=== PATIENT | female | born 1960 | race Caucasian/White ===

== ENCOUNTER 2024-04-01 11:46 | Outpatient (OUT) | payer MEDICARE, SELFPAY ==
[2024-04-01 12:13] LABS: Hemoglobin 13.1 g/dL (12.0-16.0); Immature Granulocytes Abs Auto 0.01 10^3/uL (0.00-0.03); Immature Granulocytes Pct Auto 0.1 % (0.0-0.5); Lymphocytes Absolute Auto 1.3 10^3/uL (1.2-3.8); Lymphocytes Percent Auto 18.7 % (20.5-60.0); Mean Corpuscular HGB Conc 34.5 g/dL (29.9-35.2); Mean Corpuscular Hemoglobin 32.4 pg (26.7-34.0); Mean Corpuscular Volume 94.1 fL (81.0-99.0); Mean Platelet Volume 8.9 fL (9.5-13.5); Monocytes Absolute Auto 0.3 10^3/uL (0.3-0.8); Monocytes Percent Auto 4.9 % (1.7-12.0); Neutrophils Absolute Auto 5.3 10^3/uL (1.4-6.5); Neutrophils Percent Auto 76.3 % (43.0-75.0); Platelet Count 297 10^3/uL (150-450); Red Blood Count 4.04 10^6/uL (4.20-5.40); Red Cell Distribution Width 12.3 % (11.0-15.0)
== END 2024-04-01 11:47 | disposition home or self-care (01) ==
LOC: LAB 11:51
DX: H02.422 Myogenic ptosis of left eyelid (principal)
CPT/HCPCS: 36415; 85025

== ENCOUNTER 2024-06-24 09:13 | Outpatient (OUT) | payer MEDICARE, SELFPAY ==
--- OUTSIDE RECORDS SUMMARY | 2024-06-24 09:24 | XMS_ITS | CCD ---
Author Organization [facility] Care Team Providers Care Manager [employer] Name Role Phone HARINI OLEA Primary Care Unavailable DARYL, DR MARIA ELENA Malik Attending Unavailable DARYL, DR MARIA ELENA Malik Consulting Unavailable DR MARIA ELENA BRITO Admitting Unavailable DEA ROWELL Consulting Unavailable Arianne Munoz Unavailable DO Harini Olea Primary Care Provider [phone] MD Arslan Chen Attending Provider Harini Olea Primary Care Physician Phi Matute Attending Unavailable Phi Matute Admitting Unavailable NO FAMILY, PHYSICIAN Primary Care Unavailable Harini Olea Primary Care Unavailable Arslan Chen Admitting Unavailable Arslan Chen Attending Unavailable Arslan Chen Admitting Unavailable Harini Olea Primary Care Unavailable Arslan Chen Attending Unavailable Unavailable Primary Care Provider UnavailJOSELIN Acuña Attending Unavail able Oc MATOS Primary Care Physician [phone] Oc MATOS Attending Unavailab le Oc MATOS A Admitting Unavailab le Oc MATOS A Attending Unavailab le Oc MATOS A Admitting Unavailab Gilberto Kolb DO Unavailable [phone] Taya Oh MD Primary Care Provider Taya Oh MD Primary Care Provider OC MATOS Attending Unavailab OC Mcmanus Attending Unavailab le ARSLAN CHEN Attending Unavailable Nicko Kerr. Attending Unavailable Allergies Allergy Classification Reported Allergen(s) Allergy Type Date of Onset Reaction(s) Facility (1 source) Cefuroxime Drug Allergy 01-26-2022 [facility] Repository (7 sources) Cefuroxime Drug Allergy 01-26-2022 Hives [facility] Medications Current Medications Medication Drug Class(es) Dates Sig (Normalized) Sig (Original) methIMAzole 5 mg oral tablet (13 sources) Thyroid Hormone Synthesis Inhibitor Start: 02-27-2023 End: 06-27-2024 take 1 tablet by mouth once daily methIMAzole (Tapazole) 5 MG tablet Indications: Thyrotoxicosis, unspecified without thyrotoxic crisis or storm (CMS/HCC) Take 1 tablet (5 mg) by mouth Daily 90 tablet 1 12/30/2023 06/27/2024 Active Start: 09-19-2020 take 1 mg by mouth e very eight hours Tapazole 5 mg Tab mg tab(s), Oral, q8hr, Refills(s) 0 Start Date: 09/19/20 Status: Ordered 24 hr metoprolol succinate 25 mg extended release oral tablet (12 sources) beta-Adrenergic Rosendo Start: 06-19-2020 End: 03-29-2024 take 1 tablet by mouth once daily metoprolol succinate XL (Toprol-XL) 25 MG 24 hr tablet Indications: 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) TAKE 1 TABLET BY MOUTH EVERY DAY 90 tablet 1 01/01/2024 Active Multiple Vitamin (multivitamin) tablet (2 sources) take 1 tablet by mouth once daily Multiple Vitamin (multivitamin) tablet Take 1 tablet by mouth Daily Active Multivitamin, Therapeutic w/ Minerals (3 sources) Start: 11-05-2019 take 1 tablet by mouth once daily Multivitamin, Therapeutic w/ Minerals 1 tab(s), Oral, Daily, Refill(s) 0, Prophylaxis Start Date: 11/05/19 Status: Ordered omeprazole 20 mg Cap-DR (4 sources) Start: 06-07-2021 End: 03-04-2022 take 1 capsule by mouth once daily omeprazole 20 mg Cap-DR 20 mg = 1 cap(s), Oral, Daily, X 90 day(s), # 90 cap(s), Refills(s) 2, Pharmacy: [facility]/pharmacy #[id number], 167, cm, 06/07/21 14:47:00 EDT, Height/Length Dosing, 60.7, kg, 06/07/21 14:47:00 EDT, Weight Dosing Start Date: 06/07/21 Stop Date: 03/04/22 Status: Ordered Start: 05-25-2021 End: 06-24-2021 take 1 capsule by mouth once daily omeprazole 20 mg Cap-DR 20 mg = 1 cap(s), Oral, Daily, X 30 day(s), # 30 cap(s), Refills(s) 0, Pharmacy: [facility]/pharmacy #[id number], 167, cm, 09/19/20 14:39:00 EDT, Height/Length Dosing, 52.4, kg, 09/19/20 14:39:00 EDT, Weight Dosing Start Date: 05/25/21 Stop Date: 06/24/21 Status: Ordered pantoprazole 40 mg delayed release oral tablet (2 sources) Proton Pump Inhibitor Start: 06-17-2024 take 1 tablet by mouth before mealtime pantoprazole (Protonix) 40 MG EC tablet Indications: Epigastric pain , Chronic GERD Take 1 tablet (40 mg) by mouth in the morning. Take before meals. Do not crush, chew, or split. 30 tablet 1 06/17/2024 Active Start: 06-17-2024 take 1 tablet by ralph th before mealtime pantoprazole (Protonix) 40 MG EC tablet Indications: Epigastric pain , Chronic GERD Take 1 tablet (40 mg) by mouth in the morning. Take before meals. Do not crush, chew, or split. 30 tablet 1 06/17/2024 Active Problems Problem Classification Problem Date Documented Da te Episodic/Chronic Abdominal pain (4 sources) Epigastric pain; Translations: [Epigastric pain] 06-17-2024 Episodic Allergic reactions (1 source) Allergic urticaria; Translations: [Allergic urticaria] Onset: 2 Episodic Cataract (2 sources) Bilateral age-related nuclear cataracts; Translations: [Age-related nuclear cataract, bilateral] Onset: 4 08-28-2023 Chronic E Codes: Natural/environment (1 source) Bitten by dog, initial encounter; Translations: [BITTEN BY DOG INITIAL ENCOUNTER] Onset: 1 Episodic Esophageal disorders (4 sources) Gastroesophageal reflux disease; Translations: [Gastro-esophageal reflux disease without esophagitis] 06-17-2024 Chronic Immunizations and screening for infectious disease (1 source) Encounter for immunization; Translations: [ENCOUNTER FOR IMMUNIZATION] Onset: 1 Episodic Other gastrointestinal disorders (1 source) H/O: gastrointestinal disease; Translations: [Personal history of other diseases of the digestive system] Onset: 2 Episodic Other gastrointestinal disorders (3 sources) History of gastritis 06-07-2021 Episodic Other screening for suspected conditions (not mental disorders or infectious disease) (10 sources) Thyroid function tests abnormal; Translations: [Abnormal results of thyroid function studies] Onset: 4 12-30-2023 Episodic Residual codes; unclassified (2 sources) Body mass index 20-24 - normal; Translations: [Body mass index (BMI) 23.0-23.9, adult] 06-17-2024 Episodic Substance-related disorders (2 sources) Cigarette smoker ; Translations: [Nicotine dependence, cigarettes, uncomplicated] 06-17-2024 Chronic Superficial injury; contusion (5 sources) Other superficial bite of left index finger, initial encounter; Translations: [Other superficial bite of left ring finger, initial encounter] Onset: 1 Episodic Thyroid disorders (11 sources) Thyrotoxicosis; Translations: [Thyrotoxicosis, unspecified without thyrotoxic crisis or storm] Onset: 4 12-13-2023 Chronic Unclassified (1 source) Thyrotoxicosis, unspecified without thyrotoxic crisis or storm; Translations: [Thyrotoxicosis, unspecified without thyrotoxic crisis or storm] Onset: 2 Unclassified (1 source) E05.90 - Thyrotoxicosis, unspecified without thyrotoxic crisis or storm; Translations: [E05.90 - Thyrotoxicosis, unspecified without thyrotoxic crisis or storm] Onset: 2 Results Test Name Value Interpretation Reference Range Facility HCV RNA by PCR, Qn Rfx Genoo n 09-22-2023 HCV genotype MEGHANN+probe Nom COMMENT Invalid Interpretation Code [facility] Comment on above: Result Comment: Not indicated Performed at: [address] [id number] MD Henok Tatum Performed By: #### 1 [id number] #### [facility] [address] [place] [address] HCV RNA MEGHANN+probe [Log units/Vol] COMMENT Invalid Interpretation Code [facility] Comment on above: Result Comment: Unab le to calculate result since non-numeric result obtained for component test. Performed By: #### 1 [id number] #### [facility] [address] [place] [address] HCV RNA MEGHANN+probe Qn Not detected Invalid Interpretation Code [facility] Comment on above: Performed By: #### 1 [id number] #### [facility] [address] [place] [address] Laboratory comment Hermann (Report) Comment Invalid Interpretation Code [facility] Comment on above: Result Comment: The quantitative range of this assay is 15 IU/mL to 100 million IU/mL. Performed By: #### 1 [id number] #### [facility] [address] [place] [address] CBC w/ Auto Diffon 4 Basophils/100 WBC (Bld) 0.1 % Normal 0.0-2.0 F [facility] Comment on above: Performed By: #### 2 [id number] #### [facility] [address] [place] [address] Basophils/Leukocytes Auto (Bld) [Pure # fraction] 0.0 E9/L Normal 0.0-0.2 [facility] Comment on above: Performed By: #### 2 [id number] #### [facility] [address] [place] [address] Eosinophils (Bld) [#/Vol] 0.0 E9/L Normal 0.0-0.5 [facility] Comment on above: Performed By: #### 2 [id number] #### [facility] [address] [place] [address] Eosinophils/100 WBC (Bld) 0.1 % Normal 0.0-8.0 [facility] Comment on above: Performed By: #### 2 [id number] #### [facility] [address] [place] [address] Erythrocyte distribution width (RBC) [Ratio] 13.0 % Normal 10.9-14.2 [facility] Comment on above: Performed By: #### 2 [id number] #### [facility] [address] [place] [address] Hematocrit (Bld) [Volume fraction] 38.7 % Normal 34.0-46.0 [facility] Comment on above: Performed By: #### 2 [id number] #### [facility] [address] [place] [address] Hemoglobin (Bld) [Mass/Vol] 13.7 g/dL Normal 12.0-16.0 [facility] Comment on above: Performed By: #### 2 [id number] #### [facility] [address] [place] [address] Lymphocytes (Bld) [#/Vol] 1.2 E9/L Normal 1.0-4.0 [facility] Comment on above: Performed By: #### 2 [id number] #### [facility] [address] [place] [address] Lymphocytes/100 WBC (Bld) 26.4 % Normal 14.0-50.0 [facility] Comment on above: Performed By: #### 2 [id number] #### [facility] [address] [place] [address] MCH (RBC) [Entitic mass] 33.5 pg Normal 27.0-34.0 [facility] Comment on above: Performed By: #### 2 [id number] #### [facility] [address] [place] [address] MCHC (RBC) [Mass/Vol] 35.5 g/dL Normal 31.4-36.0 [facility] Comment on above: Performed By: #### 2 [id number] #### [facility] [address] [place] [address] MCV (RBC) [Entitic vol] 94.5 fL Normal 80.0-100.0 F [facility] Comment on above: Performed By: #### 2 [id number] #### [facility] [address] [place] [address] Monocytes (Bld) [#/Vol] 0.2 E9/L Normal 0.2-1.0 [facility] Comment on above: Performed By: #### 2 [id number] #### [facility] [address] [place] [address] Neutrophils (Bld) [#/Vol] 3.0 E9/L Normal 2.0-7.5 [facility] Comment on above: Performed By: #### 2 [id number] #### [facility] [address] [place] [address] Neutrophils/100 WBC (Bld) 68.4 % Normal 36.0-75.0 [facility] Comment on above: Performed By: #### 2 [id number] #### [facility] [address] [place] [address] Platelet 232.0 E9/L Normal 150.0-500.0 [facility] Comment on above: Performed By: #### 2 [id number] #### [facility] [address] [place] [address] Platelet mean volume (Bld) [Entitic vol] 7.7 fL Normal 6.4-10.8 [facility] Comment on above: Performed By: #### 2 [id number] #### [facility] [address] [place] [address] RBC (Bld) [#/Vol] 4.1 E12/L Low 4.3-5.9 [facility] Comment on above: Performed By: #### 2 [id number] #### [facility] [address] [place] [address] WBC corrected for nucl RBC Auto (Bld) [#/Vol] 4.4 E9/L Normal 4.0-11.0 [facility] Comment on above: Performed By: #### 2 [id number] #### [facility] [address] [place] [address] CHEMISTRYOrdered By: SYSTEM SYSTEM on 09-20-2023 Albumin [Mass/Vol] 3.9 g/dL Normal 3.3 - 5.0 gm/dL [facility] Albumin/Globulin [Mass ratio] 1.3 {ratio} Normal 1.1 - 2.2 [facility] ALP [Catalytic activity/Vol] 67 [iU]/d Normal 21 - 98 Int._Unit/L [facility] ALT No additional P-5'-P [Catalytic activity/Vol] 8 [iU]/d Normal 6 - 46 Int._Unit/L [facility] Anion gap [Moles/Vol] 10 mmol/L Normal 6 - 16 mEq/L R [facility] Chem AST [Catalytic activity/Vol] 16 [iU]/d Normal 5 - 43 Int._Unit/L [facility] Bilirubin [Mass/Vol] 0.5 mg/dL Normal 0.0 - 1 .1 mg/dL [facility] Calcium [Mass/Vol] 9.1 mg/dL Normal 8.9 - 11. 1 mg/dL [facility] Chloride [Moles/Vol] 106 mmol/L Normal 101 - 1 11 mmol/L [facility] Cholesterol [Mass/Vol] 234 mg/dL High 120 - 200 mg/dL [facility] Cholesterol in HDL [Mass/Vol] 69 mg/dL Invalid Interpretation Code [facility] Comment on above: Result Comment: '>= 60 LOW RISK' '<= 40 HIGH RISK' Cholesterol in LDL [Mass/Vol] 152 mg/dL High <=129mg/dL [facility] Cholesterol in VLDL [Mass/Vol] 15 mg/dL Normal 7 - 40 mg/dL [facility] CO2 [Moles/Vol] 29 mmol/L Normal 21 - 31 mmol/L [facility] Creatinine [Mass/Vol] 0.7 mg/dL Normal 0.5 - 1.3 mg/dL [facility] eGFR 96 mL/min/1.73 m2 Normal >=59mL/min /1. 73 m2 [facility] Globulin (S) [Mass/Vol] 2.9 g/dL Normal 1.4 - 4.0 gm/dL [facility] Glucose [Mass/Vol] 92 mg/dL Normal 55 - 199 mg/dL [facility] Potassium [Moles/Vol] 4.4 mmol/L Normal 3.5 - 5.3 mmol/L [facility] Protein [Mass/Vol] 6.8 g/dL Normal 6.0 - 7.8 gm/dL [facility] Sodium [Moles/Vol] 141 mmol/L Normal 135 - 145 mmol/L [facility] Triglyceride [Mass/Vol] 75 mg/dL Normal <=149mg/dL [facility] Urea nitrogen [Mass/Vol] 6 mg/dL Normal 5 - 21 mg/dL [facility] Urea nitrogen/Creatinine [Mass ratio] 9 mg/mg Low 10 - [facility] CMPon 09-20-2023 Albumin [Mass/Vol] 3.9 g/dL Normal 3.3-5.0 [facility] Comment on above: Performed By: #### 2 [id number] #### [facility] [address] [place] [address] Albumin/Globulin (S) [Mass conc ratio] 1.3 Normal 1.1-2.2 [facility] Comment on above: Performed By: #### 2 [id number] #### [facility] [address] [place] [address] ALP [Catalytic activity/Vol] 67 Int._Unit/L Normal 21-98 [facility] Comment on above: Performed By: #### 2 [id number] #### [facility] [address] [place] [address] ALT No additional P-5'-P [Catalytic activity/Vol] 8 Int._Unit/L Normal 6-46 [facility] Comment on above: Performed By: #### 2 [id number] #### [facility] [address] [place] [address] Anion gap [Moles/Vol] 10 mmol/L Normal 6-16 [facility] Comment on above: Performed By: #### 2 [id number] #### [facility] [address] [place] [address] AST [Catalytic activity/Vol] 16 Int._Unit/L Normal 5-43 [facility] Comment on above: Performed By: #### 2 [id number] #### [facility] [address] [place] [address] Bilirubin [Mass/Vol] 0.5 mg/dL Normal 0.0-1.1 [facility] Comment on above: Performed By: #### 2 [id number] #### [facility] [address] [place] [address] Calcium [Mass/Vol] 9.1 mg/dL Normal 8.9-11.1 [facility] Comment on above: Performed By: #### 2 [id number] #### [facility] [address] [place] [address] Chloride [Moles/Vol] 106 mmol/L Normal 101-111 [facility] Comment on above: Performed By: #### 2 [id number] #### [facility] [address] [place] [address] CO2 [Moles/Vol] 29 mmol/L Normal 21-31 [facility] Comment on above: Performed By: #### 2 [id number] #### [facility] [address] [place] [address] Creatinine [Mass/Vol] 0.7 mg/dL Normal 0.5-1.3 [facility] Comment on above: Performed By: #### 2 [id number] #### [facility] [address] [place] [address] Globulin (S) [Mass/Vol] 2.9 g/dL Normal 1.4-4.0 F [facility] Comment on above: Performed By: #### 2 [id number] #### [facility] [address] [place] [address] Glucose [Mass/Vol] 92 mg/dL Normal 55-199 [facility] Comment on above: Performed By: #### 2 [id number] #### [facility] [address] [place] [address] Potassium [Moles/Vol] 4.4 mmol/L Normal 3.5-5.3 [facility] Comment on above: Performed By: #### 2 [id number] #### [facility] [address] [place] [address] Protein [Mass/Vol] 6.8 g/dL Normal 6.0-7.8 [facility] Comment on above: Performed By: #### 2 [id number] #### [facility] [address] [place] [address] Sodium [Moles/Vol] 141 mmol/L Normal 135-145 [facility] Comment on above: Performed By: #### 2 [id number] #### [facility] [address] [place] [address] Urea nitrogen [Mass/Vol] 6 mg/dL Normal 5-21 [facility] Comment on above: Performed By: #### 2 [id number] #### [facility] [address] [place] [address] Urea nitrogen/Creatinine [Mass ratio] 9 No Units Low 10-20 [facility] Comment on above: Performed By: #### 2 [id number] #### [facility] [address] [place] [address] HEMATOLOGYOrdered By: SYSTEM SYSTEM on 09-20-2023 Basophils/100 WBC (Bld) 0.1 % Normal 0.0 - 2.0 % [facility] Basophils/Leukocytes Auto (Bld) [Pure # fraction] 0.0 E9/L Normal 0.0 - 0.2 E9/L [facility] Eosinophils (Bld) [#/Vol] 0.0 E9/L Normal 0.0 - 0.5 E9/L [facility] Eosinophils/100 WBC (Bld) 0.1 % Normal 0.0 - 8.0 % [facility] Erythrocyte distribution width (RBC) [Ratio] 13.0 % Normal 10.9 - 14.2 % [facility] Hematocrit (Bld) [Volume fraction] 38.7 % Normal 34.0 - 46.0 % [facility] Hemoglobin (Bld) [Mass/Vol] 13.7 g/dL Normal 12.0 - 16.0 gm/dL [facility] Lymphocytes (Bld) [#/Vol] 1.2 E9/L Normal 1.0 - 4.0 E9/L [facility] Lymphocytes/100 WBC (Bld) 26.4 % Normal 14.0 - 50.0 % [facility] MCH (RBC) [Entitic mass] 33.5 pg Normal 27.0 - 34.0 pg [facility] MCHC (RBC) [Mass/Vol] 35.5 g/dL Normal 31.4 - 36.0 gm/dL [facility] MCV (RBC) [Entitic vol] 94.5 fL Normal 80.0 - 100.0 fL [facility] Monocytes (Bld) [#/Vol] 0.2 E9/L Normal 0.2 - 1.0 E9/L [facility] Monocytes/100 WBC (Bld) 5.0 % Normal 4.0 - 14.0 % [facility] Neutrophils (Bld) [#/Vol] 3.0 E9/L Normal 2.0 - 7.5 E9/L [facility] Neutrophils/100 WBC (Bld) 68.4 % Normal 36.0 - 75.0 % [facility] Platelet 232.0 E9/L Normal 150.0 - 500.0 E9/L [facility] Platelet mean volume (Bld) [Entitic vol] 7.7 fL Normal 6.4 - 10.8 fL [facility] RBC (Bld) [#/Vol] 4.1 E12/L Low 4.3 - 5.9 E12/L [facility] WBC corrected for nucl RBC Auto (Bld) [#/Vol] 4.4 E9/L Normal 4.0 - 11.0 E9/L [facility] Lipid Panelon 09-20-2023 Cholesterol [Mass/Vol] 234 mg/dL High 120-200 [facility] Comment on above: Performed By: #### 2 [id number] #### [facility] [address] [place] [address] Cholesterol in HDL [Mass/Vol] 69 mg/dL Invalid Interpretation Code [facility] Comment on above: Result Comment: '>= 60 LOW RISK' '<= 40 HIGH RISK' Performed By: #### 2 [id number] #### [facility] [address] [place] [address] Cholesterol in LDL [Mass/Vol] 152 mg/dL High <=129 [facility] Comment on above: Performed By: #### 2 [id number] #### [facility] [address] [place] [address] Cholesterol in VLDL [Mass/Vol] 15 mg/dL Normal 7-40 [facility] Comment on above: Performed By: #### 2 [id number] #### [facility] [address] [place] [address] Triglyceride [Mass/Vol] 75 mg/dL Normal <=149 [facility] Comment on above: Performed By: #### 2 [id number] #### [facility] [address] [place] [address] eGFRon 09-20-2023 eGFR 96 mL/min/1.73 m2 Normal >=59 [facility] Comment on above: Order Comment: Order added by Discern Expert. Performed By: #### 1 [id number] #### [facility] [address] [place] [address] [facility]N Tele[facility] (OPHTCR) -------- GORDON COTTO ([id number]) 1960 F Date Time Provider Department 08/25/23 JOSELIN NAIK OPHTCR During your visit today, we recorded the following information about you: Kim Kim 08/25/2023 11:03 AM Signed LM for patient to call back for previsit cat eval questions. Kim Arevalo August 25, 2023 11:03 AM Kim Kim 08/25/2023 11:38 AM Signed Pt called back.. Cataract Evaluation Pre Visit assessment Confirmed that patient interest in cataract surgery Yes Informed patient that their visit may take between 2 and 4 hours, including same day testing for their cataract evaluation and measurements for implant selection Informed patient that pupil dilation will be necessary to assess degree of cataracts, and status of posterior pole. 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 Patient does not wear contact lenses Power of document review attorney documented: Beatriz Arevalo August 25, 2023.. Allergies As of Date: 08/25/2023 (Not on File) Date Reviewed: Never Reviewed Reason for Visit: Cataract Evaluation [1919] Cmt: Pre visit cat eval questions. Problem List As Of Date: 08/25/2023 (None) Encounter Status:Closed by SOLEDAD AREVALO KIM A on 08/25/23 Normal [facility] Complete Blood Count Auto Di ffon 01-26-2022 Basophils (Bld) [#/Vol] 0.0 10*3/uL Normal 0.0-0.2 [facility] Comment on above: Result Comment: PERF ORMED BY: [place] [address] PATHOLOGIST STRETCH PRESS OPERATOR MELINA CR M.D. Performed By: #### C BC, CMP #### [address] Basophils/100 WBC (Bld) 0.3 % Normal . F [facility] Comment on above: Performed By: #### C BC, CMP #### [address] Eosinophils (Bld) [#/Vol] 0.0 10*3/uL Normal 0.0-0.45 [facility] Comment on above: Performed By: #### C BC, CMP #### [place] [address] [place] Eosinophils/100 WBC (Bld) 0.1 % Normal . [facility] Comment on above: Performed By: #### C BC, CMP #### [facility] [address] Erythrocyte distribution width (RBC) [Ratio] 13.1 % Normal 11.9-15.3 [facility] Comment on above: Performed By: #### C BC, CMP #### [facility] [address] Hematocrit (Bld) [Volume fraction] 34.7 % Normal 34.0-46.4 [facility] Comment on above: Performed By: #### C BC, CMP #### [facility] [address] Hemoglobin (Bld) [Mass/Vol] 11.8 g/dL Normal 11.8-15.4 [facility] Comment on above: Performed By: #### C BC, CMP #### [facility] [address] Lymphocytes (Bld) [#/Vol] 0.6 10*3/uL Low 1.00-4.8 [facility] Comment on above: Performed By: #### C BC, CMP #### [address] Lymphocytes/100 WBC (Bld) 9.7 % Normal . [facility] Comment on above: Performed By: #### C BC, CMP #### [address] MCH (RBC) [Entitic mass] 32.0 pg Normal 24.7-34.3 [facility] Comment on above: Performed By: #### C BC, CMP #### [address] MCV (RBC) [Entitic vol] 94.1 fL Normal 80-100 F [facility] Comment on above: Performed By: #### C BC, CMP #### [address] Mean Corpuscular HGB Conc 34.0 g/dL Normal 32.0-35.0 [facility] Comment on above: Performed By: #### C BC, CMP #### [address] Monocytes (Bld) [#/Vol] 0.2 10*3/uL Normal 0.0-0.8 [facility] Comment on above: Performed By: #### C BC, CMP #### [facility] [address] Monocytes/100 WBC (Bld) 22.68 % High 0.00-20.00 F [facility] Comment on above: Result Comment: For adults in ED, MDW > 20.0 may be associated with a higher risk of sepsis during the first 12 hrs of hospital admission Performed By: #### C BC, CMP #### [facility] [address] Monocytes/100 WBC (Bld) 3.7 % Normal . [facility] Comment on above: Performed By: #### C BC, CMP #### [facility] [address] Neutrophils (Bld) [#/Vol] 5.2 10*3/uL Normal 1.8-7.7 [facility] Comment on above: Performed By: #### C BC, CMP #### [address] Neutrophils/100 WBC (Bld) 86.2 % Normal . [facility] Comment on above: Performed By: #### C BC, CMP #### [place] [address] [place] NRBC% 0.1 /100{WBC} Normal 0-0.5 [facility] Comment on above: Performed By: #### C BC, CMP #### [address] Platelet mean volume (Bld) [Entitic vol] 7.5 fL Normal 6.3-10.7 [facility] Comment on above: Performed By: #### C BC, CMP #### [facility] [address] [place] [address] [place] Platelets (Bld) [#/Vol] 163 10*3/uL Normal 150-450 [facility] Comment on above: Performed By: #### C BC, CMP #### [facility] [address] [place] [address] [place] RBC (Bld) [#/Vol] 3.69 10*6/uL Normal 3.60-5.00 [facility] Comment on above: Performed By: #### C BC, CMP #### [address] WBC (Bld) [#/Vol] 6.0 10*3/uL Normal 3.8-11.6 [facility] Comment on above: Performed By: #### C BC, CMP #### [address] Comprehensive Metabolic Pane maggie 01-26-2022 Albumin [Mass/Vol] 2.9 g/dL Low 3.2-5.5 [facility] Comment on above: Performed By: #### C BC, CMP #### [address] Albumin/Globulin [Mass ratio] 1.2 {ratio} Normal [facility] Comment on above: Performed By: #### C BC, CMP #### [address] ALP [Catalytic activity/Vol] 76 U/L Normal 32-92 [facility] Comment on above: Performed By: #### C BC, CMP #### [address] ALT [Catalytic activity/Vol] 38 U/L Normal 10-60 [facility] Comment on above: Performed By: #### C BC, CMP #### [address] Anion gap [Moles/Vol] 10.3 mmol/L Normal 6.0-15.0 [facility] Comment on above: Performed By: #### C BC, CMP #### [address] AST [Catalytic activity/Vol] 113 U/L High 10-42 [facility] Comment on above: Performed By: #### C BC, CMP #### [address] Bilirubin [Mass/Vol] 0.9 mg/dL Normal 0.3-1.2 [facility] Comment on above: Performed By: #### C BC, CMP #### [facility] [address] [place] [address] [place] Calcium [Mass/Vol] 8.0 mg/dL Low 8.2-10.2 [facility] Comment on above: Performed By: #### C BC, CMP #### [facility] [address] [place] [address] [place] Chloride [Moles/Vol] 103 mmol/L Normal 95-114 [facility] Comment on above: Performed By: #### C BC, CMP #### [facility] [address] [place] [address] [place] CO2 [Moles/Vol] 25.2 mmol/L Normal 22.0-30.0 [facility] Comment on above: Performed By: #### C BC, CMP #### [facility] [address] Creatinine [Mass/Vol] 0.71 mg/dL Normal 0.44-1.03 [facility] Comment on above: Performed By: #### C BC, CMP #### [facility] [address] [place] [address] [place] Creatinine Clr Calc Pharmacy 75.92 [facility] Comment on above: Result Comment: PERF ORMED BY: [place] [address] PATHOLOGIST STRETCH PRESS OPERATOR MELINA CR M.D. Performed By: #### C BC, CMP #### [address] Estimated GFR ( Ramonita > 60 [facility] Comment on above: Result Comment: GFR estimated reference range: According to KDOQI guidelines, <60 ml/min/1.73m2 is sufficient to diagnose a patient with chronic kidney disease. Performed By: #### C BC, CMP #### [facility] [address] [place] [address] [place] Estimated GFR (Non- Am > 60 [facility] Comment on above: Performed By: #### C BC, CMP #### [address] [place] [address] [place] Globulin (S) [Mass/Vol] 2.5 g/dL Normal [facility] Comment on above: Performed By: #### C BC, CMP #### [facility] [address] Glucose [Mass/Vol] 101 mg/dL High 70-100 [facility] Comment on above: Result Comment: [facility] Glucose Reference Range is dependent on time and content of last meal. Glucose of more than 200 mg/dL in a nonstressed, ambulatory subject supports the diagnosis of Diabetes Mellitus. ADA recommended reference range Performed By: #### C BC, CMP #### [facility] [address] Potassium [Moles/Vol] 3.5 mmol/L Normal 3.5-5.1 [facility] Comment on above: Performed By: #### C BC, CMP #### [address] Protein [Mass/Vol] 5.4 g/dL Low 6.1-7.9 [facility] Comment on above: Performed By: #### C BC, CMP #### [address] Sodium [Moles/Vol] 135 mmol/L Low 136-146 [facility] Comment on above: Performed By: #### C BC, CMP #### [address] Urea nitrogen [Mass/Vol] 7 mg/dL Low 9-23 [facility] Comment on above: Performed By: #### C BC, CMP #### [address] ECG 12 lead ECGon 01-26-2022 ECG 12 lead ECG [facility] [place] [address] [place] [address] Electrocardiograph Report Signed Patient: Jessica Cotto MR#: [id number] : 1960 Acct:[id number] Age/Sex: 61 / F ADM Date: 01/26/22 Loc: ER Room: Type: [facility] ER Attending Dr: Ordering Provider: Phi Matute DO Date of Service: 01/26/22 ECG/ECG 12 lead ECG: ALLERGIC REACTION Copies to: Test Reason : Blood Pressure : 115/064 mmHG Vent. Rate : 070 BPM Atrial Rate : 070 BPM P-R Int : 142 ms QRS Dur : 084 ms QT Int : 396 ms P-R-T Axes : 062 075 059 degrees QTc Int : 427 ms Normal sinus rhythm Confirmed by Phi MATUTE DO ([id number]) on 01/26/2022 4:34:51 PM Referred By: Electronically Signed By:Phi MATUTE DO Transcribed By: MUS Signed By Phi Matute DO 03/29/21 1634 Normal [facility] Free T4 (Free Thyroxine)on 02-19-2021 Free T4 [Mass/Vol] 0.60 ng/dL Low 0.61-1.12 [facility] Comment on above: Performed By: #### T 3F, T4F, TSH3 #### [place] [id number] [facility] Thyroid Stimulating Hormoneo n 12-20-2021 TSH Qn 2.30 m[IU]/L Normal 0.45-5.33 [facility] Comment on above: Result Comment: PERF ORMED BY: [place] [address] PATHOLOGIST STRETCH PRESS OPERATOR MELINA CR M.D. Performed By: #### T 3F, T4F, TSH3 #### [place] [id number] [facility] Triiodothyronine (T3) Freeon 12-20-2021 Triiodothyronine (T3) Free 3.24 pg/mL Normal 2.50-3.90 [facility] Comment on above: Result Comment: PERF ORMED BY: [place] [address] PATHOLOGIST STRETCH PRESS OPERATOR MELINA CR M.D. Performed By: #### T 3F, T4F, TSH3 #### [place] [address] Body fluid albumin measureme nt (mass/volume)Ordered By: Arslan Chen on 06-07-2021 Albumin (Body fld) [Mass/Vol] 3.6 g/dL 3.2-5.5 [facility] CHEMISTRYOrdered By: SYSTEM SYSTEM on 06-07-2021 Anion gap [Moles/Vol] 11 mmol/L Normal 6 - 16 mEq/L [facility] Calcium [Mass/Vol] 9.3 mg/dL Normal 8.9 - 11. 1 mg/dL [facility] Chloride [Moles/Vol] 104 mmol/L Normal 101 - 1 11 mmol/L [facility] CO2 [Moles/Vol] 28 mmol/L Normal 21 - 31 mmol/L [facility] Cobalamin (Vitamin B12) [Mass/Vol] 232 pg/mL Normal 50 - 1500 pg/mL [facility] Creatinine [Mass/Vol] 0.7 mg/dL Normal 0.5 - 1.3 mg/dL [facility] Remisol GFR/1.73 sq M.predicted among blacks MDRD (S/P/Bld) [Vol rate/Area] mL/min/1.73 m2 Normal >=59mL/min/1. 73 m2 FT Chem S GFR/1.73 sq M.predicted among non-blacks MDRD (S/P/Bld) [Vol rate/Area] mL/min/1.73 m2 Normal >=59mL/min/1. 73 m2 FT Chem S Glucose [Mass/Vol] 68 mg/dL Normal 55 - 199 mg/dL [facility] Remisol Magnesium [Mass/Vol] 2.2 mg/dL Normal 1.3 - 2 .4 mg/dL [facility] Potassium [Moles/Vol] 4.2 mmol/L Normal 3.5 - 5.3 mmol/L [facility] Sodium [Moles/Vol] 139 mmol/L Normal 135 - 145 mmol/L [facility] Urea nitrogen [Mass/Vol] 8 mg/dL Normal 5 - 21 mg/dL [facility] Urea nitrogen/Creatinine [Mass ratio] 11 mg/mg Normal 10 - 20 [facility] Direct bilirubin measurement Ordered By: Arslan Chen on 06-07-2021 Bilirubin.direct [Mass/Vol] mg/dL 0.0-0.4 [facility] Free T4 (Free Thyroxine)on 0 06-07-2021 Free T4 [Mass/Vol] 0.64 ng/dL Normal 0.61-1.12 [facility] Comment on above: Performed By: #### T 3F, HEPATIC, T4F, TSH3 #### [facility] [address] Globulin Calc (S) [Mass/Vol] Ordered By: Arslan Chen on 06-07-2021 Globulin (S) [Mass/Vol] 2.3 g/dL [facility] Hepatic Panelon 06-07-2021 Albumin [Mass/Vol] 3.6 g/dL Normal 3.2-5.5 [facility] Comment on above: Performed By: #### T 3F, HEPATIC, T4F, TSH3 #### [facility] [address] Albumin/Globulin [Mass ratio] 1.6 {ratio} Normal [facility] Comment on above: Performed By: #### T 3F, HEPATIC, T4F, TSH3 #### [facility] [address] [place] [id number] [facility] ALP [Catalytic activity/Vol] 62 U/L Normal 32-92 [facility] Comment on above: Performed By: #### T 3F, HEPATIC, T4F, TSH3 #### [facility] [address] [place] [id number] [place] ALT [Catalytic activity/Vol] 12 U/L Normal 10-60 [facility] Comment on above: Performed By: #### T 3F, HEPATIC, T4F, TSH3 #### [facility] [address] [place] [id number] [place] AST [Catalytic activity/Vol] 20 U/L Normal 10-42 [facility] Comment on above: Performed By: #### T 3F, HEPATIC, T4F, TSH3 #### [facility] [address] [place] [id number] [facility] Bilirubin [Mass/Vol] 0.4 mg/dL Normal 0.3-1.2 [facility] Comment on above: Performed By: #### T 3F, HEPATIC, T4F, TSH3 #### [facility] [address] Bilirubin,Indirect Not performed Normal [facility] Comment on above: Performed By: #### T 3F, HEPATIC, T4F, TSH3 #### [facility] [address] Bilirubin.indirect [Mass/Vol] mg/dL Normal 0.0-0.4 [facility] Comment on above: Performed By: #### T 3F, HEPATIC, T4F, TSH3 #### [facility] [address] Globulin (S) [Mass/Vol] 2.3 g/dL Normal [facility] Comment on above: Performed By: #### T 3F, HEPATIC, T4F, TSH3 #### [facility] [address] Protein [Mass/Vol] 5.9 g/dL Low 6.1-7.9 [facility] Comment on above: Performed By: #### T 3F, HEPATIC, T4F, TSH3 #### [facility] [address] Protein [Mass/volume] in Ser um or PlasmaOrdered By: Arslan Chen on 06-07-2021 Protein [Mass/Vol] 5.9 g/dL 6.1-7.9 [facility] Serum or plasma alanine mcdowell otransferase measurement without P-5'-P (enzymatic activiOrdered By: Arslan Chen on 06-07-2021 ALT No additional P-5'-P [Catalytic activity/Vol] 12 U/L 10-60 [facility] Serum or plasma albumin/glob ulin mass ratioOrdered By: Arslan Chen on 06-07-2021 Albumin/Globulin [Mass ratio] 1.6 {ratio} [facility] Serum or plasma alkaline anali sphatase measurement (enzymatic activity/volume)Ordered By: Arslan Chen on 06-07-2021 ALP [Catalytic activity/Vol] 62 U/L 32-92 [facility] Serum or plasma aspartate am inotransferase measurement (enzymatic activity/volume)Ordered By: Arslan Chen on 06-07-2021 AST [Catalytic activity/Vol] 20 U/L 10 [facility] Serum or plasma non-glucuron idated bilirubin measurement (mass/volume)Ordered By: caren Mayorgagh on 06-07-2021 Bilirubin.indirect [Mass/Vol] TNP [facility] Comment on above: Test not performed Serum or plasma total biliru bin measurement (mass/volume)Ordered By: Arslan Chen on 06-07-2021 Bilirubin [Mass/Vol] 0.4 mg/dL 0.3-1.2 [facility] TSH DL <= 0.005 mIU/L QnOrde red By: Arslan Chen on 06-07-2021 TSH Qn 3.18 m[IU]/L 0.45-5.33 [facility] Thyroid Stimulating Hormoneo n 06-07-2021 TSH Qn 3.18 m[IU]/L Normal 0.45-5.33 [facility] Comment on above: Result Comment: PERF ORMED BY: [place] [address] PATHOLOGIST STRETCH PRESS OPERATOR MELINA CR M.D. Performed By: #### T 3F, HEPATIC, T4F, TSH3 #### [facility] [address] Thyroxine (T4) free [Mass/vo lume] in Serum or PlasmaOrdered By: Arslan Chen on 06-07-2021 Free T4 [Mass/Vol] 0.64 ng/dL 0.61-1.12 [facility] Triiodothyronine (T3) Freeon 06-07-2021 Triiodothyronine (T3) Free 2.89 pg/mL Normal 2.50-3.90 [facility] Comment on above: Result Comment: PERF ORMED BY: [facility] [address] [facility] [id number] PATHOLOGIST STRETCH PRESS OPERATOR MELINA CR M.D. Performed By: #### T 3F, HEPATIC, T4F, TSH3 #### [facility] [address] Triiodothyronine (T3) Free [ Mass/volume] in Serum or PlasmaOrdered By: Arslan Chen on 06-07-2021 Free T3 [Mass/Vol] 2.89 pg/mL 2.50-3.90 [facility] XR HAND LT MIN 3Von 10-24-19 21 XR HAND LT MIN 3V EXAM: XR HAND LT MIN 3V HISTORY: Bone injury COMPARISON: None. TECHNIQUE: 3 views right hand FINDINGS: No acute fracture or dislocation identified. Scattered degenerative changes are present. IMPRESSION: No acute osseous abnormality. Electronically authenticated by: ARIANNE MUNOZ Date: 2020-10-23 20:40 Normal [facility] Vital Signs Date Time Vital Sign Value Performing Clinician Faci lity 06-17-2024 09:19-0400 Body height 167.6 cm Oc Odomr [employer] Work Phone: [facility] 06-17-2024 09:19-0400 Body mass index (BMI) [Ratio] 23.47 kg/m2 Oc Odomr [employer] Work Phone: [facility] 06-17-2024 09:19-0400 Body temperature 97.7 [degF] Oc Odomr [employer] Work Phone: [facility] 06-17-2024 09:19-0400 Body weight 65.95 kg Oc Odomr [employer] Work Phone: [facility] 06-17-2024 09:19-0400 Diastolic blood pressure 80 mm[Hg] Oc Marcusiller [employer] Work Phone: [facility] 06-17-2024 09:19-0400 Heart rate 90 /min Oc Marcusiller [employer] Work Phone: [facility] 06-17-2024 09:19-0400 SaO2% (BldA) [Mass fraction] 99 % Oc Marcusiller [employer] Work Phone: [facility] 06-17-2024 09:19-0400 Systolic blood pressure 118 mm[Hg] Oc Marcuskateryna ESCAMILLA Work Phone: [facility] 12-30-2023 13:06-0500 Body height 167.6 cm Arslan Chen MD Work Phone: [facility] 12-30-2023 13:06-0500 Body mass index (BMI) [Ratio] 23.08 kg/m2 Arslan Chen MD Work Phone: [facility] 12-30-2023 13:06-0500 Body weight 64.86 kg Arslan Chen MD Work Phone: [facility] 12-30-2023 13:06-0500 Diastolic blood pressure 80 mm[Hg] Arslan Chen MD Work Phone: [facility] 12-30-2023 13:06-0500 Heart rate 74 /min Arslan Chen MD Work Phone: [facility] 12-30-2023 13:06-0500 Respiratory rate 16 /min Arslan Chen MD Work Phone: [facility] 12-30-2023 13:06-0500 Systolic blood pressure 112 mm[Hg] Arslan Chen MD Work Phone: [facility] 06-07-2021 14:42-0400 Blood Pressure Location Geni Castillo [facility] 06-07-2021 14:42-0400 Body temperature 97.34 [degF] Geni Castillo [facility] 06-07-2021 14:42-0400 Diastolic blood pressure 78 mm[Hg] Geni Castillo [facility] 06-07-2021 14:42-0400 Heart rate 77 /min Geni Castillo [facility] 06-07-2021 14:42-0400 SaO2% (BldA) [Mass fraction] 100 % Geni Castillo [facility] 06-07-2021 14:42-0400 Systolic blood pressure 115 mm[Hg] Geni Castillo [facility] Encounters Encounter Date Encounter Type Care Provider Facility Start: 07-08-2024 ambulatory Nicko Painting lity:[facility] Start: 06-17-2024 End: 06-17-2024 Bamboo flowsheet Oc Marcusiller [employer] Work Phone: [facility] Start: 06-17-2024 End: 06-17-2024 Bamboo flowsheet Oc A Donnamiller [employer] Work Phone: [facility] Start: 06-17-2024 End: 06-17-2024 Office outpatient visit 15 minutes Oc Marcusiller [employer] Work Phone: [facility] Comment on above: Epigastric pain (Linda viridiana Dx); Chronic GERD; BMI 23.0-23.9, adult; Breast cancer screening by mammogram; Cigarette smoker Start: 06-17-2024 End: 06-17-2024 ambulatory OC A DONNAMILLER Not Available Start: 06-14-2024 End: 06-15-2024 Telephone encounter Oc Odomr [employer] Work Phone: [facility] Comment on above: Referral Start: 12-30-2023 End: 12-30-2023 ambulatory ARSLAN CHEN Not Available Start: 12-30-2023 End: 12-30-2023 Office outpatient visit 25 minutes Arslan Chen MD Work Phone: [facility] Comment on above: 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); Abnormal results of thyroid function studies; Thyrotoxicosis, unspecified without thyrotoxic crisis or storm (CMS/HCC) Start: 12-13-2023 End: 12-14-2023 Refill Arslan Chen MD Work Phone: [facility] Comment on above: Thyrotoxicosis, unsp ecified without thyrotoxic crisis or storm (CMS/HCC) Start: 09-20-2023 End: 09-20-2023 ambulatory Oc ODOMR Facility:[facility] Start: 09-20-2023 End: 09-20-2023 Patient encounter procedure Oc MATOS [facility] Start: 09-17-2023 End: 09-17-2023 ambulatory OC MATOS Not Available Start: 08-28-2023 End: 08-28-2023 Patient encounter procedure Joselin Leyva MD Work Phone: Ophthalmology Comment on above: Age-related nuclear cataract of both eyes (Primary Dx) Start: 08-28-2023 ambulatory JOSELIN LEYVA Facility:[facility] Start: 08-25-2023 Telephone encounter Joselin Leyva MD Work Phone: Ophthalmology Comment on above: Cataract Evaluation (Pre visit cat eval questions. ) Start: 01-26-2022 End: 01-26-2022 Emergency department patient visit Phi Matute Facility:[facility] Start: 12-20-2021 End: 12-20-2021 ambulatory Harini Olea Facility:[facility] Start: 06-07-2021 End: 06-07-2021 Patient encounter procedure Geni Castillo [facility] Start: 06-07-2021 End: 06-07-2021 ambulatory Arslan Chen Facility:[facility] Start: 06-07-2021 End: 06-07-2021 Patient encounter procedure DO Harini lOea Work Phone: [facility] [place] Start: 10-23-2020 End: 10-23-2020 ambulatory HARINI OLEA Facility:[facility] Procedures Date Procedure Procedure Detail Performing Clinician Start: 05-24-2020 Esophagogastroduodenoscopy gastric outlet reduction Geni Castillo Start: 11-05-2019 Colonoscopy Arslan Chen MD Work Phone: Start: 11-05-2019 Colonoscopy Geni Castillo Plan of Treatment Date Care Activity Detail Author Start: 10-23-2030 Urine microalbumin profile DTaP,Tdap,Td Vaccine (2 - Tdap) [place] Start: 11-04-2029 Screening for malignant neoplasm of colon [facility] Start: 10-11-2024 Influenza vaccination Influenza Vaccine (Season Ended) [facility] Start: 09-16-2024 Medicare Annual Wellness (AWV) Medicare Annual Wellness (AWV) [facility] Start: 06-29-2024 End: 06-29-2024 Patient encounter procedure 06/29/2024 1:10 PM EDT Office Visit [facility] [address] [place] [id number] Arslan Chen MD [address] [place] [address] [facility] Start: 06-17-2024 End: 08-17-2025 DBT Breast - bilateral screening Bilateral screening mammogram with tomosynthesis Imaging Routine Breast cancer screening by mammogram Expected: 06/17/2024, Expires: 08/17/2025 [facility] Work Phone: Comment on above: Expected: 06/17/2024, Expires: Start: 06-17-2024 End: 06-17-2024 Patient encounter procedure 06/17/2024 9:20 AM EDT [facility] [address] [place] [address] Oc Matos NP [address] [place] [address] Arrived [facility] Comment on above: Arrived Start: 12-30-2023 End: 12-29-2024 Thyrotropin [Units/volume] in Serum or Plasma TSH Lab Routine 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) Expected: 12/30/2023 (Approximate), Expires: 12/29/2024 [facility] Comment on above: Expected: 12/30/2023 (Approximate), Expi res: 12/29/2024 Start: 12-30-2023 End: 12-29-2024 Thyroxine (T4) free [Mass/volume] in Serum or Plasma T4, free Lab Routine 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) Expected: 12/30/2023 (Approximate), Expires: 12/29/2024 [facility] Comment on above: Expected: 12/30/2023 (Approximate), Expi res: 12/29/2024 Start: 12-30-2023 End: 12-29-2024 Triiodothyronine (T3) Free [Mass/volume] in Serum or Plasma T3, free Lab Routine 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) Expected: 12/30/2023 (Approximate), Expires: 12/29/2024 [facility] Work Phone: Comment on above: Expected: 12/30/2023 (Approximate), Expi res: 12/29/2024 Start: 12-30-2023 End: 12-30-2023 Patient encounter procedure 12/30/2023 1:00 PM EST Office Visit [facility] [address] [place] [phone] Arslan Chen MD [address] [place] [address] [facility] Start: 10-23-2023 End: 10-23-2023 Patient encounter procedure 10/23/2023 1:00 PM EDT Office Visit [facility] [address] [facility] [place] [address] Adry Coburn MD [address] [place] [address] Cat eval (NEW) ref by Dr. Rivera Ophthalmology Comment on above: Cat eval (NEW) ref by Dr. Rivera Start: 10-12-2023 Influenza vaccination Influenza Vaccine (#1) [facility] Start: 10-01-2023 Covid-19 Vaccine ( season) Covid-19 Vaccine () [place] Start: 08-28-2023 End: 08-28-2023 Patient encounter procedure Ophthalmology Comment on above: Cat eval (NEW) ref by Dr. Rivera [facility] Start: 06-14-2023 Advance Directive Discussion Advance Directive Discussion [place] Start: 06-14-2023 Pneumococcal Vaccine: 65+ (1 of 1 - PCV) Pneumococcal Vaccine: 65+ (1 of 1 - PCV) [place] Start: 06-14-2023 Screening for osteoporosis Bone Density Screening [place] Start: 02-10-2023 Behavioral Health Screening Behavioral Health Screening [place] Start: 10-11-2022 Covid-19 Vaccine ( season) Covid-19 Vaccine () [place] Start: 2018 RSV Vaccine (1 - 1-dose 60+ series) RSV Vaccine (1 - 1-dose 60+ series) [place] Start: 2008 Shingrix Vaccine (1 of 2) Shingrix Vaccine (1 of 2) [place] Start: 06-14-2003 Diabetes Screening Diabetes Screening [place] Start: 06-14-2003 Lipid panel Lipid Screening [place] Start: 06-14-2003 Screening for malignant neoplasm of colon [place] Start: 1998 Screening for malignant neoplasm of breast [place] Start: 1988 Screening for malignant neoplasm of cervix [facility] Start: 06-14-1979 Screening for malignant neoplasm of cervix Pap Smear [facility] Start: 1977 Urine microalbumin profile DTaP,Tdap,Td Vaccine (1 - Tdap) [place] Start: 1976 Hepatitis C screening Hepatitis C Screening [place] Start: 1976 HIV screening HIV Screening [place] Start: 1958 Screening for malignant neoplasm of colon [facility] CORNEAL TOPOGRAPHY PENTACAM OU (BOTH EYES) CORNEAL TOPOGRAPHY PENTACAM OU (BOTH EYES) [facility] Imaging Routine Age-related nuclear cataract of both eyes Ordered: 08/28/2023 [place] Comment on above: Ordered: 08/28/2023 IOL BIOMETRY W/ IOL CALC OU (BOTH EYES) IOL BIOMETRY W/ IOL CALC OU (BOTH EYES) OPHT Imaging Routine Age-related nuclear cataract of both eyes Ordered: 08/28/2023 [place] Comment on above: Ordered: 08/28/2023 OCT MACULA CIRRUS OU (BOTH EYES) OCT MACULA CIRRUS OU (BOTH EYES) OPHT Imaging Routine Age-related nuclear cataract of both eyes Ordered: 08/28/2023 [facility] Work Phone: Comment on above: Ordered: 08/28/2023 Immunizations Immunization Date Immunization Notes Care Provider Servando delatorre 11-11-2020 influenza virus vacc ine, unspecified formulation Joselin Leyva MD Work Phone: [place] Payers Date Payer Category Payer Medicare [id number] 2023 Unknown [employer] PPO OOS [id number] 2023-Present [phone] [address] [place] [address] PPO [id number] 2023 Medicare [id number] 2023 Unknown [id number] 2023 Unknown [id number] 2021 Self-pay [id number] 1959 Unknown [id number] 1958 Unknown [id number] 1958 Unknown [id number] 1958 Unknown [id number] 1958 Unknown [id number] 1958 Unknown [id number] 1958 Unknown [id number] Unknown [id number] Unknown [id number] Unknown [id number] Social History Date Type Detail Facility [facility] Work Phone: Start: 1960 Sex Assigned At Female F [facility] Start: 06-07-2021 Tobacco smoking status Light t obacco smoker (finding) [facility] Tobacco smoking status Never Pablo [facility] Start: 08-28-2023 End: 09-17-2023 Sex Assigned At Female [facility] smoking consumption unknown [place] Start: 1960 Sex Assigned At Not on file C [facility] Start: 08-28-2023 End: 09-17-2023 History of Social function [place] Start: 02-10-1999 [facility] daily [facility] Start: 02-10-1999 History of tobacco use Cigarette Smo ker [facility] Start: 09-17-2023 Tobacco use and exposure Smokeless tobacco non-user [facility] Start: 09-17-2023 End: 06-17-2024 Alcoholic beverage intake Lifetime non-drinker (finding) [facility] Clinical Notes 06-07-2021 to 06-17-2024 Oc Matos NP - 06/17/2024 9:20 AM EDTTelephone Encounter - Trinidad Munoz MA - 06/14/2024 9:12 AM EDTTelephone Encounter - Trinidad Munoz MA - 06/14/2024 9:12 AM EDT Note Date & Type Note Facility 06-17-2024 History of Presen t illness Narrative Images from the original note were not included. Jessica Cotto is a 64 y.o. female presents with chief complaint of Referral (Gastroenterology) HPI: History of Present Illness The patient is a 64-year-old female who presents today requesting a referral to gastroenterology. She has expressed interest in undergoing an upper endoscopy due to recurrent episodes of severe epigastric burning pain over the past 6 months. These episodes are described as feeling like a torch inside her, and she has attempted to identify potential dietary triggers. However, the pain has occurred even on days when she consumed only water. The pain is alleviated by assuming a position on her left side. She reports no associated nausea or vomiting and maintains regular bowel movements. Frequent belching is noted, occasionally accompanied by a sensation of impending vomiting. Her daily fluid intake consists of 3 cups of coffee in the morning, followed by water for the remainder of the day. She is a current smoker but is attempting to reduce her consumption. She does not consume large or late meals and has no history of abdominal surgeries. She reports no acid or burning taste in the back of her throat, and her symptoms do not disturb her sleep. She has no history of H. pylori infection, hernia, or ulcers. She has never undergone an EGD. She also reports no chest pain, shortness of breath, or palpitations. She was previously prescribed Nexium, which she discontinued due to lack of efficacy. Approximately 4 to 5 years ago, she underwent a colonoscopy during which dried blood was observed from the distal esophagus extending into the stomach. She was subsequently started on Nexium, which provided relief at that time. SOCIAL HISTORY The patient smokes but has been trying to cut down. The patient drinks 3 cups of coffee in the morning and then switches to water for the rest of the day. SUBJECTIVE: ALLERGIES: Allergies Allergen Reactions Cefuroxime Hives MEDICATIONS: Current Outpatient Medications Medication Instructions methIMAzole (TAPAZOLE) 5 mg, Oral, Daily metoprolol succinate XL (TOPROL-XL) 25 mg, Oral, Daily Multiple Vitamin (multivitamin) tablet 1 tablet, Daily pantoprazole (PROTONIX) 40 mg, Oral, Daily before breakfast, Do not crush, chew, or split. REVIEW OF SYMPTOMS: Constitutional: Denies fever or chills, anorexia. Respiratory: Denies cough, wheezing or difficulty breathing. Cardiovascular: Denies chest pain or pressure, shortness of breath with normal activity, palpitations. Gastrointestinal: Denies nausea , vomiting. + epigastric pain. Genitourinary: Denies dysuria, hematuria, frequency or urgency. OBJECTIVE: Visit Vitals BP 118/80 (BP Location: Right arm, Patient Position: Sitting, BP Cuff Size: Adult) Pulse 90 Temp 97.7 F Ht 5' 6 Wt 145 lb 6.4 oz SpO2 99% BMI 23.47 kg/m OB Status No Periods Smoking Status Every Day BSA 1.75 m BP Readings from Last 3 Encounters: 06/17/24 118/80 12/14/23 108/70 12/30/23 112/80 Wt Readings from Last 3 Encounters: 06/17/24 145 lb 6.4 oz 12/14/23 127 lb 12/30/23 143 lb General: Well developed, well nourished, in no acute distress sitting upright in chair. Head: Normocephalic/atraumatic. Eyes: No conjunctival irritation. Ears: Grossly normal hearing. Nose: No discharge. Mouth: MMM, talkative. Neck: Supple. Chest: No distress. Lungs: Normal respiratory effort and clear to auscultation. No rhonchi or wheeze. Cardio: RRR, without murmur. Abdomen: Normal bowel sounds noted. Abdomen is soft and nontender. No CVA tenderness, bilaterally. Musculoskeletal: Steady gait. Neurologic: Grossly normal. Skin: Skin is warm and dry. Mental Status: Alert and cooperative. Results No results found for: HGBA1C Lab Results Component Value Date CREATININE 0.7 09/20/2023 ASSESSMENT AND PLAN: Assessment & Plan 1. Epigastric pain. - Reports experiencing severe burning sensations in the epigastric region, which occur randomly and are not related to food or drink intake. Symptoms have been present intermittently for the past 6 months. - No history of nausea, vomiting, changes in bowel movements, hernia, ulcers, or H. pylori infection. Previously took Nexium but discontinued due to lack of efficacy. - Discussed the potential exacerbating factors such as caffeine intake and smoking habits. Advised to monitor these habits. Referral to gastroenterology has been initiated for further evaluation, including a potential EGD. - Prescription for pantoprazole 40 mg, to be taken once daily an hour before her first meal, has been provided with 1 refill for 30 days. If she does not receive a call to schedule the EGD within a week, she should inform the office. Assessment/Plan Diagnoses and all orders for this visit: Epigastric pain - pantoprazole (Protonix) 40 MG EC tablet; Take 1 tablet (40 mg) by mouth in the morning. Take before meals. Do not crush, chew, or split. - Ambulatory referral to Gastroenterology; Future Chronic GERD - pantoprazole (Protonix) 40 MG EC tablet; Take 1 tablet (40 mg) by mouth in the morning. Take before meals. Do not crush, chew, or split. - Ambulatory referral to Gastroenterology; Future BMI 23.0-23.9, adult Maintain a healthy weight. Breast cancer screening by mammogram - Bilateral screening mammogram with tomosynthesis; Future Cigarette smoker Smoking cessation strongly encouraged. Cigarette smoking harms nearly every organ of the body, causes many diseases, and reduces the health of smokers in general. Quitting smoking lowers your risk for smoking-related diseases and can add years to your life. 2-517-JILU-NOW or www.smokefree.gov provide access to helpful resources including free telephone support. If you decide prescription treatment may help you quit, please contact your provider. Please Note: Portions of this chart may have been created using voice recognition software. Occasional wrong-word or sound-like substitutions may have occurred due to inherent limitations of the voice recognition software. Please read the chart carefully and recognize, using context, where the substitutions have occurred. documented in this encounter [facility] 06-14-2024 Telephone encounter Note Pt should have appt to be evaluated [facility] 06-14-2024 Miscellaneous Notes Pt should have appt to be evaluated Pt called in stated no matter what she eats or drinks she is in pain. She is asking for a referral to get a EGD done to figure out what is causing this. documented in this encounter [facility] 06-14-2024 Telephone encounter Note Pt called in stated no matter what she eats or drinks she is in pain. She is asking for a referral to get a EGD done to figure out what is causing this. [facility] 12-30-2023 History of Presen t illness Narrative Jessica Cotto is a 63 y.o. female No ref. provider found presents with chief complaint of Thyroid Problem and Follow-up HPI: Interim history: 12/2023 Follow-up visit 12/30/2023 TSH 2.45 , free T4 1.24 (0.9-1.8) free T3 2.7(2.3-4.4), She is on methimazole 5 mg 5 days a week and metoprolol 25 mg daily. Interim history: 06/2023 Follow-up visit 07/01/2023 TSH 2.57 , free T4 0.9 (0.9-1.8) free T3 2.4(2.3-4.4), She is on methimazole 5 mg 5 days a week and metoprolol 25 mg daily. Interim history: 12/2022 Follow-up visit 12/2022 TSH 2.23 , free T4 1.1 (0.61-1.12) free T3 2.9 (2.5-3.9), She is on methimazole 5 mg 5 days a week and metoprolol 25 mg daily. Interim history: 06/2022 Follow-up visit 06/25/2022 TSH 3.2 , free T4 1 (0.61-1.12) free T3 2.8 (2.5-3.9), She is on methimazole 5 mg 5 days a week and metoprolol 25 mg daily. Interim history: 12/2021 Follow-up visit 12/24/2021 TSH 2.3 , free T4 0.60 (0.61-1.12) free T3 3.24 (2.5-3.9), She is on methimazole 5 mg 6 days a week and metoprolol 25 mg daily. lost her on 11/2021 due to cirrhosis Interim history: 06/2021 Follow-up visit 06/18/2021 TSH 3.18, free T4 0.64 free T3 2.92 . She is on methimazole 5 mg daily and metoprolol 25 mg daily Interim history: 12/2020 Follow-up visit . TSH 1.76, free T4 0.71, free T3 3.17. She is on methimazole 5 mg daily and metoprolol 25 mg daily Interim history: 08/2020 Follow-up visit . TSH 0.01, free T4 1.05, free T3 3.76. She is on methimazole 5 mg daily and metoprolol 25 mg daily Interim history: 06/2020 Follow-up visit 06/19/20. She lost 20 pounds. She is hyper again. TSH 0.04, free T4 2.44, free T3 6.1. She is almost off her methimazole for more than one year. Interim History: 06/2019 Follow-up visit 06/23/2019 for hyperthyroidism. She is off her medication, methimazole five days a week since March 2019. Labs within normal limits other than mildly low TSH 0.17, free T4 1.03, free T3 3.77 so she is in remission. She is still on metoprolol 25 once a day and I told her we need to continue with that and we will see her in six months. I told her if her symptoms get worse, she can call me and we will do blood work soon. Interim History: 03/2019. Follow-up visit of 03/22/2019 for hyperthyroidism. TSH 1.39, free T4 at 0.9, and free T3 at 3.39. She is on methimazole 5 mg 5 days a week and metoprolol at 25. I told her at last visit we will do drug holiday if labs normal and she agreed, we will stop the medication and see her in 3 months. Interim History 09/28: Followup visit on 09/28/2018 for hyperthyroidism. She is on methimazole 5 mg five days a week and metoprolol 25 twice a day. Labs within normal limits. TSH 1.24, free T4 0.99, free T3 3.33. Hepatic function panel within normal limits. Next time, in 6 months, I will do drug holiday for methimazole. Interim History 03/2018: Followup visit on 03/23/2018 for hyperthyroidism. She is currently on methimazole 5 mg six days per week, metoprolol 25 once a day. Labs within normal limits in March 2018: TSH 1.01, free T4 0.36, free T3 3.29. No new symptoms. Interim History: 09/27 Followup visit on 09/23/17 for labs. TSH 1.94, free T4 wnl, free T3 3.14 (within normal limits). She still on methimazole 5 mg 6 days a week. No new symptoms, weight stable. Does not want to do radioactive treatment or surgery. 03/30: Follow-up visit on 03/25/17 for hyperthyroidism. She is on methimazole 5 mg six days a week. Labs on 03/21/17. TSH 1.69, free T4 0.79, free T3 3.63 within normal limits. HPI: Here for re-evaluation of hyperthyroidism due to Graves' disease, sHE IS ON methimazole 5 MG 6 DAYS A WEEK, metoprolol 25 mg twice a day, AND REALLY GET TIRED when she works more than 8 hours straight. No new complaints, feeling basically well. Taking medications without difficulties. No palpitations, or sensation of heart racing. No constipation or diarrhea. No peripheral edema. SUBJECTIVE: MEDICATIONS: Current Outpatient Medications Medication Instructions methIMAzole (TAPAZOLE) 5 mg, Oral, Daily metoprolol succinate XL (TOPROL-XL) 25 mg, Oral, Daily ALLERGIES: Allergies Allergen Reactions Cefuroxime Hives Past Medical History: Diagnosis Date Abnormal results of thyroid function studies Anaphylactic shock DUE TO MEDICATION ALLERGY Disease of thyroid gland (CMS/HCC) Hyperthyroidism (CMS/HCC) 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) Thyrotoxicosis, unspecified without thyrotoxic crisis or storm (CMS/HCC) Past Surgical History: Procedure Laterality Date APPENDECTOMY 1978 EGD 04/20/2020 EYE SURGERY Right 2010 TUBAL LIGATION REVIEW OF SYMPTOMS: 14 POINT OF SYSTEM REVIEWED AND NEGATIVE OBJECTIVE: No results found for: TSH Visit Vitals BP 112/80 Pulse 74 Resp 16 Ht 5' 6 Wt 143 lb BMI 23.08 kg/m Smoking Status Every Day BSA 1.74 m Physical Exam Constitutional: Appearance: Normal appearance. She is normal weight. HENT: Head: Normocephalic and atraumatic. Right Ear: External ear normal. Nose: Nose normal. Mouth/Throat: Pharynx: Oropharynx is clear. Eyes: Extraocular Movements: Extraocular movements intact. Pupils: Pupils are equal, round, and reactive to light. Cardiovascular: Rate and Rhythm: Normal rate and regular rhythm. Pulmonary: Effort: Pulmonary effort is normal. Abdominal: General: Abdomen is flat. Palpations: Abdomen is soft. Musculoskeletal: General: Normal range of motion. Skin: General: Skin is warm. Neurological: General: No focal deficit present. Mental Status: She is alert. Psychiatric: Mood and Affect: Mood normal. Behavior: Behavior normal. ASSESSMENT AND PLAN: Assessment/Plan Diagnoses and all orders for this visit: 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) - metoprolol succinate XL (Toprol-XL) 25 MG 24 hr tablet; Take 1 tablet (25 mg) by mouth Daily - T3, free; Future - T4, free; Future - TSH; Future We will continue with methimazole 5 mg 5 days a week, metoprolol 25 mg once a day we will see her in 6 months and check lab and adjust Abnormal results of thyroid function studies Thyrotoxicosis, unspecified without thyrotoxic crisis or storm (CMS/HCC) - methIMAzole (Tapazole) 5 MG tablet; Take 1 tablet (5 mg) by mouth Daily Continue with medication so far Follow up in about 6 months (around 06/28/2024). documented in this encounter [facility] 09-20-2023 Evaluation + Plan note Diagnostic Tests PendingHCV RNA by PCR, Qn Rfx Lisa 09/20/23 [facility] 09-01-2023 Note HNO ID: [id number] Author: JOSELIN NAIK MD Service: ? Author Type: Physician Type: Progress Notes Filed: 09/01/2023 15:17 Note Text: Not seen by [facility] 09-01-2023 History of Presen t illness Narrative Not seen by MD documented in this encounter [place] 08-25-2023 Telephone encounter Note Pt called back.. Cataract Evaluation Pre Visit assessment Confirmed that patient interest in cataract surgery Yes Informed patient that their visit may take between 2 and 4 hours, including same day testing for their cataract evaluation and measurements for implant selection Informed patient that pupil dilation will be necessary to assess degree of cataracts, and status of posterior pole. 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 Patient does not wear contact lenses Power of document review attorney documented: Beatriz Arevalo August 25, 2023.. [place] 08-25-2023 Miscellaneous Notes Pt called back.. Cataract Evaluation Pre Visit assessment Confirmed that patient interest in cataract surgery Yes Informed patient that their visit may take between 2 and 4 hours, including same day testing for their cataract evaluation and measurements for implant selection Informed patient that pupil dilation will be necessary to assess degree of cataracts, and status of posterior pole. 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 Patient does not wear contact lenses Power of document review attorney documented: No Kim Aguilar August 25, 2023.. LM for patient to call back for previsit cat eval questions. Kim Aguilar August 25, 2023 11:03 AM documented in this encounter [place] 08-25-2023 Telephone encounter Note LM for patient to call back for previsit cat eval questions. Kim Aguilar August 25, 2023 11:03 AM [place] 06-07-2021 Hospital Discharg e instructions Patient Education 06/07/2021 14:43:58 Gastritis, Adult Gastritis, Adult Gastritis is inflammation of the stomach. There are two kinds of gastritis: Acute gastritis. This kind develops suddenly. Chronic gastritis. This kind is much more common and lasts for a long time. Gastritis happens when the lining of the stomach becomes weak or gets damaged. Without treatment, gastritis can lead to stomach bleeding and ulcers. What are the causes? This condition may be caused by: An infection. Drinking too much alcohol. Certain medicines. These include steroids, antibiotics, and some jfys-qzm-lziioom medicines, such as aspirin or ibuprofen. Having too much acid in the stomach. A disease of the intestines or stomach. Stress. An allergic reaction. Crohn's disease. Some cancer treatments (radiation). Sometimes the cause of this condition is not known. What are the signs or symptoms? Symptoms of this condition include: Pain or a burning sensation in the upper abdomen. Nausea. Vomiting. An uncomfortable feeling of fullness after eating. Weight loss. Bad breath. Blood in your vomit or stools. In some cases, there are no symptoms. How is this diagnosed? This condition may be diagnosed with: Your medical history and a description of your symptoms. A physical exam. Tests. These can include: ?Blood tests. ?Stool tests. ?A test in which a thin, flexible instrument with a light and a camera is passed down the esophagus and into the stomach (upper endoscopy). ?A test in which a sample of tissue is taken for testing (biopsy). How is this treated? This condition may be treated with medicines. The medicines that are used vary depending on the cause of the gastritis: If the condition is caused by a bacterial infection, you may be given antibiotic medicines. If the condition is caused by too much acid in the stomach, you may be given medicines called H2 blockers, proton pump inhibitors, or antacids. Treatment may also involve stopping the use of certain medicines, such as aspirin, ibuprofen, or other NSAIDs. Follow these instructions at home: Medicines Take oymg-anm-kjrvnde and prescription medicines only as told by your health care provider. If you were prescribed an antibiotic medicine, take it as told by your health care provider. Do not stop taking the antibiotic even if you start to feel better. Eating and drinking Eat small, frequent meals instead of large meals. Avoid foods and drinks that make your symptoms worse. Drink enough fluid to keep your urine pale yellow. Alcohol use Do not drink alcohol if: ?Your health care provider tells you not to drink. ?You are , may be , or are planning to become . If you drink alcohol: ?Limit your use to: ?0 1 drink a day for women. ?0 2 drinks a day for men. ?Be aware of how much alcohol is in your drink. In the [place] one drink equals one 12 oz bottle of beer (355 mL), one 5 oz glass of wine (148 mL), or one 1 oz glass of hard liquor (44 mL). General instructions Talk with your health care provider about ways to manage stress, such as getting regular exercise or practicing deep breathing, meditation, or yoga. Do not use any products that contain nicotine or tobacco, such as cigarettes and e-cigarettes. If you need help quitting, ask your health care provider. Keep all follow-up visits as told by your health care provider. This is important. Contact a health care provider if: Your symptoms get worse. Your symptoms return after treatment. Get help right away if: You vomit blood or material that looks like coffee grounds. You have black or dark red stools. You are unable to keep fluids down. Your abdominal pain gets worse. You have a fever. You do not feel better after one week. Summary Gastritis is inflammation of the lining of the stomach that can occur suddenly (acute) or develop slowly over time (chronic). This condition is diagnosed with a medical history, a physical exam, or tests. This condition may be treated with medicines to treat infection or medicines to reduce the amount of acid in your stomach. Follow your health care provider's instructions about taking medicines, making changes to your diet, and knowing when to call for help. This information is not intended to replace advice given to you by your health care provider. Make sure you discuss any questions you have with your health care provider. Document Released: 01/21/2002 Document Revised: 06/16/2018 Document Reviewed: 06/16/2018 [employer] Patient Education [employer] Follow Up Care 05/25/2021 12:45:36 With:Geni Castillo CNP Address: When:1 year [facility] Evaluation + Plan note Future Appointments Appointment Date:06/06/2022 01:00:00 PM Scheduled Provider:Geni Castillo CNP Location:[facility] Type:[facility] Follow Up [facility] Evaluation note No assessment inform ation available [facility] Work Phone: Evaluation note Diagnosis Age-related nuclear cataract of both eyes- Primary Senile nuclear sclerosis [place] in this [place]* Diagnosis Thyrotoxicosis, unspecified without thyrotoxic crisis or storm (CMS/HCC) documented in this encounter [facility] HealthcareEvaluation note* Diagnosis 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)- Primary Abnormal results of thyroid function studies Nonspecific abnormal results of thyroid function study Thyrotoxicosis, unspecified without thyrotoxic crisis or storm (CMS/HCC) documented in this encounter [facility] HealthcareEvaluation note* Diagnosis Epigastric pain- Primary Abdominal pain, epigastric Chronic GERD BMI 23.0-23.9, adult Breast cancer screening by mammogram Cigarette smoker Tobacco use disorder documented in this encounter [facility] Narrative No data available for this section [facility] Discharge instructions No data available for this section [facility] No data available for this section [facility] Summary Purpose Family History No Family History Records FoundNo Family History Records FoundNo Family History Records Found No data available for this section No Family History Records FoundNo Family History Records FoundNo Family History Records FoundNo Family History Records FoundNo Family History Records FoundNo Family History Records FoundNo Family History Records Found Advance Directives No Advanced Directives Records Found Advance Directive Response Recorded Date/ Time Advance Directives No March 21, 2017 4:40pm Chief Complaint and Reason for Visit Chief Complaint E05.90 E05.00 Additional Source Comments INFORMATION SOURCE (unrecogn ized section and content) DATE CREATED AUTHOR 10/27/[address] [facility] DATE CREATED AUTHOR AUTHOR'S ORGANIZ ATION 03/16/2022 [facility] DATE CREATED AUTHOR AUTHOR'S ORGANIZ ATION 09/04/2023 [facility] DATE CREATED AUTHOR AUTHOR'S ORGANIZ ATION 09/22/2023 [facility] DATE CREATED AUTHOR AUTHOR'S ORGANIZ ATION 06/19/2024 [facility] DATE CREATED AUTHOR AUTHOR'S ORGANIZ ATION 06/20/2024 [facility] Care Teams (unrecognized sec tion and content) Team Status: Inactive Member Role Status Dates Harini Olea DO Primary Care Provider Active Arslan Chen MD Attending Provider Active Team Status: Active Member Role Status Dates Harini Olea DO Primary Care Provider Active [employer] Relationship Specialty Start Date End Date Gilberto Dominguez DO [address] [place] [address] PCP - [employer] 04/10/22 Taya Oh MD [address] [place] [address] PCP - General Family Medicine 09/17/23 [employer] Relationship Specialty Start Date End Date Gilberto Dominguez DO [address] [place] [address] PCP - [facility] 04/10/22 Taya Oh MD [address] [place] [address] PCP - General [facility] 09/17/23 [employer] Relationship Specialty Start Date End Date Taya Oh MD [address] [place] [address] PCP - [facility] 09/17/23 [employer] Relationship Specialty Start Date End Date Taya Oh MD [address] [place] [address] PCP - [facility] 09/17/23 [employer] Relationship Specialty Start Date End Date aTya Oh MD [address] [place] [address] PCP - General [facility] 09/17/23 Goals (unrecognized section and content) Goals may be documented in a n alternate section No data available for this section No data available for this section No data available for this section Source Comments (unrecognize d section and content) In the event this informatio n is protected by the Federal Confidentiality of Alcohol and Drug Abuse Patient Records regulations: The Federal rules restrict any use of the information to criminally investigate or prosecute any alcohol or drug abuse patient.[place] the event this information is protected by the Federal Confidentiality of Alcohol and Drug Abuse Patient Records regulations: The Federal rules restrict any use of the information to criminally investigate or prosecute any alcohol or drug abuse patient.[place] Reason for Visit (unrecogniz ed section and content) Reason Comments Cataract Evaluation Pre visit cat eval q uestions. Reason Comments Cataract Evaluation Reason Comments Med Refill Reason Comments Thyroid Problem Follow-up Reason Onset Date Comments Referral 06/14/2024 Reason Comments Referral Gastroenterology FOR RECORDS PERTAINING TO PATIENTS WHO ARE OR HAVE BEEN ENROLLED IN A CHEMICAL DEPENDENCY/SUBSTANCEABUSE PROGRAM, SOME INFORMATION MAY BE OMITTED. This clinical summary was aggregated from multiple sources. Caution should be exercised in using it in the provision of clinical care. This summary normalizes information from multiple sources, and as a consequence, information in this document may materially change the coding, format and clinical context of patient data. In addition, data may be omitted in some cases. CLINICAL DECISIONS SHOULD BE BASED ON THE PRIMARY CLINICAL RECORDS. [facility] [facility]. provides no warranty or guarantee of the accuracy or completeness of information in this document.
[2024-06-24 10:56] LABS: Free T3 2.21 pg/mL (2.18-3.98); Thyroid Stimulating Hormone 2.011 uIU/mL (0.358-3.740)
[2024-06-24 10:58] LABS: Free T4 0.99 ng/dL (0.76-1.46)
== END 2024-06-24 09:14 | disposition home or self-care (01) ==
PROVIDERS: Visit Provider Internal Medicine
DX: E05.00 Thyrotoxicosis with diffuse goiter without thyrotoxic crisis or storm (principal)
CPT/HCPCS: 36415; 84439; 84443; 84481

== ENCOUNTER 2024-08-27 11:14 | Outpatient (OUT) | payer MEDICARE, SELFPAY ==
--- OUTSIDE RECORDS SUMMARY | 2024-08-22 17:29 | XMS_ITS | Encounter Summary ---
Author Organization [facility] Address [address] [place] [address] Care Team Providers Care Dude Ranch Manager Name Role Phone Mela Collado MD Primary Care Provider + Reason for Referral * Consultation (Routine) - Pending Review Specialty Diagnoses / Procedures Referred By Contac t Referred To Contact Gastroenterology Diagnoses Epigastric pain Procedures RI OFFICE/OUTPATIENT NEW HIGH MDM 60 MINUTES Chris Jennings MD [address] [place] [address] Phone: tel: fax: Referral ID Status Reason Start Date Expiration Date Visits Requested Visits Authorized [id number] Pending Review Specialty Services Required 08/24/2024 08/24/2025 1 1 * (Emergency) - Pending Review Specialty Diagnoses / Procedures Referred By Contmayo t Referred To Contact Procedures ECG 12 lead Michelle Thayer PA-C [address] [place] [address] Phone: tel: fax: Referral ID Status Reason Start Date Expiration Date V isits Requested Visits Authorized [id number] Pending Review 08/22/2024 08/22/2025 1 1 Reason for Visit * Reason Comments Cholelithiasis * Auth/Cert (Routine) Specialty Diagnoses / Procedures Referred By Contac t Referred To Contact Diagnoses Choledocholithiasis Epigastric pain Gastroesophageal reflux disease without esophagitis Tobacco user Procedures NO CODED SERVICE Arthur Shannon MD [address] [place] [address] Phone: tel: fax: [facility] [address] [facility] [place] [address] Phone: tel: Referral ID Status Reason Start Date Expiration Date Visits Re quested Visits Authorized [id number] 1 1 Encounter Details Date Type Department Care Team (Latest Contact Info) Description 08/22/2024 5:29 PM EDT - 08/24/2024 4:23 PM EDT Hospital Encounter [facility] [address] [address] [place] [phone] Michelle Thayer PA-C [address] [place] [address] Arthur Shannon MD [address] [place] [phone] Jamey Cueva MD [address] [place], [place] [phone] Chris Jennings MD [address] [place], [place] [phone] Choledocholithiasis (Primary Dx); Epigastric pain; Gastroesophageal reflux disease without esophagitis; Tobacco user Discharge Disposition: Home or Self Care () Social History Tobacco Use Types Packs/Day Years Used Date Smoking Tobacco: Every Day Cigarettes Smokeless Tobacco: Never Tobacco Cessation:Ready to Q uit: Not Asked; Counseling Given: Not Answered Alcohol Use Standard Drinks/Week Comments Never 0 (1 standard drink = 0.6 oz pur e alcohol) [facility] Utilities Answer Date Recorded In the past 12 months has [employer], gas, oil, or water [employer] threatened to shut off services in your home? No 08/22/2024 Humiliation, Afraid, Rape, and Kick questionnair e Answer Date Recorded Within the last year, have y ou been afraid of your partner or ex-partner? No 08/22/2024 Emotionally Abused Not on file 08/22/2024 Physically Abused Not on file 08/22/2024 Sexually Abused Not on file 08/22/2024 Overall Financial Resource Strain (CARDIA) Answe r Date Recorded How hard is it for you to pa y for the very basics like food, housing, medical care, and heating? Not hard at all 08/22/2024 Transportation Answer Date Recorded In the past 12 months, has l ack of transportation kept you from medical appointments or from getting medications? No 08/22/2024 Lack of Transportation (Non-Medical) Not on file 08/22/2024 Housing Stability Vital Sign Answer Isac e Recorded Unable to Pay for Housing in the Last Year Not o n file 08/22/2024 Number of Times Moved in the Last Year Not on fi le 08/22/2024 At any time in the past 12 m [facility], were you homeless or living in a half-way (including now)? No 08/22/2024 Hunger Vital Sign Answer Date Recorded Within the past 12 months, y ou worried that your food would run out before you got the money to buy more. Never true 08/23/19 25 Ran Out of Food in the Last Year Not on file 08/22/2024 Comments No Sex and Gender Information Value Date Recorded Sex Assigned at Female 08/22/2024 5:58 PM EDT Legal Sex Female 5:27 PM EDT Gender Identity Female 08/22/2024 5:58 PM EDT Sexual Orientation Heterosexual or Straight 08/10 5:58 PM EDT documented as of this encounter Last Filed Vital Signs Vital Sign Reading Time Taken Comments Blood Pressure 103/59 08/24/2024 7:47 AM EDT Pulse 80 08/24/2024 7:47 AM EDT Temperature 35.7 C (96.3 F) 08/24/2024 7:47 AM EDT Respiratory Rate 16 08/23/2024 7:34 PM EDT Oxygen Saturation 93% 08/24/2024 7:47 AM EDT Inhaled Oxygen Concentration - - Weight 61.8 kg (136 lb 3.2 oz) 08/24/2024 4:17 A M EDT Height 167.6 cm (5' 6 ) 08/23/2024 4:29 PM EDT Body Mass Index 21.98 08/23/2024 4:29 PM EDT documented in this encounter Functional Status * Suicidal Ideation Question Answer Date of Assessment Author 1. Wish to be (Lifetime) No 08/22/2024 11:32 PM EDT Janene Nair RN 2. Non-Specific Active Suici amaris Thoughts (Lifetime) No 08/22/2024 11:32 PM EDT Janene Nair R N documented as of this encounter Discharge Summaries * Chris Jennings MD - 08/24/2024 4:23 PM EDT Images from the original note were not included. Hospital Medicine Discharge Summary Final Discharge Diagnosis: Choledocholithiasis Biliary colic - resolved Status post ERCP Grave's disease GERD Admission Diagnosis: Choledocholithiasis [K80.50] Epigastric pain [R10.13] Gastroesophageal reflux disease without esophagitis [K21.9] Tobacco user [Z72.0] Hospital course: Ms. Jessica Saavedra is an 64 y.o. female who came from home with past medical history of Graves' disease and tobacco use presented to ER by the recommendation of her physician for management of the choledocholithiasis. Patient reports that she has been having intermittent abdominal bloating and somepain in upper abdomen radiating to her back for the last few months so her doctor ordered CT of theabdomen and she had it done at [facility] on Friday. She was called later and was informed that she has stones in her bile duct and she needs to go come to [facility] for ERCP. Patient waited until tonight because she was thinking that there would not be anyone to help her over the weekend. She denies any symptoms. No nausea or vomiting. No abdominal pain. No fevers or chills. No chest pain or increased shortness of breath. She is in good health otherwise. She was admitted to hospitalist service for further evaluation and management. Patient underwent ERCP on 08/23. Multiple stones were removed from common bile duct. Patient tolerated advancement of diet on 08/24. General surgery evaluated the patient for consideration for cholecystectomy. However, patient declined and she wanted to pursue cholecystectomy as outpatient, closer to her home. Patient was advised that recurrent choledocholithiasis could occur and that ascending cholangitis is a dangerous infection that could result from choledocholithiasis. Patient expressed understanding and stated that she plans on getting cholecystectomy close to home in a nearby time. Patient was discharged in stable condition to home on 08/26/2024. Surgical, Invasive or Diagnostic Procedures Done During Admission: ERCP Consultations During Admission: Gastroenterology and General Surgery Dear MD Tobias, Jessica is advised to follow up with you within 1-2 weeks. Items to follow up in ambulatory setting: Follow-up serial CBCs, Follow-up serial BMPs, and Follow-up serial LFTs Cholecystectomy Follow-up with: Gastroenterology Scheduled appointments: No future appointments. Your medication list CONTINUE taking these medications Instructions Last Dose Given Next Dose Due iVizia (PF) 0.5 % drops Generic drug: povidone (PF) methIMAzole 5 mg tablet Commonly known as: Tapazole metoprolol succinate XL 25 mg 24 hr tablet Commonly known as: Toprol-XL multivitamin tablet omeprazole [address] capsule Commonly known as: PriLOSEC Jessica is allergic to cefuroxime. Disposition: Home or Self Care () Discharge Condition: Stable Code Status: Prior Diagnostic Results Hematology: Results from last 7 days Lab Units 08/24/2482208/23/2415 WBC AUTO 10*3/uL 5.80 5.11 HEMOGLOBIN g/dL 13.1 12.2 HEMATOCRIT % 38.2 35.1* MCV fL 92.9 92.6 PLATELETS AUTO 10*3/uL 205 205 INR -- 1.12* Chemistry: Results from last 7 days Lab Units 08/24/2482208/23/2451408/22/24 1826 SODIUM mmol/L 137 139 139 POTASSIUM mmol/L 4.2 3.5 3.6 CHLORIDE mmol/L 106 108* 106 CO2 mmol/L 21 26 25 BUN mg/dL 10 8 8 CREATININE mg/dL 0.65 0.63 0.72 GLUCOSE mg/dL 107* 89 82 MAGNESIUM mg/dL -- 1.9 -- CALCIUM mg/dL 8.8 8.7 9.2 Results from last 7 days Lab Units 08/24/2482208/23/2451408/22/24 1826 AST U/L 16 13 16 ALT U/L 5* 5* 9 ALK PHOS U/L 68 60 67 BILIRUBIN TOTAL mg/dL 0.5 0.5 0.4 BILIRUBIN DIRECT mg/dL -- -- 0.1 LIPASE U/L -- -- 23 Test Results Pending At Discharge: Diet at the time of discharge: soft diet Nutrition Screen Activity: Patient currently has no discharge activity orders Objective Blood pressure 103/59, pulse 80, temperature 35.7 °C (96.3 °F), resp. rate 16, height 1.676 m (5'6 ), weight 61.8 kg (136 lb 3.2 oz), SpO2 93%. Physical Exam Vitals reviewed. Constitutional: General: She is not in acute distress. Appearance: She is not ill-appearing or toxic-appearing. HENT: Head: Normocephalic and atraumatic. Mouth/Throat: Mouth: Mucous membranes are moist. Eyes: General: No scleral icterus. Extraocular Movements: Extraocular movements intact. Pupils: Pupils are equal, round, and reactive to light. Cardiovascular: Rate and Rhythm: Normal rate. Pulmonary: Effort: Pulmonary effort is normal. No respiratory distress. Breath sounds: No stridor. Abdominal: General: There is no distension. Palpations: Abdomen is soft. There is no mass. Tenderness: There is no abdominal tenderness. There is no guarding. Neurological: Mental Status: She is alert. Cranial Nerves: No cranial nerve deficit. Psychiatric: Mood and Affect: Mood normal. Behavior: Behavior normal. Thought Content: Thought content normal. Judgment: Judgment normal. Total time for discharge - review of data, exam, discussion with providers and care-team, med-rec and orders, arranging follow up, counseling of patient and/or family and documentation was 39 minutes. Signed Chris Jennings MD [facility] Medicine 08/26/2024 1:04 PM CC: MD Tobias documented in this encounter Discharge Instructions * Discharge Instructions* Chris Jennings MD - 08/24/2024 2:27 PM EDT Please follow up with primary care physician within 1 week. Please follow up with gastroenterology within 1 week. Please establish care with general surgery in your vicinity as agreed upon. It is very important that you be considered for cholecystectomy soon. Please take medications as prescribed. Please have lab works (CBC and CMP) completed on 08/27/2024. Please do not hesitate to return to the hospital if you have any concerning symptoms. * Discharge Instr - Activity* Alison Heredia LPN - 08/24/2024 2:51 PM EDT Activity as tolerated Fall risk precautions * Discharge Instr - Diet* Alison Heredia LPN - 08/24/2024 2:52 PM EDT Regular diet, thin liquids * Appointments* Annamaria Domingo RN - 08/24/2024 3:46 PM EDT Date Type Department Care Team (Latest Contact Info) 12/28/2024 11:00 AM EST Office Visit [facility] [address] [place] [address] Arslan Childers MD [address] [place] [address] * Discharge Instr - Other Orders* Annamaria Domingo RN - 08/24/2024 2:55 PM EDT 08/23/[address] Ernst -ERCP completed with findings of large CBD stone s/p mechanical lithotripsy with multiple large stones removed from CBD following biliary sphincterotomy, with biliary stent placement. -repeat ERCP in 4-6 weeks. CHECK CBC & CMP in 3-4 DAYS(~around AUGUST 27)-->>results to Your PCP (Script given to patient). You may return to [facility] Outpatient lab or go to Outpatient Lab of your choice for lab drawl. documented in this encounter Medications at Time of Discharge methIMAzole (Tapazole) 5 mg tablet Take 5 mg by mouth. DAILY 5 days per week (not given on Sundays and Tuesdays) metoprolol succinate XL (Toprol-XL) 25 mg 24 hr tablet Take 25 mg by mouth in the morning. Do not crush or chew. multivitamin tablet Take 1 tablet by mouth in the morning. omeprazole (PriLOSEC) [address] capsule Take 40 mg by mouth before breakfast and before evening meal. Do not crush or chew. povidone, PF, (iVizia, PF,) 0.5 % drops Administer 1 drop into affected eye(s) four times daily. documented as of this encounter Progress Notes * Chris Roblero CNP - 08/24/2024 9:00 AM EDT Gastroenterology/Hepatology Progress Note IDENTIFYING DATA PATIENT: Jessica Saavedra ADMIT DATE: 08/22/2024 TIME OF EVALUATION: 08/24/2024 9:00 AM Reason for Consult: CBD stone Admitting Physician: Chris Jennings MD SUBJECTIVE/INTERVAL HISTORY Jessica Saavedra's overnight events were reviewed. ERCP completed yesterday with findings of large CBD stone s/p mechanical lithotripsy with multiple large stones removed from CBD following biliary sphincterotomy, with biliary stent placement. Today patient seen and evaluated, resting in bed. She reports feeling well without any abdominal pain or nausea/vomiting. LFTs remain normal with AST 16, ALT 5, ALP 68, TB 0.5. OBJECTIVE MEDICATIONS SCHEDULED: [Held by provider] enoxaparin, 40 mg, subcutaneous, Daily iohexol, 100 mL, intravenous, Once in imaging methIMAzole, 5 mg, oral, Daily metoprolol succinate XL, 25 mg, oral, Daily pantoprazole, 40 mg, intravenous, q24h HOLLIS PRNs: acetaminophen, 650 mg, q6h PRN bisacodyl, 10 mg, Daily PRN hydrOXYzine pamoate, 25 mg, 4x daily PRN melatonin, 5 mg, Nightly PRN morphine, 2 mg, q6h PRN ondansetron ODT, 4 mg, q8h PRN Or ondansetron, 4 mg, q6h PRN polyethylene glycol, 17 g, Daily PRN Physical VITALS: BP 103/59 Pulse 80 Temp 35.7 °C (96.3 °F) Resp 16 Ht 1.676 m (5' 6 ) Wt 61.8 kg(136 lb 3.2 oz) SpO2 93% BMI 21.98 kg/m² GEN: Alert and oriented x3, NAD CV: Regular rate and rhythm PULM: Breathing comfortably ABD: Soft, non-tender, non-distended NEURO: Moves all visualized extremities spontaneously LABS AND IMAGING CBC: Results from last 7 days Lab Units 08/24/24 0823 08/23/24 0515 08/22/24 1826 WBC AUTO 10*3/uL 5.80 5.11 5.63 RBC AUTO 10*6/uL 4.11 3.79* 4.01 HEMOGLOBIN g/dL 13.1 12.2 12.8 HEMATOCRIT % 38.2 35.1* 36.9 MCV fL 92.9 92.6 92.0 RDW % 12.6 12.9 12.6 PLATELETS AUTO 10*3/uL 205 205 213 PT/INR Results from last 7 days Lab Units 08/23/24 0515 PROTIME Seconds 14.4 INR 1.12* BMP: Results from last 7 days Lab Units 08/23/24 0515 08/22/24 1826 SODIUM mmol/L 139 139 POTASSIUM mmol/L 3.5 3.6 CHLORIDE mmol/L 108* 106 BUN mg/dL 8 8 CREATININE mg/dL 0.63 0.72 EGFR mL/min/1.73m*2 97.8 92.2 GLUCOSE mg/dL 89 82 LFTs: Results from last 7 days Lab Units 08/23/24 0515 08/22/24 1826 BILIRUBIN TOTAL mg/dL 0.5 0.4 BILIRUBIN DIRECT mg/dL -- 0.1 ALK PHOS U/L 60 67 AST U/L 13 16 ALT U/L 5* 9 ALBUMIN g/dL 3.7 4.1 TOTAL PROTEIN g/dL 6.0 6.6 B12/Folate/Iron studies: No results found for: AGPCHYHN62 , FOLATE , IRON , TIBC , UIBC , IRONSAT , FERRITIN Viral Hepatitis No results found for: HEPAIGM , HAV , HEPBSAG , HEPBSAB , HEPBEAB , HEPBIGM , HEPBCAB , HEPBCOREAB , HBVNAT , HCVSCR , HEPCAB , HCVNAT , HCVPCR , HCVTMA Liver workup No results found for: SHERRI , SMOOTHMUSCAB , CERULOPLSM , [id number] , TTGA , IGA , TSH , FREET4 , AFP Pancreatitis Lab Results Component Value Date LIPASE 23 08/22/2024 CALCIUM 8.7 08/23/2024 IMAGING: US gallbladder 08/23/24: IMPRESSION: There are multiple echogenic stones at the gallbladder and common bile duct with severe common bileduct dilatation of 1.6 cm. There is no gross sonographic evidence of acute cholecystitis. ASSESSMENT AND PLAN Jessica Saavedra is a 64 y.o. female with PMHx significant for Graves' disease, nicotine dependence who presented to the ED after being referred by her PCP due to concern for choledocholithiasis. GI team was consulted for possibility of ERCP. Assessment Biliary colic secondary to choledocholithiasis CT abdomen pelvis/ultrasound abdomen outside hospital revealed choledocholithiasis. LFTs within normal limits ERCP 08/23/24 with findings of large CBD stone s/p mechanical lithotripsy with multiple large stonesremoved from CBD following biliary sphincterotomy, with biliary stent placement. History of Graves' disease Plan Okay for regular diet as tolerated from GI standpoint Recommend general surgery consult for consideration of cholecystectomy Trend daily LFTs Patient will need repeat ERCP in 4-6 weeks for CBD stent removal and final clearance of CBD Remainder of care per primary GI will respectfully sign off; however, we are readily available if additional questions or concerns arise. We will arrange for repeat ERCP in 4-6 weeks. The case will be discussed with the attending physician Gastroenterology 6 am to 4 pm weekdays in house: [phone] 4 pm to 6 am or weekends: Please contact the pulverizer operator to page the fellow fabrication and layout craftsman * Jamey Cueva MD - 08/23/2024 10:09 AM EDT Images from the original note were not included. Case was discussed with the Medical Student on 08/23/2024. I examined the patient with the student. I agree with the history, physical, assessment, and plan of care. I discussed the findings and therapeutic plan. I agree with the documentation, except for any updates below. Jamey Cueva MD [facility] Medicine Daily Progress Note - 08/23/2024 10:10 AM; Room: [address] [place] [address] Admission: 08/22/2024 5:29 PM; Length of stay: 1 days THE HOSPITALIST TEAM PREFERS TO USE Patient Communicator CHAT FOR NON-URGENT COMMUNICATION 7AM- 7PM. IF I DO NOT RESPOND WITHIN 20 MINUTES OR URGENT MATTERS, PLEASE CALL THROUGH THE STAKING TECHNICIAN. FROM 7PM-7AM, PLEASE PAGE [phone](COVR). Code Status: Full Code Barriers to Discharge: Awaiting ERCP procedure Expected Discharge Date: 08/24/2024 Discharge Destination: home Overview Patient is seen for evaluation and management of choledocholithiases. Subjective Jessica Saavedra is an 64 y.o. female who came from home with past medical history of Graves' diseaseand tobacco use presented to ER by the recommendation of her physician for management of the choledocholithiasis. Patient reports that she has been having intermittent abdominal bloating and some pain in upper abdomen radiating to her back for the last few months so her doctor ordered CT of the abdomen and she had it done at [facility] on Friday. She was called later and was informed that she has stones in her bile duct and she needs to go come to [facility] for ERCP. Patient waited until tonight because she was thinking that there would not be anyone to help her over the weekend. She denies any symptoms. No nausea or vomiting. No abdominal pain. No fevers or chills. No chest pain or increased shortness of breath. She is in good health otherwise. Interval history: 08/23/2024 Patient was examined today at bedside. Patient seemed comfortable and denied any chest pain, abdominal pain, fever, chills, nausea, vomiting or shortness of breathe. No jaundice or scleral icterus was observed on examination and rai's sign was negative. US imaging confirmed the bile duct stone and bile duct dilation, ERCP procedure pending. Physical Exam Visit Vitals BP 109/71 Pulse 62 Temp 36.7 °C (98.1 °F) Resp 16 Intake/Output Summary (Last 24 hours) at 08/23/2024 1010 Last data filed at 08/23/2024 0011 Gross per 24 hour Intake -- Output 250 ml Net -250 ml Physical Exam Constitutional: Appearance: Normal appearance. She is normal weight. HENT: Head: Normocephalic and atraumatic. Cardiovascular: Pulses: Normal pulses. Heart sounds: Normal heart sounds. Pulmonary: Effort: Pulmonary effort is normal. Breath sounds: Normal breath sounds. Neurological: General: No focal deficit present. Mental Status: She is alert and oriented to person, place, and time. Psychiatric: Mood and Affect: Mood normal. Behavior: Behavior normal. Thought Content: Thought content normal. Estimated body mass index is 22.6 kg/m² as calculated from the following: Height as of this encounter: 1.676 m (5' 6 ). Weight as of this encounter: 63.5 kg (140 lb). Assessment and Plan Assessment & Plan Choledocholithiasis Epigastric pain - outside hospital CT exhibiting choledocholithiasis with significant CBD dilatation and cholelithiasis without significant pericholecystic inflammation - trend LFTs they are unremarkable - patient is afebrile and without white count or significant abdominal pain - GI consulted, planning for ERCP likely today Graves disease - Resume home methimazole Nutrition Screen: Malnutrition Attestation: No dietitian assessment is available at this time. VTE Prophylaxis: Will start AFTER PROCEDURE Scheduled Meds [Held by provider] enoxaparin, 40 mg, subcutaneous, Daily iohexol, 100 mL, intravenous, Once in imaging methIMAzole, 5 mg, oral, Daily metoprolol succinate XL, 25 mg, oral, Daily pantoprazole, 40 mg, intravenous, q24h HOLLIS sodium chloride, 50 mL/hr, Last Rate: 50 mL/hr (08/22/242238) Pertinent Investigations Hematology: Results from last 7 days Lab Units 08/23/24 0515 08/22/24 1826 WBC AUTO 10*3/uL 5.11 5.63 HEMOGLOBIN g/dL 12.2 12.8 HEMATOCRIT % 35.1* 36.9 MCV fL 92.6 92.0 PLATELETS AUTO 10*3/uL 205 213 INR 1.12* -- Chemistry: Results from last 7 days Lab Units 08/23/24 0515 08/22/24 1826 SODIUM mmol/L 139 139 POTASSIUM mmol/L 3.5 3.6 CHLORIDE mmol/L 108* 106 CO2 mmol/L 26 25 BUN mg/dL 8 8 CREATININE mg/dL 0.63 0.72 GLUCOSE mg/dL 89 82 MAGNESIUM mg/dL 1.9 -- CALCIUM mg/dL 8.7 9.2 Results from last 7 days Lab Units 08/23/24 0515 08/22/24 1826 AST U/L 13 16 ALT U/L 5* 9 ALK PHOS U/L 60 67 BILIRUBIN TOTAL mg/dL 0.5 0.4 BILIRUBIN DIRECT mg/dL -- 0.1 LIPASE U/L -- 23 Historical Values: (Includes values prior to this admission) No results found for: PREALBUMIN , TSH , T3FREE , FREET4 , CORTISOL , FEV1 , SRO0BXT , DLCO , RVSP , HDL , LDL No results found for: EDHRALIJ13 , IRON , TIBC , C3 , C4 , SHERRI , CANCA , ASO , PSA , CEA , CA125 , CA199 , AFP , CA153 Imaging US gallbladder Narrative: US GALLBLADDER 08/23/2024 9:04 AM CLINICAL INDICATIONS: Abdominal pain TECHNIQUE: Limited abdominal ultrasound. COMPARISON: none FINDINGS: There is 1.5 cm echogenic stones at the distal aspect of the common bile duct with severe: Bile duct dilatation of 1.6 cm and diffuse common bile duct wall thickening. Similar echogenic stones are present at the dependent aspect of the distended gallbladder. However, there is no significant gallbladder wall thickening or pericholecystic fluid. Sonographic Rai sign was reported to be negative. The visualized hepatic and pancreatic parenchyma are unremarkable. Pancreatic duct is grossly unremarkable Impression: There are multiple echogenic stones at the gallbladder and common bile duct with severe common bile duct dilatation of 1.6 cm. There is no gross sonographic evidence of acute cholecystitis. Electronically signed: Jamaal Gibbs. Discharge Planning Expected Discharge Disposition: Home or Self-care Signed Cee Velez, 3 Hospital Medicine 08/23/2024 10:10 AM documented in this encounter H&P Notes * Kimberlyn Stinson MD - 08/22/2024 10:21 PM EDT Images from the original note were not included. Hospital Medicine History and Physical 08/22/2024 10:21 PM THE HOSPITALIST TEAM PREFERS TO USE [employer] FOR NON-URGENT COMMUNICATION 7AM- 7PM. IF I DO NOT RESPOND WITHIN 20 MINUTES OR URGENT MATTERS, PLEASE CALL THROUGH THE STAKING TECHNICIAN. FROM 7PM-7AM, PLEASE PAGE [phone](COVR). Chief Complaint Chief Complaint Patient presents with Cholelithiasis History of Present Illness Jessica Saavedra is an 64 y.o. female who came from home with past medical history of Graves' diseaseand tobacco use presented to ER by the recommendation of her physician for management of the choledocholithiasis. Patient reports that she has been having intermittent abdominal bloating and some pain in upper abdomen radiating to her back for the last few months so her doctor ordered CT of the abdomen and she had it done at [facility] on Friday. She was called later and was informed that she has stones in her bile duct and she needs to go come to [facility] for ERCP. Patient waited until tonight because she was thinking that there would not be anyone to help her over the weekend. She denies any symptoms. No nausea or vomiting. No abdominal pain. No fevers or chills. No chest pain or increased shortness of breath. She is in good health otherwise. Review of System and Physical Exam Temp: [36.8 °C (98.3 °F)] 36.8 °C (98.3 °F) Heart Rate: [75-87] 75 Resp: [10-18] 15 BP: (123-139)/(73-95) 134/73 Physical Exam Constitutional: General: She is not in acute distress. Appearance: Normal appearance. HENT: Head: Normocephalic and atraumatic. Eyes: Conjunctiva/sclera: Conjunctivae normal. Cardiovascular: Rate and Rhythm: Normal rate and regular rhythm. Heart sounds: No murmur heard. No friction rub. No gallop. Pulmonary: Effort: Pulmonary effort is normal. No respiratory distress. Breath sounds: Normal breath sounds. No wheezing, rhonchi or rales. Abdominal: General: Abdomen is flat. There is no distension. Palpations: Abdomen is soft. There is no mass. Tenderness: There is no abdominal tenderness. There is no guarding or rebound. Musculoskeletal: General: No swelling or deformity. Right lower leg: No edema. Left lower leg: No edema. Skin: General: Skin is warm and dry. Findings: No rash. Neurological: General: No focal deficit present. Mental Status: She is alert and oriented to person, place, and time. Psychiatric: Mood and Affect: Mood normal. Behavior: Behavior normal. Thought Content: Thought content normal. Judgment: Judgment normal. Review of Systems as mentioned in HPI Assessment and Plan Assessment & Plan Choledocholithiasis Gastroenterology consulted Normal saline at 50 mL/hour N.p.o. after midnight for possible procedure tomorrow by GI Pain control with morphine IV as needed Graves' disease Tobacco use Plan: Patient will be admitted to [facility] telemetry bed. Protonix 40 mg IV daily for GI prophylaxis EPC cuffs VTE Prophylaxis: Lovenox ----- Focus of this inpatient stay will remain on problems that need acute care setting for care. We will review available studies and will order additional labs, imaging and other studies as appropriate. As needed medicines are ordered as appropriate. VTE Prophylaxis will be ordered as appropriate. Please see above for management plan for individual hospital problems. Home medications are reviewed and will be continued as appropriate. Patient will be continued to be followed during this hospital stay by a member of [facility]. Past Medical History Medical History[1] Past Surgical History Surgical History[2] Social History Social History Socioeconomic History Marital status: Spouse name: Not on file Number of children: Not on file Years of education: Not on file Highest education level: Not on file Occupational History Not on file Tobacco Use Smoking status: Every Day Current packs/day: 0.50 Types: Cigarettes Smokeless tobacco: Never Substance and Sexual Activity Alcohol use: Never Drug use: Never Sexual activity: Not on file Other Topics Concern Not on file Social History Narrative Not on file Social Drivers of Health Financial Resource Strain: Not on file Food Insecurity: Not on file Transportation Needs: Not on file Physical Activity: Not on file Stress: Not on file Social Connections: Not on file Intimate Partner Violence: Not on file Housing Stability: Not on file Family History family history is not on file. Allergies is allergic to cefuroxime. Prior to Admission Medications Prescriptions Prior to Admission[3] Labs Labs Reviewed URINALYSIS WITH REFLEX CULTURE - Abnormal Result Value Color, Urine Light-Yellow Clarity, Urine Clear pH, Urine 6.5 Leukocytes, Urine Negative Nitrite, Urine Negative Protein, Urine Negative Glucose, Urine Normal Bilirubin, Urine Negative Specific [place], Urine 1.004 (*) Ketones, Urine Negative Blood, Urine Negative Urobilinogen, Urine Normal Narrative: Microscopics not performed on urines with negative chemical reactions unless requested on original order. CBC WITH AUTO DIFFERENTIAL - Abnormal Auto WBC 5.63 RBC 4.01 Hemoglobin 12.8 Hematocrit 36.9 MCV 92.0 MCH 31.9 MCHC 34.7 RDW 12.6 Neutrophils % 66.6 Lymphocytes % 28.2 Monocytes % 4.8 (*) Eosinophils % 0.2 Basophils % 0.0 Neutrophils Absolute 3.75 Lymphocytes Absolute 1.59 Monocytes Absolute 0.27 Eosinophils Absolute 0.01 Basophils Absolute 0.00 Platelets 213 nRBC % 0.0 Immature Granulocytes % 0.2 Immature Granulocytes Absolute 0.01 HEPATIC FUNCTION PANEL - Normal Total Bilirubin 0.4 Bilirubin, Direct 0.1 Alkaline Phosphatase 67 AST 16 ALT (SGPT) 9 Total Protein 6.6 Albumin 4.1 LIPASE - Normal Lipase 23 LACTIC ACID WITH 4 HOUR REFLEX - Normal Lactate 0.9 HIGH SENSITIVITY TROPONIN I - Normal High Sensitivity Troponin I 2 HIGH SENSITIVITY TROPONIN I - Normal High Sensitivity Troponin I 3 CBC AND DIFFERENTIAL Narrative: The following orders were created for panel order CBC and differential. Procedure Abnormality Status --------- ------ CBC auto differential[[id number]] Abnormal Final result Please view results for these tests on the individual orders. BASIC METABOLIC PANEL Sodium 139 Potassium 3.6 Chloride 106 CO2 25 BUN 8 Creatinine 0.72 Glucose 82 Calcium 9.2 Anion Gap 12 eGFR 92.2 BUN/Creatinine Ratio 11.1 ETHANOL Ethanol Calculated % <0.01 Ethanol Lvl <[address] transfer of outside films This order has been auto-finalized and does not contain a result. ECG 12 lead Normal sinus rhythm Nonspecific T wave abnormality Abnormal ECG No previous ECGs available Signed Kimberlyn Stinson MD [facility] 08/22/2024 10:21 PM [1] Past Medical History: Diagnosis Date Graves disease [2] Past Surgical History: Procedure Laterality Date EYE SURGERY [3] (Not in a hospital admission) documented in this encounter Consult Notes * Gabi Jones MD - 08/24/2024 12:04 PM EDTAssociated Order(s): IP CONSULT TO GENERAL SURGERY Reason For Consult presenting with choledocholithiasis. Consider for laparoscopic cholecystectomy Referring Provider: Dr. Jennings History Of Present Illness Jessica Saavedra is a 64 y.o. female presenting with Cholelithiasis. Patient states that she was having symptoms of GERD, went to her PCP and got a CT scan that revealed choledocholithiasis. Pt presented to hospital from PCP, underwent ERCP on 08/23/24. We Consulted for gallbladder removal after ERCP.Pt denies any pain, nausea, or vomiting. Pt states that she would like her cholecystectomy as an outpatient and prefers to follow up with her PCP. Discussed with patient her increased risk for recurrence of choledocholithiasis after recent procedure. She understands the risks, and still prefers to move forward as an outpatient near her home. Past Medical History Medical History[1] Surgical History Surgical History[2] Family History Family History[3] Social History Social History Socioeconomic History Marital status: Spouse name: None Number of children: None Years of education: None Highest education level: None Occupational History None Tobacco Use Smoking status: Every Day Current packs/day: 0.50 Types: Cigarettes Smokeless tobacco: Never Substance and Sexual Activity Alcohol use: Never Drug use: Never Sexual activity: None Other Topics Concern None Social History Narrative None Social Drivers of Health Financial Resource Strain: Low Risk (08/22/2024) Overall Financial Resource Strain (CARDIA) Difficulty of Paying Living Expenses: Not hard at all Food Insecurity: No Food Insecurity (08/22/2024) Hunger Vital Sign Worried About Running Out of Food in the Last Year: Never true Ran Out of Food in the Last Year: Not on file Transportation Needs: No Transportation Needs (08/22/2024) Transportation Lack of Transportation (Medical): No Lack of Transportation (Non-Medical): Not on file Physical Activity: Not on file Stress: Not on file Social Connections: Not on file Intimate Partner Violence: Unknown (08/22/2024) Humiliation, Afraid, Rape, and Kick questionnaire Fear of Current or Ex-Partner: No Emotionally Abused: Not on file Physically Abused: Not on file Sexually Abused: Not on file Housing Stability: Low Risk (08/22/2024) Housing Stability Vital Sign Unable to Pay for Housing in the Last Year: Not on file Number of Times Moved in the Last Year: Not on file Homeless in the Last Year: No Allergies Allergies[4] Medications Prescriptions Prior to Admission[5] Review of Systems Negative except mentioned in HPI Last Recorded Vitals Patient Vitals for the past 24 hrs: BP Temp Temp src Pulse Resp SpO2 Height Weight 08/24/24 0747 103/59 35.7 °C (96.3 °F) -- 80 -- 93 % -- -- 08/24/24 0417 107/64 36.3 °C (97.3 °F) -- 76 -- 93 % -- 61.8 kg (136 lb 3.2 oz) 08/23/24 1934 131/71 35.7 °C (96.3 °F) -- 78 16 94 % -- -- 08/23/24 1855 116/62 -- -- 74 (!) 9 96 % -- -- 08/23/24 1840 115/63 -- -- 74 11 97 % -- -- 08/23/24 1825 121/69 -- -- 76 14 93 % -- -- 08/23/24 1810 127/68 -- -- 80 15 94 % -- -- 08/23/24 1755 131/68 36.2 °C (97.2 °F) Temporal 78 18 100 % -- -- 08/23/24 1629 134/76 36.2 °C (97.2 °F) Temporal 75 17 95 % 1.676 m (5' 6 ) 63.5 kg (139 lb 15.9 oz) Physical Exam General: Alert, in no acute distress. HEENT: Normocephalic, atraumatic. CV: RRR. Pulm: Nonlabored breathing Abd: Soft, non-distended. Nontender to palpation. No rebound or guarding. Neuro: A&Ox3. No focal deficits. Skin: Warm, dry. No rashes. Relevant Results Admission on 08/22/2024 Component Date Value Ref Range Status Sodium 08/22/2024 139 136 - 145 mmol/L Final Potassium 08/22/2024 3.6 3.5 - 5.1 mmol/L Final Chloride 08/22/2024 106 98 - 107 mmol/L Final CO2 08/22/2024 25 21 - 31 mmol/L Final BUN 08/22/2024 8 7 - 25 mg/dL Final Creatinine 08/22/2024 0.72 0.60 - 1.20 mg/dL Final Glucose 08/22/2024 82 70 - 100 mg/dL Final Calcium 08/22/2024 9.2 8.6 - 10.3 mg/dL Final Anion Gap 08/22/2024 12 7 - 20 mmol/L Final eGFR 08/22/2024 92.2 >60.0 mL/min/1.73m*2 Final [facility]’s estimated glomerular filtration rate (eGFR) will no longer include consideration of race in its calculation. The National Kidney Foundation’s eGFR Task Force developed new recommendations for the estimation of the glomerular filtration rate in the [place] They recommend immediate implementation of the new equation refit without the race variable in all laboratories because the calculation does not include race. In addition to not including race in the calculation and reporting, it included diversity in its development, and has acceptable performance characteristics and potential consequences that do not disproportionately affect any one group of individuals. BUN/Creatinine Ratio 08/22/2024 11.1 Final Total Bilirubin 08/22/2024 0.4 0.3 - 1.0 mg/dL Final Bilirubin, Direct 08/22/2024 0.1 0 - 0.2 mg/dL Final Alkaline Phosphatase 08/22/2024 67 34 - 104 U/L Final AST 08/22/2024 16 13 - 39 U/L Final ALT (SGPT) 08/22/2024 9 7 - 52 U/L Final Total Protein 08/22/2024 6.6 6.0 - 8.3 g/dL Final Albumin 08/22/2024 4.1 3.5 - 5.7 g/dL Final Lipase 08/22/2024 23 11 - 82 U/L Final Lactate 08/22/2024 0.9 0.5 - 2.2 mmol/L Final Color, Urine 08/22/2024 Light-Yellow Colorless, Yellow, Light-Yellow Final Clarity, Urine 08/22/2024 Clear Clear Final pH, Urine 08/22/2024 6.5 5.0 - 8.0 pH Final Leukocytes, Urine 08/22/2024 Negative Negative Final Nitrite, Urine 08/22/2024 Negative Negative Final Protein, Urine 08/22/2024 Negative Negative mg/dL Final Glucose, Urine 08/22/2024 Normal Normal mg/dL Final Bilirubin, Urine 08/22/2024 Negative Negative Final Specific [place], Urine 08/22/2024 1.004 (L) 1.010 - 1.030 Final Ketones, Urine 08/22/2024 Negative Negative mg/dL Final Blood, Urine 08/22/2024 Negative Negative Final Urobilinogen, Urine 08/22/2024 Normal Normal mg/dL Final Ethanol Calculated % 08/22/2024 <0.01 % Final Ethanol Lvl 08/22/2024 <10 <10 mg/dL Final Auto WBC 08/22/2024 5.63 4.00 - 10.60 10*3/uL Final RBC 08/22/2024 4.01 3.80 - 5.00 10*6/uL Final Hemoglobin 08/22/2024 12.8 12.0 - 15.0 g/dL Final Hematocrit 08/22/2024 36.9 36.0 - 45.0 % Final MCV 08/22/2024 92.0 82.0 - 98.0 fL Final MCH 08/22/2024 31.9 27.0 - 33.0 pg Final MCHC 08/22/2024 34.7 32.0 - 35.0 g/dL Final RDW 08/22/2024 12.6 11.5 - 15.0 % Final Neutrophils % 08/22/2024 66.6 40.0 - 72.0 % Final Lymphocytes % 08/22/2024 28.2 20.0 - 45.0 % Final Monocytes % 08/22/2024 4.8 (L) 5.0 - 12.0 % Final Eosinophils % 08/22/2024 0.2 0.0 - 6.0 % Final Basophils % 08/22/2024 0.0 0.0 - 1.0 % Final Neutrophils Absolute 08/22/2024 3.75 1.60 - 7.60 10*3/uL Final Lymphocytes Absolute 08/22/2024 1.59 1.20 - 4.00 10*3/uL Final Monocytes Absolute 08/22/2024 0.27 0.10 - 1.00 10*3/uL Final Eosinophils Absolute 08/22/2024 0.01 0.00 - 0.50 10*3/uL Final Basophils Absolute 08/22/2024 0.00 0.00 - 0.20 10*3/uL Final Platelets 08/22/2024 213 150 - 400 10*3/uL Final nRBC % 08/22/2024 0.0 0 % Final Immature Granulocytes % 08/22/2024 0.2 0.0 - 1.0 % Final Immature Granulocytes Absolute 08/22/2024 0.01 0.00 - 0.20 10*3/uL Final High Sensitivity Troponin I 08/22/2024 2 <15 ng/L Final High Sensitivity Troponin I 08/22/2024 3 <15 ng/L Final Ventricular Rate 08/22/2024 73 BPM Final Atrial Rate 08/22/2024 73 BPM Final RI Interval 08/22/2024 168 ms Final QRS DURATION 08/22/2024 80 ms Final QT Interval 08/22/2024 358 ms Final QTC CALCULATION(BAZETT) 08/22/2024 394 ms Final P [place] 08/22/2024 66 degrees Final R-[place] 08/22/2024 72 degrees Final T Wave [place] 08/22/2024 53 degrees Final Magnesium 08/23/2024 1.9 1.9 - 2.7 mg/dL Final Protime 08/23/2024 14.4 12.3 - 14.8 Seconds Final INR 08/23/2024 1.12 (H) 0.90 - 1.10 Final [facility] RECOMMENDED INR FOR [facility]FAR[facility] THERAPY CONDITION INR PROPHYLAXIS OF VENOUS THROMBOSIS 2-3 (HIGH-RISK SURGERY) TREATMENT OF VENOUS THROMBOSIS 2-3 TREATMENT OF PULMONARY EMBOLISM 2-3 PREVENTION OF SYSTEMIC EMBOLISM: 2-3 ACUTE MYOCARDIAL INFARCTION TISSUE HEART VALVES VALVULAR HEART DISEASE ATRIAL FIBRILLATION RECURRENT SYSTEMIC EMBOLISM MECHANICAL HEART VALVE 2.5-3.5 FROM: ORAL ANTICOAGULANTS. MECHANISM OF ACTION, CLINICAL EFFECTIVENESS, AND OPTIMAL THERAPEUTIC RANGE. CHEST 1995;108:231S-246S. aPTT 08/23/2024 29.9 25.0 - 35.0 Seconds Final Clinical significance of the APTT is questionable in the presence of heparin. Sodium 08/23/2024 139 136 - 145 mmol/L Final Potassium 08/23/2024 3.5 3.5 - 5.1 mmol/L Final Chloride 08/23/2024 108 (H) 98 - 107 mmol/L Final CO2 08/23/2024 26 21 - 31 mmol/L Final Anion Gap 08/23/2024 9 7 - 20 mmol/L Final BUN 08/23/2024 8 7 - 25 mg/dL Final Creatinine 08/23/2024 0.63 0.60 - 1.20 mg/dL Final BUN/Creatinine Ratio 08/23/2024 12.7 Final Glucose 08/23/2024 89 70 - 100 mg/dL Final Calcium 08/23/2024 8.7 8.6 - 10.3 mg/dL Final AST 08/23/2024 13 13 - 39 U/L Final ALT (SGPT) 08/23/2024 5 (L) 7 - 52 U/L Final Alkaline Phosphatase 08/23/2024 60 34 - 104 U/L Final Total Protein 08/23/2024 6.0 6.0 - 8.3 g/dL Final Albumin 08/23/2024 3.7 3.5 - 5.7 g/dL Final Total Bilirubin 08/23/2024 0.5 0.3 - 1.0 mg/dL Final eGFR 08/23/2024 97.8 >60.0 mL/min/1.73m*2 Final [facility]’s estimated glomerular filtration rate (eGFR) will no longer include consideration of race in its calculation. The National Kidney Foundation’s eGFR Task Force developed new recommendations for the estimation of the glomerular filtration rate in the [place] They recommend immediate implementation of the new equation refit without the race variable in all laboratories because the calculation does not include race. In addition to not including race in the calculation and reporting, it included diversity in its development, and has acceptable performance characteristics and potential consequences that do not disproportionately affect any one group of individuals. Auto WBC 08/23/2024 5.11 4.00 - 10.60 10*3/uL Final RBC 08/23/2024 3.79 (L) 3.80 - 5.00 10*6/uL Final Hemoglobin 08/23/2024 12.2 12.0 - 15.0 g/dL Final Hematocrit 08/23/2024 35.1 (L) 36.0 - 45.0 % Final MCV 08/23/2024 92.6 82.0 - 98.0 fL Final MCH 08/23/2024 32.2 27.0 - 33.0 pg Final MCHC 08/23/2024 34.8 32.0 - 35.0 g/dL Final RDW 08/23/2024 12.9 11.5 - 15.0 % Final Neutrophils % 08/23/2024 57.4 40.0 - 72.0 % Final Lymphocytes % 08/23/2024 35.0 20.0 - 45.0 % Final Monocytes % 08/23/2024 7.2 5.0 - 12.0 % Final Eosinophils % 08/23/2024 0.2 0.0 - 6.0 % Final Basophils % 08/23/2024 0.0 0.0 - 1.0 % Final Neutrophils Absolute 08/23/2024 2.93 1.60 - 7.60 10*3/uL Final Lymphocytes Absolute 08/23/2024 1.79 1.20 - 4.00 10*3/uL Final Monocytes Absolute 08/23/2024 0.37 0.10 - 1.00 10*3/uL Final Eosinophils Absolute 08/23/2024 0.01 0.00 - 0.50 10*3/uL Final Basophils Absolute 08/23/2024 0.00 0.00 - 0.20 10*3/uL Final Platelets 08/23/2024 205 150 - 400 10*3/uL Final nRBC % 08/23/2024 0.0 0 % Final Immature Granulocytes % 08/23/2024 0.2 0.0 - 1.0 % Final Immature Granulocytes Absolute 08/23/2024 0.01 0.00 - 0.20 10*3/uL Final Sodium 08/24/2024 137 136 - 145 mmol/L Final Potassium 08/24/2024 4.2 3.5 - 5.1 mmol/L Final Chloride 08/24/2024 106 98 - 107 mmol/L Final CO2 08/24/2024 21 21 - 31 mmol/L Final Anion Gap 08/24/2024 14 7 - 20 mmol/L Final BUN 08/24/2024 10 7 - 25 mg/dL Final Creatinine 08/24/2024 0.65 0.60 - 1.20 mg/dL Final BUN/Creatinine Ratio 08/24/2024 15.4 Final Glucose 08/24/2024 107 (H) 70 - 100 mg/dL Final Calcium 08/24/2024 8.8 8.6 - 10.3 mg/dL Final AST 08/24/2024 16 13 - 39 U/L Final ALT (SGPT) 08/24/2024 5 (L) 7 - 52 U/L Final Alkaline Phosphatase 08/24/2024 68 34 - 104 U/L Final Total Protein 08/24/2024 6.3 6.0 - 8.3 g/dL Final Albumin 08/24/2024 3.9 3.5 - 5.7 g/dL Final Total Bilirubin 08/24/2024 0.5 0.3 - 1.0 mg/dL Final eGFR 08/24/2024 97.0 >60.0 mL/min/1.73m*2 Final [facility]’s estimated glomerular filtration rate (eGFR) will no longer include consideration of race in its calculation. The National Kid[employer] Foundation’s eGFR Task Force developed new recommendations for the estimation of the glomerular filtration rate in the [place] They recommend immediate implementation of the new equation refit without the race variable in all laboratories because the calculation does not include race. In addition to not including race in the calculation and reporting, it included diversity in its development, and has acceptable performance characteristics and potential consequences that do not disproportionately affect any one group of individuals. Auto WBC 08/24/2024 5.80 4.00 - 10.60 10*3/uL Final RBC 08/24/2024 4.11 3.80 - 5.00 10*6/uL Final Hemoglobin 08/24/2024 13.1 12.0 - 15.0 g/dL Final Hematocrit 08/24/2024 38.2 36.0 - 45.0 % Final MCV 08/24/2024 92.9 82.0 - 98.0 fL Final MCH 08/24/2024 31.9 27.0 - 33.0 pg Final MCHC 08/24/2024 34.3 32.0 - 35.0 g/dL Final RDW 08/24/2024 12.6 11.5 - 15.0 % Final Platelets 08/24/2024 205 150 - 400 10*3/uL Final Assessment & Plan Choledocholithiasis Relevant Hx: Patient presents to hospital from clinic. She was found to have choledocholithiasis. Yesterday, she underwent ERCP with GI for stone removal. We were consulted as she is recommended to get a cholecystectomy. We evaluated and examined the patient. She does not want a cholecystectomy during this admission. We discussed how we recommend a cholecystectomy during this hospital stay as it will elevate her risk for recurrence of choledocholithiasis. We explained that there are stones in her gallbladder that can dislodge into her common bile duct. She understands th. Patient states that she has been asymptomatic from her choledocholithiasis, and wishes to pursue cholecystectomy near her home, will follow up with her PCP. Today's Plan: Recommend cholecystectomy during this hospital stay. Patient would prefer to follow up with her PCP. Explained risks, pt understands. Recommend starting soft diet Recommend follow-up with PCP to get cholecystectomy as outpatient General surgery will sign off at this time. Please call for any questions regarding this patient. Orders from past 72 hours: acetaminophen (Tylenol) tablet 650 mg melatonin tablet 5 mg hydrOXYzine pamoate (Vistaril) capsule 25 mg polyethylene glycol (Glycolax) packet 17 g bisacodyl (Dulcolax) suppository 10 mg enoxaparin (Lovenox) syringe 40 mg sodium chloride 0.9 % infusion ondansetron ODT (Zofran-ODT) disintegrating tablet 4 mg ondansetron HCl (PF) (Zofran) injection 4 mg pantoprazole (ProtoNix) injection 40 mg morphine injection 2 mg methIMAzole (Tapazole) tablet 5 mg metoprolol succinate XL (Toprol-XL) 24 hr split tablet 25 mg sodium chloride 0.9 % infusion [1] Past Medical History: Diagnosis Date Graves disease [2] Past Surgical History: Procedure Laterality Date EYE SURGERY [3] No family history on file. [4] Allergies Allergen Reactions Cefuroxime Unknown [5] Medications Prior to Admission Medication Sig Dispense Refill Last Dose/Taking methIMAzole (Tapazole) 5 mg tablet Take 5 mg by mouth. DAILY 5 days per week (not given on Sundays and Tuesdays) metoprolol succinate XL (Toprol-XL) 25 mg 24 hr tablet Take 25 mg by mouth in the morning. Do not crush or chew. multivitamin tablet Take 1 tablet by mouth in the morning. omeprazole (PriLOSEC) [address] capsule Take 40 mg by mouth before breakfast and before evening meal. Do not crush or chew. povidone, PF, (iVizia, PF,) 0.5 % drops Administer 1 drop into affected eye(s) four times daily. Cosigned by Alexia Parisi MD at 08/24/2024 7:22 PM EDT * Triston Butler MD - 08/23/2024 8:54 AM EDTAssociated Order(s): IP CONSULT TO GASTROENTEROLOGY [facility] Teaching GI Service Initial Gastroenterology/Hepatology Consultation Note IDENTIFYING DATA PATIENT: Jessica Saavedra ADMIT DATE: 08/22/2024 TIME OF EVALUATION: 08/23/2024 8:54 AM Reason for Consult: CBD stone Choledocholithiasis, known patient HISTORY OF PRESENT ILLNESS Jessiac Saavedra is a 64 y.o. female with PMHx significant for Graves' disease, nicotine dependence who presented to the ED after being referred by her PCP due to concern for choledocholithiasis. GI team was consulted for possibility of ERCP. Patient reported she has been having intermittent abdominal bloating and pain in upper quadrant forthe past few months. Underwent CT abdomen pelvis by the PCP at the [facility] on Friday and there was a concern for stones in the bile duct and patient was advised to come to the hospital for possibility of ERCP. Lab workup revealed sodium 139, potassium 3.5, alk phos 60, lipase 23, AST 13, ALT 5, total bilirubin 0.5, WBCs 5.1, hemoglobin 12.2, platelets 205, INR 1.1. GI HISTORY SUMMARY TABLE Last EGD Last colonoscopy Primary GI physician PAST MEDICAL, SURGICAL, FAMILY, and SOCIAL HISTORY Medical History[1] Surgical History[2] Family History[3] Social History: Social History[4] MEDICATIONS Allergies: Allergies[5] Home Medications: Prior to Admission medications Medication Sig Start Date End Date Taking? Authorizing Provider methIMAzole (Tapazole) 5 mg tablet Take 5 mg by mouth. DAILY 5 days per week (not given on Sundays and Tuesdays) Historical Provider, metoprolol succinate XL (Toprol-XL) 25 mg 24 hr tablet Take 25 mg by mouth in the morning. Do not crush or chew. Historical Provider, multivitamin tablet Take 1 tablet by mouth in the morning. Historical Provider, omeprazole (PriLOSEC) [address] capsule Take 40 mg by mouth before breakfast and before evening meal. Do not crush or chew. Historical Provider, poviHORTENSIA ferrara, (HORTENSIA Hooker,) 0.5 % drops Administer 1 drop into affected eye(s) four times daily. Historical Provider, Current Medications: [Held by provider] enoxaparin, 40 mg, subcutaneous, Daily iohexol, 100 mL, intravenous, Once in imaging methIMAzole, 5 mg, oral, Daily metoprolol succinate XL, 25 mg, oral, Daily pantoprazole, 40 mg, intravenous, q24h HOLLIS PRNs: acetaminophen, 650 mg, q6h PRN bisacodyl, 10 mg, Daily PRN hydrOXYzine pamoate, 25 mg, 4x daily PRN melatonin, 5 mg, Nightly PRN morphine, 2 mg, q6h PRN ondansetron ODT, 4 mg, q8h PRN Or ondansetron, 4 mg, q6h PRN polyethylene glycol, 17 g, Daily PRN REVIEW OF SYSTEMS See HPI, otherwise ROS negative as below CONSTITUTIONAL: negative HEENT: negative RESPIRATORY: negative CARDIOVASCULAR: negative GASTROINTESTINAL: as in HPI GENITOURINARY: negative INTEGUMENT/BREAST: negative HEMATOLOGIC/LYMPHATIC: negative ALLERGIC/IMMUNOLOGIC: negative ENDOCRINE: negative MUSCULOSKELETAL: negative NEUROLOGICAL: negative BEHAVIOR/PSYCH: negative OBJECTIVE DATA Vitals: BP 109/71 Pulse 62 Temp 36.7 °C (98.1 °F) Resp 16 Ht 1.676 m (5' 6 ) Wt 63.5 kg (140 lb) SpO2 94% BMI 22.60 kg/m² GEN: alert and oriented x3, NAD HEENT: EOMI, PERRL, oropharynx non-erythematous without exudate, no oral lesions LYMPH: no lad CV: RRR, no murmur, rub, gallop, no edema PULM: CTAB, symmetric chest rise, no accessory muscle use ABD: soft, non-tender, non-distended, +BS NEURO: no focal deficits, moves all 4 extremities spontaneously SKIN: no rashes PSYCH: normal affect LABS AND IMAGING CBC: Lab Results Component Value Date WBC 5.11 08/23/2024 RBC 3.79 (L) 08/23/2024 HGB 12.2 08/23/2024 HCT 35.1 (L) 08/23/2024 MCV 92.6 08/23/2024 RDW 12.9 08/23/2024 PLT 205 08/23/2024 CMP: Lab Results Component Value Date NA 139 08/23/2024 K 3.5 08/23/2024 CL 108 (H) 08/23/2024 CO2 26 08/23/2024 BUN 8 08/23/2024 PROT 6.0 08/23/2024 Lipase: No components found for: LIP Amylase: No components found for: BRIANDA Ionized Calcium: No components found for: IONCA Magnesium: Lab Results Component Value Date MG 1.9 08/23/2024 Phosphorus: No components found for: PO4 PT/INR: Lab Results Component Value Date INR 1.12 (H) 08/23/2024 TSH: No results found for: TSH VITAMIN B12: No components found for: B12 FOLATE: No results found for: FOLATE IRON: No components found for: FE Iron Saturation: No components found for: PERCENTFESAT TIBC: No results found for: TIBC FERRITIN: No results found for: FERRITIN MICRO Blood Culture: No components found for: CBLOOD , CFUNGUSBL Stool Culture: No components found for: CSTOOL IMAGING: ASSESSMENT AND PLAN Jessica Saavedra is a 64 y.o. female with PMHx significant for Graves' disease, nicotine dependence who presented to the ED after being referred by her PCP due to concern for choledocholithiasis. GI team was consulted for possibility of ERCP. Impression: Biliary colic secondary to choledocholithiasis CT abdomen pelvis/ultrasound abdomen outside hospital revealed choledocholithiasis. LFTs within normal limits. History of Graves' disease Plan: Keep patient n.p.o. Avoid anticoagulation including DVT prophylaxis. Will tentatively plan for ERCP later in the day today. Risks and benefits discussed with patient she is agreeable. This consult will be discussed with attending physician Dr. Khoury. If you have any questions please feel free to contact the GI Service. Thank you for allowing us to participate in the care of Jessica Saavedra. [facility] GI Service Extension: 1919 6 am to 4 pm weekdays in [place] 5 pm to 6 am or weekends please contact the pulverizer operator to page the fellow fabrication and layout craftsman [1] Past Medical History: Diagnosis Date Graves disease [2] Past Surgical History: Procedure Laterality Date EYE SURGERY [3] No family history on file. [4] Social History Tobacco Use Smoking status: Every Day Current packs/day: 0.50 Types: Cigarettes Smokeless tobacco: Never Substance Use Topics Alcohol use: Never Drug use: Never [5] Allergies Allergen Reactions Cefuroxime Unknown Cosigned by Kathya Khoury MD at 08/23/2024 4:45 PM EDT Associated attestation - Kathya Khoury MD - 08/23/2024 4:45 PM EDT The patient was seen and examined. Agree with the assessment and plan. Biliary colic secondary to choledocholithiasis. CT abdomen pelvis/ultrasound abdomen outside hospital revealed choledocholithiasis. Plan: ERCP for biliary stone removal today. documented in this encounter ED Notes * Michelle Thayer PA-C - 08/22/2024 6:08 PM EDTAssociated Order(s): ECG 12 lead [facility] [address] [facility] [id number] EMERGENCY DEPARTMENT ENCOUNTER 08/22/2024 CHIEF COMPLAINT Chief Complaint Patient presents with Cholelithiasis HISTORY OF PRESENT ILLNESS 64-year-old female with a history of GERD presents to the emergency department at the recommendation of her kaiawhina for choledocholithiasis. Patient reports she has been having indigestionand heartburn for several months. Patient reports she had an outpt CT scan of the abdomen completed2 days ago and reports her kaiawhina called her to inform her that they were concerned that she had a gallstone in her bile duct and that she needed to present to the hospital for mgmt of such. Patient denies current abdominal pain. Patient denies fevers, chills, nausea,, diarrhea, chest pain, shortness of breath. Patient denies history of abdominal surgery. REVIEW OF SYSTEMS Review of Systems Constitutional: Negative for chills and fever. Respiratory: Negative for shortness of breath. Cardiovascular: Negative for chest pain. Gastrointestinal: Positive for abdominal pain. Negative for diarrhea and vomiting. Musculoskeletal: Negative for back pain. Skin: Negative for rash. Neurological: Negative for headaches. Psychiatric/Behavioral: Negative for confusion. All other systems reviewed and are negative. PAST MEDICAL HISTORY has a past medical history of Graves disease. SURGICAL HISTORY has a past surgical history that includes Eye surgery. CURRENT MEDICATIONS Previous Medications No medications on file ALLERGIES is allergic to cefuroxime. FAMILY HISTORY has no family status information on file. family history is not on file. SOCIAL HISTORY reports that she has been smoking cigarettes. She has never used smokeless tobacco. She reports that she does not drink alcohol and does not use drugs. PHYSICIAL EXAM INITIAL VITALS: height is 1.676 m (5' 6 ) and weight is 63.5 kg (140 lb). Her temperature is 36.8 °C (98.3 °F). Her blood pressure is 124/88 and her pulse is 79. Her respiration is 18 and oxygen saturation is 97%. Physical Exam Vitals reviewed. Constitutional: General: She is not in acute distress. Appearance: Normal appearance. She is not ill-appearing or toxic-appearing. HENT: Head: Normocephalic and atraumatic. Mouth/Throat: Mouth: Mucous membranes are moist. Eyes: Conjunctiva/sclera: Conjunctivae normal. Cardiovascular: Rate and Rhythm: Normal rate and regular rhythm. Heart sounds: Normal heart sounds. Pulmonary: Effort: Pulmonary effort is normal. No respiratory distress. Breath sounds: Normal breath sounds. Abdominal: General: Bowel sounds are normal. Palpations: Abdomen is soft. Tenderness: There is no abdominal tenderness. Musculoskeletal: General: Normal range of motion. Cervical back: Normal range of motion and neck supple. Skin: General: Skin is warm and dry. Neurological: General: No focal deficit present. Mental Status: She is alert and oriented to person, place, and time. Gait: Gait is intact. Psychiatric: Mood and Affect: Mood normal. Behavior: Behavior normal. DIAGNOSTIC RESULTS EKG: All EKG's are interpreted by the Emergency Department Physician in the absence of a manager publishing. EKG was reviewed by ED attending and personal lines underwriter. EKG interpretation for this visit is documented below. ECG 12 lead Performed by: Michelle Thayer PA-C Authorized by: Michelle Thayer PA-C ECG interpreted by ED Physician in the absence of a manager publishing: yes (EKG reviewed by ED attending(Dr Evans) at 1835) Rate: ECG rate: 73 bpm Rhythm: Rhythm: sinus rhythm QRS: QRS axis: Normal QRS intervals: Normal QRS conduction: normal Details: QTc 394ms ST segments: ST segments: Normal T waves: T waves: non-specific RADIOLOGY: Radiologist interpretation of the radiologic studies: CT transfer of outside films Final Result CT abdomen pelvis w IV contrast US gallbladder (Results Pending) LABS: Labs Reviewed URINALYSIS WITH REFLEX CULTURE - Abnormal Result Value Color, Urine Light-Yellow Clarity, Urine Clear pH, Urine 6.5 Leukocytes, Urine Negative Nitrite, Urine Negative Protein, Urine Negative Glucose, Urine Normal Bilirubin, Urine Negative Specific [place], Urine 1.004 (*) Ketones, Urine Negative Blood, Urine Negative Urobilinogen, Urine Normal Narrative: Microscopics not performed on urines with negative chemical reactions unless requested on original order. CBC WITH AUTO DIFFERENTIAL - Abnormal Auto WBC 5.63 RBC 4.01 Hemoglobin 12.8 Hematocrit 36.9 MCV 92.0 MCH 31.9 MCHC 34.7 RDW 12.6 Neutrophils % 66.6 Lymphocytes % 28.2 Monocytes % 4.8 (*) Eosinophils % 0.2 Basophils % 0.0 Neutrophils Absolute 3.75 Lymphocytes Absolute 1.59 Monocytes Absolute 0.27 Eosinophils Absolute 0.01 Basophils Absolute 0.00 Platelets 213 nRBC % 0.0 Immature Granulocytes % 0.2 Immature Granulocytes Absolute 0.01 HEPATIC FUNCTION PANEL - Normal Total Bilirubin 0.4 Bilirubin, Direct 0.1 Alkaline Phosphatase 67 AST 16 ALT (SGPT) 9 Total Protein 6.6 Albumin 4.1 LIPASE - Normal Lipase 23 LACTIC ACID WITH 4 HOUR REFLEX - Normal Lactate 0.9 HIGH SENSITIVITY TROPONIN I - Normal High Sensitivity Troponin I 2 HIGH SENSITIVITY TROPONIN I - Normal High Sensitivity Troponin I 3 CBC AND DIFFERENTIAL Narrative: The following orders were created for panel order CBC and differential. Procedure Abnormality Status --------- ------ CBC auto differential[[id number]] Abnormal Final result Please view results for these tests on the individual orders. BASIC METABOLIC PANEL Sodium 139 Potassium 3.6 Chloride 106 CO2 25 BUN 8 Creatinine 0.72 Glucose 82 Calcium 9.2 Anion Gap 12 eGFR 92.2 BUN/Creatinine Ratio 11.1 ETHANOL Ethanol Calculated % <0.01 Ethanol Lvl <10 EMERGENCY DEPARMENT COURSE Vitals: Vitals: 08/22/24 1812 08/22/24 1819 08/22/24193208/22/242032 BP: (!) 123/95 124/78 139/80 124/88 Pulse: 87 86 80 79 Resp: 14 15 10 18 Temp: 36.8 °C (98.3 °F) SpO2: 95% 96% 96% 97% Weight: 63.5 kg (140 lb) Height: 1.676 m (5' 6 ) BP: 124/88, Temp: 36.8 °C (98.3 °F), , Heart Rate: 79, Resp: 18 ED Course as of 08/22/242120 [place] Aug 22, [id number] Patient does not have access to the formal CT result that she reports was completed 2d ago sathish is not available in [facility] to review. Pt informed will need to repeat imaging and labs, pt agreeable [JS] 1844 Auto WBC: 5.63 [JS] 184 Neutrophils %: 66.6 [JS] 191 High Sensitivity Troponin I: 2 [JS] 1943 projection technician reports they were able to push pts CTAP from [employer] thru to [facility] and reports thereport for such is being faxed here [JS] 2023 Have not yet received fax for CT results [JS] 2029 High Sensitivity Troponin I: 3 [JS] [address] abdomen and pelvis completed 08/20/[address] abdomen pelvis with common duct dilatation and choledocholithiasis with 1.4x1.3cm calculus within intrapancreatic common duct . Will consult with GI [JS] 2102 Discussed the case in detail with GI. Wants pts admitted for possible MRCP tomorrow. NPO aftermidnight. Hold AC [JS] 2106 hospitalist informed of consultation for admission. Patient agreeable to plan for admission [JS] 2111 Hospitalist is agreeable to the admission and will evaluate the pt [JS] ED Course User Index [JS] Michelle Thayer PA-C Diagnoses as of 08/22/242120 Choledocholithiasis CONSULTS: GI and hospitalist PROCEDURES: none DIFFERENTIAL DIAGNOSIS / DISPOSITION / PLAN / Medical Decision Making Problems Addressed: Choledocholithiasis: acute illness or injury Amount and/or Complexity of Data Reviewed External Data Reviewed: radiology. Labs: ordered. Decision-making details documented in ED Course. Discussion of management or test interpretation with external provider(s): Consultation with GI andhospitalist Risk Decision regarding hospitalization. FINAL IMPRESSION 1. Choledocholithiasis I have reviewed the disposition diagnosis with the patient and/or their family/guardian. I have answered their questions and given instructions. They voiced understanding of these instructions and did not have any further questions or complaints. (Please note that portions of this note were completed with a voice recognition program. Efforts were made to edit the dictions but occasionally words are mis-transcribed.) LOC Blackmon PA-C 08/22/242324 * Alison Wilson RN - 08/22/2024 6:06 PM EDT Mode of arrival: private auto Chief complaint(s): gall stones Arrival Note: Pt was seen at [facility] on Friday and they obtained an CT and told pt she has a stone blocking the bile duct. Pt has no pain at this time but thought we would not have anyone here to help her until tomorrow so she waited until now to come. Pertinent PMH: Treatment(s) prior to arrival: documented in this encounter Miscellaneous Notes * Assessment & Plan Note - Gabi Jones MD - 08/24/2024 2:59 PM EDTAssociated Problem(s): Choledocholithiasis Relevant Hx: Patient presents to hospital from clinic. She was found to have choledocholithiasis. Yesterday, she underwent ERCP with GI for stone removal. We were consulted as she is recommended to get a cholecystectomy. We evaluated and examined the patient. She does not want a cholecystectomy during this admission. We discussed how we recommend a cholecystectomy during this hospital stay as it will elevate her risk for recurrence of choledocholithiasis. We explained that there are stones in her gallbladder that can dislodge into her common bile duct. She understands th. Patient states that she has been asymptomatic from her choledocholithiasis, and wishes to pursue cholecystectomy near her home, will follow up with her PCP. Today's Plan: Recommend cholecystectomy during this hospital stay. Patient would prefer to follow up with her PCP. Explained risks, pt understands. Recommend starting soft diet Recommend follow-up with PCP to get cholecystectomy as outpatient General surgery will sign off at this time. Please call for any questions regarding this patient. Orders from past 72 hours: acetaminophen (Tylenol) tablet 650 mg melatonin tablet 5 mg hydrOXYzine pamoate (Vistaril) capsule 25 mg polyethylene glycol (Glycolax) packet 17 g bisacodyl (Dulcolax) suppository 10 mg enoxaparin (Lovenox) syringe 40 mg sodium chloride 0.9 % infusion ondansetron ODT (Zofran-ODT) disintegrating tablet 4 mg ondansetron HCl (PF) (Zofran) injection 4 mg pantoprazole (ProtoNix) injection 40 mg morphine injection 2 mg methIMAzole (Tapazole) tablet 5 mg metoprolol succinate XL (Toprol-XL) 24 hr split tablet 25 mg sodium chloride 0.9 % infusion * Anesthesia Transport Note - NABILA Guerrero - 08/23/2024 5:51 PM EDT Patient: Jessica Saavedra Procedure Summary Date: 08/23/24 Room / Location: [facility] Main Operating Room Anesthesia Start: 1650 Anesthesia Stop: Procedure: ENDOSCOPIC RETROGRADE CHOLANGIOPANCREATOGRAPHY Diagnosis: Scheduled Providers: Gilberto Ramirez MD; Kathya Khoury MD Responsible Provider: Kathya Ernst MD Anesthesia Type: general ASA Status: 3 Anesthesia Post Transport Note Transport to: PACU O2 Route: room air Patient Monitor: direct observation Transport: uneventful Patient condition is: stable * Assessment & Plan Note - Jamey Cueva MD - 08/23/2024 3:50 PM EDT Associated Problem(s): Choledocholithiasis - outside hospital CT exhibiting choledocholithiasis with significant CBD dilatation and cholelithiasis without significant pericholecystic inflammation - trend LFTs they are unremarkable - patient is afebrile and without white count or significant abdominal pain - GI consulted, planning for ERCP likely today * Assessment & Plan Note - Jamey Cueva MD - 08/23/2024 3:50 PM EDT Associated Problem(s): Epigastric pain - outside hospital CT exhibiting choledocholithiasis with significant CBD dilatation and cholelithiasis without significant pericholecystic inflammation - trend LFTs they are unremarkable - patient is afebrile and without white count or significant abdominal pain - GI consulted, planning for ERCP likely today * Assessment & Plan Note - Jamey Cueva MD - 08/23/2024 3:50 PM EDT Associated Problem(s): Graves disease - Resume home methimazole * Assessment & Plan Note - Kimberlyn Stinson MD - 08/22/2024 10:28 PM EDT Associated Problem(s): Choledocholithiasis Gastroenterology consulted Normal saline at 50 mL/hour N.p.o. after midnight for possible procedure tomorrow by GI Pain control with morphine IV as needed documented in this encounter Plan of Treatment Scheduled Orders Name Type Priority Associated Diagnoses Orde r Schedule Comprehensive metabolic panel Lab Routine Choledocholithiasis Expected: 08/27/2024 (Approximate), Expires: 08/24/2025 CBC Lab Routine Choledocholithiasis Expected: 08/27/2024 (Approximate), Expires: 08/24/2025 Scheduled Referrals Name Type Priority Associated Diagnoses Order Schedule Ambulatory referral to Gastroenterology Outpatient Referral Routine Epigastric pain Expected: 08/24/2024 (Approximate), Expires: 02/24/2025 documented as of this encounter Procedures Procedure Name Priority Date/Time Associated Diagnosis Comments CBC Pending Discharge 08/24/2024 8:23 AM EDT COMPREHENSIVE METABOLIC PANEL Pending Discharge 08/24/2024 8:23 AM EDT [place] LESS THAN 1 HOUR INTRAOPERATIVE Routine 08/23/2024 6:45 PM EDT ENDOSCOPIC RETROGRADE CHOLANGIOPANCREATOGRAPHY Routine 08/23/2024 5:[address] TRANSFER OF OUTSIDE FILMS Routine 10:59 AM EDT US GALLBLADDER STAT 08/23/2024 9:28 AM EDT CBC WITH AUTO DIFFERENTIAL Routine 08/23 5:15 AM EDT APTT Routine 08/23/2024 5:15 AM EDT PROTIME-INR Routine 08/23/2024 5:15 AM EDT CBC AND DIFFERENTIAL Routine 08/23/2024 5:15 AM EDT MAGNESIUM Routine 08/23/2024 5:15 AM EDT COMPREHENSIVE METABOLIC PANEL Routine 5:15 AM EDT URINALYSIS WITH REFLEX CULTURE STAT 08/22/2024 7:51 PM EDT HIGH SENSITIVITY TROPONIN I STAT 08/10 7:[address] TRANSFER OF OUTSIDE FILMS STAT 7:31 PM EDT ECG 12-LEAD STAT 08/22/2024 6:37 PM EDT HIGH SENSITIVITY TROPONIN I STAT 08/10 6:26 PM EDT LACTIC ACID WITH 4 HOUR REFLEX STAT 08/22/2024 6:26 PM EDT CBC WITH AUTO DIFFERENTIAL STAT 08/22 6:26 PM EDT CBC AND DIFFERENTIAL STAT 08/22/2024 6:26 PM EDT LIPASE STAT 08/22/2024 6:26 PM EDT ETHANOL STAT 08/22/2024 6:26 PM EDT HEPATIC FUNCTION PANEL STAT 6:26 PM EDT BASIC METABOLIC PANEL STAT 08/22/2024 6:26 PM EDT documented in this encounter Results * CBC (08/24/2024 8:23 AM EDT) Auto WBC 5.80 4.00 - 10.60 10*3/uL 08/24/2024 8:58 AM EDT [facility] RBC 4.11 3.80 - 5.00 10*6/uL 08/24/2024 8:58 AM EDT [facility] Hemoglobin 13.1 12.0 - 15.0 g/dL 08/24/2024 8:58 AM EDT [facility] Hematocrit 38.2 36.0 - 45.0 % 08/24/2024 8:58 AM EDT [facility] MCV 92.9 82.0 - 98.0 fL 08/24/2024 8:58 AM EDT [facility] MCH 31.9 27.0 - 33.0 pg 08/24/2024 8:58 AM EDT [facility] MCHC 34.3 32.0 - 35.0 g/dL 08/24/2024 8:58 AM EDT [facility] RDW 12.6 11.5 - 15.0 % 08/24/2024 8:58 AM EDT [facility] Platelets 205 150 - 400 10*3/uL 08/24/2024 8:58 AM EDT [facility] Blood Venous blood specimen / Unknown Venipuncture / Unknown 08/24/2024 8:23 AM EDT 08/24/2024 8:34 AM EDT us Chris Jennings MD LAB BLOOD ORDERABLES Final Res ult [facility] [address] [place] [address] * (ABNORMAL) Comprehensive metabolic panel (08/24/2024 8:23 AM EDT) Sodium 137 136 - 145 mmol/L 08/24/2024 9:12 AM EDT [facility] Potassium 4.2 3.5 - 5.1 mmol/L 08/24/2024 9:12 AM EDT [facility] Chloride 106 98 - 107 mmol/L 08/24/2024 9:12 AM EDT [facility] CO2 21 21 - 31 mmol/L 08/24/2024 9:12 AM EDT [facility] Anion Gap 14 7 - 20 mmol/L 08/24/2024 9:12 AM EDT [facility] BUN 10 7 - 25 mg/dL 08/24/2024 9:12 AM EDT [facility] Creatinine 0.65 0.60 - 1.20 mg/dL 08/24/2024 9:12 AM EDT [facility] BUN/Creatinine Ratio 15.4 08/10 9:12 AM EDT [facility] Glucose 107(H) 70 - 100 mg/dL 08/24/2024 9:12 AM EDT [facility] Calcium 8.8 8.6 - 10.3 mg/dL 08/24/2024 9:12 AM EDT [facility] AST 16 13 - 39 U/L 08/24/2024 9:12 AM T [facility] ALT (SGPT) 5(L) 7 - 52 U/L 08/24/2024 9:12 AM EDT [facility] Alkaline Phosphatase 68 34 - 104 U/L 08/24/2024 9:12 AM EDT [facility] Total Protein 6.3 6.0 - 8.3 g/dL 08/24/2024 9:12 AM T [facility] Albumin 3.9 3.5 - 5.7 g/dL 08/24/2024 9:12 AM T [facility] Total Bilirubin 0.5 0.3 - 1.0 mg/dL 08/24/2024 9:12 AM T [facility] eGFR 97.0 >60.0 mL/min/1. 73m*2 08/24/2024 9:12 AM T [facility] Comment:[facility] s estimated glomerular filtration rate (eGFR) will no longer include consideration of race in its calculation. The [employer] s eGFR Task Force developed new recommendations for the estimation of the glomerular filtration rate in the [place] They recommend immediate implementation of the new equation refit without the race variable in all laboratories because the calculation does not include race. In addition to not including race in the calculation and reporting, it included diversity in its development, and has acceptable performance characteristics and potential consequences that do not disproportionately affect any one group of individuals. Blood Venous blood specimen / Unknown Venipuncture / Unknown 08/24/2024 8:23 AM EDT 08/24/2024 8:33 AM EDT us Chris Jennings MD LAB BLOOD ORDERABLES Final Res ult [facility] [address] [place] [address] * [place] LESS THAN 1 HOUR INTRAOPERATIVE (08/23/2024 6:45 PM EDT) Anatomical Region Laterality Modality X-Ray Angiograph y 08/23/2024 8:09 PM EDT Impressions 08/23/2024 8:09 PM EDT Reference air kerma 87.9 mGy. Fluoroscopic guidance provided without radiologist present. Please see details within procedure/operative note. Electronically signed: Orlando Branch MD. Narrative 08/23/2024 8:09 PM EDT [place] IN ENDO HISTORY: ERCP, stones. COMPARISON: None. Procedure Note Orlando Branch MD - 08/23/2024 [place] IN ENDO HISTORY: ERCP, stones. COMPARISON: None. IMPRESSION: Reference air kerma 87.9 mGy. Fluoroscopic guidance provided withoutradiologist present. Please see details within procedure/operative note. Electronically signed: Orlando Branch MD. Kathya Khoury MD IMG FLUOROSCOPY PROCEDURES Final Result * ERCP w/ Sphinctorotomy (08/23/2024 5:51 PM EDT) Anatomical Region Laterality Modality Other Narrative 08/23/2024 6:22 PM EDT Endoscopic Retrograde Cholangiopancreatography (ERCP) Procedure Note Procedure: ERCP with mechanical lithotripsy, stones removal, stent placement and sphincterotomy Indications: Biliary colic secondary to choledocholithiasis. CT abdomen pelvis/ultrasound abdomen outside hospital revealed choledocholithiasis. Plan for ERCP for biliary stone removal. 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 Risks of pancreatitis, infection, perforation, hemorrhage, adverse drug reaction and aspiration were discussed. The patient was placed in the left lateral decubitus position. The patient was monitored continuously with ECG tracing, pulse oximetry, blood pressure monitoring, and direct observations. The duodenoscope was inserted into the mouth and advanced to the third portion of the duodenum; findings and interventions are described below. The patient tolerated the procedure well, and there were no immediate complications. She was taken to the recovery area in stable condition. Findings: The major papilla was identified and looked unremarkable. The Rx-44 sphincterotome loaded with a 0.035 inch guidewire was used to cannulate the common bile duct which was successfully achieved. Contrast was injected. Diffusely dilated common bile duct was identified with a large common bile duct stone measured 18-20 mm in size. Biliary sphincterotomy was performed and the sphincterotome was then removed over the guidewire. The 3 cm trapezoid mechanical lithotripter was advanced over the guidewire into the common bile duct. The stone was grasped within the trapezoid catheter. Mechanical lithotripsy was performed and the stone was fragmented to several pieces. Few stone fragments were removed with the lithotripter. The lithotripter catheter was then removed over the guidewire and a 15-18 mm injecting below retrieval balloon catheter was advanced over the guidewire into the common bile duct. The common bile duct was swept few times. Multiple large stones fragments were removed from the common bile duct with the balloon sweep. The retrieval balloon catheter was then removed over the guidewire and a 10 Hebrew by 5 cm double-pigtail biliary stent was placed into the common bile duct to maintain biliary drainage. The procedure was performed under fluoroscopic guidance and I did the interpretation of the fluoroscopic images. The scope was then withdrawn and the patient tolerated the procedure well and was sent to the recovery in stable condition. Specimens: No specimens collected Complications: None Estimated blood loss: Minimal Disposition: Return to floor bed for further management Condition: stable Impression: Large common bile duct stone measured 18 to 20 mm in size noted is a diffusely dilated common bile duct. Mechanical lithotripsy was performed and multiple large stones were removed from the common bile duct after biliary sphincterotomy was performed. A 10 Hebrew by 5 cm double-pigtail plastic biliary stent was placed into the common bile duct to maintain biliary drainage. Recommendations: Keep the patient n.p.o. for today. Advance diet tomorrow if the patient is asymptomatic. Consider laparoscopic cholecystectomy. Plan for repeating ERCP in 4 to 6 weeks for common bile duct stent removal and for final clearance of the common bile duct. Attending Attestation: I performed the procedure. us Kathya Khoury MD ENDOSCOPY PROCEDURE ORDERABLES F inal Result * CT transfer of outside films (08/23/2024 10:59 AM EDT) Narrative IMAGING - 08/23/2024 10:59 AM EDT This order has been auto-finalized and does not contain a result. Michelle St. Jeremy MONTERROSO IMG CT PROCEDURES Final Resu lt IMAGING * US gallbladder (08/23/2024 9:28 AM EDT) Anatomical Region Laterality Modality Gall bladder Ultrasound 08/23/2024 9:35 AM EDT Impressions 08/23/2024 9:43 AM EDT There are multiple echogenic stones at the gallbladder and common bile duct with severe common bile duct dilatation of 1.6 cm. There is no gross sonographic evidence of acute cholecystitis. Electronically signed: Jamaal Gibbs. Narrative 08/23/2024 9:43 AM EDT US GALLBLADDER 08/23/2024 9:04 AM CLINICAL INDICATIONS: Abdominal pain TECHNIQUE: Limited abdominal ultrasound. COMPARISON: none FINDINGS: There is 1.5 cm echogenic stones at the distal aspect of the common bile duct with severe: Bile duct dilatation of 1.6 cm and diffuse common bile duct wall thickening. Similar echogenic stones are present at the dependent aspect of the distended gallbladder. However, there is no significant gallbladder wall thickening or pericholecystic fluid. Sonographic Rai sign was reported to be negative. The visualized hepatic and pancreatic parenchyma are unremarkable. Pancreatic duct is grossly unremarkable Procedure Note Jamaal Gibbs MD - 08/23/2024 US GALLBLADDER 08/23/2024 9:04 AM CLINICAL INDICATIONS: Abdominal pain TECHNIQUE: Limited abdominal ultrasound. COMPARISON: none FINDINGS: There is 1.5 cm echogenic stones at the distal aspect of the common bileduct with severe: Bile duct dilatation of 1.6 cm and diffuse common bile ductwall thickening. Similar echogenic stones are present at the dependent aspectof the distended gallbladder. However, there is no significant gallbladder wall thickening or pericholecystic fluid. Sonographic Rai sign was reported to be negative. The visualized hepatic and pancreatic parenchyma are unremarkable.Pancreatic duct is grossly unremarkable IMPRESSION: There are multiple echogenic stones at the gallbladder and common bileduct with severe common bile duct dilatation of 1.6 cm. There is no gross sonographic evidence of acute cholecystitis. Electronically signed: Jamaal Gibbs. us Kimberlyn Stinson MD IMG US PROCEDURES Final Result * (ABNORMAL) CBC auto differential (08/23/2024 5:15 AM EDT) Auto WBC 5.11 4.00 - 10.60 10*3/uL 08/23/2024 5:41 AM EDT [facility] RBC 3.79(L) 3.80 - 5.00 10*6/uL 08/23/2024 5:41 AM EDT [facility] Hemoglobin 12.2 12.0 - 15.0 g/dL 08/23/2024 5:41 AM EDT [facility] Hematocrit 35.1(L) 36.0 - 45.0 % 08/23/2024 5:41 AM EDT [facility] MCV 92.6 82.0 - 98.0 fL 08/23/2024 5:41 AM EDT [facility] MCH 32.2 27.0 - 33.0 pg 08/23/2024 5:41 AM EDT [facility] MCHC 34.8 32.0 - 35.0 g/dL 08/23/2024 5:41 AM EDT [facility] RDW 12.9 11.5 - 15.0 % 08/23/2024 5:41 AM EDT [facility] Neutrophils % 57.4 40.0 - 72.0 % 08/23/2024 5:41 AM EDT [facility] Lymphocytes % 35.0 20.0 - 45.0 % 08/23/2024 5:41 AM EDT [facility] Monocytes % 7.2 5.0 - 12.0 % 08/23/2024 5:41 AM EDT [facility] Eosinophils % 0.2 0.0 - 6.0 % 08/23/2024 5:41 AM EDT [facility] Basophils % 0.0 0.0 - 1.0 % 08/23/2024 5:41 AM EDT [facility] Neutrophils Absolute 2.93 1.60 - 7.60 10*3/uL 08/23/2024 5:41 AM EDT [facility] Lymphocytes Absolute 1.79 1.20 - 4.00 10*3/uL 08/23/2024 5:41 AM EDT [facility] Monocytes Absolute 0.37 0.10 - 1.00 10*3/uL 08/23/2024 5:41 AM EDT [facility] Eosinophils Absolute 0.01 0.00 - 0.50 10*3/uL 08/23/2024 5:41 AM EDT [facility] Basophils Absolute 0.00 0.00 - 0.20 10*3/uL 08/23/2024 5:41 AM EDT [facility] Platelets 205 150 - 400 10*3/uL 08/23/2024 5:41 AM EDT [facility] nRBC % 0.0 0 % 08/23/2024 5:41 AM EDT [facility] Immature Granulocytes % 0.2 0.0 - 1.0 % 08/23/2024 5:41 AM EDT [facility] Immature Granulocytes Absolute 0.01 0.00 - 0.20 10*3/uL 08/23/2024 5:41 AM EDT [facility] Blood Venous blood specimen / Unknown Venipuncture / Unknown 08/23/2024 5:15 AM EDT 08/23/2024 5:29 AM EDT us Kimberlyn Stinson MD LAB BLOOD ORDERABLES Fin al Result [facility] [address] [place] [address] * (ABNORMAL) Comprehensive metabolic panel (08/23/2024 5:15 AM EDT) Sodium 139 136 - 145 mmol/L 08/23/2024 6:16 AM T [facility] Potassium 3.5 3.5 - 5.1 mmol/L 08/23/2024 6:16 AM T [facility] Chloride 108(H) 98 - 107 mmol/L 08/23/2024 6:16 AM T [facility] CO2 26 21 - 31 mmol/L 08/23/2024 6:16 AM T [facility] Anion Gap 9 7 - 20 mmol/L 08/23/2024 6:16 AM T [facility] BUN 8 7 - 25 mg/dL 08/23/2024 6:[address] [facility] Creatinine 0.63 0.60 - 1.20 mg/dL 08/23/2024 6:[address] [facility] BUN/Creatinine Ratio 12.7 08/10 6:[address] [facility] Glucose 89 70 - 100 mg/dL 08/23/2024 6:[address] [facility] Calcium 8.7 8.6 - 10.3 mg/dL 08/23/2024 6:[address] [facility] AST 13 13 - 39 U/L 08/23/2024 6:[address] [facility] ALT (SGPT) 5(L) 7 - 52 U/L 08/23/2024 6:16 AM T [facility] Alkaline Phosphatase 60 34 - 104 U/L 08/23/2024 6:16 AM T [facility] Total Protein 6.0 6.0 - 8.3 g/dL 08/23/2024 6:[address] [facility] Albumin 3.7 3.5 - 5.7 g/dL 08/23/2024 6:[address] [facility] Total Bilirubin 0.5 0.3 - 1.0 mg/dL 08/23/2024 6:16 AM EDT [facility] ([facility]) eGFR 97.8 >60.0 mL/min/1. 73m*2 08/23/2024 6:16 AM EDT [facility]) Comment:[facility] s estimated glomerular filtration rate (eGFR) will no longer include consideration of race in its calculation. The [employer] s eGFR Task Force developed new recommendations for the estimation of the glomerular filtration rate in the [place] They recommend immediate implementation of the new equation refit without the race variable in all laboratories because the calculation does not include race. In addition to not including race in the calculation and reporting, it included diversity in its development, and has acceptable performance characteristics and potential consequences that do not disproportionately affect any one group of individuals. Blood Venous blood specimen / Unknown Venipuncture / Unknown 08/23/2024 5:15 AM EDT 08/23/2024 5:57 AM EDT us Kimberlyn Stinson MD LAB BLOOD ORDERABLES Fin al Result [facility] [address] [place] [address] * APTT (08/23/2024 5:15 AM EDT) aPTT 29.9 25.0 - 35.0 Seconds 08/23/2024 5:53 AM EDT [facility] ([facility]) Comment:Clinical significanc e of the APTT is questionable in the presence of heparin. Blood Venous blood specimen / Unknown Venipuncture / Unknown 08/23/2024 5:15 AM EDT 08/23/2024 5:23 AM EDT Kimberlyn Stinson MD LAB BLOOD ORDERABLES Fin al Result [facility] [address] [place] [address] * (ABNORMAL) Protime-INR (08/23/2024 5:15 AM EDT) Protime 14.4 12.3 - 14.8 Seconds 08/23/2024 5:52 AM EDT [facility] INR 1.12(H) 0.90 - 1.10 08/23/2024 5:52 AM EDT [facility] Comment: [facility] RECOMMENDED INR FOR WARFARIN THERAPY CONDITION INR PROPHYLAXIS OF VENOUS THROMBOSIS 2-3 (HIGH-RISK SURGERY) TREATMENT OF VENOUS THROMBOSIS 2-3 TREATMENT OF PULMONARY EMBOLISM 2-3 PREVENTION OF SYSTEMIC EMBOLISM: 2-3 ACUTE MYOCARDIAL INFARCTION TISSUE HEART VALVES VALVULAR HEART DISEASE ATRIAL FIBRILLATION RECURRENT SYSTEMIC EMBOLISM MECHANICAL HEART VALVE 2.5-3.5 FROM: ORAL ANTICOAGULANTS. MECHANISM OF ACTION, CLINICAL EFFECTIVENESS, AND OPTIMAL THERAPEUTIC RANGE. CHEST 1995;108:[id number]. Blood Venous blood specimen / Unknown Venipuncture / Unknown 08/23/2024 5:15 AM EDT 08/23/2024 5:23 AM EDT us Kimberlyn Stinson MD LAB BLOOD ORDERABLES Fin al Result [facility]) [address] [place] [id number] * Magnesium (08/23/2024 5:15 AM EDT) Magnesium 1.9 1.9 - 2.7 mg/dL 08/23/2024 6:16 AM EDT [facility] Blood Venous blood specimen / Unknown Venipuncture / Unknown 08/23/2024 5:15 AM EDT 08/23/2024 5:57 AM EDT us Kimberlyn Stinson MD LAB BLOOD ORDERABLES Fin al Result [facility] [address] [place] [address] * (ABNORMAL) Urinalysis with reflex culture (08/22/2024 7:51 PM EDT) Color, Urine Light-Yellow Colorless, Yellow, Light-Yellow 08/22/2024 8:08 PM EDT [facility] ([facility]) Clarity, Urine Clear Clear 08/22/2024 8:08 PM EDT [facility] pH, Urine 6.5 5.0 - 8.0 pH 08/22/2024 8:08 PM EDT [facility] Leukocytes, Urine Negative Negative 08/22/2024 8:08 PM EDT [facility] ([facility]) Nitrite, Urine Negative Negative 08/22/2024 8:08 PM EDT [facility] ([facility]) Protein, Urine Negative Negative mg/dL 08/22/2024 8:08 PM EDT [facility] ([facility]) Glucose, Urine Normal Normal mg/dL 08/22/2024 8:08 PM EDT [facility] Bilirubin, Urine Negative Negative 08/22/2024 8:08 PM EDT [facility] ([facility]) Specific [place], Urine 1.004(L) 1.010 - 1.030 08/22/2024 8:08 PM EDT [facility] ([facility]) Ketones, Urine Negative Negative mg/dL 08/22/2024 8:08 PM EDT [facility]) Blood, Urine Negative Negative 08/22/2024 8:08 PM EDT [facility] ([facility]) Urobilinogen, Urine Normal Normal mg/dL 08/22/2024 8:08 PM EDT [facility] ([facility]) Urine Urine specimen obtained by clean catch procedure / Unknown Non-blood Collection / Unknown 08/22/2024 7:51 PM EDT 08/22/2024 7:51 PM EDT Narrative [facility] - 08/22/2024 8:08 PM EDT Microscopics not performed on urines with negative chemical reactions unless requested on original order. Michelle Thayer PA-C LAB URINE ORDERABLES Final R esult Performing Organization Address City/[facility] Co de Phone Number [facility] ([facility] [address] [place], [place] [id number] * Repeat HS Troponin I (08/22/2024 7:35 PM EDT) [facility] High Sensitivity Troponin I 3 <15 ng/L 08/22/2024 8:28 PM EDT [facility]) Blood Venous blood specimen / Unknown Venipuncture / Unknown 08/22/2024 7:35 PM EDT 08/22/2024 7:40 PM EDT Michelle Thayer PA-C LAB BLOOD ORDERABLES Final R esult Performing Organization Address [facility] Co de Phone Number [facility]) [address] [place] [address] * CT transfer of outside films (08/22/2024 7:31 PM EDT) Narrative IMAGING - 08/22/2024 7:31 PM EDT This order has been auto-finalized and does not contain a result. Michelle Thayer PA-C IMG CT PROCEDURES Final Resu lt Performing Organization Address [facility] Co de Phone Number IMAGING * ECG 12 lead (08/22/2024 6:37 PM EDT) Ventricular Rate 73 BPM GE MUSE Atrial Rate 73 BPM GE MUSE RI Interval 168 ms GE MUSE QRS DURATION 80 ms GE MUSE QT Interval 358 ms GE MUSE QTC CALCULATION(BAZE TT) 394 ms GE MUSE P [place] 66 degrees GE MUSE R-[place] 72 degrees GE MUSE T Wave [place] 53 degrees GE MUSE 08/22/2024 6:32 PM EDT 08/22/2024 11:52 PM EDT Impressions GE MUSE - 08/22/2024 11:52 PM EDT Normal sinus rhythm Nonspecific T wave abnormality Abnormal ECG No previous ECGs available Confirmed by Earnest FISCHER, MICHELLE Triplett ([id number]) on 08/22/2024 11:52:08 PM Narrative Procedure Note Michelle Fischer MD - 08/22/2024 IMPRESSION: Normal sinus rhythm Nonspecific T wave abnormality Abnormal ECG No previous ECGs available Confirmed by Earnest FISCHER, MICHELLE Triplett ([id number]) on 08/22/2024 11:52:08 PM Michelle Thayer PA-C ECG ORDERABLES Final Result Performing Organization Address City/[facility]/ZIP Co de Phone Number GE MUSE * HS Troponin I (08/22/2024 6:26 PM EDT) [facility] High Sensitivity Troponin I 2 <15 ng/L 08/22/2024 7:07 PM EDT [facility]) Blood Venous blood specimen / Unknown Venipuncture / Unknown 08/22/2024 6:26 PM EDT 08/22/2024 6:33 PM EDT Michelle Thayer PA-C LAB BLOOD ORDERABLES Final R esult [facility] [address] [place], [place] [id number] * (ABNORMAL) CBC auto differential (08/22/2024 6:26 PM EDT) [facility] Auto WBC 5.63 4.00 - 10.60 10*3/uL 08/22/2024 6:42 PM EDT [facility] RBC 4.01 3.80 - 5.00 10*6/uL 08/22/2024 6:42 PM EDT [facility]) Hemoglobin 12.8 12.0 - 15.0 g/dL 08/22/2024 6:42 PM EDT [facility]) Hematocrit 36.9 36.0 - 45.0 % 08/22/2024 6:42 PM EDT [facility]) MCV 92.0 82.0 - 98.0 fL 08/22/2024 6:42 PM EDT [facility]) MCH 31.9 27.0 - 33.0 pg 08/22/2024 6:42 PM EDT [facility]) MCHC 34.7 32.0 - 35.0 g/dL 08/22/2024 6:42 PM EDT [facility]) RDW 12.6 11.5 - 15.0 % 08/22/2024 6:42 PM EDT [facility]) Neutrophils % 66.6 40.0 - 72.0 % 08/22/2024 6:42 PM EDT [facility]) Lymphocytes % 28.2 20.0 - 45.0 % 08/22/2024 6:42 PM EDT [facility]) Monocytes % 4.8(L) 5.0 - 12.0 % 08/22/2024 6:42 PM EDT [facility] Eosinophils % 0.2 0.0 - 6.0 % 08/22/2024 6:42 PM EDT [facility]) Basophils % 0.0 0.0 - 1.0 % 08/22/2024 6:42 PM EDT [facility] Neutrophils Absolute 3.75 1.60 - 7.60 10*3/uL 08/22/2024 6:42 PM EDT [facility]) Lymphocytes Absolute 1.59 1.20 - 4.00 10*3/uL 08/22/2024 6:42 PM EDT [facility]) Monocytes Absolute 0.27 0.10 - 1.00 10*3/uL 08/22/2024 6:42 PM EDT [facility]) Eosinophils Absolute 0.01 0.00 - 0.50 10*3/uL 08/22/2024 6:42 PM EDT [facility] Basophils Absolute 0.00 0.00 - 0.20 10*3/uL 08/22/2024 6:42 PM EDT [facility]) Platelets 213 150 - 400 10*3/uL 08/22/2024 6:42 PM EDT [facility]) nRBC % 0.0 0 % 08/22/2024 6:42 PM EDT [facility]) Immature Granulocytes % 0.2 0.0 - 1.0 % 08/22/2024 6:42 PM EDT [facility]) Immature Granulocytes Absolute 0.01 0.00 - 0.20 10*3/uL 08/22/2024 6:42 PM EDT [facility]) Blood Venous blood specimen / Unknown Venipuncture / Unknown 08/22/2024 6:26 PM EDT 08/22/2024 6:33 PM EDT Michelle Thayer PA-C LAB BLOOD ORDERABLES Final R esult [facility]) [address] [place] [address] * Ethanol (08/22/2024 6:26 PM EDT) Ethanol Calculated % <0.01 % 08/22/2024 6:54 PM EDT [facility]) Ethanol Lvl <10 <10 mg/dL 08/22/2024 6:54 PM EDT [facility]) Blood Venous blood specimen / Unknown Venipuncture / Unknown 08/22/2024 6:26 PM EDT 08/22/2024 6:33 PM EDT Michelle Tapia-C LAB BLOOD ORDERABLES Final R esult [facility]) [address] [place] [address] * Lactic acid with 4 hour reflex (08/22/2024 6:26 PM EDT) Pathologist [facility] Lactate 0.9 0.5 - 2.2 mmol/L 08/22/2024 6:54 PM EDT [facility] Blood Venous blood specimen / Unknown Venipuncture / Unknown 08/22/2024 6:26 PM EDT 08/22/2024 6:33 PM EDT Michelle Tapia-Nahum LAB BLOOD ORDERABLES Final R esult [facility]) [address] [place] [id number] * Lipase (08/22/2024 6:26 PM EDT) Pathologist [facility] Lipase 23 11 - 82 U/L 08/22/2024 7:05 PM EDT [facility]) Blood Venous blood specimen / Unknown Venipuncture / Unknown 08/22/2024 6:26 PM EDT 08/22/2024 6:33 PM EDT Michelle Thayer PA-C LAB BLOOD ORDERABLES Final R esult [facility]) [address] [place] [id number] * Hepatic function panel (08/22/2024 6:26 PM EDT) Total Bilirubin 0.4 0.3 - 1.0 mg/dL 08/22/2024 7:05 PM EDT [facility]) Bilirubin, Direct 0.1 0 - 0.2 mg/dL 08/22/2024 7:05 PM EDT [facility] Alkaline Phosphatase 67 34 - 104 U/L 08/22/2024 7:05 PM EDT [facility]) AST 16 13 - 39 U/L 08/22/2024 7:05 PM EDT [facility]) ALT (SGPT) 9 7 - 52 U/L 08/22/2024 7:05 PM EDT [facility] Total Protein 6.6 6.0 - 8.3 g/dL 08/22/2024 7:05 PM EDT [facility]) Albumin 4.1 3.5 - 5.7 g/dL 08/22/2024 7:05 PM EDT [facility]) Blood Venous blood specimen / Unknown Venipuncture / Unknown 08/22/2024 6:26 PM EDT 08/22/2024 6:33 PM EDT Michelle Thayer PA-C LAB BLOOD ORDERABLES Final R esult [facility]) [address] [place] [address] * Basic metabolic panel (08/22/2024 6:26 PM EDT) Sodium 139 136 - 145 mmol/L 08/22/2024 7:05 PM EDT [facility]) Potassium 3.6 3.5 - 5.1 mmol/L 08/22/2024 7:05 PM EDT [facility]) Chloride 106 98 - 107 mmol/L 08/22/2024 7:05 PM EDT [facility]) CO2 25 21 - 31 mmol/L 08/22/2024 7:05 PM EDT [facility]) BUN 8 7 - 25 mg/dL 08/22/2024 7:05 PM EDT [facility]) Creatinine 0.72 0.60 - 1.20 mg/dL 08/22/2024 7:05 PM EDT [facility]) Glucose 82 70 - 100 mg/dL 08/22/2024 7:05 PM EDT [facility]) Calcium 9.2 8.6 - 10.3 mg/dL 08/22/2024 7:05 PM EDT [facility] ([facility]) Anion Gap 12 7 - 20 mmol/L 08/22/2024 7:05 PM EDT [facility] ([facility]) eGFR 92.2 >60.0 mL/min/1. 73m*2 08/22/2024 7:05 PM EDT [facility] ([facility]) Comment:[facility] s estimated glomerular filtration rate (eGFR) will no longer include consideration of race in its calculation. The [employer] s eGFR Task Force developed new recommendations for the estimation of the glomerular filtration rate in the [place] They recommend immediate implementation of the new equation refit without the race variable in all laboratories because the calculation does not include race. In addition to not including race in the calculation and reporting, it included diversity in its development, and has acceptable performance characteristics and potential consequences that do not disproportionately affect any one group of individuals. BUN/Creatinine Ratio 11.1 08/10 7:05 PM EDT [facility] ([facility]) Blood Venous blood specimen / Unknown Venipuncture / Unknown 08/22/2024 6:26 PM EDT 08/22/2024 6:33 PM EDT Michelle Thayer PA-C LAB BLOOD ORDERABLES Final R esult [facility] ([facility]) [address] [place] [address] documented in this encounter Visit Diagnoses Diagnosis Choledocholithiasis- Primary Calculus of bile duct without mention of cholecystitis or obstruction Choledocholithiasis Calculus of bile duct without mention of cholecystitis or obstruction Epigastric pain Abdominal pain, epigastric Gastroesophageal reflux disease without esophagitis Esophageal reflux Tobacco user Tobacco use disorder Epigastric pain Abdominal pain, epigastric 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 storm documented in this encounter Admitting Diagnoses Diagnosis Choledocholithiasis Calculus of bile duct without mention of cholecystitis or obstruction Epigastric pain Abdominal pain, epigastric documented in this encounter Administered Medications Inactive Administered Medications - up to 3 most recent administrations Medication Order MAR Action Action Date Dose Rate Site iohexol (OMNIPaque) 350 mg iodine/mL injection 100 mL 100 mL, intravenous, Once in imaging, Starting on Fri08/22/24 at 1858, For 1 dose methIMAzole (Tapazole) tablet 5 mg 5 mg, oral, Daily, First dose on Fri08/23/24 at 1000, For 99 daysIndications:Choledocholithi asis Given 08/23/2024 10:56 AM EDT 5 mg metoprolol succinate XL (Toprol-XL) 24 hr split tablet 25 mg 25 mg, oral, Daily, First dose on Fri08/23/24 at 1000, For 99 daysIndications:Choledocholithi asis Given 08/23/2024 10:56 AM EDT 25 mg ondansetron HCl (PF) (Zofran) injection 4 mg 4 mg, intravenous, Every 6 hours PRN, nausea, vomiting, Starting on Fri08/22/24 at 2221, For 99 days, Give IV if patient is unable to take orally. Administer as an IV push over 2 to 5 minutes.Indications:Choledochol ithiasis,Epigastric pain,Gastroesophageal reflux disease without esophagitis,Tobacco user ondansetron ODT (Zofran-ODT) disintegrating tablet 4 mg 4 mg, oral, Every 8 hours PRN, nausea, vomiting, Starting on Fri08/22/24 at 2221, For 99 daysIndications:Choledocholithi asis,Epigastric pain,Gastroesophageal reflux disease without esophagitis,Tobacco user pantoprazole (ProtoNix) injection 40 mg 40 mg, intravenous, Administer over 2 Minutes, Every 24 hours scheduled, First dose on Fri08/23/24 at 1000, For 99 days, Reconstitute with 10mL of normal saline. Administer over at least two minutes., Indication: Stress Ulcer ProphylaxisIndications:Choledoc holithiasis,Epigastric pain,Gastroesophageal reflux disease without esophagitis,Tobacco user Given 08/23/2024 10:49 AM EDT 40 mg sodium chloride 0.9 % infusion 50 mL/hr, intravenous, Continuous, Starting on Fri08/22/24 at 2225, For 1 day, Indication: dxIndications:Choledocholithias is,Epigastric pain,Gastroesophageal reflux disease without esophagitis,Tobacco user New Bag 08/23/2024 8:35 PM EDT 50 mL/hr 50 mL/hr New Bag 08/22/2024 10:39 PM EDT 50 mL/hr 50 mL/hr sodium chloride 0.9 % infusion 50 mL/hr, intravenous, Continuous, Starting on Fri08/23/24 at 2230, For 1 day, Indication: dxIndications:Choledocholit hiasis,Epigastric pain,Gastroesophageal reflux disease without esophagitis,Tobacco user Rate/Dose Verify 08/23/2024 11:10 PM EDT 50 mL/hr 50 mL/hr New Bag 08/23/2024 10:26 PM EDT 50 mL/hr 50 mL/hr documented in this encounter Active and Recently Administered Medications Times are shown in EDT. Scheduled Medication Order 08/22/2024 08/23/2024 08/24/2024 enoxaparin (Lovenox) syringe 40 mg 40 mg, subcutaneous, Daily, First dose on Fri08/23/24 at 1000, For 99 days, On hold since Fri08/23/2024 at 0727 until manually unheld 0727 (Held by provider - Provider: Triston Butler MD - Reason: Other - Comment: For procedure)1000 (Dose Auto Held - Provider: Triston Butler MD) 1000 (Dose Auto Held - Provider: Triston Butler MD)1823 (Unheld by provider - Provider: Automatic Discharge Provider) iohexol (OMNIPaque) 350 mg iodine/mL injection 100 mL 100 mL, intravenous, Once in imaging, Starting on Fri08/22/24 at 1858, For 1 dose methIMAzole (Tapazole) tablet 5 mg 5 mg, oral, Daily, First dose on Fri08/23/24 at 1000, For 99 days 1056 (Given - Provider: Ynes Barboza RN) 1000 (Not Given - Provider: Yani León RN - Reason: Patient/family refused - Comment: Per pt dosing not due today. Pt does not take on Friday and Friday) metoprolol succinate XL (Toprol-XL) 24 hr split tablet 25 mg 25 mg, oral, Daily, First dose on Fri08/23/24 at 1000, For 99 days 1056 (Given - Provider: Ynes Barboza RN) 1000 (Not Given - Provider: Yani León RN - Reason: Order parameters not met - Comment: Notified provider) pantoprazole (ProtoNix) injection 40 mg 40 mg, intravenous, Administer over 2 Minutes, Every 24 hours scheduled, First dose on Fri08/23/24 at 1000, For 99 days, Reconstitute with 10mL of normal saline. Administer over at least two minutes., Indication: Stress Ulcer Prophylaxis 1049 (Given - Provider: Ynes Barboza RN) 1000 (Not Given - Provider: Yani León RN - Reason: Patient/family refused - Comment: Pt refused) Continuous Medication Order 08/22/2024 08/23/2024 08/24/2024 sodium chloride 0.9 % infusion () 50 mL/hr, intravenous, Continuous, Starting on Fri08/22/24 at 2225, For 1 day, Indication: dx 223 (New Bag - Provider: Segun Barry RN) 2034 (New Bag - Provider: Lexus Mariano RN)222 (Not Given - Provider: Lexus Mariano RN - Reason: Other - Comment: new order)223 (Stopped - Provider: Lexus Mariano RN - Comment: [Order ends at this time. Document the following action when infusion is complete: Stopped]) sodium chloride 0.9 % infusion 50 mL/hr, intravenous, Continuous, Starting on Fri08/23/24 at 2230, For 1 day, Indication: dx 2226 (New Bag - Provider: Lexus Mariano RN)2310 (Rate/Dose Verify - Provider: Lexus Mariano RN) 0956 (Stopped - Provider: Yani León RN - Comment: [Order ends at this time. Document the following action when infusion is complete: Stopped]) PRN Medication Order 08/22/2024 08/23/2024 08/24/2024 acetaminophen (Tylenol) tablet 650 mg 650 mg, oral, Every 6 hours PRN, mild pain (1-3 pain score), headaches, fever greater than or equal to 38 degrees Celsius, anticipatory pain, (1-3), Starting on Fri08/22/24 at 2221, For 99 days bisacodyl (Dulcolax) suppository 10 mg 10 mg, rectal, Daily PRN, constipation, use if oral bowel management is ineffective, Starting on Fri08/22/24 at 2221, For 99 days hydrOXYzine pamoate (Vistaril) capsule 25 mg 25 mg, oral, 4 times daily PRN, anxiety, itching, Starting on 08/22/24 at 2221, For 99 days, For anxiety melatonin tablet 5 mg 5 mg, oral, Nightly PRN, sleep, Starting on 08/22/24 at 2221, For 99 days morphine injection 2 mg 2 mg, intravenous, Every 6 hours PRN, moderate-severe pain (4-10 pain score), use only if oral route not available or oral medications ineffective., Starting on 08/22/24 at 2221, For 99 days ondansetron HCl (PF) (Zofran) injection 4 mg(Linked Group 1) 4 mg, intravenous, Every 6 hours PRN, nausea, vomiting, Starting on 08/22/24 at 2221, For 99 days, Give IV if patient is unable to take orally. Administer as an IV push over 2 to 5 minutes. ondansetron ODT (Zofran-ODT) disintegrating tablet 4 mg(Linked Group 1) 4 mg, oral, Every 8 hours PRN, nausea, vomiting, Starting on 08/22/24 at 2221, For 99 days polyethylene glycol (Glycolax) packet 17 g 17 g, oral, Daily PRN, constipation, Starting on 08/22/24 at 2221, For 99 days Linked Groups Order Group 1: ondansetron ODT (Zofran-ODT) disintegrating tablet 4 mgJump to med 4 mg, oral, Every 8 hours PRN, nausea, vomiting, Starting on 08/22/24 at 2221, For 99 days Or ondansetron HCl (PF) (Zofran) injection 4 mgJump to med 4 mg, intravenous, Every 6 hours PRN, nausea, vomiting, Starting on 08/22/24 at 2221, For 99 days, Give IV if patient is unable to take orally. Administer as an IV push over 2 to 5 minutes. documented in this encounter Care Teams Dude Ranch Manager Relationship Specialty Start Date End Date Mela Collado MD [address] [place] [address] PCP - General 08/22/24 documented as of this encounter
--- OUTSIDE RECORDS SUMMARY | 2024-08-23 16:51 | XMS_ITS | Encounter Summary ---
Author Organization [facility] Address [address] [place] [address] Care Team Providers Care Maintenance Helper Name Role Phone Mela Collado MD Primary Care Provider + Reason for Visit * Auth/Cert (Routine) Specialty Diagnoses / Procedures Referred By Contac t Referred To Contact Diagnoses Choledocholithiasis Epigastric pain Gastroesophageal reflux disease without esophagitis Tobacco user Procedures NO CODED SERVICE Arthur Shannon MD [address] [place] [address] Phone: tel: fax: [facility] [address] [place] [address] Phone: tel: Referral ID Status Reason Start Date Expiration Date Visits Re quested Visits Authorized [id number] 1 Encounter Details Date Type Department Care Team (Late st Contact Info) Description 08/23/2024 4:51 PM EDT Anesthesia Event [facility] Main Operating Room [address] [place] [address] Kathya Ernst MD [address] [place] [address] Luca Orozco CAA [address] [place] [address] Anesthesia Record Procedure Summary Procedure Name Responsible Anesthesiologist Anesthesia Start Time Anesthesia Stop Time ENDOSCOPIC RETROGRADE CHOLANGIOPANCREATOGRAPHY Kathya Ernst MD 08/23/24 1651 08/23/24 1759 Events Date Time Event Comment 08/23/2024 1643 1651 An Start 1655 An Start Data 1658 An Induction The patient was reevaluated immediately before moderate or deep sedation use and before anesthesia induction. 1701 An Intubation 1701 Anesthesia Ready 1715 Time Out Time out comple tramaine (confirmed patient ID, surgeon, procedure, and operative site). 1750 An Extubation 175 an stop data 175 Handoff to Receiving I compl eted my handoff to the receiving clinician during which we: 1. Identified the patient 2. Identified the responsible provider 3. Reviewed the pertinent medical history 4. Discussed the surgical course 5. Reviewed intra-op anesthesia management and issues during anesthesia 6. Set expectations for post-procedure period 7. Allowed opportunity for questions and acknowledgement of understanding. 1758 An Stop Meds Name Total midazolam (Versed) 1mg/mL injection 2 mg fentaNYL (SUBLIMAZE) injection 100 mcg lidocaine (Xylocaine) 20 mg/ml injection 2 % 100 mg propofol 10 mg/mL 160 mg succinylcholine 20 mg/mL 100 mg dexAMETHasone (Decadron) 4 MG/ML injecti on 8 mg ondansetron 2 mg/mL 4 mg ePHEDrine 50 mg/ml injection 10 mg phenylephrine (Jay-Synephrine) 10 mg/ml injection 300 mcg LR 1.48 mL * Agents Name O2 N2O Air Sevoflurane Isoflurane Inspired Isoflurane Inspired Sevoflurane N2O Inspired N2O Inspired O2 Setting * Blood No blood administrations on file. Lines, Drains, and Airways Type Details Placement Removal Peripheral IV Placement Date: 08/23/24; Placement Time: 1636; Catheter Size: 22 G; Orientation: Posterior, Right; Location: Hand; Insertion Attempts: 1; Patient Tolerance: Tolerated well; Removal Date: 08/23/24; Removal Time: 2109; Removal Reason: Occluded 08/23/241636 by Sandy Pyle RN 08/23/242109 by Lexus Mariano RN ETT Placement Date: 08/23/24; Placement Time: 1700 (created via procedure documentation); Mask Ventilation: 1; Technique: Video laryngoscopy; Type: ETT - single; Single Lumen Tube Size: 7 mm; Cuffed: Yes; Blade Size: 3; Location: Oral; Grade View: Grade I; Insertion Attempts: 1; Placement Verification: Auscultation, Capnometry; Removal Date: 08/23/24; Removal Time: 1750 08/23/24 170 by NABILA Sarabia 08/23/24 175 by NABILA Guerrero documented in this encounter Social History Tobacco Use Types Packs/Day Years Used Date Smoking Tobacco: Every Day Cigarettes Smokeless Tobacco: Never Alcohol Use Standard Drinks/Week Comments Never 0 (1 standard drink = 0.6 oz pur e alcohol) [facility] Utilities Answer Date Recorded In the past 12 months has th e [employer], gas, oil, or water [employer] threatened to shut off services in your [...] any time in the past 12 m [facility], were you homeless or living in a longterm (including now)? No 08/22/2024 Hunger Vital Sign [...] PM EDT documented as of this encounter Procedure Notes * NABILA Sarabia - 08/23/2024 5:11 PM EDTAssociated Order(s): Airway Airway Date/Time: 08/23/2024 5:01 PM Reason: elective General Information and Staff Patient location during procedure: OR Anesthesiologist: Kathya Ernst MD Resident/SPICE MILLER/CAA: NABILA Sarabia Performed: resident/SPICE MILLER/NABILA Patient Condition Indications for airway management: anesthesia Sedation level: deep Final Airway Details Preoxygenated: yes Final airway type: endotracheal airway Successful airway: ETT Cuffed: yes Successful intubation technique: video laryngoscopy Adjuncts used in placement: intubating stylet Endotracheal tube insertion site: oral Blade: Alva Blade size: #3 ETT size (mm): 7.0 Cormack-Lehane Classification: grade I - full view of glottis Placement verified by: chest auscultation and capnometry Measured from: lips ETT to lips (cm): 21 Number of attempts at approach: 1 Number of other approaches attempted: 0 documented in this encounter Miscellaneous Notes * Addendum Note - Saleem Zhou MD - 08/23/2024 7:05 PM EDT Addendum created 08/23/241904 by Saleem Zhou MD Clinical Note Signed, Intraprocedure Flowsheets edited, Intraprocedure Meds edited documented in this encounter Plan of Treatment Not on file documented as of this encounter Procedures Procedure Name Priority Date/Time Associated Diagnosis Comments GA AN ELECTIVE ENDOTRACHEAL AIRWAY Routine 08/23/2024 5:01 PM EDT documented in this encounter Results * GA AN ELECTIVE ENDOTRACHEAL AIRWAY (08/23/2024 5:01 PM EDT) Narrative Alexia Quick CAA - 08/23/2024 5:01 PM EDT NABILA Sarabia 08/23/2024 5:11 PM Airway Date/Time: 08/23/2024 5:01 PM Reason: elective General Information and Staff Patient location during procedure: OR Anesthesiologist: Kathya Ernst MD Resident/SPICE MILLER/CAA: NABILA Sarabia Performed: resident/SPICE MILLER/NABILA Patient Condition Indications for airway management: anesthesia Sedation level: deep Final Airway Details Preoxygenated: yes Final airway type: endotracheal airway Successful airway: ETT Cuffed: yes Successful intubation technique: video laryngoscopy Adjuncts used in placement: intubating stylet Endotracheal tube insertion site: oral Blade: Alva Blade size: #3 ETT size (mm): 7.0 Cormack-Lehane Classification: grade I - full view of glottis Placement verified by: chest auscultation and capnometry Measured from: lips ETT to lips (cm): 21 Number of attempts at approach: 1 Number of other approaches attempted: 0 us Kathya Ernst MD ANESTHESIA ORDERABLES Final Resu lt documented in this encounter Visit Diagnoses * Anesthesia Postprocedure Evaluation - Saleem Zhou MD - 08/23/2024 6:19 PM EDT Patient: Jessica Saavedra Procedure Summary Date: 08/23/24 Room / Location: [facility] Main Operating Room Anesthesia Start: 1650 Anesthesia Stop: 1758 Procedure: ENDOSCOPIC RETROGRADE CHOLANGIOPANCREATOGRAPHY Diagnosis: Scheduled Providers: Gilberto Ramirez MD; Kathya Khoury MD Responsible Provider: Kathya Ernst MD Anesthesia Type: general ASA Status: 3 Anesthesia Type: general Vitals Value Taken Time BP 127/68 08/23/24 18:10 Temp 36.7 08/23/24 18:19 Pulse 78 08/23/24 18:19 Resp 14 08/23/24 18:19 SpO2 94 % 08/23/24 18:19 Vitals shown include unfiled device data. Anesthesia Post Evaluation Patient location during evaluation: PACU Patient participation: complete - patient participated Level of consciousness: awake Pain score: 0 Pain management: adequate Airway patency: patent Cardiovascular status: stable Respiratory status: acceptable Hydration status: balanced Patient is hemodynamically stable and is able to be discharged from PACU per anesthesia protocol. No notable events documented. * Anesthesia Preprocedure Evaluation - Kathya Ernst MD - 08/23/2024 4:42 PM EDT Patient: Jessica Saavedra Procedure Information Date/Time: 08/23/24 1530 Scheduled providers: Gilberto Ramirez MD; Kathya Khoury MD Procedure: ENDOSCOPIC RETROGRADE CHOLANGIOPANCREATOGRAPHY Location: [facility] Main Operating Room Relevant Problems GI (+) Gastroesophageal reflux disease Clinical information reviewed: Tobacco Allergies Meds Problems Med Hx Surg Hx OB Status Fam Hx Soc Hx Physical Exam Airway Mallampati: II TM distance: >3 FB Neck ROM: full Cardiovascular Rhythm: regular Rate: normal Dental - normal exam Pulmonary (+) decreased breath sounds Neurological Abdominal Abdomen: soft Anesthesia Plan ASA 3 general intravenous induction Anesthetic plan and risks discussed with patient. Use of blood products discussed with patient who. Plan discussed with attending and SPICE MILLER. Additional Equipment Requests documented in this encounter Administered Medications Inactive Administered Medications - up to 3 most recent administrations Medication Order MAR Action Action Date Dose Rate Site dexAMETHasone (Decadron) injection intravenous, As needed, Starting on Fri08/23/24 at 1720, Anesthesia Intraprocedure Given 08/23/2024 5:20 PM EDT 8 mg ePHEDrine injection intravenous, As needed, Starting on Fri08/23/24 at 1716, Anesthesia Intraprocedure Given 08/23/2024 5:16 PM EDT 10 mg fentaNYL (Sublimaze) injection intravenous, As needed, Starting on Fri08/23/24 at 1658, Anesthesia Intraprocedure Given 08/23/2024 4:58 PM EDT 100 mcg lactated Ringer's infusion intravenous, Continuous PRN, Starting on Fri08/23/24 at 1630, Anesthesia Intraprocedure New Bag 08/23/2024 4:30 PM EDT 1 mL/hr 1 mL/hr lidocaine HCl (Xylocaine) 20 mg/mL (2 %) injection intravenous, As needed, Starting on Fri08/23/24 at 1658, Anesthesia Intraprocedure Given 08/23/2024 4:58 PM EDT 100 mg midazolam (Versed) injection intravenous, As needed, Starting on Fri08/23/24 at 1651, Anesthesia Intraprocedure Given 08/23/2024 4:51 PM EDT 2 mg ondansetron (Zofran) injection intravenous, As needed, Starting on Fri08/23/24 at 1742, Anesthesia Intraprocedure Given 08/23/2024 5:42 PM EDT 4 mg phenylephrine (Jay-Synephrine) injection intravenous, As needed, Starting on Fri08/23/24 at 1702, Anesthesia Intraprocedure Given 08/23/2024 5:40 PM EDT 100 mcg Given 08/23/2024 5:06 PM EDT 100 mcg Given 08/23/2024 5:02 PM EDT 100 mcg propofol (Diprivan) 10 mg/mL infusion intravenous, As needed, Starting on Fri08/23/24 at 1658, Anesthesia Intraprocedure Given 08/23/2024 4:58 PM EDT 1 60 mg succinylcholine (Anectine) injection intravenous, As needed, Starting on Fri08/23/24 at 1700, Anesthesia Intraprocedure Given 08/23/2024 5:00 PM EDT 1 00 mg documented in this encounter Care Teams Maintenance Helper Relationship Specialty Start Date End Date Mela Collado MD [address] [place] [address] PCP - General 08/22/24 documented as of this encounter
--- OUTSIDE RECORDS SUMMARY | 2024-08-23 18:31 | XMS_ITS | Encounter Summary ---
Author Organization [facility] Address [address] [place] [address] Care Team Providers Care Stencil Cutter Name Role Phone Mela Collado MD Primary Care Provider + Encounter Details Date Type Department Care Team (Late st Contact Info) Description 08/23/2024 6:31 PM EDT Anesthesia Event [facility] [address] [place] [address] Kathya Ernst MD [address] [place] [address] Anesthesia Record Procedure Summary Procedure Name Responsible Anesthesiologist Anesthesia Start Time Anesthesia Stop Time Events No events on file. Meds * Agents No agents on file. * Blood No blood administrations on file. Lines, Drains, and Airways No LDAs on file. documented in this encounter Social History Tobacco Use Types Packs/Day Years Used Date Smoking Tobacco: Every Day Cigarettes Smokeless Tobacco: Never Alcohol Use Standard Drinks/Week Comments Never 0 (1 standard drink = 0.6 oz pur e alcohol) [facility] Utilities Answer Date Recorded In the past 12 months has [employer], gas, oil, or water [employer] threatened to shut off services in your [...] any time in the past 12 m [facility], were you homeless or living in a intermediate (including now)? No 08/22/2024 Hunger Vital Sign [...] PM EDT documented as of this encounter Plan of Treatment Not on file documented as of this encounter Visit Diagnoses * Anesthesia Preprocedure Evaluation - Kathya Ernst MD - 08/23/2024 6:30 PM EDT Patient: Jessica Saavedra Procedure Information Date: 08/23/24 Reason: post op note Relevant Problems GI (+) Gastroesophageal reflux disease Clinical information reviewed: Tobacco Allergies Meds Problems Med Hx Surg Hx OB Status Fam Hx Soc Hx Physical Exam Anesthesia Plan Additional Equipment Requests documented in this encounter Care Teams Stencil Cutter Relationship Specialty Start Date End Date Mela Collado MD [address] [place] [address] PCP - General 08/22/24 documented as of this encounter
--- OUTSIDE RECORDS SUMMARY | 2024-08-27 11:21 | XMS_ITS | Encounter Summary ---
Author Organization [facility] Address [address] [place] [address] Care Team Providers Care Clip Loading Machine Feeder Name Role Phone Mela Collado MD Primary Care Provider + Encounter Details Date Type Department Care Team (Latest Contact Info) Description 08/22/2024 Travel Social History Tobacco Use Types Packs/Day Years Used Date Smoking Tobacco: Every Day Cigarettes Smokeless Tobacco: Never Alcohol Use Standard Drinks/Week Comments Never 0 (1 standard drink = 0.6 oz pur e alcohol) [facility] Utilities Answer Date Recorded In the past 12 months has th e electric, gas, oil, or water company threatened to shut off services in your [...] any time in the past 12 m [facility], were you homeless or living in a fdc (including now)? No 08/22/2024 Hunger Vital Sign [...] PM EDT documented as of this encounter Functional Status * Suicidal Ideation Question Answer Date of Assessment Author 1. Wish to be (Lifetime) No 08/22/2024 11:32 PM EDT Janene Nair, RN 2. Non-Specific Active Suici amaris Thoughts (Lifetime) No 08/22/2024 11:32 PM EDT Janene Nair R N documented as of this encounter Plan of Treatment Not on file documented as of this encounter Visit Diagnoses Not on filedocumented in this encounter Care Teams Clip Loading Machine Feeder Relationship Specialty Start Date End Date Mela Collado MD [address] [place] [address] PCP - General 08/22/24 documented as of this encounter
--- OUTSIDE RECORDS SUMMARY | 2024-08-27 11:22 | XMS_ITS | Clinical Summary ---
Author Organization [facility] Address [address] [place] [address] Care Team Providers Care Cupola Liner Helper Name Role Phone Taya Oh MD Primary Care Provider [phone] Allergies Active Allergy Reactions Criticality Noted Date Comments Cefuroxime Hives 01/26/2022 Medications Multiple Vitamin (multivitamin) tablet Take 1 tablet by mouth Daily Active methIMAzole (Tapazole) 5 MG tabletIndication s:Thyrotoxicosis , unspecified without thyrotoxic crisis or storm Take 1 tablet (5 mg) by mouth Daily 90 tablet 1 5 12/27/19 25 Active metoprolol succinate XL (Toprol-XL) 25 MG 24 hr tabletIndication s:Thyrotoxicosis with diffuse goiter without thyrotoxic crisis or storm Take 1 tablet (25 mg) by mouth Daily 90 tablet 1 5 Active omeprazole (PriLOSEC) [address] capsule Take 40 mg by mouth in the morning and 40 mg in the evening. Take before meals. Active pantoprazole (Protonix) 40 MG EC tabletIndication s:Epigastric pain,Chronic GERD Take 1 tablet (40 mg) by mouth in the morning. Take before meals. Do not crush, chew, or split. 30 tablet 1 5 08/26/19 25 Discontinue d(Discontin ued by another clinician) azithromycin (Zithromax) 250 MG tabletIndication s:Sinus congestion,Acute non-recurrent maxillary sinusitis Take 1 tablet (250 mg) by mouth Daily Take 2 tabs on day 1 and 1 tab on days 2-5 then stop 6 tablet 5 08/26/19 25 Discontinue d(Therapy completed) Active Problems Problem Noted Date Diagnosed Date Thyrotoxicosis with diffuse goiter without thyrotoxic crisis or storm 12/25/2023 Abnormal results of thyroid function studies Encounters Date Type Department Care Team Description 08/25/2024 Patient Outreach [facility] [address] [place] [address] Rani Sinclair LPN 07/09/2024 12:45 PM EDT Office Visit [facility] [address] [place] [address] Alaina Villalba NP Sinus congestion (Primary Dx); Acute non-recurrent maxillary sinusitis 07/09/2024 Travel 06/29/2024 11:00 AM EDT Office Visit [facility] [address] [place] [address] Arslan Childers MD Thyrotoxicosis with diffuse goiter without thyrotoxic crisis or storm (Primary Dx); Abnormal results of thyroid function studies; Thyrotoxicosis, unspecified without thyrotoxic crisis or storm 06/29/2024 Bamboo flowsheet [facility] [address] [place] [address] Arslan Childers MD 06/23/2024 Travel 06/17/2024 9:20 AM EDT Office Visit [facility] [address] [place] [phone] Valerie Collado NP Epigastric pain (Primary Dx); Chronic GERD; BMI 23.0-23.9, adult; Breast cancer screening by mammogram; Cigarette smoker 06/17/2024 Bamboo flowsheet [facility] [address] [place] [address] Valerie Collado NP 06/17/2024 Travel 06/14/2024 Telephone [facility] [address] [place] [phone] Donnamiller, Valerie A, CONTROL OFFICER MANAGER Referral from Last 3 Months Family History Relation Name Status Comments Brother Alive x5 (1 ) Daughter Alive x2 Father Mother Sister Alive x2 Social History Tobacco Use Types Packs/Day Years Used Date Smoking Tobacco: Every Day Cigarettes 0.5 25.5 Started: 02/10/1999 Smokeless Tobacco: Never Tobacco Cessation:Ready to Q uit: Not Asked; Counseling Given: Not Answered Alcohol Use Standard Drinks/Week Comments Never 0 (1 standard drink = 0.6 oz pur e alcohol) PHQ-2 Answer Date Recorded Patient Health Questionnaire-2 Score 0 09/17/2023 Comments No Sex and Gender Information Value Date Recorded Sex Assigned at Not on file Legal Sex Female 7:30 PM EDT Gender Identity Not on file Sexual Orientation Not on file Last Filed Vital Signs Vital Sign Reading Time Taken Comments Blood Pressure 122/78 07/09/2024 12:52 PM EDT Pulse 86 07/09/2024 12:52 PM EDT Temperature 35.9 C (96.6 F) 07/09/2024 12:52 PM EDT Respiratory Rate 16 06/29/2024 11:18 AM EDT Oxygen Saturation 97% 07/09/2024 12:52 PM EDT Inhaled Oxygen Concentration - - Weight 63.5 kg (140 lb) 07/09/2024 12:52 PM EDT Height 167.6 cm (5' 6 ) 06/29/2024 11:18 AM EDT Body Mass Index 22.6 06/29/2024 11:18 AM EDT Plan of Treatment Upcoming Encounters Date Type Department Care Team (Late st Contact Info) Description 12/28/2024 11:00 AM EST Office Visit [facility] [address] [place] [address] Arslan Childers MD [address] [place] [address] Health Maintenance Due Date Last Done Comments CT Colonography 1958 FIT-DNA 1958 FIT 1958 FOBT 1958 Sigmoidoscopy 1958 Mammogram 1998 Medicare Annual Wellness (AWV) 09/16/2024 09/17/2023 Influenza Vaccine (#1) 2024 11/11/2020, 2019 Colonoscopy 11/04/2029 11/05/2019 Colorectal Cancer Screening 11/04/2029 Pneumococcal Vaccine: 65+ Years Completed 4 Procedures Procedure Name Priority Date/Time Associated Diagnosis Comments TSH Routine 06/24/2024 12:59 PM EDT Thyrotoxicosis with diffuse goiter without thyrotoxic crisis or storm T4, FREE Routine 06/24/2024 12:59 PM EDT Thyrotoxicosis with diffuse goiter without thyrotoxic crisis or storm T3, FREE Routine 06/24/2024 12:59 PM EDT Thyrotoxicosis with diffuse goiter without thyrotoxic crisis or storm from Last 3 Months Results * T3, free (06/24/2024 12:59 PM EDT) Blood Venous blood specimen / Unknown Arslan Childers MD LAB BLOOD ORDERABLES Final Re sult Performing Organization Address [facility] de Phone Number [facility] * TSH (06/24/2024 12:59 PM EDT) Blood Venous blood specimen / Unknown Arslan Childers MD LAB BLOOD ORDERABLES Final Re sult Performing Organization Address [facility] Co de Phone Number [facility] * T4, free (06/24/2024 12:59 PM EDT) Blood Venous blood specimen / Unknown Arslan Childers MD LAB BLOOD ORDERABLES Final Re sult Performing Organization Address [facility] de Phone Number [facility] from Last 3 Months Insurance MEDICARE Member Subscriber Plan / Payer (Ef fective 2023-Present) Name:Jessica Saavedra Member ID:[id number] Relation to Subscriber:Self Name:Jessica Saavedra Subscriber ID:[id number] Payer ID:STATE Group ID:Not on file Type:Medicare Address: [place] [phone] Care Teams Cupola Liner Helper Relationship Specialty Start Date End Date Taya Oh MD [address] [place] [address] PCP - General Family Medicine 09/17/23
--- OUTSIDE RECORDS SUMMARY | 2024-08-27 11:22 | XMS_ITS | Clinical Summary ---
Author Organization [facility] Address [address] [place] [address] Care Team Providers Care Tin Roller Hot Mill Name Role Phone Unavailable Primary Care Provider Unavailabl e Social History Tobacco Use Types Packs/Day Years Used Date Smoking Tobacco: Never Assessed Area Deprivation Index Answer Date Sanket rded National Score (1-100), lower number is lower ri sk 86 08/28/2023 State Score (1-10), lower number is lower risk 8 08/28/2023 Data from: https://www.neighborhoodatlas.medicine.[facility].edu/. Last address used for calculation [address] [place] [address] 08/28/2023 Comments Unknown Sex and Gender Information Value Date Recorded Sex Assigned at Not on file Legal Sex Female 3:25 PM EDT Gender Identity Not on file Sexual Orientation Not on file Plan of Treatment Health Maintenance Due Date Last Done Comments Anxiety Screening 1976 Depression Screening 1976 Hepatitis C Screening [address] Colonography 06/14/2003 Cologuard (FIT-DNA) 06/14/2003 Colonoscopy 06/14/2003 Colorectal Cancer Screening 06/14/2003 Diabetes Screening 06/14/2003 Fecal Occult Blood 06/14/2003 Lipid Screening 06/14/2003 Sigmoidoscopy 06/14/2003 Bone Density Screening 06/14/2023 Covid-19 Vaccine (2023-2 5 season) 2023 06/01/2023, 08/20/2021, 11/11/2020, Additional history exists Advance Directive Discussion 02/11/2024 Influenza Vaccine (#1) 2024 11/11/2020, 2019 DTaP,Tdap,Td Vaccine (2 - Tdap) 10/23/2030 Pneumococcal Vaccine: 50+ Completed 02/17/2023 RSV Vaccine Completed 02/17/2023 Shingrix Vaccine Completed 04/25/2023, 02/07/2023 Insurance O OOS MEDICARE
--- OUTSIDE RECORDS SUMMARY | 2024-08-27 11:22 | XMS_ITS | Encounter Summary ---
Author Organization [facility] Address [address] [place] [address] Care Team Providers Care Lining Feller Blindstitch Name Role Phone Gilberto Dominguez Gilles DO Unavailable [phone] Taya Oh MD Primary Care Provider [phone] Encounter Details Date Type Department Care Team (Late Contact Info) Description 12/24/2023 Orders Only [facility] [address] [place] [address] Arslan Childers MD [address] [place] [address] Social History Tobacco Use Types Packs/Day Years Used Date Smoking Tobacco: Every Day Cigarettes 0.5 25.5 Started: 02/10/1999 Smokeless Tobacco: Never Alcohol Use Standard Drinks/Week Comments Never 0 (1 standard drink = 0.6 oz pur e alcohol) PHQ-2 Answer Date Recorded Patient Health Questionnaire-2 Score 0 09/17/2023 Comments Unknown Sex and Gender Information Value Date Recorded Sex Assigned at Not on file Legal Sex Female 7:30 PM EDT Gender Identity Not on file Sexual Orientation Not on file documented as of this encounter Plan of Treatment Upcoming Encounters Date Type Department Care Team ([facility] Contact Info) Description 12/28/2024 11:00 AM EST Office Visit [facility] [address] [place] [address] Arslan Childers MD [address] [place] [address] documented as of this encounter Procedures Procedure Name Priority Date/Time Associated Diagnosis Comments T3, FREE Routine 12/24/2023 9:05 AM EST TSH Routine 12/24/2023 9:05 AM EST T4, FREE Routine 12/24/2023 9:05 AM EST HEPATIC FUNCTION PANEL Routine 12/24/2023 9:05 AM EST documented in this encounter Results * Hepatic function panel (12/24/2023 9:05 AM EST) Blood Venous blood specimen / Unknown us Arslan Childers MD LAB BLOOD ORDERABLES Final Re sult * T4, free (12/24/2023 9:05 AM EST) Blood Venous blood specimen / Unknown Arslan Childers MD LAB BLOOD ORDERABLES Final Re sult * T3, free (12/24/2023 9:05 AM EST) Blood Venous blood specimen / Unknown us Arslan Childers MD LAB BLOOD ORDERABLES Final Re sult * TSH (12/24/2023 9:05 AM EST) Blood Venous blood specimen / Unknown us Arslan Childers MD LAB BLOOD ORDERABLES Final Re sult documented in this encounter Visit Diagnoses Not on filedocumented in this encounter Care Teams Lining Feller Blindstitch Relationship Specialty Start Date End Date Gilberto Dominguez DO [address] [place] [address] PCP - [employer] 04/10/2202/09 Taya Oh MD [address] [place] [address] PCP - General Family Medicine 09/17/23 documented as of this encounter
--- OUTSIDE RECORDS SUMMARY | 2024-08-27 11:22 | XMS_ITS | Encounter Summary ---
Author Organization [facility] Address [address] [place] [address] Care Team Providers Care Oracle Software Engineer Name Role Phone Taya Oh MD Primary Care Provider [phone] Encounter Details Date Type Department Care Team (Late st Contact Info) Description 08/25/2024 Patient Outreach [facility] [address] [place] [address] Rani Sinclair LPN [address] [place] [address] Social History Tobacco Use Types Packs/Day Years [...] on file documented as of this encounter Progress Notes * Rani Sinclair LPN - 08/25/2024 12:03 PM EDT Images from the original note were not included. Pt was adm to [facility] on 08/22 for choledocholithiasis and was DC on 08/24. Per dc summary, ERCP completed with findings of large CBD stone s/p mechanical lithotripsy with multiple large stones removed from CBD following biliary sphincterotomy, with biliary stent placement on 08/[address] Ernst. This Nurse spoke with pt and completed [facility]. She reported that she has contacted her GI, which they help with getting set up with local general surgeon to remove her gallbladder. Stent to be in place for 4-6 weeks per pt and then she will return to [facility] to get it removed. Pt will call to make HFU appt with PCP after she confirms appt with general surgeon. She declined pain and discomfort to ABD /PELVN&V, bowel and urinary issues. Pt is eating light soft foods. She is kimber well. Pt declined changes of meds at [place]. She is aware of follow up [facility] and have orders. She declined any needs and was thankful for call. Flowsheet Row Patient Outreach from 08/25/2024 in [facility] with Rani Sinclair LPN [facility] Information ED, Hospital or Penitentiary Facility Discharge? Hospital Patient has been contacted within two business days of discharge Yes Diagnosis choledocholithiasis Discharge Date 08/24/24 Discharged To: Home Setting Discharge Hospital [facility] Engagement Call Start Time 1202 Admission Date 08/22/24 Medications Discharge medications reviewed and reconciled from hospital? Yes Is the patient having any side effects they believe may be caused by any medication additions or changes? No Does the patient have all medications ordered at discharge? Yes Nursing Interventions Nurse provided patient education, No intervention needed Is the patient taking all medications as directed (includes completed medication regime)? Yes Appointments Does the patient have a primary care provider? Yes Nursing Interventions Advised patient to make appointment Does the patient have any upcoming specialty appointments? Yes [Pt is in the process of getting appt with GI.] Does patient have any post discharge follow up testing that needs to be completed? Labwork, Other (specify) [ERCP in 4-6 weeks, and CBC and CMP for PCP to follow up] Self Management Patient Teaching Does the patient have access to their discharge instructions? Yes Nursing Interventions Reviewed instructions with patient What is the patient's perception of their health status since discharge? Improving Is the patient/caregiver able to teach back the hierarchy of who to call/visit for symptoms/problems? PCP, Specialist, Home Health nurse, Urgent Care, ED, 911 Yes Wrap Up Wrap Up Additional Comments ERCP completed with findings of large CBD stone s/p mechanical lithotripsy with multiple large stones removed from CBD following biliary sphincterotomy, with biliary stentplacement Call End Time 1213 documented in this encounter Plan of Treatment Upcoming Encounters Date Type Department Care Team (Late st Contact Info) Description 12/28/2024 11:00 AM EST Office Visit [facility] [address] [place] [address] Arslan Childers MD [address] [place] [address] documented as of this encounter Visit Diagnoses Diagnosis 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
--- OUTSIDE RECORDS SUMMARY | 2024-08-27 11:22 | XMS_ITS ---
Author Organization [facility] Address [address] [place] [address] Care Team Providers Care Puller Through Name Role Phone Taya Oh MD Primary Care Provider Inpatient Discharge Transitional Care Management (TCM) Status:Closed (Closed) Start date:08/24/2024 Enrollment date:08/25/2024 Enrollment reason:Identified using hospital discharge data End date:08/25/2024 Close reason:Discharged home Overview Patient discharged from [facility] on 08/24. Please contact for hospital [facility] and schedule follow-up appointment within 7-14 days. Continued Care and Services Coordination
--- OUTSIDE RECORDS SUMMARY | 2024-08-27 11:22 | XMS_ITS | Clinical Summary ---
Author Organization [facility] Address [address] [place] [address] Care Team Providers Care Airport Location Manager Name Role Phone Mela Collado MD Primary Care Provider + Allergies Active Allergy Reactions Criticality Noted Date Comments Cefuroxime Unknown 08/22/2024 Medications methIMAzole (Tapazole) 5 mg tablet Take 5 mg by mouth. DAILY 5 days per week (not given on Sundays and Tuesdays) Active metoprolol succinate XL (Toprol-XL) 25 mg 24 hr tablet Take 25 mg by mouth in the morning. Do not crush or chew. Active omeprazole (PriLOSEC) [address] capsule Take 40 mg by mouth before breakfast and before evening meal. Do not crush or chew. Active povidone, PF, (iVizia, PF,) 0.5 % drops Administer 1 drop into affected eye(s) four times daily. Active multivitamin tablet Take 1 tablet by mouth in the morning. Active Active Problems Problem Noted Date Diagnosed Date Choledocholithiasis 08/22/2024 Assessment & Plan (08/24/2024 2:59 PM EDT): Relevant Hx: Patient presents to hospital from [...] 25 mg sodium chloride 0.9 % infusion Assessment & Plan (08/23/2024 3:50 PM EDT): - outside hospital CT exhibiting choledocholithiasis with significant CBD dilatation and cholelithiasis without significant pericholecystic inflammation - trend LFTs they are unremarkable - patient is afebrile and without white count or significant abdominal pain - GI consulted, planning for ERCP likely today Assessment & Plan (08/22/2024 10:28 PM EDT): Gastroenterology consulted Normal saline at 50 mL/hour N.p.o. after midnight for possible procedure tomorrow by GI Pain control with morphine IV as needed Cigarette smoker 08/22/2024 Epigastric pain 08/22/2024 Assessment & Plan (08/23/2024 3:50 PM EDT): - outside hospital CT exhibiting choledocholithiasis with significant CBD dilatation and cholelithiasis without significant pericholecystic inflammation - trend LFTs they are unremarkable - patient is afebrile and without white count or significant abdominal pain - GI consulted, planning for ERCP likely today Gastroesophageal reflux disease 08/22/2024 History of gastritis 08/22/2024 Tobacco user 08/22/2024 Thyrotoxicosis 12/25/2023 Graves disease 12/25/2023 Assessment & Plan (08/23/2024 3:50 PM EDT): - Resume home methimazole Abnormal results of thyroid function studies Encounters Date Type Department Care Team Description 08/23/2024 6:31 PM EDT Anesthesia Event [facility] [address]CD [address] [place] [phone] Kathya Ernst MD 08/23/2024 4:51 PM EDT Anesthesia Event [facility] Main Operating Room [address] [place] [id number] Kathya Ernst MD Smay, Kyle, CAA 08/23/2024 Travel 08/22/2024 5:29 PM EDT - 08/24/2024 4:23 PM EDT Hospital Encounter [facility] [address] [address] [place] [phone] Michelle Thayer, Arthur Szymanski MD Spencer, Caleb T, MD Chang, Chris Ross MD Choledocholithiasis (Primary Dx); Epigastric pain; Gastroesophageal reflux disease without esophagitis; Tobacco user Discharge Disposition: Home or Self Care () 08/22/2024 Travel from Last 3 Months Immunizations Immunization Administration Dates Next Due DTP 10/23/2020 Influenza, injectable, quadrivalent, preservativ e free 11/11/2020,12/28/2019 Pneumococcal Conjugate PCV 20 02/17/2023 RSV, Adult, Recombinant 02/17/2023 Zoster, Recombinant 04/25/2023,02/07/2023 Social History Tobacco Use Types Packs/Day Years Used Date Smoking Tobacco: Every Day Cigarettes Smokeless Tobacco: Never Tobacco Cessation:Ready to Q uit: Not Asked; Counseling Given: Not Answered Alcohol Use Standard Drinks/Week Comments Never 0 (1 standard drink = 0.6 oz pur e alcohol) [facility] Utilities Answer Date Recorded In the past [...] any time in the past 12 m [facility], were you homeless or living in a snf (including now)? No 08/22/2024 Hunger Vital Sign [...] Heterosexual or Straight 08/10 5:58 PM EDT Last Filed Vital Signs Vital Sign Reading [...] Mass Index 21.98 08/23/2024 4:29 PM EDT Plan of Treatment Health Maintenance Due Date Last Done Comments CT Colonography 1958 FIT-DNA 1958 FIT 1958 FOBT 1958 Medicare Annual Wellness (AWV) 1958 Sigmoidoscopy 1958 Depression Screening 1970 Adult Tetanus 1980 Mammogram 1998 COVID-19 Vaccine ( season) 2023 06/01/2023, 08/20/2021, 11/11/2020, Additional history exists Influenza Vaccine (#1) 2024 11/11/2020, 2019 Fall Risk Screening 08/24/2025 08/24/2024 Colonoscopy 11/04/2029 11/05/2019 Colorectal Cancer Screening 11/04/2029 Pneumococcal Vaccine: 50+ Years Completed 02/17/2023 Zoster Vaccines Completed 04/25/2023, 02/07/2023 HIB Vaccines Aged Out No longer eligi ble based on patient's age to complete this topic HPV Vaccines Aged Out No longer eligi ble based on patient's age to complete this topic IPV Vaccines Aged Out No longer eligi ble based on patient's age to complete this topic Meningococcal B Vaccine Aged Out No l onger eligible based on patient's age to complete this topic Meningococcal Vaccine Aged Out No maggie isela eligible based on patient's age to complete this topic Rotavirus Vaccines Aged Out No longer eligible based on patient's age to complete this topic Medical Devices Implanted Type Area Nipple Threader Device Identifier Shelf Expiration Date Model / Serial / Lot Stent,Biliary, [id number] - [id number] - [id number] Implanted:Qty: 1 on 08/23/2024 by Kathya Khoury MD at [facility] Stent N/A: Bile Duct [employer] D [id number] 03/24/2026 [id number] / [id number] / [id number] Procedures Procedure Name Priority Date/Time Associated Diagnosis Comments CBC Pending Discharge 08/24/2024 8:23 AM EDT COMPREHENSIVE METABOLIC PANEL Pending Discharge 08/24/2024 8:23 AM EDT FL LESS THAN 1 HOUR INTRAOPERATIVE Routine 08/23/2024 6:45 PM EDT ENDOSCOPIC RETROGRADE CHOLANGIOPANCREATOGRAPHY Routine 08/23/2024 5:51 PM EDT MA AN ELECTIVE ENDOTRACHEAL AIRWAY Routine 08/23/2024 5:[address] TRANSFER OF OUTSIDE FILMS Routine 10:59 AM EDT US GALLBLADDER STAT 08/23/2024 9:28 AM EDT CBC WITH AUTO DIFFERENTIAL Routine 08/23 5:15 AM EDT COMPREHENSIVE METABOLIC PANEL Routine 5:15 AM EDT APTT Routine 08/23/2024 5:15 AM EDT PROTIME-INR Routine 08/23/2024 5:15 AM EDT MAGNESIUM Routine 08/23/2024 5:15 AM EDT CBC AND DIFFERENTIAL Routine 08/23/2024 5:15 AM EDT URINALYSIS WITH REFLEX CULTURE STAT 08/22/2024 7:51 PM EDT HIGH SENSITIVITY TROPONIN I STAT 08/10 7:[address] TRANSFER OF OUTSIDE FILMS STAT 7:31 PM EDT ECG 12-LEAD STAT 08/22/2024 6:37 PM EDT HIGH SENSITIVITY TROPONIN I STAT 08/10 6:26 PM EDT CBC WITH AUTO DIFFERENTIAL STAT 08/22 6:26 PM EDT ETHANOL STAT 08/22/2024 6:26 PM EDT LACTIC ACID WITH 4 HOUR REFLEX STAT 08/22/2024 6:26 PM EDT LIPASE STAT 08/22/2024 6:26 PM EDT HEPATIC FUNCTION PANEL STAT 6:26 PM EDT BASIC METABOLIC PANEL STAT 08/22/2024 6:26 PM EDT CBC AND DIFFERENTIAL STAT 08/22/2024 6:26 PM EDT from Last 3 Months Results * CBC (08/24/2024 8:23 AM EDT) Auto WBC 5.80 4.00 - 10.60 10*3/uL 08/24/2024 8:58 AM EDT [facility] ([facility]) RBC 4.11 3.80 - 5.00 10*6/uL 08/24/2024 8:58 AM EDT [facility] ([facility]) Hemoglobin 13.1 12.0 - 15.0 g/dL 08/24/2024 8:58 AM EDT [facility] ([facility]) Hematocrit 38.2 36.0 - 45.0 % 08/24/2024 8:58 AM EDT [facility] ([facility]) MCV 92.9 82.0 - 98.0 fL 08/24/2024 8:58 AM EDT [facility] ([facility]) MCH 31.9 27.0 - 33.0 pg 08/24/2024 8:58 AM EDT [facility] ([facility]) MCHC 34.3 32.0 - 35.0 g/dL 08/24/2024 8:58 AM EDT [facility] ([facility]) RDW 12.6 11.5 - 15.0 % 08/24/2024 8:58 AM EDT [facility] ([facility]) Platelets 205 150 - 400 10*3/uL 08/24/2024 8:58 AM EDT [facility] ([facility]) Blood Venous blood specimen / Unknown Venipuncture / Unknown 08/24/2024 8:23 AM EDT 08/24/2024 8:34 AM EDT us Chris Jennings MD LAB BLOOD ORDERABLES Final Res ult [facility] ([facility]) [address] [place] [address] * (ABNORMAL) Comprehensive metabolic panel (08/24/2024 8:23 AM EDT) Only the most recent of2 resultswithin the time period is included. Sodium 137 136 - 145 mmol/L 08/24/2024 9:12 AM EDT [facility] ([facility]) Potassium 4.2 3.5 - 5.1 mmol/L 08/24/2024 9:12 AM EDT [facility] ([facility]) Chloride 106 98 - 107 mmol/L 08/24/2024 9:12 AM EDT [facility] ([facility]) CO2 21 21 - 31 mmol/L 08/24/2024 9:12 AM EDT [facility] ([facility]) Anion Gap 14 7 - 20 mmol/L 08/24/2024 9:12 AM EDT [facility] ([facility]) BUN 10 7 - 25 mg/dL 08/24/2024 9:12 AM EDT [facility] ([facility]) Creatinine 0.65 0.60 - 1.20 mg/dL 08/24/2024 9:12 AM EDT [facility] ([facility]) BUN/Creatinine Ratio 15.4 08/10 9:12 AM EDT [facility] ([facility]) Glucose 107(H) 70 - 100 mg/dL 08/24/2024 9:12 AM T [facility] ([facility]) Calcium 8.8 8.6 - 10.3 mg/dL 08/24/2024 9:12 AM EDT [facility] ([facility]) AST 16 13 - 39 U/L 08/24/2024 9:12 AM T [facility] ([facility]) ALT (SGPT) 5(L) 7 - 52 U/L 08/24/2024 9:12 AM T [facility] ([facility]) Alkaline Phosphatase 68 34 - 104 U/L 08/24/2024 9:12 AM T [facility] ([facility]) Total Protein 6.3 6.0 - 8.3 g/dL 08/24/2024 9:12 AM T [facility] ([facility]) Albumin 3.9 3.5 - 5.7 g/dL 08/24/2024 9:12 AM [facility] ([facility]) Total Bilirubin 0.5 0.3 - 1.0 mg/dL 08/24/2024 9:12 AM T [facility] ([facility]) eGFR 97.0 >60.0 mL/min/1. 73m*2 08/24/2024 9:12 AM [facility] ([facility]) Comment:The [facility] s estimated glomerular filtration rate (eGFR) will [...] MD LAB BLOOD ORDERABLES Final Res ult [facility] ([facility]) [address] [place] [address] * [place] LESS THAN 1 HOUR INTRAOPERATIVE [...] ERCP for biliary stone removal. 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 A 10 [place]ian by 5 cm double-pigtail plastic biliary stent [...] ENDOSCOPY PROCEDURE ORDERABLES F inal Result * MA AN ELECTIVE ENDOTRACHEAL AIRWAY (08/23/2024 5:01 PM EDT) Narrative Alexia Quick CAA - 08/23/2024 5:01 PM EDT NABILA Sarabia 08/23/2024 5:11 PM Airway Date/Time: 08/23/2024 5:01 PM Reason: elective General Information and Staff Patient location during procedure: [place] Anesthesiologist: Kathya Ernst MD Resident/BUILDING TECH/NABILA: NABILA Sarabia Performed: resident/BUILDING TECH/NABILA Patient Condition Indications for airway management: anesthesia [...] 1 Number of other approaches attempted: 0 Kathya Ernst MD ANESTHESIA ORDERABLES Final Resu lt * CT transfer of outside films (08/23/2024 10:59 AM EDT) Only the most recent of2 resultswithin the time period is included. Narrative IMAGING - 08/23/2024 10:59 AM EDT This order has been auto-finalized and does not contain a result. Michelle Thayer PA-C IMG CT PROCEDURES Final Resu lt IMAGING [...] acute cholecystitis. Electronically signed: Jamaal Gibbs. us Kimberlynfreda Stinson MD IMG US PROCEDURES Final Result * (ABNORMAL) CBC auto differential (08/23/2024 5:15 AM EDT) Only the most recent of2 resultswithin the time period is included. Auto WBC 5.11 4.00 - 10.60 10*3/uL 08/23/2024 5:41 AM EDT [facility] ([facility]) RBC 3.79(L) 3.80 - 5.00 10*6/uL 08/23/2024 5:41 AM EDT [facility] ([facility]) Hemoglobin 12.2 12.0 - 15.0 g/dL 08/23/2024 5:41 AM EDT [facility] ([facility]) Hematocrit 35.1(L) 36.0 - 45.0 % 08/23/2024 5:41 AM EDT [facility] ([facility]) MCV 92.6 82.0 - 98.0 fL 08/23/2024 5:41 AM EDT [facility] ([facility]) MCH 32.2 27.0 - 33.0 pg 08/23/2024 5:41 AM EDT [facility] ([facility]) MCHC 34.8 32.0 - 35.0 g/dL 08/23/2024 5:41 AM [facility] ([facility]) RDW 12.9 11.5 - 15.0 % 08/23/2024 5:41 AM [facility] ([facility]) Neutrophils % 57.4 40.0 - 72.0 % 08/23/2024 5:41 AM EDT [facility] ([facility]) Lymphocytes % 35.0 20.0 - 45.0 % 08/23/2024 5:41 AM EDT [facility] ([facility]) Monocytes % 7.2 5.0 - 12.0 % 08/23/2024 5:41 AM [facility] ([facility]) Eosinophils % 0.2 0.0 - 6.0 % 08/23/2024 5:[facility] Basophils % 0.0 0.0 - 1.0 % 08/23/2024 5:41 AM T [facility] ([facility]) Neutrophils Absolute 2.93 1.60 - 7.60 10*3/uL 08/23/2024 5:41 AM EDT [facility] ([facility]) Lymphocytes Absolute 1.79 1.20 - 4.00 10*3/uL 08/23/2024 5:41 AM EDT [facility] ([facility]) Monocytes Absolute 0.37 0.10 - 1.00 10*3/uL 08/23/2024 5:41 AM EDT [facility] ([facility]) Eosinophils Absolute 0.01 0.00 - 0.50 10*3/uL 08/23/2024 5:41 AM EDT [facility] ([facility]) Basophils Absolute 0.00 0.00 - 0.20 10*3/uL 08/23/2024 5:41 AM EDT [facility] ([facility]) Platelets 205 150 - 400 10*3/uL 08/23/2024 5:41 AM EDT [facility] ([facility]) nRBC % 0.0 0 % 08/23/2024 5:41 AM EDT [facility] ([facility]) Immature Granulocytes % 0.2 0.0 - 1.0 % 08/23/2024 5:41 AM EDT [facility] ([facility]) Immature Granulocytes Absolute 0.01 0.00 - 0.20 10*3/uL 08/23/2024 5:41 AM EDT [facility] ([facility]) Blood Venous blood specimen / Unknown Venipuncture / Unknown 08/23/2024 5:15 AM EDT 08/23/2024 5:29 AM EDT us Kimberlyn Stinson MD LAB BLOOD ORDERABLES Fin al Result Performing Organization Address City/[facility]/ZIP Co de Phone Number [facility]) [address], [place] [id number] * APTT (08/23/2024 5:15 AM EDT) aPTT 29.9 25.0 - 35.0 Seconds 08/23/2024 5:53 AM EDT [facility]) Comment:Clinical significanc e of the APTT is questionable in the presence of heparin. Blood Venous blood specimen / Unknown Venipuncture / Unknown 08/23/2024 5:15 AM EDT 08/23/2024 5:23 AM EDT Kimberlyn Stinson MD LAB BLOOD ORDERABLES Fin al Result [facility]) [address], [place] [id number] * (ABNORMAL) Protime-INR (08/23/2024 5:15 AM EDT) Protime 14.4 12.3 - 14.8 Seconds 08/23/2024 5:52 AM EDT [facility] ([facility]) INR 1.12(H) 0.90 - 1.10 08/23/2024 5:52 AM EDT [facility] ([facility]) Comment: [facility] RECOMMENDED INR FOR WARFARIN THERAPY [...] MD LAB BLOOD ORDERABLES Fin al Result [facility] ([facility]) [address] [place] [address] * Magnesium (08/23/2024 5:15 AM EDT) Magnesium 1.9 1.9 - 2.7 mg/dL 08/23/2024 6:16 AM EDT [facility] ([facility]) Blood Venous blood specimen / Unknown Venipuncture / Unknown 08/23/2024 5:15 AM EDT 08/23/2024 5:57 AM EDT us Kimberlyn Stinson MD LAB BLOOD ORDERABLES Fin al Result [facility] ([facility]) [address] [place] [address] * (ABNORMAL) Urinalysis with reflex culture (08/22/2024 7:51 PM EDT) Color, Urine Light-Yellow Colorless, Yellow, Light-Yellow 08/22/2024 8:08 PM EDT [facility] ([facility]) Clarity, Urine Clear Clear 08/22/2024 8:08 PM EDT [facility] ([facility]) pH, Urine 6.5 5.0 - 8.0 pH 08/22/2024 8:08 PM EDT [facility] ([facility]) Leukocytes, Urine Negative Negative 08/22/2024 8:08 PM EDT [facility] ([facility]) Nitrite, Urine Negative Negative 08/22/2024 8:08 PM EDT [facility] ([facility]) Protein, Urine Negative Negative mg/dL 08/22/2024 8:08 PM EDT [facility] ([facility]) Glucose, Urine Normal Normal mg/dL 08/22/2024 8:08 PM EDT [facility] ([facility]) Bilirubin, Urine Negative Negative 08/22/2024 8:08 PM EDT [facility] ([facility]) Specific Davison, Urine 1.004(L) 1.010 - 1.030 08/22/2024 8:08 PM EDT [facility] ([facility]) Ketones, Urine Negative Negative mg/dL 08/22/2024 8:08 PM EDT [facility] ([facility]) Blood, Urine Negative Negative 08/22/2024 8:08 PM EDT [facility] ([facility]) Urobilinogen, Urine Normal Normal mg/dL 08/22/2024 8:08 PM EDT [facility] ([facility]) Urine Urine specimen obtained by clean catch procedure / Unknown Non-blood Collection / Unknown 08/22/2024 7:51 PM EDT 08/22/2024 7:51 PM EDT Narrative [facility] ([facility]) - 08/22/2024 8:08 PM EDT Microscopics not performed on urines with negative chemical reactions unless requested on original order. Michelle Thayer PA-C LAB URINE ORDERABLES Final R esult Performing Organization Address City/[facility]/ZIP Co de Phone Number [facility]) [address], [place] [id number] * Repeat HS Troponin I (08/22/2024 7:35 PM EDT) Only the most recent of2 resultswithin the time period is included. High Sensitivity Troponin I 3 <15 ng/L 08/22/2024 8:28 PM EDT [facility]) Blood Venous blood specimen / Unknown Venipuncture / Unknown 08/22/2024 7:35 PM EDT 08/22/2024 7:40 PM EDT Michelle Thayer PA-C LAB BLOOD ORDERABLES Final R esult Performing Organization Address City/[facility]/ZIP Co de Phone Number [facility]) [address] [place] [address] * ECG 12 lead (08/22/2024 6:37 PM EDT) Ventricular Rate 73 BPM GE MUSE Atrial Rate 73 BPM GE MUSE MA Interval 168 ms GE MUSE QRS DURATION 80 ms GE MUSE QT Interval 358 ms GE MUSE QTC CALCULATION(BAZE TT) 394 ms GE MUSE P [place] 66 degrees GE MUSE R-[place] 72 degrees GE MUSE T Wave [place] 53 degrees GE MUSE 08/22/2024 6:32 PM EDT 08/22/2024 11:52 PM EDT Impressions GE MUSE - 08/22/2024 11:52 PM EDT Normal sinus rhythm Nonspecific T wave abnormality Abnormal ECG No previous ECGs available Confirmed by Earnest FISCHER SAMER J. ([id number]) on 08/22/2024 11:52:08 PM Narrative Procedure Note Michelle Fischer MD - 08/22/2024 IMPRESSION: Normal sinus rhythm Nonspecific T wave abnormality Abnormal ECG No previous ECGs available Confirmed by Earnest FISCHER, MICHELLE Triplett ([id number]) on 08/22/2024 11:52:08 PM Michelle Tapia-C ECG ORDERABLES Final Result Performing Organization Address City/[facility]/ZIP Co de Phone Number GE MUSE * Lactic acid with 4 hour reflex (08/22/2024 6:26 PM EDT) Lactate 0.9 0.5 - 2.2 mmol/L 08/22/2024 6:54 PM EDT [facility] ([facility]) Blood Venous blood specimen / Unknown Venipuncture / Unknown 08/22/2024 6:26 PM EDT 08/22/2024 6:33 PM EDT Michelle MejiaC LAB BLOOD ORDERABLES Final R esult Performing Organization Address [facility] Co de Phone Number [facility] [address] [place] [address] * Lipase (08/22/2024 6:26 PM EDT) Lipase 23 11 - 82 U/L 08/22/2024 7:05 PM EDT [facility] ([facility]) Blood Venous blood specimen / Unknown Venipuncture / Unknown 08/22/2024 6:26 PM EDT 08/22/2024 6:33 PM EDT Michelle Tapia-C LAB BLOOD ORDERABLES Final R esult Performing Organization Address City/[facility]/ZIP Co de Phone Number [facility] ([facility]) [address] [place] [address] * Ethanol (08/22/2024 6:26 PM EDT) Pathologist [facility] Ethanol Calculated % <0.01 % 08/22/2024 6:54 PM EDT [facility] ([facility]) Ethanol Lvl <10 <10 mg/dL 08/22/2024 6:54 PM EDT [facility] ([facility]) Blood Venous blood specimen / Unknown Venipuncture / Unknown 08/22/2024 6:26 PM EDT 08/22/2024 6:33 PM EDT Michelle Thayer PA-C LAB BLOOD ORDERABLES Final R esult [facility]) [address] [place] [address] * Hepatic function panel (08/22/2024 6:26 PM EDT) Total Bilirubin 0.4 0.3 - 1.0 mg/dL 08/22/2024 7:05 PM EDT [facility] ([facility]) Bilirubin, Direct 0.1 0 - 0.2 mg/dL 08/22/2024 7:05 PM EDT [facility] ([facility]) Alkaline Phosphatase 67 34 - 104 U/L 08/22/2024 7:05 PM EDT [facility] ([facility]) AST 16 13 - 39 U/L 08/22/2024 7:05 PM EDT [facility] ([facility]) ALT (SGPT) 9 7 - 52 U/L 08/22/2024 7:05 PM EDT [facility] ([facility]) Total Protein 6.6 6.0 - 8.3 g/dL 08/22/2024 7:05 PM EDT [facility] ([facility]) Albumin 4.1 3.5 - 5.7 g/dL 08/22/2024 7:05 PM EDT [facility] ([facility]) Blood Venous blood specimen / Unknown Venipuncture / Unknown 08/22/2024 6:26 PM EDT 08/22/2024 6:33 PM EDT Michelle Thayer PA-C LAB BLOOD ORDERABLES Final R esult [facility] ([facility]) [address] [place] [address] * Basic metabolic panel (08/22/2024 6:26 PM EDT) Sodium 139 136 - 145 mmol/L 08/22/2024 7:05 PM EDT [facility] ([facility]) Potassium 3.6 3.5 - 5.1 mmol/L 08/22/2024 7:05 PM EDT [facility] ([facility]) Chloride 106 98 - 107 mmol/L 08/22/2024 7:05 PM EDT [facility] ([facility]) CO2 25 21 - 31 mmol/L 08/22/2024 7:05 PM EDT [facility] ([facility]) BUN 8 7 - 25 mg/dL 08/22/2024 7:05 PM EDT [facility] ([facility]) Creatinine 0.72 0.60 - 1.20 mg/dL 08/22/2024 7:05 PM EDT [facility] ([facility]) Glucose 82 70 - 100 mg/dL 08/22/2024 7:05 PM EDT [facility] ([facility]) Calcium 9.2 8.6 - 10.3 mg/dL 08/22/2024 7:05 PM EDT [facility] ([facility]) Anion Gap 12 7 - 20 mmol/L 08/22/2024 7:05 PM EDT [facility] ([facility]) eGFR 92.2 >60.0 mL/min/1. 73m*2 08/22/2024 7:05 PM EDT [facility] ([facility]) Comment:[facility] s estimated glomerular filtration rate (eGFR) will [...] BUN/Creatinine Ratio 11.1 08/10 7:05 PM EDT [facility] Blood Venous blood specimen / Unknown Venipuncture / Unknown 08/22/2024 6:26 PM EDT 08/22/2024 6:33 PM EDT us Michelle Thayer PA-C LAB BLOOD ORDERABLES Final R esult [facility] ([facility]) [address] [place] [address] from Last 3 Months Insurance MEDICARE Advance Directives * Full Code (Latest Code Status on File) Date Activated Date Inactivated Comments 08/22/2024 10:21 PM 08/24/2024 6:23 PM Care Teams Airport Location Manager Relationship Specialty Start Date End Date [place] [id number] PCP - General 08/22/24
[2024-08-27 11:36] LABS: Hematocrit 38.4 % (36.0-48.0); Hemoglobin 13.2 g/dL (12.0-16.0); Immature Granulocytes Abs Auto 0.01 10^3/uL (0.00-0.03); Immature Granulocytes Pct Auto 0.2 % (0.0-0.5); Lymphocytes Absolute Auto 1.5 10^3/uL (1.2-3.8); Mean Corpuscular HGB Conc 34.4 g/dL (29.9-35.2); Mean Corpuscular Hemoglobin 32.0 pg (26.7-34.0); Mean Corpuscular Volume 93.0 fL (81.0-99.0); Platelet Count 219 10^3/uL (150-450); Red Blood Count 4.13 10^6/uL (4.20-5.40); White Blood Count 5.1 10^3/uL (4.0-11.0)
[2024-08-27 11:50] LABS: Alanine Aminotransferase 19 U/L (14-59); Albumin Globulin Ratio 1.0; Albumin Level 3.3 g/dL (3.4-5.0); Alkaline Phosphatase 79 U/L (46-116); Anion Gap 11.7; Aspartate Amino Transferase 16 U/L (15-37); Blood Urea Nitrogen 7.0 mg/dL (7.0-18.0); Calcium 9.1 mg/dL (8.5-10.1); Carbon Dioxide 29.0 mmol/L (21.0-32.0); Chloride 107 mmol/L (98-107); Estimated GFR (African America >60 (>=60 mL/min/1.73m^2); Estimated GFR (Non-African Ame >60 (>=60 mL/min/1.73m^2); Globulin 3.4 g/dL; Glucose 102 mg/dL (74-106); Potassium 3.7 mmol/L (3.5-5.1); Sodium 144 mmol/L (136-145); Total Protein 6.7 g/dL (6.4-8.2)
== END 2024-08-27 11:15 | disposition home or self-care (01) ==
LOC: LAB 11:18
PROVIDERS: Visit Provider Student in an Organized Health Care Education/Training Program
DX: K80.50 Calculus of bile duct without cholangitis or cholecystitis without obstruction (principal)
CPT/HCPCS: 36415; 80053

== ENCOUNTER 2024-11-06 09:07 | Outpatient (OUT) | payer MEDICARE, SELFPAY ==
--- OUTSIDE RECORDS SUMMARY | 2024-10-25 10:58 | XMS_ITS ---
Author Name Auto Generated Organization OHIP Support Name Relationship Address Phone ALEJANDRA COTTO Next of Kin [address] [place] [address] + NIRU, DERRELL Next of Kin Unknown [phone] NATRUDOLPH, ALEJANDRA Next of Kin Unknown [phone] NIRU, DERRELL Next of Kin Unknown [phone] NATOLE, ALEJANDRA Next of Kin Unknown [phone] NIRU, DERRELL Next of Kin Unknown [phone] NATOLE, ALEJANDRA Next of Kin Unknown [phone] NIRU, DERRELL Next of Kin Unknown [phone] NATOLE, ALEJANDRA Next of Kin Unknown [phone] NIRU, DERRELL Next of Kin Unknown [phone] NATOLE, ALEJANDRA Next of Kin Unknown [phone] NIRU, DERRELL Next of Kin Unknown [phone] NATOLE, ALEJANDRA Next of Kin Unknown [phone] NIRU, DERRELL Next of Kin Unknown [phone] NATOLE, ALEJANDRA Next of Kin Unknown [phone] NIRU, DERRELL Next of Kin Unknown [phone] NATOLE, ALEJANDRA Next of Kin Unknown [phone] NIRU, DERRELL Next of Kin Unknown [phone] NATOLE, ALEJANDRA Next of Kin Unknown [phone] NATOLE, ALEJANDRA Next of Kin [address] [place] [address] + NATOLE, ALEJANDRA Next of Kin [address] [place] [address] + ALEJANDRA COTTO Next of Kin [address] [place] [address] + ALEJANDRA COTTO Next of Kin [address] [place] [address] + Care Team Providers Care [place] Name Role Phone VALERIE MATOS Attending Unavailab ERICA Jessica Attending Unavailable ERICA CHEN Attending Unavailable PALMER MAE Attending Unavailable VALERIE MATOS Attending Unavailab HERACLIO Riddle Admitting Unavailable JOHN BOJORQUEZ Attending Unavailable . MICHELLE LUKE Referring Unavailable STMICHELLE AKERS Referring Unavailable NAWRAS, ALI Referring Unavailable NAWRAS, ALI Admitting Unavailable NAWRAS, ALI Attending Unavailable ESE MATOS Referring Unavailabl e NAWRAS, KATHYA Referring Unavailable KIMEBRLYN CALDERÓN Referring Unavailabl e [facility] MIHCELLE LUKE Referring Unavailable NAWRAS, ALI Referring Unavailable NAWRAS, ALI Attending Unavailable Nicko Kerr Attending Unavailable Segun Del Castillo Attending Unavailable Segun Del Castillo Attending Unavailable Segun Del Castillo Attending Unavailable Segun Del Castillo Admitting Unavailable Segun Del Castillo Referring Unavailable Laura Mccord Referring Unavaila ble Laura Mccord Attending Unavaila ble NeilminiLaura Admitting Unavaila ble Dick Rogers Attending Unavailable HaDick arciniega Attending Unavailable SarminLaura duran Attending Unavaila ble PROBLEMS DATE TYPE CONDITION / CODE ATTENDING STATUS [facility] 08/23/2024 Admitting Diagnosis Epigastric pain / R10.13(ICD-10) JOHN BOJORQUEZ Active [facility] 08/22/2024 Admitting Diagnosis Gastro-esophageal reflux disease without esophagitis / K21.9(ICD-10) JOHN BOJORQUEZ Active [facility] 08/22/2024 Admitting Diagnosis Tobacco use / Z72.0(ICD-10) JOHN BOJORQUEZ Active [facility] 08/22/2024 Admitting Diagnosis Calculus of bile duct without cholangitis or cholecystitis without obstruction / K80.50(ICD-10) JOHN BOJORQUEZ Active [facility] PROCEDURES No Procedure Records Found RESULTS GENERAL SURGERY OFFICE/CLINI C NOTE Observed: 09/28/2024 11:20 AM Status: F Source: [facility] General Surgery Office/Clini c Note HPI Staff Kraig is a 64 y.o. female here for s/p cholecystectomy done 09/15/2024 History of Present Illness 64-year-old female status post cholecystectomy for choledocholithiasis performed on September 15, 2024. Patient had previous ERCP with stent placement performed in August 2024. Stent was removed September 27, 2024. Doing well since no abdominal pain denies bloating nausea vomiting or issues with her incisions. Physical Exam Abdomen soft nontender nondistended incisions are clean dry intact Assessment/Plan 1. Status post laparoscopic cholecystectomy (Z90.49: Acquired absence of other specified parts of digestive tract) Resume regular activity patient may follow-up as needed Ordered: Postoperative follow-up visit, related to the original procedure [id number] Portions of this record may have been created with voice recognition artificial intelligence software, specifically [employer], [employer] and or [employer]. Substitutions may have occurred due to the inherent limitations of voice recognition and artificial intelligence software. Follow-up No qualifying data available Problem List/Past Medical History Ongoing Body mass index 20-24 - normal Choledocholithiasis Cholelithiasis Cigarette smoker Epigastric pain Gastroesophageal reflux disease History of gastritis HTN (hypertension) Status post laparoscopic cholecystectomy Thyrotoxicosis Historical No qualifying data Procedure/Surgical History Laparoscopic cholecystostomy (09/15/2024), ERCP sphincterotomy and insertion of stent (08/22/2024), EGD (esophagogastroduodenoscopy) gastric outlet reduction (05/24/2020), Colonoscopy (11/05/2019). Medications Bentyl 10 mg Cap, 10 mg= 1 cap(s), Oral, QID, PRN, 3 refills Ivizia ophthalmic solution, 1 drop(s), Eye-Both, QID metoprolol 25 mg ER Tab, 25 mg= 1 tab(s), Oral, Daily Multivitamin, Therapeutic w/ Minerals, 1 tab(s), Oral, Daily omeprazole 40 mg Cap-DR, 40 mg= 1 cap(s), Oral, BIDAC, 3 refills Tapazole 5 mg Tab, Oral, q8hr Allergies cefuroxime (Hives) Social History Alcohol Never., 07/16/2024 Substance Abuse Never., 07/16/2024 Tobacco 5-9 cigarettes (between 1/4 to 1/2 pack)/day in last 30 days Tobacco Use:., 09/03/2024 5-9 cigarettes (between 1/4 to 1/2 pack)/day in last 30 days Tobacco Use:., 08/05/2024 Family History Heart disease: Mother. Result Comment: Electronical ly Signed By: Abundio LEMUS, Segun Mittalbr\Date and Time Signed: 09/28/24 11:38 EDT NURSNOTE Observed: 09/27/2024 3:24 PM Status: COMPLETED Source: [facility] Pt alert and oriented x4, No signs of respiratory distress, discharged in stable condition. Pt walks with a steady gait, without assistance. Pt verbalized discharge instructions and follow up information. Pt transported via wheelchair to vehicle with responsible libertarian at this time. ANES Observed: 09/27/2024 3:19 PM Status: COMPLETED Source: [facility] Patient: Kraig Cotto Procedure Summary Date: 09/27/24 Room / Location: [facility] Surgery [facility] Anesthesia Start: 1404 Anesthesia Stop: 1454 Procedure: ENDOSCOPIC RETROGRADE CHOLANGIOPANCREATOGRAPHY Diagnosis: Common bile duct calculi Scheduled Providers: Kathya Dumont MD; Harsh Clinton MD; NABILA Gray Responsible Provider: Harsh Clinton MD Anesthesia Type: general ASA Status: 3 Anesthesia Type: general Vitals Value Taken Time BP 127/94 09/27/24 15:05 Temp 36 ???C (96.8 ???F) 09/27/24 14:50 Pulse 84 09/27/24 15:05 Resp 17 09/27/24 15:05 SpO2 100 % 09/27/24 15:05 Anesthesia Post Evaluation Patient location during evaluation: PACU Patient participation: complete - patient participated Level of consciousness: awake Pain score: 1 Pain management: adequate Airway patency: patent Cardiovascular status: acceptable Respiratory status: acceptable Patient is hemodynamically stable and is able to be discharged from PACU per anesthesia protocol. No notable events documented. PROCEDURE Observed: 09/27/2024 2:25 PM Status: COMPLETED Source: [facility] Airway Date/Time: 09/27/2024 2:11 PM Reason: elective General Information and Staff Patient location during procedure: OR Anesthesiologist: Harsh Clinton MD Resident/BRIDGE EXPERT/NABILA: NABILA Berumen Performed: resident/BRIDGE EXPERT/NABILA Patient Condition Indications for airway management: anesthesia [...] 1 Number of other approaches attempted: [phone] Observed: 09/27/2024 1:00 PM Status: COMPLETED Source: [facility] Patient: Kraig Cotto Procedure Summary Date: 09/27/24 Room / Location: [facility] Endoscopy Anesthesia Start: 1404 Anesthesia Stop: 1454 Procedure: ENDOSCOPIC RETROGRADE CHOLANGIOPANCREATOGRAPHY Diagnosis: Common bile duct calculi Scheduled Providers: Kathya Dumont MD; Harsh Clinton MD; NABILA Gray Responsible Provider: Harsh Clinton MD Anesthesia Type: general ASA Status: 3 Anesthesia Post Transport Note Transport to: PACU O2 Route: room air Patient Monitor: direct observation Transport: uneventful Patient condition is: stable HP Observed: 09/27/2024 1:00 PM Status: COMPLETED Source: [facility] History Of Present Illness Kraig Cotto is a 64 y.o. female who had a history of biliary colic secondary to choledocholithiasis, CT scan of abdomen revealed large common bile duct stones. ERCP was performed on August 23, 2024 and revealed large common bile duct stone that measured 18 to 20 mm in size with diffusely dilated common bile duct. Mechanical lithotripsy was performed and multiple large stones were removed from the common bile duct after biliary sphincterotomy was performed. A 10 Citizen [place] by 5 cm double-pigtail plastic biliary stent was placed at that time to maintain drainage. The patient is presenting today to have repeat ERCP for common bile duct stent removal and for final clearance of the common bile duct. Past Medical History Medical History[1] Surgical History Surgical History[2] Social History Social History Socioeconomic History Marital status: Spouse name: None Number of children: None Years of education: None Highest education level: None Occupational History None Tobacco Use Smoking status: Every Day Current packs/day: 0.25 Average packs/day: 0.3 packs/day for 15.0 years (3.8 ttl pk-yrs) Types: Cigarettes Smokeless tobacco: Never Vaping Use Vaping status: Never Used Substance and Sexual Activity Alcohol use: Never Drug use: Never Sexual activity: Never Other Topics Concern None Social History Narrative [...] file Homeless in the Last Year: No Family History Family History[3] Allergies Allergies[4] Medications Prescriptions Prior to Admission[5] Review of Systems Constitutional: Negative. Respiratory: Negative. Cardiovascular: Negative. Gastrointestinal: Negative. Last Recorded Vitals Visit Vitals BP 122/71 Pulse 75 Temp 36.1 ???C (97 ???F) (Temporal) Resp 18 Ht 1.676 m (5' 6 ) Wt 61.3 kg (135 lb 2.3 oz) SpO2 100% BMI 21.81 kg/m??? OB Status Postmenopausal Smoking Status Every Day BSA 1.69 m??? Physical Exam HEENT: Anicteric sclera, conjunctiva Chest: Unremarkable Heart: Unremarkable Abdomen: Soft, no tenderness Lower extremities: No edema Relevant Lab Results Lab Results Component Value Date NA 137 08/24/2024 K 4.2 08/24/2024 CL 106 08/24/2024 CO2 21 08/24/2024 BUN 10 08/24/2024 CREATININE 0.65 08/24/2024 GLUCOSE 107 (H) 08/24/2024 CALCIUM 8.8 08/24/2024 ANIONGAP 14 08/24/2024 EGFR 97.0 08/24/2024 BCR 15.4 08/24/2024 Relevant Imaging Results Fl in Endo Narrative: [place] IN ENDO HISTORY: ERCP, stones. COMPARISON: None. Impression: Reference air kerma 87.9 mGy. Fluoroscopic guidance provided without radiologist present. Please see details within procedure/operative note. Electronically signed: Orlando Branch MD. ERCP w/ Sphinctorotomy Endoscopic Retrograde Cholangiopancreatography (ERCP) Procedure Note Procedure: ERCP with mechanical lithotripsy, stones removal, stent placement and sphincterotomy Indications: Biliary colic secondary to choledocholithiasis. CT abdomen pelvis/ultrasound abdomen outside hospital revealed choledocholithiasis. Plan for ERCP for biliary stone removal. 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 A 10 Citizen [place] by 5 cm double-pigtail plastic biliary stent [...] duct. Attending Attestation: I performed the procedure. CT transfer of outside films This order has been auto-finalized and does not contain a result. US gallbladder Narrative: US GALLBLADDER 08/23/2024 9:04 [...] of acute cholecystitis. Electronically signed: Jamaal Gibbs. Assessment and plan: Kraig Cotto is a 64 y.o. female who had a history of biliary colic secondary to choledocholithiasis, CT scan of abdomen revealed large common bile duct stones. ERCP was performed on August 23, 2024 and revealed large common bile duct stone that measured 18 to 20 mm in size with diffusely dilated common bile duct. Mechanical lithotripsy was performed and multiple large stones were removed from the common bile duct after biliary sphincterotomy was performed. A 10 Citizen [place] by 5 cm double-pigtail plastic biliary stent was placed at that time to maintain drainage. The patient is presenting today to have repeat ERCP for common bile duct stent removal and for final clearance of the common bile duct. [1] Past Medical History: Diagnosis Date Choledocholithiasis GERD (gastroesophageal reflux disease) Graves disease PONV (postoperative nausea and vomiting) [2] Past Surgical History: Procedure Laterality Date APPENDECTOMY CATARACT EXTRACTION CHOLECYSTECTOMY ERCP EYE SURGERY [3] No family history on file. [4] Allergies Allergen Reactions Cefuroxime Other Blacked out [5] (Not in a hospital admission) POCT GLUCOSE METER UNSOLICIT ED RESULTS Collected: 09/27/2024 12:55 PM Status: UNK Source: [facility] Order Comment: Waived Testin g in the ED is performed under the ED CLIA certificate #[id number]. TYPE CODE TESTS RESULT OUT OF RANGE REFERENCE UNITS LAB 885 POCT GLUCOSE 94 70-105 mg/dL Result Comment: hailey Performed By: #### [id number] #### [facility] ([facility]) [address] [place] [address] PROGRESS Observed: 09/27/2024 12:47 PM Status: COMPLETED Source: [facility] Pt arrived to pre-op bay ___ 1510__. Pt instructed to remove all clothing and place any personal belongings in the designated patient belongings bag. Pt displays understanding of instructions at this time. Pt informed they will speak with their anesthesiologist and procedural physician prior to their scheduled procedure time. All questions answered at this time. ANES Observed: 09/27/2024 12:40 PM Status: COMPLETED Source: [facility] Patient: Kraig Cotto Procedure Information Date/Time: 09/27/24 1300 Scheduled providers: Kathya Dumont MD; Harsh Clinton MD; NABILA Gray Procedure: ENDOSCOPIC RETROGRADE CHOLANGIOPANCREATOGRAPHY Location: [facility] Invasive Surgery [facility] Relevant Problems Anesthesia (within normal limits) Cardio Denies chest pain/SOB, No previous cardiac interventions. Endo No DM Graves disease. GI (+) Gastroesophageal reflux disease Pulmonary Tobacco use, COPD Clinical information reviewed: Past Medical History: Diagnosis Date Choledocholithiasis GERD (gastroesophageal reflux disease) Graves disease PONV (postoperative nausea and vomiting) Physical Exam Airway Mallampati: II TM distance: >3 FB Neck ROM: full Cardiovascular - normal exam Dental - normal exam Pulmonary - normal exam Neurological Abdominal Anesthesia Plan ASA 3 general The patient is a current smoker. Patient was previously instructed to abstain from smoking on day of procedure. Patient did not smoke on day of procedure. intravenous induction Anesthetic plan and risks discussed with patient. Plan discussed with CAA. Additional Equipment Requests PREP FOR PROCEDURE Observed: 09/27/2024 12:00 AM Status: COMPLETED Source: [facility] [id number] Kraig Cotto 05/1960 Date Provider Department Center 09/27/2024 375-KATHYA DUMONT [facility] No family history on file 29 Observed: 09/23/2024 10:58 AM Status: COMPLETED Source: [facility] Addendum created 09/23/24 58 by Og Jackson MD Clinical Note Signed 29 Observed: 09/23/2024 10:55 AM Status: COMPLETED Source: [facility] Addendum created 09/23/24 55 by Og Jakcson MD Clinical Note Signed 29 Observed: 09/23/2024 10:55 AM Status: COMPLETED Source: [facility] Addendum created 09/23/24 by Og Jackson MD Clinical Note Signed 29 Observed: 09/23/2024 10:54 AM Status: COMPLETED Source: [facility] Addendum created 09/23/24 54 by Og Jackson MD Clinical Note Signed PROGRESS NOTE-PHYSICIAN Observed: 2024 3:57 PM Status: F Source: [facility] Progress Note-Physician Patient: KRAIG COTTO Age: 64 years Sex: Female : 1960 Associated Diagnoses: None Author: Jessie LEMUS, Sarmad Ruby Postoperative Information Postoperative disposition: Postoperative disposition: Home. Optimetrix number: Optimetrix number [id number]. Anesthetic utilized: General. Health Status Allergies: Allergic Reactions (Selected) Severity Not Documented Cefuroxime- Hives. Current medications: (Selected) Inpatient Medications Ordered Lactated Ringers IV Leandra 1000 mL 1,000 mL: 1,000 mL, IV, 150 mL/hr, Routine, Start date 09/15/24 12:00:00 EDT, 6.7 hour(s), Total volume (mL): 1,000, 62.4 kg, 1.7, m2 Prescriptions Prescribed Bentyl 10 mg Cap: 10 mg = 1 cap(s), Oral, QID, PRN pai4, X 14 day(s), # 60 cap(s), Refills(s) 3, Pharmacy: [facility]/pharmacy #[id number], 167, cm, 08/05/24 12:23:00 EDT, Height/Length Dosing, 65, kg, 08/05/24 12:23:00 EDT, Weight Dosing [place] 325 mg-5 mg oral tablet: 1 tab(s), Oral, q6hr as needed for pain, 10 tab(s), Refill(s) 0, [facility]acy #[id number], 167, cm, 09/15/24 10:51:00 EDT, Height/Length Dosing, 62.4, kg, 09/15/24 10:51:00 EDT, Weight Dosing Zofran 4 mg Tab: 4 mg = 1 tab(s), Oral, q6hr, PRN Nausea/Vomiting, # 20 tab(s), Refills(s) 0, Pharmacy: [facility]/pharmacy #[id number], 167, cm, 09/15/24 10:51:00 EDT, Height/Length Dosing, 62.4, kg, 09/15/24 10:51:00 EDT, Weight Dosing omeprazole 40 mg Cap-DR: 40 mg = 1 cap(s), Oral, BIDAC, # 180 cap(s), Refills(s) 3, Pharmacy: [facility]/pharmacy #[id number], 167, cm, 08/05/24 12:23:00 EDT, Height/Length Dosing, 65, kg, 08/05/24 12:23:00 EDT, Weight Dosing Documented Medications Documented Ivizia ophthalmic solution: 1 drop(s), Eye-Both, QID, Refill(s) 0 Multivitamin, Therapeutic w/ Minerals: 1 tab(s), Oral, Daily, Refill(s) 0, Prophylaxis Tapazole 5 mg Tab: mg tab(s), Oral, q8hr, Refills(s) 0 metoprolol 25 mg ER Tab: 25 mg = 1 tab(s), Oral, Daily, Refills(s) 0, Home Medications (8) Active Bentyl 10 mg Cap 10 mg = 1 cap(s), PRN, Oral, QID Ivizia ophthalmic solution 1 drop(s), Eye-Both, QID metoprolol 25 mg ER Tab 25 mg = 1 tab(s), Oral, Daily Multivitamin, Therapeutic w/ Minerals 1 tab(s), Oral, Daily [place] 325 mg-5 mg oral tablet 1 tab(s), PRN, Oral, q6hr omeprazole 40 mg Cap-DR 40 mg = 1 cap(s), Oral, BIDAC Tapazole 5 mg Tab , Oral, q8hr Zofran 4 mg Tab 4 mg = 1 tab(s), PRN, Oral, q6hr Problem list: All Problems Body mass index 20-24 - normal / SNOMED CT 4351971652 / Confirmed Choledocholithiasis / SNOMED CT 456072779 / Confirmed Cholelithiasis / SNOMED CT 972847478 / Confirmed Cigarette smoker / SNOMED CT 607514399 / Confirmed Epigastric pain / SNOMED CT 188925393 / Confirmed Gastroesophageal reflux disease / SNOMED CT 907733098 / Confirmed Graves disease / SNOMED CT 761117943 / Confirmed History of gastritis / SNOMED CT 9010870908 / Confirmed HTN (hypertension) / SNOMED CT 8922113353 / Confirmed Thyrotoxicosis / SNOMED CT 188939725 / Confirmed Tobacco use / SNOMED CT 8577555344 / Confirmed Physical Examination Vital Signs 09/15/2024 15:03 EDT Heart Rate Monitored 70 bpm SpO2 92 % 09/15/2024 15:02 EDT Systolic Blood Pressure 120 mmHg Diastolic Blood Pressure 72 mmHg Mean Arterial Pressure, Cuff 88 mmHg 09/15/2024 15:02 EDT Respiratory Rate 18 br/min 09/15/2024 14:13 EDT Heart Rate Monitored 69 bpm SpO2 94 % 09/15/2024 14:13 EDT Respiratory Rate 18 br/min 09/15/2024 14:12 EDT Systolic Blood Pressure 120 mmHg Diastolic Blood Pressure 75 mmHg Mean Arterial Pressure, Cuff 90 mmHg 09/15/2024 14:05 EDT Temperature Temporal Artery 36.1 DegC LOW Heart Rate Monitored 72 bpm Respiratory Rate Monitored 16 br/min Systolic Blood Pressure 118 mmHg Diastolic Blood Pressure 69 mmHg Mean Arterial Pressure, Cuff 85 mmHg SpO2 100 % 09/15/2024 14:00 EDT Heart Rate Monitored 70 bpm SpO2 100 % 09/15/2024 14:00 EDT Respiratory Rate Monitored 18 br/min 09/15/2024 14:00 EDT Temperature Temporal Artery In Error DegC (In Error) Systolic Blood Pressure 118 mmHg Diastolic Blood Pressure 69 mmHg Blood Pressure Location Left arm Mean Arterial Pressure, Cuff 85 mmHg 09/15/2024 13:50 EDT SpO2 100 % 09/15/2024 13:50 EDT Heart Rate Monitored 60 bpm 09/15/2024 13:50 EDT Respiratory Rate Monitored 13 br/min 09/15/2024 13:50 EDT Systolic Blood Pressure 113 mmHg Diastolic Blood Pressure 63 mmHg 09/15/2024 13:50 EDT Blood Pressure Location Left arm Mean Arterial Pressure, Cuff 80 mmHg 09/15/2024 13:45 EDT SpO2 100 % 09/15/2024 13:45 EDT Heart Rate Monitored 60 bpm 09/15/2024 13:45 EDT Respiratory Rate Monitored 12 br/min 09/15/2024 13:45 EDT Systolic Blood Pressure 103 mmHg Diastolic Blood Pressure 57 mmHg LOW Blood Pressure Location Left arm Mean Arterial Pressure, Cuff 72 mmHg 09/15/2024 13:40 EDT SpO2 100 % 09/15/2024 13:40 EDT Heart Rate Monitored 59 bpm LOW 09/15/2024 13:40 EDT Respiratory Rate Monitored 12 br/min 09/15/2024 13:40 EDT Systolic Blood Pressure 91 mmHg Diastolic Blood Pressure 53 mmHg LOW Blood Pressure Location Left arm Mean Arterial Pressure, Cuff 66 mmHg 09/15/2024 13:38 EDT SpO2 100 % 09/15/2024 13:38 EDT Heart Rate Monitored 59 bpm LOW 09/15/2024 13:38 EDT Respiratory Rate Monitored 17 br/min 09/15/2024 13:38 EDT Systolic Blood Pressure 93 mmHg Diastolic Blood Pressure 55 mmHg LOW 09/15/2024 13:38 EDT Temperature Temporal Artery 36.2 DegC LOW Blood Pressure Location Left arm Mean Arterial Pressure, Cuff 68 mmHg 09/15/2024 13:35 EDT FIO2 100 09/15/2024 13:30 EDT Heart Rate Monitored 65 bpm bpm Respiratory Rate 6 br/min br/min Systolic Blood Pressure 96 mmHg mmHg Diastolic Blood Pressure 48 mmHg mmHg SpO2 100 % % FIO2 100 09/15/2024 13:27 EDT Systolic Blood Pressure 108 mmHg mmHg Diastolic Blood Pressure 53 mmHg mmHg 09/15/2024 13:25 EDT Heart Rate Monitored 64 bpm bpm Respiratory Rate 16 br/min br/min SpO2 100 % % FIO2 100 09/15/2024 13:24 EDT Systolic Blood Pressure 116 mmHg mmHg Diastolic Blood Pressure 66 mmHg mmHg 09/15/2024 13:21 EDT Systolic Blood Pressure 104 mmHg mmHg Diastolic Blood Pressure 64 mmHg mmHg 09/15/2024 13:20 EDT Heart Rate Monitored 64 bpm bpm Respiratory Rate 10 br/min br/min SpO2 100 % % FIO2 100 09/15/2024 13:18 EDT Systolic Blood Pressure 99 mmHg mmHg Diastolic Blood Pressure 62 mmHg mmHg 09/15/2024 13:15 EDT Heart Rate Monitored 65 bpm bpm Respiratory Rate 10 br/min br/min Systolic Blood Pressure 94 mmHg mmHg Diastolic Blood Pressure 58 mmHg mmHg SpO2 100 % % FIO2 60 09/15/2024 13:12 EDT Systolic Blood Pressure 100 mmHg mmHg Diastolic Blood Pressure 61 mmHg mmHg 09/15/2024 13:10 EDT Heart Rate Monitored 70 bpm bpm Respiratory Rate 9 br/min br/min SpO2 99 % % FIO2 60 09/15/2024 13:09 EDT Systolic Blood Pressure 103 mmHg mmHg Diastolic Blood Pressure 73 mmHg mmHg 09/15/2024 13:06 EDT Systolic Blood Pressure 100 mmHg mmHg Diastolic Blood Pressure 60 mmHg mmHg 09/15/2024 13:05 EDT Heart Rate Monitored 66 bpm bpm Respiratory Rate 7 br/min br/min SpO2 99 % % FIO2 60 09/15/2024 13:03 EDT Systolic Blood Pressure 101 mmHg mmHg Diastolic Blood Pressure 65 mmHg mmHg 09/15/2024 13:00 EDT Heart Rate Monitored 68 bpm bpm Respiratory Rate 7 br/min br/min Systolic Blood Pressure 106 mmHg mmHg Diastolic Blood Pressure 64 mmHg mmHg SpO2 100 % % FIO2 60 09/15/2024 12:57 EDT Systolic Blood Pressure 110 mmHg mmHg Diastolic Blood Pressure 65 mmHg mmHg 09/15/2024 12:55 EDT Heart Rate Monitored 66 bpm bpm Respiratory Rate 7 br/min br/min SpO2 100 % % FIO2 60 09/15/2024 12:54 EDT Systolic Blood Pressure 112 mmHg mmHg Diastolic Blood Pressure 70 mmHg mmHg 09/15/2024 12:51 EDT Systolic Blood Pressure 119 mmHg mmHg Diastolic Blood Pressure 68 mmHg mmHg 09/15/2024 12:50 EDT Heart Rate Monitored 72 bpm bpm Respiratory Rate 7 br/min br/min SpO2 100 % % FIO2 60 09/15/2024 12:48 EDT Systolic Blood Pressure 119 mmHg mmHg Diastolic Blood Pressure 72 mmHg mmHg 09/15/2024 12:45 EDT Heart Rate Monitored 70 bpm bpm Respiratory Rate 7 br/min br/min Systolic Blood Pressure 119 mmHg mmHg Diastolic Blood Pressure 65 mmHg mmHg SpO2 100 % % FIO2 60 09/15/2024 12:42 EDT Systolic Blood Pressure 124 mmHg mmHg Diastolic Blood Pressure 73 mmHg mmHg 09/15/2024 12:40 EDT Heart Rate Monitored 70 bpm bpm Respiratory Rate 7 br/min br/min SpO2 100 % % FIO2 60 09/15/2024 12:39 EDT Systolic Blood Pressure 137 mmHg mmHg Diastolic Blood Pressure 77 mmHg mmHg 09/15/2024 12:36 EDT Systolic Blood Pressure 138 mmHg mmHg Diastolic Blood Pressure 82 mmHg mmHg 09/15/2024 12:35 EDT Heart Rate Monitored 77 bpm bpm Respiratory Rate 7 br/min br/min SpO2 100 % % FIO2 60 09/15/2024 12:33 EDT Systolic Blood Pressure 116 mmHg mmHg Diastolic Blood Pressure 70 mmHg mmHg 09/15/2024 12:30 EDT Heart Rate Monitored 79 bpm bpm Respiratory Rate 10 br/min br/min Systolic Blood Pressure 120 mmHg mmHg Diastolic Blood Pressure 92 mmHg mmHg SpO2 100 % % FIO2 60 09/15/2024 12:27 EDT Systolic Blood Pressure 116 mmHg mmHg Diastolic Blood Pressure 68 mmHg mmHg 09/15/2024 12:25 EDT Heart Rate Monitored 64 bpm bpm Respiratory Rate 10 br/min br/min SpO2 98 % % FIO2 60 09/15/2024 12:24 EDT Systolic Blood Pressure 126 mmHg mmHg Diastolic Blood Pressure 73 mmHg mmHg 09/15/2024 12:22 EDT Systolic Blood Pressure 137 mmHg mmHg Diastolic Blood Pressure 75 mmHg mmHg 09/15/2024 12:20 EDT Heart Rate Monitored 92 bpm bpm Respiratory Rate 10 br/min br/min Systolic Blood Pressure 150 mmHg mmHg Diastolic Blood Pressure 84 mmHg mmHg SpO2 97 % % FIO2 100 09/15/2024 12:18 EDT Systolic Blood Pressure 81 mmHg mmHg Diastolic Blood Pressure 51 mmHg mmHg 09/15/2024 12:15 EDT Heart Rate Monitored 59 bpm bpm Respiratory Rate 6 br/min br/min Systolic Blood Pressure 90 mmHg mmHg Diastolic Blood Pressure 60 mmHg mmHg SpO2 100 % % FIO2 100 09/15/2024 12:12 EDT Systolic Blood Pressure 120 mmHg mmHg Diastolic Blood Pressure 69 mmHg mmHg 09/15/2024 12:10 EDT FIO2 100 09/15/2024 12:09 EDT Systolic Blood Pressure 122 mmHg mmHg Diastolic Blood Pressure 77 mmHg mmHg 09/15/2024 11:30 EDT Apical Heart Rate 78 bpm Systolic Blood Pressure 130 mmHg Diastolic Blood Pressure 79 mmHg 09/15/2024 10:36 EDT Heart Rate Monitored 80 bpm Systolic Blood Pressure 120 mmHg Diastolic Blood Pressure 79 mmHg Mean Arterial Pressure, Cuff 92 mmHg 09/15/2024 10:36 EDT Blood Pressure Location Left arm 09/15/2024 10:36 EDT Heart Rate Monitored 72 bpm SpO2 99 % 09/15/2024 10:36 EDT Apical Heart Rate 78 bpm 09/15/2024 10:35 EDT Respiratory Rate 16 br/min 09/15/2024 10:35 EDT Temperature Oral 36.4 DegC 09/15/2024 10:34 EDT Systolic Blood Pressure 130 mmHg Diastolic Blood Pressure 79 mmHg Mean Arterial Pressure, Cuff 96 mmHg 09/15/2024 10:34 EDT Blood Pressure Location Right arm Pain Assessment: Controlled, Pain Assessment 09/15/2024 15:02 EDT Preliminary Pain Scale 3 09/15/2024 14:13 EDT Preliminary Pain Scale 0 09/15/2024 14:05 EDT Preliminary Pain Scale 0 09/15/2024 14:00 EDT Preliminary Pain Scale 0 09/15/2024 13:50 EDT Preliminary Pain Scale 0 09/15/2024 10:34 EDT Preliminary Pain Scale 0 . General: Awake, Alert, Appropriate. Respiratory: Adequate air exchange, Non-labored. Cardiovascular: Stable, Normal peripheral perfusion. Neurological: Neurologic exam at baseline. No changes.. Assessment Anesthetic outcome No anesthetic complications noted. No nausea/vomiting. Review / Management Condition: Stable. Plan Transfer/Discharge: Transfer/Discharge Discharge when meets criteria ( From PACU to Ambulatory Surgery Unit, and To home ). Result Comment: Electronical ly Signed By: Jessie LEMUS, Sarmad Ruby\.br\Date and Time Signed: 09/15/24 15:58 EDT PATIENT EDUCATION - TEXT Observed: 09/15 3:16 PM Status: C Source: [facility] Patient Education - Text Gastroenterology Minimally Invasive Cholecystectomy, Care After The following information offers guidance on how to care for yourself after your procedure. Your health care provider may also give you more specific instructions. If you have problems or questions, contact your health care provider. What can I expect after the procedure? After the procedure, it is common to have: ??? Pain at your incision sites. You will be given medicines to control this pain. ??? Mild nausea or vomiting. ??? Bloating and possible shoulder pain from the gas that was used during the procedure. Follow these instructions at home: Medicines ??? Take zova-fau-nrpgtpc and prescription medicines only as told by your health care provider. ??? If you were prescribed an antibiotic medicine, take it as told by your health care provider. Do not stop using the antibiotic even if you start to feel better. ??? Ask your health care provider if the medicine prescribed to you: ? Requires you to avoid driving or using machinery. ? Can cause constipation. You may need to take these actions to prevent or treat constipation: ? Drink enough fluid to keep your urine pale yellow. ? Take lczf-frg-ubjjbxq or prescription medicines. ? Eat foods that are high in fiber, such as beans, whole grains, and fresh fruits and vegetables. ? Limit foods that are high in fat and processed sugars, such as fried or sweet foods. Incision care ??? Follow instructions from your health care provider about how to take care of your incisions. Make sure you: ? Wash your hands with soap and water for at least 20 seconds before and after you change your bandage (dressing). If soap and water are not available, use hand flyer builder. ? Change your dressing as told by your health care provider. ? Leave stitches (sutures), skin glue, or adhesive strips in place. These skin closures may need to be in place for 2 weeks or longer. If adhesive strip edges start to loosen and curl up, you may trim the loose edges. Do not remove adhesive strips completely unless your health care provider tells you to do that. ??? Do not take baths, swim, or use a hot tub until your health care provider approves. Ask your health care provider if you may take showers. You may only be allowed to take sponge baths. ??? Check your incision area every day for signs of infection. Check for: ? More redness, swelling, or pain. ? Fluid or blood. ? Warmth. ? Pus or a bad smell. Activity ??? Rest as told by your health care provider. Do not do activities that require a lot of effort. ??? Avoid sitting for a long time without moving. Get up to take short walks every 1?2 hours. This is important to improve blood flow and breathing. Ask for help if you feel weak or unsteady. ??? Do not lift anything that is heavier than 10 lb (4.5 kg), or the limit that you are told, until your health care provider says that it is safe. ??? Do not play contact sports until your health care provider approves. ??? Do not return to work or school until your health care provider approves. ??? Return to your normal activities as told by your health care provider. Ask your health care provider what activities are safe for you. General instructions ??? If you were given a sedative during the procedure, it can affect you for several hours. Do not drive or operate machinery until your health care provider says that it is safe. ??? Keep all follow-up visits. This is important. Contact a health care provider if: ??? You develop a rash. ??? You have more redness, swelling, or pain around your incisions. ??? You have fluid or blood coming from your incisions. ??? Your incisions feel warm to the touch. ??? You have pus or a bad smell coming from your incisions. ??? You have a fever. ??? One or more of your incisions breaks open. Get help right away if: ??? You have trouble breathing. ??? You have chest pain. ??? You have more pain in your shoulders. ??? You faint or feel dizzy when you stand. ??? You have severe pain in your abdomen. ??? You have nausea or vomiting that lasts for more than one day. ??? You have leg pain that is new or unusual, or if it is localized to one specific spot. These symptoms may represent a serious problem that is an emergency. Do not wait to see if the symptoms will go away. Get medical help right away. Call your local emergency services (911 in the [place] Do not drive yourself to the hospital. Summary ??? After your procedure, it is common to have pain at the incision sites. You may also have nausea or bloating. ??? Follow your health care provider's instructions about medicine, activity restrictions, and caring for your incision areas. Do not do activities that require a lot of effort. ??? Contact a health care provider if you have a fever or other signs of infection, such as more redness, swelling, or pain around the incisions. ??? Get help right away if you have chest pain, increasing pain in the shoulders, or trouble breathing. This information is not intended to replace advice given to you by your health care provider. Make sure you discuss any questions you have with your health care provider. Document Revised: 07/31/2021 Document Reviewed: 07/31/2021 [employer] Patient Education ? 2023 [employer] OUTPATIENT SURGERY DISCHARGE INSTRUCTION Observed: 09/15/2024 3:16 PM Status: C Source: [facility] Outpatient Surgery Discharge Instruction [place] [id number] Patient Discharge Instructions PERSON INFORMATION Name: KRAIG COTTO Date of : 1960 Current Date: 09/15/2024 15:16:56 PHYSICIANS Admitting Physician: Segun Del Castillo MD Discharge Diagnosis: KRAIG COTTO has been given the following list of follow-up instructions, prescriptions, and patient education materials: PATIENT FOLLOW-UP INFORMATION Diet: Regular Discharge Activity: Resume normal activities in 24 hours, Expect mild pain, Expect minimal amount of drainage and/or bleeding Discharge Restrictions: No driving for 24 hrs, Do not make important decisions for 24 hours, Do not drink alcoholic beverages for 24 hours Call Your Doctor For: Persistent or heavy bleeding, Temperature above 101.5 degrees, Redness, swelling, or pus at operative site, Severe pain at the operative site, Persistent vomiting Additional Instructions: ok to remove outer dressings and shower tomorrow. do not remove steris strips or submerge incisions underwater as in pool or tub for two weeks after surgery. no lifting greater than 35 pounds for one week after surgery. IF UNABLE TO CONTACT YOUR PHYSICIAN AND YOU FEEL IT IS AN EMERGENCY, GO TO THE NEAREST EMERGENCY ROOM OR CALL 911 Mela KRAIG COTTO, have received the attached patient education materials/instructions and have verbalized understanding: May we do a follow up call? Yes No I was present when discharge instructions were given Patient Signature Date Clinican/Nurse Signature Date Follow up: With: Address: When: Segun Del Castillo [address], [facility] [address], [facility] [address] [place] [id number] [phone] Business (1) Comments: Appointment has already been scheduled Type Location Start Finish [facility] Post Op 15 [facility] Jamal 09/28/2024 11:40 AM 09/28/2024 12:00 PM Confirmed Pharmacy Information: You may receive a survey from Willian Short asking you to rate your care experience. Your feedback is important and will help us understand what we do well and how we can improve the quality of care we provide to you, your loved ones and our community. It???s an honor to serve you. Thank you for choosing [facility] HERE ARE THE MEDICATION CHANGES THAT OCCURRED DURING YOUR HOSPITAL STAY New Medications [id number], [address], [place] [id number], [phone] acetaminophen-hydrocodone ([place] 325 mg-5 mg oral tablet) 1 Tablets By Mouth every 6 hours as needed as needed for pain. Refills: 0. ondansetron (Zofran 4 mg Tab) 1 Tablets By Mouth every 6 hours as needed Nausea/Vomiting. Refills: 0. Medications to Continue with No Changes Other Medications dicyclomine (Bentyl 10 mg Cap) 1 Capsules By Mouth 4 times a day as needed pai4 for 14 Days. Refills: 3. methimazole (Tapazole 5 mg Tab) By Mouth every 8 hours. metoprolol (metoprolol 25 mg ER Tab) 1 Tablets By Mouth every day. multivitamin with minerals (Multivitamin, Therapeutic w/ Minerals) 1 Tablets By Mouth every day. ocular lubricant (Ivizia ophthalmic solution) 1 Drops Both eyes 4 times a day. omeprazole (omeprazole 40 mg Cap-DR) 1 Capsules By Mouth twice a day (before meals). Refills: 3. No Longer Take the Following Medications pantoprazole (Pantoprazole [address] Tab) 30 EA, 0 Refill(s), TAKE 1 TABLET (40 MG) BY MOUTH IN THE MORNING. TAKE BEFORE MEALS. DO NOT CRUSH, CHEW, OR SPLIT.., Responsible Provider: VALERIE MATOS PATIENT EDUCATION INFORMATION Instructions: Minimally Invasive Cholecystectomy, Care After The following information offers guidance on how to care for yourself after your procedure. Your health care provider may also give you more specific instructions. If you have problems or questions, contact your health care provider. What can I expect after the procedure? After the procedure, it is common to have: ??? Pain at your incision sites. You will be given medicines to control this pain. ??? Mild nausea or vomiting. ??? Bloating and possible shoulder pain from the gas that was used during the procedure. Follow these instructions at home: Medicines ??? Take ovkf-kxy-lemgdhn and prescription medicines only as told by your health care provider. ??? If you were prescribed an antibiotic medicine, take it as told by your health care provider. Do not stop using the antibiotic even if you start to feel better. ??? Ask your health care provider if the medicine prescribed to you: ? Requires you to avoid driving or using machinery. ? Can cause constipation. You may need to take these actions to prevent or treat constipation: ? Drink enough fluid to keep your urine pale yellow. ? Take ghdc-xcr-mphlaww or prescription medicines. ? Eat foods that are high in fiber, such as beans, whole grains, and fresh fruits and vegetables. ? Limit foods that are high in fat and processed sugars, such as fried or sweet foods. Incision care ??? Follow instructions from your health care provider about how to take care of your incisions. Make sure you: ? Wash your hands with soap and water for at least 20 seconds before and after you change your bandage (dressing). If soap and water are not available, use hand flyer builder. ? Change your dressing as told by your health care provider. ? Leave stitches (sutures), skin glue, or adhesive strips in place. These skin closures may need to be in place for 2 weeks or longer. If adhesive strip edges start to loosen and curl up, you may trim the loose edges. Do not remove adhesive strips completely unless your health care provider tells you to do that. ??? Do not take baths, swim, or use a hot tub until your health care provider approves. Ask your health care provider if you may take showers. You may only be allowed to take sponge baths. ??? Check your incision area every day for signs of infection. Check for: ? More redness, swelling, or pain. ? Fluid or blood. ? Warmth. ? Pus or a bad smell. Activity ??? Rest as told by your health care provider. Do not do activities that require a lot of effort. ??? Avoid sitting for a long time without moving. Get up to take short walks every 1?2 hours. This is important to improve blood flow and breathing. Ask for help if you feel weak or unsteady. ??? Do not lift anything that is heavier than 10 lb (4.5 kg), or the limit that you are told, until your health care provider says that it is safe. ??? Do not play contact sports until your health care provider approves. ??? Do not return to work or school until your health care provider approves. ??? Return to your normal activities as told by your health care provider. Ask your health care provider what activities are safe for you. General instructions ??? If you were given a sedative during the procedure, it can affect you for several hours. Do not drive or operate machinery until your health care provider says that it is safe. ??? Keep all follow-up visits. This is important. Contact a health care provider if: ??? You develop a rash. ??? You have more redness, swelling, or pain around your incisions. ??? You have fluid or blood coming from your incisions. ??? Your incisions feel warm to the touch. ??? You have pus or a bad smell coming from your incisions. ??? You have a fever. ??? One or more of your incisions breaks open. Get help right away if: ??? You have trouble breathing. ??? You have chest pain. ??? You have more pain in your shoulders. ??? You faint or feel dizzy when you stand. ??? You have severe pain in your abdomen. ??? You have nausea or vomiting that lasts for more than one day. ??? You have leg pain that is new or unusual, or if it is localized to one specific spot. These symptoms may represent a serious problem that is an emergency. Do not wait to see if the symptoms will go away. Get medical help right away. Call your local emergency services (911 in the [place] Do not drive yourself to the hospital. Summary ??? After your procedure, it is common to have pain at the incision sites. You may also have nausea or bloating. ??? Follow your health care provider's instructions about medicine, activity restrictions, and caring for your incision areas. Do not do activities that require a lot of effort. ??? Contact a health care provider if you have a fever or other signs of infection, such as more redness, swelling, or pain around the incisions. ??? Get help right away if you have chest pain, increasing pain in the shoulders, or trouble breathing. This information is not intended to replace advice given to you by your health care provider. Make sure you discuss any questions you have with your health care provider. Document Revised: 07/31/2021 Document Reviewed: 07/31/2021 [employer] Patient Education ? 2023 [employer]. Medication Leaflets: INPATIENT PATIENT SUMMARY Observed: 07/2024 3:16 PM Status: C Source: [facility] Inpatient Patient Summary [address] [address] [facility] Clinical Discharge Instructions PERSON INFORMATION Name: KRAIG COTTO PHYSICIANS Admitting Physician: Segun Del Castillo MD Attending Physician: Segun Del Castillo MD PCP: Valerie MATOS CNP Discharge Diagnosis: Comment: PATIENT EDUCATION INFORMATION Instructions: Post Op Patient Instructions - FT (CUSTOM); Minimally Invasive Cholecystectomy, Care After Medication Leaflets: Follow up: With: Address: When: Segun Del Castillo [address] [place], [place] [address], [place] [phone] Business (1) Comments: Appointment has already been scheduled Type Location Start [facility] Post Op 15 [facility] 09/28/2024 11:40 AM 09/28/2024 12:00 PM Confirmed MEDICATION LIST New Medications [id number], [address], [place] [id number], [phone] acetaminophen-hydrocodone ([place] 325 mg-5 mg oral tablet) 1 Tablets By Mouth every 6 hours as needed as needed for pain. Refills: 0. ondansetron (Zofran 4 mg Tab) 1 Tablets By Mouth every 6 hours as needed Nausea/Vomiting. Refills: 0. Medications to Continue with No Changes Other Medications dicyclomine (Bentyl 10 mg Cap) 1 Capsules By Mouth 4 times a day as needed pai4 for 14 Days. Refills: 3. methimazole (Tapazole 5 mg Tab) By Mouth every 8 hours. metoprolol (metoprolol 25 mg ER Tab) 1 Tablets By Mouth every day. multivitamin with minerals (Multivitamin, Therapeutic w/ Minerals) 1 Tablets By Mouth every day. ocular lubricant (Ivizia ophthalmic solution) 1 Drops Both eyes 4 times a day. omeprazole (omeprazole 40 mg Cap-DR) 1 Capsules By Mouth twice a day (before meals). Refills: 3. No Longer Take the Following Medications pantoprazole (Pantoprazole [address] Tab) 30 EA, 0 Refill(s), TAKE 1 TABLET (40 MG) BY MOUTH IN THE MORNING. TAKE BEFORE MEALS. DO NOT CRUSH, CHEW, OR SPLIT.., Responsible Provider: VALERIE MATOS Comment: OPERATIVE REPORT Observed: 09/15/2024 1:37 PM Status: F Source: [facility] Operative Report Postoperative Diagnosis 64-year-old female with symptomatic cholelithiasis and choledocholithiasis status post ERCP with stent placement in August 2024 here for interval cholecystectomy. Written consent obtained in office, risk benefits alternatives of surgery discussed with the patient including infection, wound complication, cardiopulmonary complication, DVT/PE, fluid collection formation, injury to surrounding structures requiring further surgery to address. Operation CHOLECYSTECOMY ROBOT ASSISTED, ROBOTIC ASSISTED LAPROSCOPIC CHOLECYSTECTOMY, . Surgeon(s) Abundio LEMUS, Segun Santos (Surgeon - Primary) Roofing Machine Tender Greg Anesthesia General Jessie LEMUS, Sarmad Ruby (Flagsetter) Viktor Spencer (Anesthesiologist Roofing Machine Tender) Estimated Blood Loss 10 cc Urine Output void prior to OR Findings Gallbladder with stones Specimen(s) Pathology Tissue Exam (Gallbladder,AP Specimen) Complications None Technique Informed consent: Written Position: Supine Perioperative antibiotics given within 60 minutes of incision: yes Time Out performed: yes Anesthesia: General ETT Prep and Drape: Sterile fashion Hair Clipped: No Abdominal Access:Veress Needle, Optiview 5mm trocar at arias's point Port placement: 8mm robotic trocars 20cm from costal margin in left lower quadrant, left paramedian, right paramedian, right lower quadrant Robot Docked: yes Instruments: Prograsp, 30 degree robotic camera, forced bipolar, robotic monopolar scissors gallbladder decompressed with aspiration needle Firefly use to identify biliary structures: yes Cystic duct identified and circumferentially dissected: yes Cystic artery identified and circumferentially dissected:yes Critical view of safety: yes Division of cystic duct: 2 clips proximal, one distal, divided with scissors Division of cystic artery: one clip proximal, distally divided with cautery Gallbladder dissected off cystic plate: yes Gallbladder placed in Endo Catch bag: yes Gallbladder removed from field: Yes Spillage of contents: no Irrigation: no Ports removed and abdomen desufflated: Yes Skin closure: 4-0 monocryl, subcuticular fashion Dressing: steris strips Correct counts:yes, x2 Patient tolerated the procedure: yes Result Comment: Electronical ly Signed By: Abundio LEMUS, Segun Santos\.br\Date and Time Signed: 09/15/24 13:39 EDT SURGICAL PATHOLOGY REPORT Observed: 07/2024 12:42 PM Status: F Source: [address] [address]- Surgical Pathology Report Collected Date/Time: 09/15/2024 12:42 EDT Pathologist: Dick LEMUS PhD, Mak Ford Received Date/Time: 09/15/2024 14:00 EDT Abundio LEMUS, Segun Del Castillo MD, Segun Aaron Surgical Pathology Report - 09/20/2024 12:36 EDT - Auth (Verified) Final Diagnosis GALLBLADDER, CHOLECYSTECTOMY: - MILD CHRONIC FOLLICULAR CHOLECYSTITIS WITH CHOLELITHIASIS. (Electronic Signature) Mak Bojorquez MD PhD 09/20/2024 12:36 Clinical Information Cholelithiasis, choledocholithiasis Pre-Op Diagnosis: Cholelithiasis, choledocholithiasis Procedure: Robot-assisted cholecystectomy Post-Op Diagnosis: 64-year-old female with symptomatic cholelithiasis and choledocholithiasis status post ERCP with stent placement in August 2024 here for interval cholecystectomy. Written consent obtained in office, risk benefits alternatives of surgery discussed with the patient including infection, wound complication, cardiopulmonary complication, DVT/PE, fluid collection formation, injury to surrounding structures requiring further surgery to address. Specimen(s) Received Gallbladder Gross Description Received in formalin, labeled with patient name, number and gallbladder measuring 7.5 x 4.2 x 1.8 cm. The serosal surface is akins-pink, partially smooth, and glistening. Surgical clip is removed the cystic duct region, which is inked blue. The gallbladder is opened and contains dark red yellow-tinged bile and a single round friable black-brown gallstone measuring up to 1 cm in diameter. The wall of the gallbladder measures up to 0.3 cm in thickness. The mucosal surface is akins-pink and has a meaty appearance. Railroad Watchman portion is submitted in three cassettes. Cassette 1 is the cystic duct region, 2 and 3 technical service representative portions of the remainder of the gallbladder. (DC) DC:KEVIN Microscopic Description Microscopic examination performed unless gross only specified. Quality was accessed and acceptable. This report was transcribed using voice recognition technology and might contain unintended computerized treasury representative errors. Performed By: #### [id number] # ### [place] [address] SURGICAL PATHOLOGY REPORT Observed: 07/2024 12:42 PM Status: F Source: [address] [place] [address]- Surgical Pathology Report Collected Date/Time: 09/15/2024 12:42 EDT Pathologist: Dick LEMUS PhD, Mak Ford Received Date/Time: 09/15/2024 14:00 EDT Abundio LEMUS, Segun Del Castillo MD, Segun Aaron Surgical Pathology Report - 09/20/2024 12:36 EDT - Auth (Verified) Final Diagnosis GALLBLADDER, CHOLECYSTECTOMY: - MILD CHRONIC FOLLICULAR CHOLECYSTITIS WITH CHOLELITHIASIS. (Electronic Signature) Mak Bojorquez MD PhD 09/20/2024 12:36 Clinical Information Cholelithiasis, choledocholithiasis Pre-Op Diagnosis: Cholelithiasis, choledocholithiasis Procedure: Robot-assisted cholecystectomy Post-Op Diagnosis: 64-year-old female with symptomatic cholelithiasis and choledocholithiasis status post ERCP with stent placement in August 2024 here for interval cholecystectomy. Written consent obtained in office, risk benefits alternatives of surgery discussed with the patient including infection, wound complication, cardiopulmonary complication, DVT/PE, fluid collection formation, injury to surrounding structures requiring further surgery to address. Specimen(s) Received Gallbladder Gross Description Received in formalin, labeled with patient name, number and gallbladder measuring 7.5 x 4.2 x 1.8 cm. The serosal surface is akins-pink, partially smooth, and glistening. Surgical clip is removed the cystic duct region, which is inked blue. The gallbladder is opened and contains dark red yellow-tinged bile and a single round friable black-brown gallstone measuring up to 1 cm in diameter. The wall of the gallbladder measures up to 0.3 cm in thickness. The mucosal surface is akins-pink and has a meaty appearance. Railroad Watchman portion is submitted in three cassettes. Cassette 1 is the cystic duct region, 2 and 3 technical service representative portions of the remainder of the gallbladder. (DC) DC:KEVIN Microscopic Description Microscopic examination performed unless gross only specified. Quality was accessed and acceptable. This report was transcribed using voice recognition technology and might contain unintended computerized treasury representative errors. Performed By: #### [id number] # ### [facility] [address] [place] [address] MAIN OR PACU II RECORD Observed: 025 12:26 PM Status: F Source: [facility] Main OR PACU II Record PACU Phase II Document Type FT Summary Primary Physician: Segun Del Castillo MD Finalized Date/Time: 09/15/24 15:30:56 Pt. Name: KRAIG COTTO/Sex: 1960 Female Med Rec #: [id number] Physician: Segun Del Castillo MD Financial #: [id number] Pt. Type: A Room/Bed: [facility]/ Admit/Disch: 09/15/24 10:16:13 - 09/15/24 15:25:46 Institution: Case Times PACU II FT Pre-Care Text: Identifies barriers to communication and implements measures to provide psychological support and determines knowledge level Develops individualized plan of care, and ensures continuity of care Maintains patient's dignity and privacy, and maintains patient confidentiality Identifies and reports philosophical, cultural, and spiritual beliefs and values Identifies individual values and wishes concerning care administers prescribed antibiotic therapy and immunizing agents as ordered, Evaluates postoperative tissue perfusion Implements thermoregulation measures, and monitors body temperature Evaluates postoperative respiratory status Evaluates postoperative cardiac status Evaluates postoperative neurological status Assesses pain control, collaborated in initiating patient-controlled analgesia and implements alternative methods of pain control Verifies allergies, administers prescribed medications and solutions, evaluates response to medications Entry 1 In PACU II 09/15/24 14:10:00 Discharge from PACU 09/15/24 15:25:00 II Outcomes Met? Yes Last Modified By: Luisa Polk 09/15/24 15:30:34 Post-Care Text: The patient demonstrates knowledge of the expected response to the operative or invasive procedure The patient's care is consistent with the individualized perioperative plan of care The patient's right to privacy is maintained The patient's value system, lifestyle, ethnicity, and culture are considered, respected, and incorporated into the perioperative plan of care The patient participates in decisions affecting his or her perioperative plan of care. The patient is free from signs and symptoms of infection The patient has wound/tissue perfusion consistent with or improved from baseline levels established preoperatively The patient is at or returning to normothermia at the conclusion of the immediate postoperative period The patient's respiratory function is consistent with or improved from baseline levels established preoperatively The patient's cardiovascular status is consistent with or improved from baseline levels established preoperatively The patient's neurological status is consistent with or improved from baseline levels established preoperatively The patient demonstrates and/or reports adequate pain control throughout the perioperative period The patient received appropriate medication(s), safely administered during the perioperative period Finalized By: Luisa Polk Document Signatures Signed By: Luisa Polk 09/15/24 15:30 MAIN OR PACU I RECORD Observed: 09/16/19 12:26 PM Status: F Source: [facility] Main OR PACU I Record PACU Phase I Document Type FT Summary Primary Physician: Segun Del Castillo MD Finalized Date/Time: 09/15/24 14:14:39 Pt. Name: KRAIG COTTO Francisca Cortes./Sex: 1960 Female Med Rec #: [id number] Physician: Segun Del Castillo MD Financial #: [id number] Pt. Type: A Room/Bed: [facility]/ Admit/Disch: 09/15/24 10:16:13 - Institution: Case Times PACU I FT Pre-Care Text: Identifies barriers to communication and implements measures to provide psychological support Develops individualized plan of care, and ensures continuity of care Maintains patient's dignity and privacy, and maintains patient confidentiality Identifies and reports philosophical, cultural, and spiritual beliefs and values Identifies individual values and wishes concerning care Implements aseptic technique, and administers prescribed antibiotic therapy and immunizing agents as ordered Evaluates postoperative tissue perfusion Implements thermoregulation measures, and monitors body temperature Evaluates postoperative respiratory status Evaluates postoperative cardiac status Evaluates postoperative neurological status Assesses pain control, collaborated in initiating patient-controlled analgesia and implements alternative methods of pain control Verifies allergies, administers prescribed medications and solutions, evaluates response to medications Entry 1 In PACU I 09/15/24 13:38:00 Discharge from PACU 09/15/24 14:08:00 I Outcomes Met? Yes Last Modified By: Jessie Montana RN 09/15/24 14:14:19 Post-Care Text: The patient demonstrates knowledge of the expected response to the operative or invasive procedure The patient's care is consistent with the individualized perioperative plan of care The patient's right to privacy is maintained The patient's value system, lifestyle, ethnicity, and culture are considered, respected, and incorporated into the perioperative plan of care The patient participates in decisions affecting his or her perioperative plan of care The patient is free from signs and symptoms of infection The patient has wound/tissue perfusion consistent with or improved from baseline levels established preoperatively The patient is at or returning to normothermia at the conclusion of the immediate postoperative period The patient's respiratory function is consistent with or improved from baseline levels established preoperatively The patient's cardiovascular status is consistent with or improved from baseline levels established preoperatively The patient's cardiovascular status is consistent with or improved from baseline levels established preoperatively The patient demonstrates and/or reports adequate pain control throughout the perioperative period The patient received appropriate medication(s), safely administered during the perioperative period Acuity Level PACU I FT Entry 1 Start Time 09/15/24 13:38:00 Stop Time 09/15/24 14:08:00 Acuity Level Acuity Level I Last Modified By: Jessie Montana RN 09/15/24 14:14:34 Finalized By: Jessie Montana RN Document Signatures Signed By: Jessie Montana RN 09/15/24 14:14 MAIN OR INTRAOPERATIVE RECORD Observed: 09/15/2024 12:26 PM Status: C Source: [facility] Main OR Intraoperative Recor d IntraOp Document Type FT Summary Primary Physician: Segun Del Castillo MD Finalized Date/Time: 09/17/24 12:25:33 Pt. Name: KRAIG COTTO Francisca Travis/Sex: 1960 Female Med Rec #: [id number] Physician: Segun Del Castillo MD Financial #: [id number] Pt. Type: A Room/Bed: [place] [address] Admit/Disch: 09/15/24 10:16:13 - 09/15/24 15:25:46 Institution: Case Times FT Entry 1 Patient Times In Room 09/15/24 12:09:00 Out Room 09/15/24 13:35:00 Procedure Times Start 09/15/24 12:26:00 Stop 09/15/24 13:29:00 Anesthesia Times Start 09/15/24 12:09:00 Stop 09/15/24 13:35:00 Last Modified By: Barbi BRODY, Maria Antonia Gregory 09/15/24 13:35:34 General Comments: ROBOT DOCEKD AT 1236. UNDOCKED AT 1315. SURGEON AT CONSOLE [phone] -V. MARY GRACE LECHUGA Case Attendance FT Entry 1 Entry 2 Entry 3 Case Attendee Aubrey [facility], Viktor Del Castillo MD, eSgun Mcarthur CSTMike Role Performed Anesthesiologist Surgeon - Primary ASSISTANT READING TEACHER/SA Roofing Machine Tender Time In 09/15/24 12:08:00 09/15/24 12:08:00 09/15/24 12:08:00 Time Out 09/15/24 13:35:00 09/15/24 13:35:00 09/15/24 13:35:00 Procedure CHOLECYSTECOMY ROBOT CHOLECYSTECOMY ROBOT CHOLECYSTECOMY ROBOT ASSISTED(.) ASSISTED(.) ASSISTED(.) Comments DR. BOLES SUPERVISING, CHERI SERRANO, MEDICAL STUDENT FOLLOWING, OUT FOR BREAK AT 1249- Last Modified By: Barbi RN, Maria Antonia Lechuga RN, Maria Antonia Lechuga RN, Maria Antonia Johnson P 09/15/24 Elizabeth P 09/15/24 Elizabeth P 09/15/24 13:35:34 13:35:34 13:35:34 Entry 4 Entry 5 Entry 6 Case Attendee Barbi BRODY, Maria Antonia Jones LPN, Kristen Boles MD, Sarmad Gregory Role Performed Incinerator Operator - Primary Scrub - Primary Anesthesiologist of Record Time In 09/15/24 12:08:00 09/15/24 12:08:00 09/15/24 12:47:00 Time Out 09/15/24 13:35:00 09/15/24 13:35:00 09/15/24 13:35:00 Procedure CHOLECYSTECOMY ROBOT CHOLECYSTECOMY ROBOT CHOLECYSTECOMY ROBOT ASSISTED(.) ASSISTED(.) ASSISTED(.) Comments SEGUNDO FORTUNE, CONTROLS OPERATOR MOLDED GOODS STUDENT FOLLOWING Last Modified By: Barbi RN, Maria Antonia Lechuga RN, Maria Antonia Lechuga RN, Maria Antonia Johnson P 09/15/24 Elizabeth P 09/15/24 Elizabeth P 09/15/24 13:35:34 13:35:34 13:35:34 Perioperative Protocols FT Pre-Care Text: Implements protective measures prior to operative or invasive procedure, confirms identity before the operative or invasive procedure, verifies operative procedure, surgical site, and laterality Entry 1 Procedure(s) CHOLECYSTECOMY ROBOT Patient Identity Birthday, ID Band ASSISTED(.) Verified (select at Check, Patient least 2): Participation Consents / H and P Anesthesia Consent, Operative Site N/A Verified H&P, Surgery/Procedure Marking Verified Consent Surgical Site Yes Laterality Verified n/a Verified Procedure Verified Yes Correct Patient Yes Position Verified Availability Equipment, Medication Prep Dry Yes Verified (If Applicable) PreOp Antibiotic Yes Time Out Abundio LEMUS, Segun Santos, Given Participants Aubrey DAHL, Viktor Bey, Lyubov ASSISTANT READING TEACHER, Mike W, Barbi BRODY, Maria Antonia Gregory, Robert ERNSTN, Kristen Sanchez Time Out Complete 09/15/24 12:25:00 Outcomes Met? Yes Last Modified By: Maria Antonia Lechuga RN 09/15/24 12:42:26 Post-Care Text: The patient is free from signs and symptoms of injury caused by extraneous objects Allergy Information FT Pre-Care Text: Verifies allergies Entry 1 Allergies Reviewed? Yes Allergies Reviewed Self/Patient With Outcomes Met? Yes Last Modified By: Maria Antonia Lechuga RN 09/15/24 12:42:30 Post-Care Text: The patient received appropriate medication(s) safely administered during the perioperative period Surgical Procedures FT Entry 1 Procedure Description Procedure CHOLECYSTECOMY ROBOT Modifiers . ASSISTED Surgeon Description ROBOTIC ASSISTED LAPROSCOPIC CHOLECYSTECTOMY Primary Procedure Yes Primary Surgeon Abundio LEMUS, Segun Santos Start 09/15/24 12:26:00 Stop 09/15/24 13:29:00 Anesthesia Type General Surgical Service General Wound Class 2 - Clean-Contaminated Last Modified By: Maria Antonia Lechuga RN 09/15/24 13:35:36 General Case Data FT Pre-Care Text: Classifies surgical wound, implements aseptic technique, initiates traffic control Entry 1 Case Information OR OR 6 FT Case Level Level 5 Wound Class 2 - Clean-Contaminated Specialty General ASA Class 2 Preop Diagnosis CHOLELITHIASIS, Postop Same As Preop Yes CHOLEDOCHOLITHIASIS Postop Diagnosis CHOLELITHIASIS, Outcomes Met? Yes CHOLEDOCHOLITHIASIS Last Modified By: Maria Antonia Lechuga RN 09/15/24 12:42:45 Post-Care Text: The patient is free from signs and symptoms of infection Skin Assessment (Pre Procedure) FT Pre-Care Text: Implements protective measures to prevent skin/ tissue injury due to thermal or mechanical sources Evaluates for signs and symptoms of physical injury to skin and tissue Entry 1 Skin Integrity Intact, [place], Warm, & Skin Abnormality No Dry Outcomes Met? Yes Last Modified By: Maria Antonia Lechuga RN 09/15/24 12:44:24 Post-Care Text: The patient is free from signs and symptoms of injury caused by extraneous objects Patient Positioning FT Pre-Care Text: Identifies physical alterations that require additional precautions for procedure-specific positioning, verifies presence of prosthetics or corrective devices, positions the patient, evaluates the patient for signs and symptoms of injury as a result of positioning Entry 1 Procedure CHOLECYSTECOMY ROBOT Body Position Supine ASSISTED(.) Feet Uncrossed? Yes Left Arm Position Tucked and Padded at Side Right Arm Position Extended on Padded Arm Left Leg Position Extended Board Right Leg Position Extended Positioning Device Safety Strap, Foot board, Egg Crate Padding, Padded Armboard, Pillow Under Head Large Press Points Checked Yes By Abundio LEMUS, Aubrey Canales, Viktor Bey, Lyubov OBREGON, Mike Petit, Barbi BRODY, Maria Antonia Gregory Outcomes Met? Yes Last Modified By: Maria Antonia Lechuga RN 09/15/24 12:44:56 Post-Care Text: The patient is free from signs and symptoms of injury related to positioning Patient Care Devices FT Pre-Care Text: Implements protective measures to prevent skin/ tissue injury due to thermal or mechanical sources Entry 1 Entry 2 Entry 3 Equipment Type INSUFLATORS MISTRAL FORCED AIR MONITOR CHARGE SURGERY WARMING SYSTEM UNIT Equipment Number BOOM OR 6 M5 OR 6 Equipment Setting 43C/HIGH Outcomes Met? Yes Yes Yes Last Modified By: Barbi BRODY, Maria Antonia Lechuga RN, Maria Antonia Lechuga RN, Maria Antonia Gregory 09/15/24 Elizabeth Gregory 09/15/24 Elizabeth Gregory 09/15/24 12:45:49 12:45:49 12:45:49 Entry 4 Equipment Type VENA FLOW UNIT Equipment Number Equipment Setting Outcomes Met? Yes Last Modified By: Maria Antonia Lechuga RN 09/15/24 12:45:49 Post-Care Text: The patient is free from signs and symptoms of injury caused by extraneous objects Transport To OR FT Pre-Care Text: Transports according to individual needs. Evaluates for signs and symptoms of skin and tissue injury as a result of transfer or transport Entry 1 Via Cart By Maria Antonia Lechuga RN Safety Precautions Side Rails Up Outcomes Met? Yes Last Modified By: Maria Antonia Lechuga RN 09/15/24 12:45:58 Post-Care Text: The patient is free from signs and symptoms of injury related to transfer/transport Cautery FT Pre-Care Text: Implements protective measures to prevent injury due to electrical sources, and evaluates for signs and symptoms of electrical injury Entry 1 ESU Identification ESU Type CAUTERY UNIT Equipment Number DA SHELBY ESU Settings Cut 4 Coag 5 Bipolar 4 ESU Grounding Pad Site Right Thigh Hair Removal Pad No Site Pre Pad Site Clear and Intact Post Pad Site Clear and Intact Condition Condition Grounding Pad Maria Antonia Lechuga RN Placed By Elizabeth Gregory Outcomes Met? Yes Last Modified By: Maria Antonia Lechuga RN 09/15/24 12:46:16 Post-Care Text: The patient if free from signs and symptoms of electrical injury Counts Verification FT Pre-Care Text: Performs required counts Entry 1 Entry 2 Procedure(s) CHOLECYSTECOMY ROBOT CHOLECYSTECOMY ROBOT ASSISTED(.) ASSISTED(.) Type Initial Final Items Instruments, Sponges, Sponges, Sharps Sharps Status Correct Correct Time 09/15/24 12:12:00 09/15/24 13:20:00 By Kristen Jones LPN, Kristen Jones LPN, Ferrer RN, Maria Ferrer RN, Maria Veronica P Veronica P Outcomes Met? Yes Yes Last Modified By: Maria Antonia Lechuga RN, RN, Maria Veronica P 09/15/24 Elizabeth Gregory 09/15/24 12:47:23 13:20:30 Post-Care Text: The patient is free from signs and symptoms of injury caused by extraneous objects Skin Prep FT Pre-Care Text: Performs skin preparations Entry 1 Procedure CHOLECYSTECOMY ROBOT Prep Area ENTIRE ABDOMINAL AREA ASSISTED(.) Prep Agents Chloraprep/Dry Prior to Start Dry Time 09/15/24 12:19:00 Draping Stop Dry Time 09/15/24 12:22:00 Hair Removal Methods Not Indicated By Maria Antonia Lechuga RN Outcomes Met? Yes Elizabeth Gregory Last Modified By: Maria Antonia Lechuga RN 09/15/24 12:47:40 Post-Care Text: The patient is free from signs and symptoms of infection Departure From OR FT Pre-Care Text: Transports according to individual needs. Evaluates for signs and symptoms of skin and tissue injury as a result of transfer or transport. Entry 1 Via Cart Safety Precautions Side Rails Up PostOp Destination PACU Transported By Maria Antonia Lechuga RN Patient Status Stable Report Given Kyle-Hand RN, To/Hand Off Jessie Watt Skin. Condition Intact, [place], Warm, & Description 5 WELL-APPROXIMATED Dry, Other/See Comments INCISION SITES ON ABDOMEN, OTHER SKIN UNCHANGED FROM PRE-OPERATIVE STATUS Airway Maintenance Oxygen in Use? Yes Airway Device Simple Mask Flow Rate 8 L/min Outcomes Met? Yes Last Modified By: Maria Antonia Lechuga RN 09/15/24 13:47:05 Post-Care Text: The patient is free from signs and symptoms of injury related to transfer/transport General Comments: VERBAL AND WRITTEN REPORT GIVEN TO BRIDAL SERVICE SALES AND MANAGEMENTMARY GRACE LECHUGA RN Dressing/Packing FT Pre-Care Text: Administers care to wound sites Entry 1 Type Dressing Items DRESSING STERI-STRIP 1/4 X 4 Site and Details 5 LAPAROSCOPIC INCISION Outcomes Met? Yes SITES WITH MASTISOL, STERI-STRIPS, BANDAID Last Modified By: Maria Antonia Lechuga RN 09/15/24 12:48:01 Post-Care Text: The patient is free from signs and symptoms of infection Medication Administration FT Pre-Care Text: Verifies allergies, administers prescribed medications and solutions, administers prescribed antibiotic therapy and immunizing agents as ordered, evaluates response to medications Administers prescribed medications and solutions Entry 1 Route of Admin Field Expiration Date Yes Verified Ordered By Segun Del Castillo MD Transcribed/To Maria Antonia Lechuga RN By Elizabeth Gregory Administered By Segun Del Castillo MD Outcomes Met? Yes Last Modified By: Maria Antonia Lechuga RN 09/15/24 12:48:18 Post-Care Text: The patient received appropriate medication(s) safely administered during the perioperative period For Alanis-Benito please see scanned medication reconcilliation form for medications used at the field during the procedure. Drains/Tubes FT Pre-Care Text: Administers care to invasive device sites Entry 1 Device Type TUBE NASOGASTIC SUMP Location MOUTH 18FR Quantity 1 Fluid SCANT GREEN FLUID Characteristics Inserted By Viktor Spencer Present on Arrival? No Immediate DC? No DC'd at End of Case? Yes DC'd By Viktor Spencer Outcomes Met? Yes Last Modified By: Maria Antonia Lechuga RN 09/15/24 12:48:47 Post-Care Text: The patient is free from signs and symptoms of infection Cultures & Specimens FT Pre-Care Text: Manages specimen handling and disposition Manages culture specimen collection Entry 1 Cultures Ordered n/a Specimens Ordered Yes Specimen Disposition Designated OR Area Frozen Section Times Outcomes Met? Yes Last Modified By: Maria Antonia Lechuga RN 09/15/24 12:49:39 Post-Care Text: The patient is free from signs and symptoms of injury caused by extraneous objects The patient is free from signs and symptoms of infection General Comments: SPECIMEN: GALLBLADDER SENT IN FORMALIN PER SURGEON -Ky LECHUGA RN Temperature Control Entry 1 Temperature Control BLANKET MISTRAL AIR Quantity 1 Aid TORSO Fluid/Dawson Unit Mistral warming system Setting 43C/HIGH Body Site Upper anterior torso Last Modified By: Maria Antonia Lechuga RN 09/15/24 12:49:54 Sign Out FT Entry 1 Before Patient Leaves OR Nurse verbally Yes Nurse verbally Yes confirms with the confirms with the team the name of team that the procedure(s) instrument, sponge, recorded and needle counts are correct (or N/A) Nurse verbally Yes Nurse verbally n/a confirms with the confirms with the team how the team whether there specimen is labeled are any equipment (including patient problems to be name), if applicable addressed Sign Out Complete 09/15/24 13:20:00 Last Modified By: Maria Antonia Lechuga RN 09/15/24 13:20:35 Case Comments <None> Finalized By: ESEQUIEL Paul RN, Melinda Document Signatures Signed By: Maria Antonia Lechuga RN 09/15/24 13:47 ESEQUIEL Paul RN, Melinda 09/17/24 12:25 Unfinalized History Date/Time Username Reason for Unfinalizing Freetext Reason for Unfinalizing 09/17/24 12:23 [id number] Other - See Nurses Notes opened for charge review and sending. H&P UPDATE Observed: 09/15/2024 11:52 AM Status: F Source: [facility] H&P Update History and Physical Update H&P Reviewed. Patient seen and examined, appropriate for planned surgery, robotic cholecystectomy Problem List/Past Medical History Ongoing Body mass index 20-24 - normal Choledocholithiasis Cholelithiasis Cigarette smoker Epigastric pain Gastroesophageal reflux disease History of gastritis HTN (hypertension) Thyrotoxicosis Historical No qualifying data Procedure/Surgical History ERCP sphincterotomy and insertion of stent (08/22/2024), EGD (esophagogastroduodenoscopy) gastric outlet reduction (05/24/2020), Colonoscopy (11/05/2019). Medications Bentyl 10 mg Cap, 10 mg= 1 cap(s), Oral, QID, PRN, 3 refills clindamycin additive + Premix Dextrose 5% Diluent 50 mL HYDROmorphone 1 mg/mL injectable solution, 0.2 mg= 0.2 mL, IV Push, q2min, PRN Ivizia ophthalmic solution, 1 drop(s), Eye-Both, QID Lactated Ringers IV Leandra 1000 mL 1,000 mL, 1000 mL, IV Lactated Ringers IV Leandra 1000 mL 1,000 mL, 1000 mL, IV metoprolol 25 mg ER Tab, 25 mg= 1 tab(s), Oral, Daily Multivitamin, Therapeutic w/ Minerals, 1 tab(s), Oral, Daily omeprazole 40 mg Cap-DR, 40 mg= 1 cap(s), Oral, BIDAC, 3 refills phenylephrine 100 mcg/mL intravenous solution, 100 mcg= 1 mL, IV Push, Once, PRN promethazine additive 12.5 mg + Sodium Chloride 0.9% IV Leandra 50 mL (INT) 50 mL Tapazole 5 mg Tab, Oral, q8hr Zofran 4 mg/2 mL Injection, 4 mg= 2 mL, IV Push, Once, PRN Allergies cefuroxime (Hives) Social History Alcohol Never., 07/16/2024 Substance Abuse Never., 07/16/2024 Tobacco 5-9 cigarettes (between 1/4 to 1/2 pack)/day in last 30 days Tobacco Use:., 09/03/2024 5-9 cigarettes (between 1/4 to 1/2 pack)/day in last 30 days Tobacco Use:., 08/05/2024 Family History Heart disease: Mother. Result Comment: Electronical ly Signed By: Abundio LEMUS, Segun Champion\Date and Time Signed: 09/15/24 11:53 EDT PROGRESS NOTE-PHYSICIAN Observed: 2024 11:09 AM Status: F Source: [facility] Progress Note-Physician Patient: KRAIG COTTO Age: 64 years Sex: Female : 1960 Associated Diagnoses: None Author: Sarmad Boles MD Preoperative Information Anesthesia Preop Info: Time patient last ate or drank 09/15/2024 00:00:00. Anesthesia history: Patient history: None. Family history+: None. Anesthesia results Informed consent: Signed by patient. Including risks, benefits, and alternatives related to the: Anesthetic plan, Postoperative pain management plan. Re-evaluation prior to induction: Initial evaluation reviewed: No significant change. Review of Systems Eye: Negative except as documented in history of present illness. Ear/Nose/Mouth/Throat: Negative except as documented in history of present illness. Respiratory: Negative except as documented in history of present illness. Cardiovascular: Negative except as documented in history of present illness. Musculoskeletal: Negative except as documented in history of present illness. Neurologic: Negative except as documented in history of present illness. Health Status Allergies: Allergic Reactions (Selected) Severity Not Documented Cefuroxime- Hives., Allergies (1) Active Severity Reaction cefuroxime Hives Current medications: (Selected) Inpatient Medications Ordered Lactated Ringers IV Leandra 1000 mL 1,000 mL: 1,000 mL, IV, 150 mL/hr, Routine, Start date 09/15/24 12:00:00 EDT, 6.7 hour(s), Total volume (mL): 1,000, 62.4 kg, 1.7, m2 clindamycin additive + Premix Dextrose 5% Diluent 50 mL: 900 mg = 50 mL, Soln- IV, IV Piggyback, PREOP, Routine, Start date 09/15/24 12:00:00 EDT, 100 mL/hr, Infuse over 30 minute(s) metoprolol succinate 25 mg ER Tab: 25 mg = 1 tab(s), Tab-ER, Oral, Once, Stop date 09/15/24 11:00:00 EDT, Routine, Start date 09/15/24 11:00:00 EDT, 09/15/24 10:53:00 EDT Prescriptions Prescribed Bentyl 10 mg Cap: 10 mg = 1 cap(s), Oral, QID, PRN pai4, X 14 day(s), # 60 cap(s), Refills(s) 3, Pharmacy: [id number], 167, cm, 08/05/24 12:23:00 EDT, Height/Length Dosing, 65, kg, 08/05/24 12:23:00 EDT, Weight Dosing omeprazole 40 mg Cap-DR: 40 mg = 1 cap(s), Oral, BIDAC, # 180 cap(s), Refills(s) 3, Pharmacy: [facility]/pharmacy #[id number], 167, cm, 08/05/24 12:23:00 EDT, Height/Length Dosing, 65, kg, 08/05/24 12:23:00 EDT, Weight Dosing Documented Medications Documented Ivizia ophthalmic solution: 1 drop(s), Eye-Both, QID, Refill(s) 0 Multivitamin, Therapeutic w/ Minerals: 1 tab(s), Oral, Daily, Refill(s) 0, Prophylaxis Tapazole 5 mg Tab: mg tab(s), Oral, q8hr, Refills(s) 0 metoprolol 25 mg ER Tab: 25 mg = 1 tab(s), Oral, Daily, Refills(s) 0, Home Medications (6) Active Bentyl 10 mg Cap 10 mg = 1 cap(s), PRN, Oral, QID Ivizia ophthalmic solution 1 drop(s), Eye-Both, QID metoprolol 25 mg ER Tab 25 mg = 1 tab(s), Oral, Daily Multivitamin, Therapeutic w/ Minerals 1 tab(s), Oral, Daily omeprazole 40 mg Cap-DR 40 mg = 1 cap(s), Oral, BIDAC Tapazole 5 mg Tab , Oral, q8hr , Medications (3) Active Scheduled: (2) clindamycin 900 mg/50 mL-D5W + Dextrose 5% Premix Diluent 50 mL 900 mg 50 mL, IV Piggyback, PREOP metoprolol 25 mg ER Tab [F] 25 mg 1 tab(s), Oral, Once Continuous: (1) Lactated Ringers 1,000 mL 1,000 mL, IV, 150 mL/hr PRN: (0) Problem list: All Problems Body mass index 20-24 - normal / SNOMED CT 6506329645 / Confirmed Choledocholithiasis / SNOMED CT 820213434 / Confirmed Cholelithiasis / SNOMED CT 237271939 / Confirmed Cigarette smoker / SNOMED CT 407589454 / Confirmed Epigastric pain / SNOMED CT 063742154 / Confirmed Gastroesophageal reflux disease / SNOMED CT 762132508 / Confirmed Graves disease / SNOMED CT 287366584 / Confirmed History of gastritis / SNOMED CT 5686273405 / Confirmed HTN (hypertension) / SNOMED CT 7780066550 / Confirmed Thyrotoxicosis / SNOMED CT 941830137 / Confirmed Tobacco use / SNOMED CT 4465677633 / Confirmed, Active Problems (11) Body mass index 20-24 - normal Choledocholithiasis Cholelithiasis Cigarette smoker Epigastric pain Gastroesophageal reflux disease Graves disease History of gastritis HTN (hypertension) Thyrotoxicosis Tobacco use Histories Past Medical History: No active or resolved past medical history items have been selected or recorded. Family History: Heart disease Mother Procedure history: ERCP sphincterotomy and insertion of stent ([id number]) on 08/22/2024 at 64 Years. EGD (esophagogastroduodenoscopy) gastric outlet reduction ([id number]) on 05/24/2020 at 59 Years. Colonoscopy ([id number]) on 11/05/2019 at 59 Years. Social History Social & Psychosocial Habits Tobacco 09/15/2024 Tobacco Use: 5-9 cigarettes (between 1 09/15/2024 Tobacco Use: 5-9 cigarettes (between 1 . Physical Examination Vital Signs 09/15/2024 10:36 EDT Heart Rate Monitored 80 bpm Systolic Blood Pressure 120 mmHg Diastolic Blood Pressure 79 mmHg Mean Arterial Pressure, Cuff 92 mmHg 09/15/2024 10:36 EDT Blood Pressure Location Left arm 09/15/2024 10:36 EDT Heart Rate Monitored 72 bpm SpO2 99 % 09/15/2024 10:35 EDT Respiratory Rate 16 br/min 09/15/2024 10:35 EDT Temperature Oral 36.4 DegC 09/15/2024 10:34 EDT Systolic Blood Pressure 130 mmHg Diastolic Blood Pressure 79 mmHg Mean Arterial Pressure, Cuff 96 mmHg 09/15/2024 10:34 EDT Blood Pressure Location Right arm Vital Signs (last 24 hrs) Last Charted Temp Oral 36.4 DegC (SEP 15 10:35) Heart Rate Monitored 80 bpm (SEP 15 10:36) SBP 120 mmHg (SEP 15 10:36) DBP 79 mmHg (SEP 15 10:36) Weight 62.4 kg (SEP 15 10:51) BMI 22.37 (SEP 15 10:51) Measurements from flowsheet : Measurements 09/15/2024 10:51 EDT Height/Length Measured 167 cm Height/Length Dosing 167.0 cm Weight Dosing 62.4 kg BSA Measured 1.7 m2 Body Mass Index Measured 22.37 kg/m2 Weight Measured 62.4 kg 09/14/2024 8:50 EDT Weight Dosing 62.4 kg 09/14/2024 8:50 EDT Height/Length Dosing 167.0 cm Airway: Mallampati classification: II (soft palate, fauces, uvula visible). Respiratory: adequate air exchange. Cardiovascular: Regular rhythm. Review / Management Results review: No qualifying data available . Plan [place] [employer] Anesthesiologists (ASA) physical status classification: Class II. Anesthetic Preoperative Plan: Anesthesia General, and Patient educated on benefits, alternatives and inherent risk of anesthesia including, but not all inclusive, Allergic reactions, dental damage, nerve damage and cardio-pulmonary complications and wishes to proceed with anesthetic plan.. Regional TAP Block. Result Comment: Electronical ly Signed By: Jessie LEMUS, Sarmad Ruby\.br\Date and Time Signed: 09/15/24 11:10 EDT DISCHARGE INSTRUCTIONS Observed: 025 10:16 AM Status: F Source: [facility] Discharge Instructions ZIGGY COTTOJenn Espinosa :1960 Visit Date:09/15/2024 Inpatient Discharge Instructions Your Care Team Admitting Physician - Segun Del Castillo MD Referring Physician - Segun Del Castillo MD Reason for Your Visit CHOLELITHIASIS, CHOLEDOCHOLITHIASIS What to do next Instructions From Your Doctor Event Name Event Result Discharge Instructions Freetext ok to remove outer dressings and shower tomorrow. do not remove steris strips or submerge incisions underwater as in pool or tub for two weeks after surgery. no lifting greater than 35 pounds for one week after surgery. Discharge Activity Resume normal activities in 24 hours, Expect mild pain, Expect minimal amount of drainage and/or bleeding Discharge Restrictions No driving for 24 hrs, Do not make important decisions for 24 hours, Do not drink alcoholic beverages for 24 hours Discharge Diet(s) Regular Call Your Doctor For Persistent or heavy bleeding, Temperature above 101.5 degrees, Redness, swelling, or pus at operative site, Severe pain at the operative site, Persistent vomiting Discharge Instructions Discharge Instructions Previously Scheduled Follow-Up Appointments Friday 11:40 AM EDT With: Abundio LEMUS, Segun Santos Where: [facility] [place] [address] [place] [address]- New Follow Up Appointments after Discharge Follow Up with Segun Del Castillo When: Comments: Appointment has already been scheduled Where: [address], [address] [place] [phone] Business (1) Medications What How Much When Why Instructions Next Dose New acetaminophen-hydrocodone ([place] 325 mg-5 mg oral tablet) 1 Tablets By Mouth Every 6 hours as needed for as needed for pain Cholelithiasis Choledocholithiasis Pickup at [facility]/pharmacy #[id number] Unchanged dicyclomine (Bentyl 10 mg Cap) 1 Capsules By Mouth 4 times a day as needed for pai4 Duration: 14 Days Unchanged methimazole (Tapazole 5 mg Tab) By Mouth Every 8 hours Unchanged metoprolol (metoprolol 25 mg ER Tab) 1 Tablets By Mouth Every day Unchanged multivitamin with minerals (Multivitamin, Therapeutic w/ Minerals) 1 Tablets By Mouth Every day Unchanged ocular lubricant (Ivizia ophthalmic solution) 1 Drops Both eyes 4 times a day Unchanged omeprazole (omeprazole 40 mg Cap-DR) 1 Capsules By Mouth Twice a day (before meals) Pharmacy Information [facility]/pharmacy #[id number]: [address], [place] [id number] [phone] What When Comments Stop Taking pantoprazole (Pantoprazole [address] Tab) 30 EA, 0 Refill(s), TAKE 1 TABLET (40 MG) BY MOUTH IN THE MORNING. TAKE BEFORE MEALS. DO NOT CRUSH, CHEW, OR SPLIT. Education Materials Minimally Invasive Cholecystectomy, Care After The following information offers guidance on how to care for yourself after your procedure. Your health care provider may also give you more specific instructions. If you have problems or questions, contact your health care provider. What can I expect after the procedure? After the procedure, it is common to have: ??? Pain at your incision sites. You will be given medicines to control this pain. ??? Mild nausea or vomiting. ??? Bloating and possible shoulder pain from the gas that was used during the procedure. Follow these instructions at home: Medicines ??? Take hpex-kpk-tnzhcvd and prescription medicines only as told by your health care provider. ??? If you were prescribed an antibiotic medicine, take it as told by your health care provider. Do not stop using the antibiotic even if you start to feel better. ??? Ask your health care provider if the medicine prescribed to you: ? Requires you to avoid driving or using machinery. ? Can cause constipation. You may need to take these actions to prevent or treat constipation: ? Drink enough fluid to keep your urine pale yellow. ? Take wtzj-irg-snscseb or prescription medicines. ? Eat foods that are high in fiber, such as beans, whole grains, and fresh fruits and vegetables. ? Limit foods that are high in fat and processed sugars, such as fried or sweet foods. Incision care ??? Follow instructions from your health care provider about how to take care of your incisions. Make sure you: ? Wash your hands with soap and water for at least 20 seconds before and after you change your bandage (dressing). If soap and water are not available, use hand flyer builder. ? Change your dressing as told by your health care provider. ? Leave stitches (sutures), skin glue, or adhesive strips in place. These skin closures may need to be in place for 2 weeks or longer. If adhesive strip edges start to loosen and curl up, you may trim the loose edges. Do not remove adhesive strips completely unless your health care provider tells you to do that. ??? Do not take baths, swim, or use a hot tub until your health care provider approves. Ask your health care provider if you may take showers. You may only be allowed to take sponge baths. ??? Check your incision area every day for signs of infection. Check for: ? More redness, swelling, or pain. ? Fluid or blood. ? Warmth. ? Pus or a bad smell. Activity ??? Rest as told by your health care provider. Do not do activities that require a lot of effort. ??? Avoid sitting for a long time without moving. Get up to take short walks every 1???2 hours. This is important to improve blood flow and breathing. Ask for help if you feel weak or unsteady. ??? Do not lift anything that is heavier than 10 lb (4.5 kg), or the limit that you are told, until your health care provider says that it is safe. ??? Do not play contact sports until your health care provider approves. ??? Do not return to work or school until your health care provider approves. ??? Return to your normal activities as told by your health care provider. Ask your health care provider what activities are safe for you. General instructions ??? If you were given a sedative during the procedure, it can affect you for several hours. Do not drive or operate machinery until your health care provider says that it is safe. ??? Keep all follow-up visits. This is important. Contact a health care provider if: ??? You develop a rash. ??? You have more redness, swelling, or pain around your incisions. ??? You have fluid or blood coming from your incisions. ??? Your incisions feel warm to the touch. ??? You have pus or a bad smell coming from your incisions. ??? You have a fever. ??? One or more of your incisions breaks open. Get help right away if: ??? You have trouble breathing. ??? You have chest pain. ??? You have more pain in your shoulders. ??? You faint or feel dizzy when you stand. ??? You have severe pain in your abdomen. ??? You have nausea or vomiting that lasts for more than one day. ??? You have leg pain that is new or unusual, or if it is localized to one specific spot. These symptoms may represent a serious problem that is an emergency. Do not wait to see if the symptoms will go away. Get medical help right away. Call your local emergency services (911 in the [place] Do not drive yourself to the hospital. Summary ??? After your procedure, it is common to have pain at the incision sites. You may also have nausea or bloating. ??? Follow your health care provider's instructions about medicine, activity restrictions, and caring for your incision areas. Do not do activities that require a lot of effort. ??? Contact a health care provider if you have a fever or other signs of infection, such as more redness, swelling, or pain around the incisions. ??? Get help right away if you have chest pain, increasing pain in the shoulders, or trouble breathing. This information is not intended to replace advice given to you by your health care provider. Make sure you discuss any questions you have with your health care provider. Document Revised: 07/31/2021 Document Reviewed: 07/31/2021 [employer] Patient Education ??? 2023 [employer]. Common Emergency Awareness Tips IS IT A STROKE? Act FAST and Check for these signs: FACE Does the face look uneven? ARM Does one arm drift down? SPEECH Does their speech sound strange? TIME Call at any sign of stroke Heart Attack Signs Chest discomfort: Most heart attacks involve discomfort in the center of the chest and lasts more than a few minutes, or goes away and comes back. It can feel like uncomfortable pressure, squeezing, fullness or pain. Discomfort in upper body: Symptoms can include pain or discomfort in one or both arms, back, neck, jaw or stomach. Shortness of breath: With or without discomfort. Other signs: Breaking out in a cold sweat, nausea, or lightheaded. Remember, MINUTES DO MATTER. If you experience any of these heart attack warning signs, call to get immediate medical attention! Patient Survey You may receive a survey in the mail asking you about your stay with us. We want to hear from you, please share your experience with us by completing your survey. Thank you for choosing [facility]. Jass Award Nomination The JASS (Diseases Attacking the Immune SYstem) Award is an international recognition program that honors and celebrates the skillful, compassionate care nurses provide every day. Anyone who experiences or observes amazing care being provided by a nurse is encouraged to submit a nomination. To nominate your nurse, use your smart phone to scan the QR code below. Patient Portal You may access all of your results and other medical record information on our secure patient portal. If you are not signed up for this yet, please contact [facility] at [phone] to get signed up today. Language Information Language assistance services are available as needed. Patient Name: KRAIG COTTO I have received these discharge instructions and my questions have been answered. 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 The gallbladder is an organ that stores bile. Bile is a fluid that helps to digest fats. Gallstones begin as small crystals and can slowly grow into stones. They may cause no symptoms until they block the gallbladder duct, or cystic duct, when the gallbladder tightens, or contracts, after food is eaten. This can cause pain and is known as a gallbladder attack, or biliary colic. There are two main types of gallstones: ??? Cholesterol stones. These are the most common type of gallstone. These stones are made of hardened cholesterol and are usually yellow-green in color. ??? Pigment stones. These are dark in color and are made of a red-yellow substance, called bilirubin,that forms when hemoglobin from red blood cells breaks down. What are the causes? This condition may be caused by too little or too much of the substances that are in bile. This can happen if the bile: ??? Has too much bilirubin. This can happen in certain blood diseases, such as sickle cell anemia. ??? Has too much cholesterol. ??? Does not have enough bile salts. These salts help the body absorb and digest fats. It can also happen if the gallbladder is not emptying completely. This is common during . What increases the risk? The following factors may make you more likely to develop this condition: ??? Being older than 40 years of age. ??? Eating a diet that is heavy in fried foods, fat, and refined carbohydrates, such as white bread and white rice. ??? Being female. ??? Having multiple pregnancies. ??? Using medicines that contain female hormones (estrogen) for a long time. ??? Having certain medical problems, such as: ? Diabetes mellitus. ? Obesity. ? Cystic fibrosis. ? Crohn's disease. ? Cirrhosis or other long-term (chronic) liver disease. ? Certain blood diseases, such as sickle cell anemia or leukemia. ??? Having a family history of gallstones. ??? Losing weight quickly. What are the signs or symptoms? In many cases, having gallstones causes no symptoms. These are called silent gallstones. If a gallstone blocks your bile duct, it can cause a gallbladder attack. The main symptom of a gallbladder attack is sudden pain in the upper right part of the abdomen. The pain: ??? Usually comes at night or after eating. ??? Can last for one hour or more. ??? Can spread to your right shoulder, back, or chest. ??? Can feel like indigestion. This is discomfort, burning, or fullness in your upper abdomen. If the bile duct is blocked for more than a few hours, it can cause an infection or inflammation of your gallbladder (cholecystitis), liver, or pancreas. This can cause: ??? Nausea or vomiting. ??? Bloating. ??? Pain in your abdomen that lasts for 5 hours or longer. ??? Tenderness in your upper abdomen, often in the upper right section and under your rib cage. ??? Fever or chills. ??? Skin or the white parts of your eyes turning yellow (jaundice). This usually happens when a stone has blocked bile from passing through the bile duct. ??? Dark pee (urine) or light-colored poop (stools). How is this diagnosed? This condition may be diagnosed based on: ??? A physical exam. ??? Your medical history. ??? Ultrasound. ??? CT scan. ??? MRI. You may also have other tests, including: ??? Blood tests to check for infection or inflammation. ??? The HIDA scan to see the gallbladder and the bile ducts. ??? An endoscope to check for blockage in the bile ducts. How is this treated? Treatment depends on the severity of your symptoms. Silent gallstones do not need treatment. You may need treatment if a blockage causes a gallbladder attack or other symptoms. Treatment may include: ??? If symptoms are mild, you may care for yourself at home. For mild symptoms: ? Stop eating and drinking for 12?24 hours. You may drink water and clear liquids. This helps to cool down your gallbladder. After 1 or 2 days, eat a diet of simple or clear foods, such as broths and crackers. ? Take medicines for pain or nausea. ? Take antibiotics if you have an infection. ??? If symptoms are severe, you may: ? Stay in the hospital for pain control or to treat severe infection. ? Have surgery to remove the gallbladder (cholecystectomy). This is the most common treatment if all other treatments have not worked. ? Take medicines to break up gallstones. Medicines may be used for up to 6?12 months. ? Have an procedure to capture and remove gallstones. Follow these instructions at home: Medicines ??? Take ftvx-pdd-qieszie and prescription medicines only as told by your health care provider. ??? If you were prescribed antibiotics, take them as told by your provider. Do not stop using the antibiotic even if you start to feel better. ??? Ask your provider if the medicine prescribed to you requires you to avoid driving or using machinery. Eating and drinking ??? Drink enough fluid to keep your pee pale yellow. This is important during a gallbladder attack. Water and clear liquids are preferred. ??? Follow a healthy diet. This includes: ? Reducing fatty foods, such as fried food and foods high in cholesterol. ? Reducing refined carbohydrates, such as white bread and white rice. ? Eating more fiber. Aim for foods such as almonds, fruit, and beans. General instructions ??? Do not use any products that contain nicotine or tobacco. These products include cigarettes, chewing tobacco, and vaping devices, such as e-cigarettes. If you need help quitting, ask your provider. ??? Maintain a healthy weight. ??? Keep all follow-up visits. These may include seeing a specialist or a surgeon. Where to find more information ??? National [place] of Diabetes and Digestive and Kidney Diseases: niddk.nih.gov Contact a health care provider if: ??? You think you have had a gallbladder attack. ??? You have been diagnosed with silent gallstones and you develop indigestion or pain in your abdomen. ??? You have pain from a gallbladder attack that lasts for more than 2 hours. ??? You begin to have attacks more often. ??? You have nausea. ??? You have dark pee or light-colored poop. Get help right away if: ??? You have pain in your abdomen that lasts for more than 5 hours or is getting worse. ??? You have a fever or chills. ??? You have vomiting that does not go away. ??? You develop jaundice. This information is not intended to replace advice given to you by your health care provider. Make sure you discuss any questions you have with your health care provider. Document Revised: 11/11/2022 Document Reviewed: 11/11/2022 [employer] Patient Education ? 2023 [employer]. ED PATIENT SUMMARY Observed: 09/13/2024 2:35 PM Status: F Source: [facility] ED Patient Summary [place] [id number] Patient Discharge Instructions Person Information Name: KRAIG COTTO Age: 64 Years Arrival Date: 09/13/2024 11:05:57 Discharge Diagnosis: 1:Biliary colic; 2:Cholelithiasis Primary Care Physician: Valerie MATOS CNP Provider Information Primary Provider: Dick Rogers M.D. Advanced Language Pathologist:None The exam and treatment you received in the Emergency Department were for an urgent problem and are not intended as complete care. It is important that you follow up with a doctor, nurse practitioner, or physician???s assistant reading teacher for ongoing care. If your symptoms become worse or you do not improve as expected and you are unable to reach your usual health care provider, you should return to the Emergency Department. We are available 24 hours a day. KRAIG COTTO has been given the following list of patient education materials, prescriptions and follow-up instructions: Follow-up Instructions: With: Address: When: Segun Del Castillo In 3 days 09/16/2024 Comments: Make sure to follow-up with Dr. Del Castilol. He has you scheduled for Friday for surgery. Return to the emergency room if your pain recurs, vomiting, fever or any new symptoms. In the event that this physician does not participate in your insurance network, please consult with your insurance company to find a nearby participating provider. Patient Education Materials: Cholelithiasis A MESSAGE TO ALL PATIENTS REGARDING OPIOIDS PRESCRIPTION OPIOIDS: WHAT YOU NEED TO KNOW Prescription opioids can be used to help relieve xvfhqimc-gz-rlbuvg pain and are often prescribed following a surgery or injury, or for certain health conditions. These medications can be an important part of the treatment but also come with serious risks. It is important to work with your healthcare provider to make sure you are getting the safest, most effective care. WHAT ARE THE RISKS AND SIDE EFFECTS OF OPIOID USE? Prescription opioids carry serious risks of addiction and overdose, especially with prolonged use. An opioid overdose, often marked by slowed breathing, can cause sudden . The use of prescription opioids can have a number of side effects as well, even when taken as directed: ??? Tolerance???meaning you might need to take more of the medication for the same pain relief ??? Physical dependence???meaning you have symptoms of withdrawal when a medication is stopped ??? Increased sensitivity to pain ??? Constipation ??? Nausea, vomiting, and dry mouth ??? Sleepiness and dizziness ??? Confusion ??? Depression ??? Low levels of testosterone that can result in lower sex drive, energy, and strength ??? Itching and sweating RISKS ARE GREATER WITH: ??? History of drug misuse, substance use disorder, or overdose ??? Mental health conditions (such as depression or anxiety) ??? Sleep apnea ??? Older age (65 years and older) ??? Avoid alcohol while taking prescription opioids. Also, unless specifically advised by your health care provider, medications to avoid include: ??? Benzodiazepines (such as Xanax or Valium) ??? Muscle relaxants (such as Soma or Flexeril) ??? Hypnotics (such as Ambien or Lunesta) ??? Other prescription opioids KNOW YOUR OPTIONS Talk to your health care provider about ways to manage your pain that don???t involve prescription opioids. Some of these options may actually work better and have fewer risks and side effects. Options may include: ??? Pain relievers such as acetaminophen, ibuprofen, and naproxen ??? Some medication that are also used for depression or seizures ??? Physical therapy and exercise ??? Cognitive behavioral therapy, a psychological, goal-directed approach, in which patients learn how to modify physical, behavioral, and emotional triggers of pain and stress. IF YOU ARE PRESCRIBED OPIOIDS FOR PAIN: ??? Never take opioids in greater amounts or more often than prescribed. ??? Follow up with your primary health care provider. o Work together to create a plan on how to manage your pain. o Talk about ways to help manage your pain that don???t involve prescription opioids. o Talk about any and all concerns and side effects. ??? Help prevent misuse and abuse o Never sell or share prescription opioids. o Never use another person???s prescription opioids. ??? Store prescription opioids in a secure place and out of reach of others (this may include visitors, children, friends, and family). ??? Safely dispose of unused prescription opioids: Find your community drug take-back program or your pharmacy mail-back program, or flush them down the toilet, following guidance from the Food and Drug Administration (www.fda.gov/Drugs/ResourcesForYou). ??? Visit www.cdc.gov/drugoverdose to learn about the risks of opioids abuse and overdose. ??? If you believe you may be struggling with addiction, tell your health career consultant and ask for guidance or call [facility]???S National Helpline at 5-703-866-ERVR. v Source: US Department of Health and Human Services/Center for Disease Control & Prevention [facility] Medications Given: Medication Dose Route Sodium Chloride 0.9% intravenous solution 1000.00 mL IV Left Antecubital Dariana ondansetron 4.00 mg IV Push Left Antecubital Marion Medication Information: Medications to Continue with No Changes Other Medications dicyclomine (Bentyl 10 mg Cap) 1 Capsules By Mouth 4 times a day as needed pai4 for 14 Days. Refills: 3. methimazole (Tapazole 5 mg Tab) By Mouth every 8 hours. metoprolol (metoprolol 25 mg ER Tab) By Mouth every day. multivitamin with minerals (Multivitamin, Therapeutic w/ Minerals) 1 Tablets By Mouth every day. ocular lubricant (Ivizia ophthalmic solution) 1 Drops Both eyes 4 times a day. omeprazole (omeprazole 40 mg Cap-DR) 1 Capsules By Mouth twice a day (before meals). Refills: 3. pantoprazole (Pantoprazole [address] Tab) 30 EA, 0 Refill(s), TAKE 1 TABLET (40 MG) BY MOUTH IN THE MORNING. TAKE BEFORE MEALS. DO NOT CRUSH, CHEW, OR SPLIT.. Comment: Patient Portal You may access all of your results and other medical record information on our secure patient portal. If you are not signed up for this yet, please contact Yebol at [phone] to get signed up today. JASS Award Nomination The JASS (Diseases Attacking the Immune SYstem) Award is an international recognition program that honors and celebrates the skillful, compassionate care nurses provide every day. Anyone who experiences or observes amazing care being provided by a nurse is encouraged to submit a nomination. To nominate your nurse, use your smart phone to scan the QR code below. Language Information Language assistance services are available as needed. You may receive a survey from [employer] asking you to rate your care experience. Your feedback is important and will help us understand what we do well and how we can improve the quality of care we provide to you, your loved ones and our community. It???s an honor to serve you. Thank you for choosing [facility] Patient Education Materials: Cholelithiasis Cholelithiasis is a disease in which gallstones form in the gallbladder. The gallbladder is an organ that stores bile. Bile is a fluid that helps to digest fats. Gallstones begin as small crystals and can slowly grow into stones. They may cause no symptoms until they block the gallbladder duct, or cystic duct, when the gallbladder tightens, or contracts, after food is eaten. This can cause pain and is known as a gallbladder attack, or biliary colic. There are two main types of gallstones: ??? Cholesterol stones. These are the most common type of gallstone. These stones are made of hardened cholesterol and are usually yellow-green in color. ??? Pigment stones. These are dark in color and are made of a red-yellow substance, called bilirubin,that forms when hemoglobin from red blood cells breaks down. What are the causes? This condition may be caused by too little or too much of the substances that are in bile. This can happen if the bile: ??? Has too much bilirubin. This can happen in certain blood diseases, such as sickle cell anemia. ??? Has too much cholesterol. ??? Does not have enough bile salts. These salts help the body absorb and digest fats. It can also happen if the gallbladder is not emptying completely. This is common during . What increases the risk? The following factors may make you more likely to develop this condition: ??? Being older than 40 years of age. ??? Eating a diet that is heavy in fried foods, fat, and refined carbohydrates, such as white bread and white rice. ??? Being female. ??? Having multiple pregnancies. ??? Using medicines that contain female hormones (estrogen) for a long time. ??? Having certain medical problems, such as: ? Diabetes mellitus. ? Obesity. ? Cystic fibrosis. ? Crohn's disease. ? Cirrhosis or other long-term (chronic) liver disease. ? Certain blood diseases, such as sickle cell anemia or leukemia. ??? Having a family history of gallstones. ??? Losing weight quickly. What are the signs or symptoms? In many cases, having gallstones causes no symptoms. These are called silent gallstones. If a gallstone blocks your bile duct, it can cause a gallbladder attack. The main symptom of a gallbladder attack is sudden pain in the upper right part of the abdomen. The pain: ??? Usually comes at night or after eating. ??? Can last for one hour or more. ??? Can spread to your right shoulder, back, or chest. ??? Can feel like indigestion. This is discomfort, burning, or fullness in your upper abdomen. If the bile duct is blocked for more than a few hours, it can cause an infection or inflammation of your gallbladder (cholecystitis), liver, or pancreas. This can cause: ??? Nausea or vomiting. ??? Bloating. ??? Pain in your abdomen that lasts for 5 hours or longer. ??? Tenderness in your upper abdomen, often in the upper right section and under your rib cage. ??? Fever or chills. ??? Skin or the white parts of your eyes turning yellow (jaundice). This usually happens when a stone has blocked bile from passing through the bile duct. ??? Dark pee (urine) or light-colored poop (stools). How is this diagnosed? This condition may be diagnosed based on: ??? A physical exam. ??? Your medical history. ??? Ultrasound. ??? CT scan. ??? MRI. You may also have other tests, including: ??? Blood tests to check for infection or inflammation. ??? The HIDA scan to see the gallbladder and the bile ducts. ??? An endoscope to check for blockage in the bile ducts. How is this treated? Treatment depends on the severity of your symptoms. Silent gallstones do not need treatment. You may need treatment if a blockage causes a gallbladder attack or other symptoms. Treatment may include: ??? If symptoms are mild, you may care for yourself at home. For mild symptoms: ? Stop eating and drinking for 12?24 hours. You may drink water and clear liquids. This helps to cool down your gallbladder. After 1 or 2 days, eat a diet of simple or clear foods, such as broths and crackers. ? Take medicines for pain or nausea. ? Take antibiotics if you have an infection. ??? If symptoms are severe, you may: ? Stay in the hospital for pain control or to treat severe infection. ? Have surgery to remove the gallbladder (cholecystectomy). This is the most common treatment if all other treatments have not worked. ? Take medicines to break up gallstones. Medicines may be used for up to 6?12 months. ? Have an procedure to capture and remove gallstones. Follow these instructions at home: Medicines ??? Take lbib-gpi-locwcug and prescription medicines only as told by your health care provider. ??? If you were prescribed antibiotics, take them as told by your provider. Do not stop using the antibiotic even if you start to feel better. ??? Ask your provider if the medicine prescribed to you requires you to avoid driving or using machinery. Eating and drinking ??? Drink enough fluid to keep your pee pale yellow. This is important during a gallbladder attack. Water and clear liquids are preferred. ??? Follow a healthy diet. This includes: ? Reducing fatty foods, such as fried food and foods high in cholesterol. ? Reducing refined carbohydrates, such as white bread and white rice. ? Eating more fiber. Aim for foods such as almonds, fruit, and beans. General instructions ??? Do not use any products that contain nicotine or tobacco. These products include cigarettes, chewing tobacco, and vaping devices, such as e-cigarettes. If you need help quitting, ask your provider. ??? Maintain a healthy weight. ??? Keep all follow-up visits. These may include seeing a specialist or a surgeon. Where to find more information ??? National [place] of Diabetes and Digestive and Kidney Diseases: niddk.nih.gov Contact a health care provider if: ??? You think you have had a gallbladder attack. ??? You have been diagnosed with silent gallstones and you develop indigestion or pain in your abdomen. ??? You have pain from a gallbladder attack that lasts for more than 2 hours. ??? You begin to have attacks more often. ??? You have nausea. ??? You have dark pee or light-colored poop. Get help right away if: ??? You have pain in your abdomen that lasts for more than 5 hours or is getting worse. ??? You have a fever or chills. ??? You have vomiting that does not go away. ??? You develop jaundice. This information is not intended to replace advice given to you by your health care provider. Make sure you discuss any questions you have with your health care provider. Document Revised: 11/11/2022 Document Reviewed: 11/11/2022 [employer] Patient Education ? 2023 [employer]. KIRTI Duran CYNTHIA J , have received the following patient education materials/instructions and have verbalized understanding: Patient Education Materials: Cholelithiasis Follow-up Instructions: With: Address: When: Segun Del Castillo In 3 days 09/16/2024 Comments: Make sure to follow-up with Dr. Del Castillo. He has you scheduled for Friday for surgery. Return to the emergency room if your pain recurs, vomiting, fever or any new symptoms. Patient Signature Date Clinician/Nurse Signature Date 09/13/2024 14:35:51 ED CLINICAL SUMMARY Observed: 09/13/2024 2:35 PM Status: F Source: [facility] ED Clinical Summary [address] [address] ED Clinical Summary Person Information Name: KRAIG COTTO [place] Age: 64 Years : 1960 Sex: Female Language: Irish PCP: Valerie MATOS CNP Marital Status: Visit Id: Visit Reason: Abdominal pain; Nausea; SENT BY DR SURI ABD PAIN & BACK PAIN Speciality: Acuity: 3 Enc Type: Emergency Med Service: Emergency Arrival: 09/13/2024 11:05:57 Discharge: 09/13/2024 14:35:30 LOS: 000 03:30 Checkin: 09/13/2024 11:05:57 Checkout: 09/13/2024 14:35:30 Dispo Type: Home (Routine DC) EVENTS: Event Name Event Status Request Date/Time Start Date/Time Complete Date/Time Arrive Complete 09/13/2024 11:05:57 09/13/2024 11:05:57 09/13/2024 11:05:57 Document Home Meds Request 09/13/2024 11:05:57 Triage Complete 09/13/2024 11:05:57 09/13/2024 11:15:47 09/13/2024 11:15:47 Bed Assign Complete 09/13/2024 11:10:52 09/13/2024 11:10:52 09/13/2024 11:10:52 Dr Exam Complete 09/13/2024 11:10:52 09/13/2024 11:11:53 09/13/2024 11:11:53 RN Exam Complete 09/13/2024 11:10:52 09/13/2024 11:47:24 09/13/2024 11:47:24 Registration Complete 09/13/2024 11:11:53 09/13/2024 11:26:54 09/13/2024 11:26:54 US Complete 09/13/2024 11:22:58 09/13/2024 11:48:12 09/13/2024 12:23:26 Meds Admin Complete 09/13/2024 11:22:58 09/13/2024 14:21:45 Pending Labs Complete 09/13/2024 11:22:58 09/13/2024 12:58:15 Lab Complete 09/13/2024 11:22:58 09/13/2024 12:10:42 Reg Complete Request 09/13/2024 11:26:54 Reg Bed Request Complete 09/13/2024 11:26:55 09/13/2024 11:26:55 09/13/2024 11:26:55 Pending Labs Complete 09/13/2024 11:42:44 09/13/2024 11:42:44 09/13/2024 12:10:42 Lab Complete 09/13/2024 11:42:44 09/13/2024 11:42:44 09/13/2024 12:10:42 Pending Labs Complete 09/13/2024 12:26:40 09/13/2024 12:26:40 09/13/2024 12:26:41 EKG Complete 09/13/2024 13:56:06 09/13/2024 14:07:56 Discharge Complete 09/13/2024 14:22:02 09/13/2024 14:35:48 09/13/2024 14:35:48 Transfer Complete 09/13/2024 14:35:48 09/13/2024 14:35:48 09/13/2024 14:35:48 ADDRESS: [address] [place] [id number] PHYS DOC NOTES: MEDICAL INFORMATION: Prescriptions Given: Medications to Continue with No Changes Other Medications dicyclomine (Bentyl 10 mg Cap) 1 Capsules By Mouth 4 times a day as needed pai4 for 14 Days. Refills: 3. methimazole (Tapazole 5 mg Tab) By Mouth every 8 hours. metoprolol (metoprolol 25 mg ER Tab) By Mouth every day. multivitamin with minerals (Multivitamin, Therapeutic w/ Minerals) 1 Tablets By Mouth every day. ocular lubricant (Ivizia ophthalmic solution) 1 Drops Both eyes 4 times a day. omeprazole (omeprazole 40 mg Cap-DR) 1 Capsules By Mouth twice a day (before meals). Refills: 3. pantoprazole (Pantoprazole [address] Tab) 30 EA, 0 Refill(s), TAKE 1 TABLET (40 MG) BY MOUTH IN THE MORNING. TAKE BEFORE MEALS. DO NOT CRUSH, CHEW, OR SPLIT.. PATIENT EDUCATION INFORMATION: Instructions: Cholelithiasis Follow up: With: Address: When: Segun Del Castillo In 3 days 09/16/2024 Comments: Make sure to follow-up with Dr. Del Castillo. He has you scheduled for Friday for surgery. Return to the emergency room if your pain recurs, vomiting, fever or any new symptoms. DIAGNOSIS: 1:Biliary colic; 2:Cholelithiasis UA WITH CULT RFLX Collected: 12:47 PM Status: F Source: [facility] TYPE CODE TESTS RESULT OUT OF RANGE REFERENCE UNITS LAB [id number](LOIN C) UA Spec Desc Clean Catch Normal LAB [id number](LOIN C) UA Color Colorless Abnormal Yellow Result Comment: Microscopic readings are only performed on those samples that meet specific criteria set forth by [facility]. LAB [id number](LOIN C) UA Clarity Clear Normal Clear LAB [id number](LOIN C) UA Spec Grav 1.005 Unknown 1.005-1.030 LAB [id number](LOIN C) UA pH 6.5 Unknown 5.0-9.0 LAB [id number](LOIN C) UA Protein Negative Normal Negative mg/dL LAB [id number](LOIN C) UA Glucose Negative Normal Negative mg/dL LAB [id number](LOIN C) UA Ketones Negative Normal Negative mg/dL LAB [id number](LOIN C) UA Bili Negative Normal Negative mg/dL LAB [id number](LOIN C) UA Blood Negative Normal Negative mg/dL LAB [id number](LOIN C) UA Nitrite Negative Normal Negative mg/dL LAB [id number](LOIN C) UA Urobilinogen Negative Normal Negative mg/dL LAB [id number](LOIN C) UA Leuk Est Negative Normal Negative CD:[id number] Performed By: #### [id number] #### [facility] [address] [place] [address] US GALLBLADDER Observed: 09/13/2024 11:48 AM Status: F Source: [facility] Exam Date/Time: 09/13/2024 12:23 EDT Reason for Exam: Abdominal pain Report IMPRESSION: GALLBLADDER AND BILIARY DILATATION, MILDLY IMPROVED TO 08/20/2024. CHOLELITHIASIS. EXAM: US Gallbladder DATE: 09/13/2024 11:48 AM CLINICAL HISTORY: Abdominal pain. Technologist Comments: epig and back pain with nausea since 3am, known gallstones with sx scheduled on Sep 29, 08/27/2024 had stone removed from duct and stent places COMPARISON: CT abdomen and pelvis 08/20/2024 TECHNIQUE: Transabdominal ultrasound of the right upper quadrant was performed. FINDINGS: The study is mild to moderately limited by the patient's body habitus and upper abdominal bowel gas. The gallbladder is mild to moderately distended with an approximately 1 cm mobile gallstone. There is no abnormal gallbladder wall thickening or pericholecystic fluid. Predominantly extrahepatic biliary dilatation appears mildly improved from 08/20/2024 with mild pneumobilia, consistent with interval intervention. The common duct measuring approximately 1.6 cm in caliber at the dolly hepatis. The visualized liver, pancreas, right kidney, and great vessels are unremarkable. Ordering Provider: Dick Rogers FINAL REPORT Dictated: 09/13/2024 12:48 pm Yaakov Nelson MD Signed (Electronic Signature): 09/13/2024 12:48 pm Signed by: Yaakov Nelson MD Transcribed by: ABIDA Technologist: MARTITA PT & PTT Collected: 11:35 AM Status: F Source: [facility] TYPE CODE TESTS RESULT OUT OF RANGE REFERENCE UNITS LAB [id number](LOINC ) PT 11.8 Normal 9.4-12.5 second(s) Result Comment: 15 days - 4 weeks 1 - 5 months 6 -11 months 1 ??? 5 years 6 ??? 10 years 11 -17 years Mean: 11.2 (9.5 ??? 12.6) Mean: 11.0 (9.7 ??? 12.8) Mean: 11.0 (9.8 ??? 13.0) Mean: 11.3 (9.9 ??? 13.4) Mean: 11.7 (10.0 ??? 14.6) Mean: 11.8 (10.0 - 14.1) Pediatric Reference ranges were obtained from a study by pam Peralta al. prepared from 1437 samples obtained at 7 different centers using the same coagulation reagent and instrumentation as [facility]. Currently there are no coagulation studies available worldwide for children to 14 days, and no normal ranges. LAB [id number](LOINC ) PTT 29.0 Normal 25.1-36.5 second(s) Result Comment: Parameter 15 days - 4 weeks 1 - 5 months 6 - 11 months 1 - 5 years 6 - 10 years 11 - 17 years PTT Mean: 35.4 (27.6-45.6) Mean: 33.5 (24.8-40.7) Mean: 32.4 (25.1-40.7) Mean: 31.6 (24.0-39.2) Mean: 31.6 (26.9-38.7) Mean: 31.0 (24.6-38.4) Pediatric Reference ranges were obtained from a study by Armin Hair et al. prepared from 1437 samples obtained at 7 different centers using the same coagulation reagent and instrumentation as [facility]. Currently there are no coagulation studies available worldwide for children to 14 days, and no normal ranges. Heparin therapeutic range (represented by Anti-Factor Xa activity of 0.2 - 0.4 U/mL) corresponds to PTT of 56.6 - 109.0 sec. LAB [id number](LOINC ) INR 1.05 Unknown Result Comment: INR results are specifically intended to assess patients stabilized on long-term Anticoagulation therapy suggested INR???s ???Less Intensive Anticoagulation??? 2.0 ??? 3.0 Conventional Range 3.0 ??? 4.5 Performed By: #### [id number] #### [facility] [address] [place] [address] LIPASE LEVEL Collected: 5 11:35 AM Status: F Source: [facility] TYPE CODE TESTS RESULT OUT OF RANGE REFERENCE UNITS LAB [id number](LOINC) Lipase Lvl 18 Normal 13-58 unit/ L Performed By: #### [id number] # ### [facility] [address] [place] [address] CBC W/ AUTO DIFF Collected: 5 11:35 AM Status: F Source: [facility] TYPE CODE TESTS RESULT OUT OF RANGE REFERENCE UNITS LAB [id number](LOINC) WBC 4.3 Normal 4.0-11.0 E9/L LAB [id number](LOINC) RBC 4.3 Normal 4.3-5.9 E12/L LAB [id number](LOINC) HGB 13.6 Normal 12.0-16.0 gm/dL LAB [id number](LOINC) Hct 39.2 Normal 34.0-46.0 % LAB [id number](LOINC) RDW 13.6 Normal 10.9-14.2 % LAB [id number](LOINC) MCH 31.9 Normal 27.0-34.0 pg LAB [id number](LOINC) MCHC 34.6 Normal 31.4-36.0 gm/dL LAB [id number](LOINC) MCV 92.1 Normal 80.0-100.0 fL LAB [id number](LOINC) MPV 7.7 Normal 6.4-10.8 fL LAB [id number](LOINC) Platelet 227.0 Normal 150.0-500.0 E9/ L LAB [id number](LOINC) Neutro Auto 72.5 Normal 36.0-75.0 % LAB [id number](LOINC) Lymph Auto 22.6 Normal 14.0-50.0 % LAB [id number](LOINC) Alpine Auto 4.8 Normal 4.0-14.0 % LAB [id number](LOINC) Eos Auto 0.0 Normal 0.0-8.0 % LAB [id number](LOINC) Basophil Auto 0.1 Normal 0.0-2.0 % LAB [id number](LOINC) Neutro Absolute 3.1 Normal 2.0-7.5 E9/L LAB [id number](LOINC) Lymph Absolute 1.0 Normal 1.0-4.0 E9/L LAB [id number](LOINC) Alpine Absolute 0.2 Normal 0.2-1.0 E9 /L LAB [id number](LOINC) Eos Absolute 0.0 Normal 0.0-0.5 E9/ L LAB [id number](LOINC) Basophil Absolute 0.0 Normal 0.0-0.2 E9/L Performed By: #### [id number] # ### [facility] [address] [place] [address] HEP FUNC PANEL Collected: 5 11:35 AM Status: F Source: [facility] TYPE CODE TESTS RESULT OUT OF RANGE REFERENCE UNITS LAB [id number](INC) ALT 7 Normal 6-46 Int._Uni t /L LAB [id number]([facility]) AST 14 Normal 5-43 Int._Uni t /L LAB [id number]([facility]) Albumin Lvl 4.1 Normal 3.3-5.0 gm/d L LAB [id number]([facility]) Globulin 2.8 Normal 1.4-4.0 gm/dL LAB [id number]([facility]) A/G Ratio 1.5 Normal 1.1-2.2 LAB [id number]([facility]) Alk Phos 63 Normal 21-98 Int._Un it /L LAB [id number]([facility]) Bili Direct 0.0 Normal 0.0-0.4 mg/d L LAB [id number]([facility]) Bili Indirect 0.4 Normal 0.1-0.9 mg /dL LAB [id number]([facility]) Bili Total 0.4 Normal 0.0-1.1 mg/dL LAB [id number]([facility]) Total Protein 6.9 Normal 6.0-7.8 gm /dL Performed By: #### [id number] # ### [facility] [address] [place] [address] BMP Collected: 09/13/2024 11:35 AM Status: F Source: [facility] TYPE CODE TESTS RESULT OUT OF RANGE REFERENCE UNITS LAB [id number]([facility]) Glucose Lvl 90 Normal 55-199 mg/d L LAB [id number]([facility]) BUN 6 Normal 5-21 mg/dL LAB [id number]([facility]) Creatinine 0.8 Normal 0.5-1.3 mg/dL LAB [id number]([facility]) BUN/Creat Ratio 8 Low 10-20 No Units LAB [id number]([facility]) Calcium Lvl 9.3 Normal 8.9-11.1 mg/ dL LAB [id number]([facility]) Sodium Lvl 140 Normal 135-145 mmol/ L LAB [id number]([facility]) Potassium Lvl 4.0 Normal 3.5-5.3 mm ol/L LAB [id number]([facility]) Chloride 106 Normal 101-111 mmol/L LAB [id number]([facility]) CO2 27 Normal 21-31 mmol/L LAB [id number]([facility]) AGAP 11 Normal 6-16 mEq/L Performed By: #### [id number] # ### [facility] [address] [place] [address] EGFR Collected: 11:35 AM Status: F Source: [facility] TYPE CODE TESTS RESULT OUT OF RANGE REFERENCE UNITS LAB [id number]([facility]) eGFR 81 Normal >=59 mL/min/1 .7 3 m2 Performed By: #### [id number] #### [facility] [address] [place] [address] ED NOTE-PHYSICIAN Observed: 09/13/2024 11:05 AM Status: F Source: [facility] ED Note-Physician Basic Information Time Seen: Dick Rogers M.D. 09/13/2024 11:11 Chief Complaint pt. scheduled to have gallbladder removed on 09/29 and states she has been having increasing RUQ pain and nausea. History of Present Illness The patient is a 64-year-old female past medical history of Graves' disease, cholelithiasis who presented to the emergency room with increasing abdominal pain since yesterday. The patient states she is scheduled for gallbladder removal with Dr. Del Castillo. The pain has gotten worse. The patient points to the right upper quadrant for the pain. She describes the pain as sharp. The patient reports nausea but no vomiting. She denies any alleviating or aggravating factors for the pain. The patient denies any diarrhea. She denies any fever, denies any chills. The patient denies any burning with urination. The patient denies any other associated symptoms. Review of Systems Additional ROS info: Except as noted in the above Review of Systems and in the History of Present Illness all other systems have been reviewed and are negative or noncontributory. Physical Exam Vitals & Measurements T: 36.4 ???C(Oral) HR: 70(Monitored) RR: 18 BP: 125/76 SpO2: 95% HT: 167 cm WT: 62.4 kg BMI: 22.37 General: alert, mild distress Skin: warm, dry Head: no trauma, normocephalic Neck: Trachea midline, no tenderness, supple Eye: normal conjunctiva, sclera clear, PERRL, EOMI, vision unchanged ENMT: Oral mucosa moist, no pharyngeal erythema or exudate Cardiovascular: regular rate and rhythm Respiratory: Lungs CTA, respirations non labored, breath sounds equal Gastrointestinal: soft, non distended, moderate tenderness right upper quadrant and epigastric, no guarding Extremities: no deformity, no trauma Neurological: Alert and oriented, speech normal, no focal neuro deficits Psychiatric: cooperative, affect appropriate for age Medical Decision Making MEDICAL DECISION MAKING Number and Complexity of Problems Differential Diagnosis: [] [facility] Data External documents reviewed: [] My EKG interpretation: [] My CT interpretation: [] My X-ray interpretation: [] My Ultrasound interpretation: [] Decision rules/scores evaluated: [] Discussed with: Dr Del Castillo Treatment and Disposition ED Course: The patient presented with right upper quadrant abdominal pain. The patient is afebrile. Blood work reviewed. White count is normal. The ultrasound of the gallbladder shows cholelithiasis with no signs of cholecystitis. Slight improvement of dilatation of the common bile duct. The patient was given IV fluid. She declined pain medication. Her pain improved. The case was discussed with who will push the surgery for this coming Friday. He agrees patient can be discharged home with pain medication. The patient declined pain medication to go home. She is instructed to return to the emergency room if her pain recurs, vomiting, fever or any new symptoms. Shared decision making: Patient and her daughter Code status: [] Assessment/Plan 1. Biliary colic (K80.50: Calculus of bile duct without cholangitis or cholecystitis without obstruction) 2. Cholelithiasis (K80.20: Calculus of gallbladder without cholecystitis without obstruction) Orders: morphine, 4 mg = 1 mL, Injection, IV Push, Once, Stop date 09/13/24 11:22:00 EDT, STAT, Start date 09/13/24 11:22:00 EDT, 09/13/24 11:22:00 EDT ondansetron, 4 mg = 2 mL, Injection, IV Push, Once, Stop date 09/13/24 11:22:00 EDT, STAT, Start date 09/13/24 11:22:00 EDT, 09/13/24 11:22:00 EDT Sodium Chloride 0.9% intravenous solution, 1,000 mL, Soln-IV, IV, Once, Stop date 09/13/24 11:22:00 EDT, STAT, Start date 09/13/24 11:22:00 EDT, Infuse over 61, minute(s) Basic Metabolic Panel CBC w/ Auto Diff eGFR Extra SST Tube Hepatic Function Panel Lipase Level PT & PTT UA with Cult Rflx US Gallbladder Medications Administered Given NS 1000 ml Bolus, 1000 mL, IV ondansetron 4 mg/2 mL Inj, 4 mg, IV Push Disposition Plan Patient Discharge Condition Stable, improved Discharge Disposition Discharged home Discharge Prescription List Prescriptions No active prescription medications Follow-up With When Contact Information Segun Del Castillo In 3 days 09/16/2024 EDT Additional Instructions: Make sure to follow-up with Dr. Del Castillo. He has you scheduled for Friday for surgery. Return to the emergency room if your pain recurs, vomiting, fever or any new symptoms. Patient Education Cholelithiasis Problem List/Past Medical History Ongoing Body mass index 20-24 - normal Choledocholithiasis Cholelithiasis Cigarette smoker Epigastric pain Gastroesophageal reflux disease History of gastritis HTN (hypertension) Thyrotoxicosis Historical No qualifying data Procedure/Surgical History ERCP sphincterotomy and insertion of stent (08/22/2024), EGD (esophagogastroduodenoscopy) gastric outlet reduction (05/24/2020), Colonoscopy (11/05/2019). Medications Inpatient No active inpatient medications Home Bentyl 10 mg Cap, 10 mg= 1 cap(s), Oral, QID, PRN, 3 refills Ivizia ophthalmic solution, 1 drop(s), Eye-Both, QID metoprolol 25 mg ER Tab, Oral, Daily Multivitamin, Therapeutic w/ Minerals, 1 tab(s), Oral, Daily omeprazole 40 mg Cap-DR, 40 mg= 1 cap(s), Oral, BIDAC, 3 refills Pantoprazole [address] Tab Tapazole 5 mg Tab, Oral, q8hr Allergies cefuroxime (Hives) Social History Alcohol Never., 07/16/2024 Substance Abuse Never., 07/16/2024 Tobacco 5-9 cigarettes (between 1/4 to 1/2 pack)/day in last 30 days Tobacco Use:., 09/03/2024 5-9 cigarettes (between 1/4 to 1/2 pack)/day in last 30 days Tobacco Use:., 08/05/2024 Family History Heart disease: Mother. Lab Results WBC: 4.3 E9/L (09/13/24 11:35:00) RBC: 4.3 E12/L (09/13/24 11:35:00) HGB: 13.6 gm/dL (09/13/24 11:35:00) Hct: 39.2 % (09/13/24 11:35:00) MCV: 92.1 fL (09/13/24 11:35:00) MCH: 31.9 pg (09/13/24 11:35:00) MCHC: 34.6 gm/dL (09/13/24 11:35:00) RDW: 13.6 % (09/13/24 11:35:00) Platelet: 227 E9/L (09/13/24 11:35:00) MPV: 7.7 fL (09/13/24 11:35:00) Neutro Auto: 72.5 % (09/13/24 11:35:00) Lymph Auto: 22.6 % (09/13/24 11:35:00) Alpine Auto: 4.8 % (09/13/24 11:35:00) Eos Auto: 0 % (09/13/24 11:35:00) Basophil Auto: 0.1 % (09/13/24 11:35:00) Neutro Absolute: 3.1 E9/L (09/13/24 11:35:00) Lymph Absolute: 1 E9/L (09/13/24 11:35:00) Alpine Absolute: 0.2 E9/L (09/13/24 11:35:00) Eos Absolute: 0 E9/L (09/13/24 11:35:00) Basophil Absolute: 0 E9/L (09/13/24 11:35:00) PT: 11.8 second(s) (09/13/24 11:35:00) INR: 1.05 (09/13/24 11:35:00) PTT: 29 second(s) (09/13/24 11:35:00) Glucose Lvl: 90 mg/dL (09/13/24 11:35:00) BUN: 6 mg/dL (09/13/24 11:35:00) Creatinine: 0.8 mg/dL (09/13/24 11:35:00) eGFR: 81 mL/min/1.73 m2 (09/13/24 11:35:00) BUN/Creat Ratio: 8 Low (09/13/24 11:35:00) Sodium Lvl: 140 mmol/L (09/13/24 11:35:00) Potassium Lvl: 4 mmol/L (09/13/24 11:35:00) Chloride: 106 mmol/L (09/13/24 11:35:00) CO2: 27 mmol/L (09/13/24 11:35:00) AGAP: 11 mEq/L (09/13/24 11:35:00) Calcium Lvl: 9.3 mg/dL (09/13/24 11:35:00) Alk Phos: 63 Int._Unit/L (09/13/24 11:35:00) ALT: 7 Int._Unit/L (09/13/24 11:35:00) AST: 14 Int._Unit/L (09/13/24 11:35:00) Total Protein: 6.9 gm/dL (09/13/24 11:35:00) Albumin Lvl: 4.1 gm/dL (09/13/24 11:35:00) Globulin: 2.8 gm/dL (09/13/24 11:35:00) A/G Ratio: 1.5 (09/13/24 11:35:00) Bili Total: 0.4 mg/dL (09/13/24 11:35:00) Bili Direct: 0 mg/dL (09/13/24 11:35:00) Bili Indirect: 0.4 mg/dL (09/13/24 11:35:00) Lipase Lvl: 18 unit/L (09/13/24 11:35:00) UA Spec Desc: Clean Catch (09/13/24 12:47:00) UA Color: Colorless Abnormal (09/13/24 12:47:00) UA Clarity: Clear (09/13/24 12:47:00) UA Spec Grav: 1.005 (09/13/24 12:47:00) UA pH: 6.5 (09/13/24 12:47:00) UA Protein: Negat (09/13/24 12:47:00) UA Glucose: Negat (09/13/24 12:47:00) UA Ketones: Negat (09/13/24 12:47:00) UA Bili: Negat (09/13/24 12:47:00) UA Blood: Negat (09/13/24 12:47:00) UA Nitrite: Negat (09/13/24 12:47:00) UA Urobilinogen: Negat (09/13/24 12:47:00) UA Leuk Est: Negat (09/13/24 12:47:00) Diagnostic Results US Gallbladder 09/13/24 12:51:41 IMPRESSION: GALLBLADDER AND BILIARY DILATATION, MILDLY IMPROVED TO 08/20/2024. CHOLELITHIASIS. EXAM: US Gallbladder DATE: 09/13/2024 11:48 AM CLINICAL HISTORY: Abdominal pain. Technologist Comments: epig and back pain with nausea since 3am, known gallstones with sx scheduled on Sep 29, 08/27/2024 had stone removed from duct and stent places COMPARISON: CT abdomen and pelvis 08/20/2024 TECHNIQUE: Transabdominal ultrasound of the right upper quadrant was performed. FINDINGS: The study is mild to moderately limited by the patient???s body habitus and upper abdominal bowel gas. The gallbladder is mild to moderately distended with an approximately 1 cm mobile gallstone. There is no abnormal gallbladder wall thickening or pericholecystic fluid. Predominantly extrahepatic biliary dilatation appears mildly improved from 08/20/2024 with mild pneumobilia, consistent with interval intervention. The common duct measuring approximately 1.6 cm in caliber at the dolly hepatis. The visualized liver, pancreas, right kidney, and great vessels are unremarkable. Ordering Provider: Dick Rogers Signed By: Yaakov Nelson MD EKG Results EC09/13/24: SINUS RHYTHM MINIMAL ST DEPRESSION [0.025+ mV ST DEPRESSION] BORDERLINE ECG Signed By: Dick Rogers M.D. 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 female here for cholelithiasis Dr. Mccord referring CT Ab done 08/20/24- choledocholithiasis ERCP done 08/22/24 patient had bloating and mid abdominal pain. After ERCP she no longer has symptoms History of Present Illness 64-year-old female referred to general surgery for interval cholecystectomy. Patient underwent CT scan on August 20, 2024 where she was found to have a 1.4 x 1.3 cm calculus within the intrapancreatic common duct as well as cholelithiasis. She was transferred to [facility] where she underwent ERCP with stent placement on August 23, 2024. General surgery was consulted at [facility] but patient declined cholecystectomy at the time preferring to have the surgery performed closer to home. The patient is here for evaluation for interval cholecystectomy. On the patient's discharge from [facility] she had a normal white count and normal hepatic function panel. Her bilirubin had normalized. There was no elevation in her lipase. The patient's symptoms prior to the ERCP was only bloating with occasional lower back pain she denied right upper quadrant pain or jaundice. She says that now that she has had the ERCP done she has neither bloating nor back pain. Review of Systems PHQ Score Initial Depression Screen Score: 0 SCORE Physical Exam Vitals & Measurements HR: 91(Peripheral) BP: 119/78 HT: 167 cm HT: 66 in WT: 138.891 lb WT: 63 kg BMI: 22.59 Abdomen soft nontender nondistended Assessment/Plan 1. Choledocholithiasis (K80.50: Calculus of bile duct without cholangitis or cholecystitis without obstruction) Will proceed with interval robotic cholecystectomy for choledocholithiasis (status post ERCP 08/23/2024) 2. Cholelithiasis (K80.20: Calculus of gallbladder without cholecystitis without obstruction) As above 3. Cigarette smoker (F17.210: Nicotine dependence, cigarettes, uncomplicated) Strongly recommend patient to quit tobacco use. Cigarette smoking harms nearly every organ of the body, causes many diseases, and reduces the health of smokers in general. Quitting smoking lowers risk for smoking-related diseases and increases life expectancy. Encouraged patient to visit helpful online resources and/or free telephone support such as [employer]. Prescription medication to help smoking cessation available on request from PCP. Portions of this record may have been created with voice recognition artificial intelligence software, specifically [employer], [employer] and or [employer]. Substitutions may have occurred due to the inherent limitations of voice recognition and artificial intelligence software. Follow-up No qualifying data available Problem List/Past Medical History Ongoing Body mass index 20-24 - normal Choledocholithiasis Cholelithiasis Cigarette smoker Epigastric pain Gastroesophageal reflux disease History of gastritis HTN (hypertension) Thyrotoxicosis Historical No qualifying data Procedure/Surgical History ERCP sphincterotomy and insertion of stent (08/22/2024), EGD (esophagogastroduodenoscopy) gastric outlet reduction (05/24/2020), Colonoscopy (11/05/2019). Medications Bentyl 10 mg Cap, 10 mg= 1 cap(s), Oral, QID, PRN, 3 refills Ivizia ophthalmic solution, 1 drop(s), Eye-Both, QID metoprolol 25 mg ER Tab, Oral, Daily Multivitamin, Therapeutic w/ Minerals, 1 tab(s), Oral, Daily omeprazole 40 mg Cap-DR, 40 mg= 1 cap(s), Oral, BIDAC, 3 refills Pantoprazole [address] Tab Tapazole 5 mg Tab, Oral, q8hr Allergies cefuroxime (Hives) Social History Alcohol Never., 07/16/2024 Substance Abuse Never., 07/16/2024 Tobacco 5-9 cigarettes (between 1/4 to 1/2 pack)/day in last 30 days Tobacco Use:., 09/03/2024 5-9 cigarettes (between 1/4 to 1/2 pack)/day in last 30 days Tobacco Use:., 08/05/2024 Family History Heart disease: Mother. Result Comment: Electronical ly Signed By: Abundio LEMUS, Segun Jeter.yousif\Date and Time Signed: 09/03/24 10:13 EDT 36 Observed: 09/02/2024 4:49 PM Status: COMPLETED Source: [facility] Message left for patient to call and schedule a repeat ERCP with Dr. Kathya Dumont, previous procedure on 08/23/24, will need a repeat in 4-6 weeks. My direct phone # left for a call back, . ORDERS ONLY Observed: 09/02/2024 12:00 AM Status: COMPLETED Source: [facility] [id number] Kraig Cotto 05/1960 F Date Provider Department Eleva 09/02/2024 DelvisPIPER [facility] No family history on file TELEPHONE Observed: 09/02/2024 12:00 AM Status: COMPLETED Source: [facility] [id number] Kraig Cotto 05/1960 F Date Provider Department Eleva 09/02/2024 ThaniaMAXIMO [facility] No family history on file DS Observed: 08/24/2024 4:23 PM Status: COMPLETED Source: [facility] Hospital Medicine Discharge Summary Final Discharge Diagnosis: Choledocholithiasis Biliary colic - resolved Status post ERCP Grave's disease GERD Admission Diagnosis: Choledocholithiasis [K80.50] Epigastric pain [R10.13] Gastroesophageal reflux disease without esophagitis [K21.9] Tobacco user [Z72.0] Hospital course: Ms. Kraig Cotto is an 64 y.o. female who came [...] abdomen and she had it done at [facility] on Friday. She was called later and was informed that she has stones in her bile duct and she needs to go come to [facility] for ERCP. Patient waited until tonight because [...] Gastroenterology and General Surgery Dear MD Tobias, Kraig is advised to follow up with you [...] mg DR capsule Commonly known as: PriLOSEC Kraig is allergic to cefuroxime. Disposition: Home or Self Care () Discharge Condition: Stable Code Status: Prior Diagnostic Results Hematology: Results from last 7 days Lab Units 08/24/24 0808/23/24 0515 WBC AUTO 10*3/uL 5.80 5.11 HEMOGLOBIN g/dL 13.1 12.2 HEMATOCRIT % 38.2 35.1* MCV fL 92.9 92.6 PLATELETS AUTO 10*3/uL 205 205 INR -- 1.12* Chemistry: Results from last 7 days Lab Units 08/24/24 0808/23/24 0515 08/22/24 1826 SODIUM mmol/L 137 139 139 POTASSIUM mmol/L 4.2 3.5 3.6 CHLORIDE mmol/L 106 108* 106 CO2 mmol/L 21 26 25 BUN mg/dL 10 8 8 CREATININE mg/dL 0.65 0.63 0.72 GLUCOSE mg/dL 107* 89 82 MAGNESIUM mg/dL -- 1.9 -- CALCIUM mg/dL 8.8 8.7 9.2 Results from last 7 days Lab Units 08/24/24 0823 08/23/24 0515 08/22/24 1826 AST U/L 16 13 16 ALT [...] Blood pressure 103/59, pulse 80, temperature 35.7 ???C (96.3 ???F), resp. rate 16, height 1.676 m (5' 6 ), weight 61.8 kg (136 lb 3.2 [...] family and documentation was 39 minutes. Signed John Bojorquez MD [facility] Medicine 08/26/2024 1:04 PM CC: MD Tobias PROGRESS Observed: 08/24/2024 2:59 PM Status: COMPLETED Source: [facility] Relevant Hx: Patient present s to hospital from clinic. She was found [...] syringe 40 mg sodium chloride 0.9 % infusionondansetron ODT (Zofran-ODT) disintegrating tablet 4 mg ondansetron HCl (PF) (Zofran) injection 4 mg pantoprazole (ProtoNix) injection 40 mg morphine injection 2 mg methIMAzole (Tapazole) tablet 5 mg metoprolol succinate XL (Toprol-XL) 24 hr split tablet 25 mg sodium chloride 0.9 % infusion CONSULT Observed: 08/24/2024 12:04 PM Status: COMPLETED Source: [facility] Reason For Consult presenting with choledocholithiasis. Consider for laparoscopic cholecystectomy Referring Provider: Dr. Bojorquez History Of Present Illness Kraig Cotto is a 64 y.o. female presenting with Cholelithiasis. Patient states that she was having symptoms of GERD, went to her PCP and got a CT scan that revealed choledocholithiasis. Pt presented to hospital from PCP, underwent ERCP on 08/23/24. We Consulted for gallbladder removal after ERCP. Pt denies any pain, nausea, or vomiting. Pt [...] SpO2 Height Weight 08/24/24 0747 103/59 35.7 ???C (96.3 ???F) -- 80 -- 93 % -- -- 08/24/24 0417 107/64 36.3 ???C (97.3 ???F) -- 76 -- 93 % -- 61.8 kg (136 lb 3.2 oz) 08/23/24 1934 131/71 35.7 ???C (96.3 ???F) -- 78 16 94 % -- -- 08/23/24 1855 116/62 -- -- 74 (!) 9 96 % -- -- 08/23/24 1840 115/63 -- -- 74 11 97 % -- -- 08/23/24 1825 121/69 -- -- 76 14 93 % -- -- 08/23/24 1810 127/68 -- -- 80 15 94 % -- -- 08/23/24 1755 131/68 36.2 ???C (97.2 ???F) Temporal 78 18 100 % -- -- 08/23/24 1629 134/76 36.2 ???C (97.2 ???F) Temporal 75 17 95 % 1.676 m [...] eGFR 08/22/2024 92.2 >60.0 mL/min/1.73m*2 Final [facility]???s estimated glomerular filtration rate (eGFR) will no longer include consideration of race in its calculation. The National Kidney Foundation???s eGFR Task Force developed new recommendations for [...] Bilirubin, Urine 08/22/2024 Negative Negative Final Specific [place], Urine 08/22/2024 1.004 (L) 1.010 - 1.030 [...] Final Atrial Rate 08/22/2024 73 BPM Final IN Interval 08/22/2024 168 ms Final QRS DURATION 08/22/2024 80 ms Final QT Interval 08/22/2024 358 ms Final QTC CALCULATION(BAZETT) 08/22/2024 394 ms Final P Freedom 08/22/2024 66 degrees Final R-Freedom 08/22/2024 72 degrees Final T Wave Freedom 08/22/2024 53 degrees Final Magnesium 08/23/2024 1.9 1.9 - 2.7 mg/dL Final Protime 08/23/2024 14.4 12.3 - 14.8 Seconds Final INR 08/23/2024 1.12 (H) 0.90 - 1.10 Final [facility] RECOMMENDED INR FOR WARFARIN THERAPY CONDITION INR [...] eGFR 08/23/2024 97.8 >60.0 mL/min/1.73m*2 Final [facility]???s estimated glomerular filtration rate (eGFR) will no longer include consideration of race in its calculation. The National Kidney Foundation???s eGFR Task Force developed new recommendations for [...] eGFR 08/24/2024 97.0 >60.0 mL/min/1.73m*2 Final [facility]???s estimated glomerular filtration rate (eGFR) will no longer include consideration of race in its calculation. The National Kidney Foundation???s eGFR Task Force developed new recommendations for [...] Do not crush or chew. povidone, PF, (iVizchristiana, PF,) 0.5 % drops Administer 1 drop into affected eye(s) four times daily. PROGRESS Observed: 08/24/2024 9:00 AM Status: COMPLETED Source: [facility] Gastroenterology/Hepatology Progress Note IDENTIFYING DATA PATIENT: Kraig Cotto ADMIT DATE: 08/22/2024 TIME OF EVALUATION: 08/24/2024 9:00 AM Reason for Consult: CBD stone Admitting Physician: John Bojorquez MD SUBJECTIVE/INTERVAL HISTORY Kraig Cotto's overnight events were reviewed. ERCP completed yesterday [...] VITALS: BP 103/59 Pulse 80 Temp 35.7 ???C (96.3 ???F) Resp 16 Ht 1.676 m (5' 6 ) Wt 61.8 kg (136 lb 3.2 oz) SpO2 93% BMI 21.98 kg/m??? GEN: Alert and oriented x3, NAD CV: [...] 6.6 B12/Folate/Iron studies: No results found for: [id number] , FOLATE , IRON , TIBC , UIBC , IRONSAT , FERRITIN Viral Hepatitis No results found for: HEPAIGM , HAV , HEPBSAG , HEPBSAB , HEPBEAB , HEPBIGM , HEPBCAB , HEPBCOREAB , HBVNAT , HCVSCR , HEPCAB , HCVNAT , HCVPCR , HCVTMA Liver workup No results found for: SHERRI , SMOOTHMUSCAB , CERULOPLSM , [id number] , TTGA , IGA , TSH , FREET4 , AFP Pancreatitis Lab Results Component Value Date LIPASE 23 08/22/2024 CALCIUM 8.7 08/23/2024 IMAGING: US gallbladder 08/23/24: IMPRESSION: There are multiple echogenic stones at the gallbladder and common bile duct with severe common bile duct dilatation of 1.6 cm. There is no gross sonographic evidence of acute cholecystitis. ASSESSMENT AND PLAN Kraig Cotto is a 64 y.o. female with PMHx [...] am to 4 pm weekdays in house: [phone] 4 pm to 6 am or weekends: Please contact the gang ripsaw operator to page the fellow midwife practitioner COMPREHENSIVE METABOLIC PANEL Collected: 08/24/2024 8 :23 AM Status: UNK Source: [facility] TYPE CODE TESTS RESULT OUT OF RANGE REFERENCE UNITS LAB [id number] SODIUM (MMOL/L) IN SER/PLAS 137 136-145 mmol/L LAB [id number] POTASSIUM (MMOL/ L) IN SER/PLAS 4.2 3.5-5.1 mmol/L LAB [id number] CHLORIDE (MMOL/L ) IN SER/PLAS 106 98-107 mmol/L LAB [id number] CARBON DIOXIDE, TOTAL (MMOL/L) IN SER/PLAS 21 21-31 mmol/L LAB [id number] ANION GAP IN SER/PLAS 14 7-20 mmol/L LAB [id number] UREA NITROGEN (MG/DL) IN SER/PLAS 10 7-25 mg/dL LAB [id number] CREATININE (MG/D L) IN SER/PLAS 0.65 0.60-1.20 mg/dL LAB [id number] UREA NITROGEN/CREATININ E (MASS RATIO) IN SER/PLAS 15.4 NA LAB [id number] GLUCOSE (MG/DL) IN SER/PLAS 107 High 70-100 mg/dL LAB [id number] CALCIUM (MG/DL) IN SER/PLAS 8.8 8.6-10.3 mg/dL LAB [id number] ASPARTATE AMINOTRANSFERASE (SGOT) (U/L) IN SER/PLAS 16 13-39 U/L LAB [id number] ALANINE AMINOTRANSFERASE (SGPT) (U/L) IN SER/PLAS 5 Low 7-52 U/L LAB [id number] ALKALINE PHOSPHATASE (U/L) IN SER/PLAS 68 34-104 U/L LAB [id number] PROTEIN (G/DL) I N SER/PLAS 6.3 6.0-8.3 g/dL LAB [id number] ALBUMIN (G/DL) I N SER/PLAS 3.9 3.5-5.7 g/dL LAB [id number] BILIRUBIN TOTAL (MG/DL) IN SER/PLAS 0.5 0.3-1.0 mg/dL LAB [id number] GLOMERULAR FILTRATION RATE ML/MIN/1.73 SQ M.PREDICTED 97.0 >60.0 mL/min /1.73m *2 Result Comment: The [facility]???s estimated glomerular filtration rate (eGFR) will no longer include consideration of race in its calculation. The National Kidney Foundation???s eGFR Task Force developed new recommendations for [...] disproportionately affect any one group of individuals. Performed By: #### [id number] ### # [facility] ([facility]) [address] [place] [address] CBC Collected: 08/24/2024 8:23 AM Status: UN K Source: [facility] TYPE CODE TESTS RESULT OUT OF RANGE REFERENCE UNITS LAB [id number] LEUKOCYTES(10*3/ U L) IN BLOOD BY AUTOMATED COUNT 5.80 4.00-10.60 10*3/uL LAB [id number] ERYTHROCYTES (10*6/UL) IN BLOOD BY AUTOMATED COUNT 4.11 3.80-5.00 10*6/uL LAB [id number] HEMOGLOBIN (G/DL ) IN BLOOD 13.1 12.0-15.0 g/dL LAB [id number] HEMATOCRIT (%) I N BLOOD BY AUTOMATED COUNT 38.2 36.0-45.0 % LAB [id number] ERYTHROCYTE MEAN CORPUSCULAR VOLUME (FL) BY AUTOMATED COUNT 92.9 82.0-98.0 fL LAB [id number] ERYTHROCYTE MEAN CORPUSCULAR HEMOGLOBIN (PG) BY AUTOMATED COUNT 31.9 27.0-33.0 pg LAB [id number] ERYTHROCYTE MEAN CORPUSCULAR HEMOGLOBIN CONCENTRATION (G/DL) BY AUTOMATED 34.3 32.0-35.0 g/dL LAB [id number] ERYTHROCYTE DISTRIBUTION WIDTH (RATIO) BY AUTOMATED COUNT 12.6 11.5-15.0 % LAB [id number] PLATELETS (10*3/UL) IN BLOOD AUTOMATED COUNT 205 150-400 10*3/uL Performed By: #### [id number] ## ## [facility] ([facility]) [address] [place] [address] 29 Observed: 08/23/2024 7:05 PM Status: COMPLETED Source: [facility] Addendum created 08/23/24 05 by Saleem Zhou MD Clinical Note Signed, Intraprocedure Flowsheets edited, Intraprocedure Meds edited ANES Observed: 08/23/2024 6:30 PM Status: COMPLETED Source: [facility] This report has been cancell ed. ANES Observed: 08/23/2024 6:19 PM Status: COMPLETED Source: [facility] Patient: Kraig Cotto Procedure Summary Date: 08/23/24 Room / Location: [facility] Main Operating Room Anesthesia Start: 165 Anesthesia Stop: 1758 Procedure: ENDOSCOPIC RETROGRADE CHOLANGIOPANCREATOGRAPHY Diagnosis: Scheduled Providers: Gilberto Ramirez MD; Kathya Dumont MD Responsible Provider: Kathya Ernst MD Anesthesia [...] per anesthesia protocol. No notable events documented. [id number] Observed: 08/23/2024 5:51 PM Status: COMPLETED Source: [facility] Patient: Kraig Cotto Procedure Summary Date: 08/23/24 Room / Location: [facility] Main Operating Room Anesthesia Start: 1650 Anesthesia Stop: Procedure: ENDOSCOPIC RETROGRADE CHOLANGIOPANCREATOGRAPHY Diagnosis: Scheduled Providers: Gilberto Ramirez MD; Kathya Dumont MD Responsible Provider: Kathya Ernst MD Anesthesia Type: general ASA Status: 3 Anesthesia Post Transport Note Transport to: PACU O2 Route: room air Patient Monitor: direct observation Transport: uneventful Patient condition is: stable PROCEDURE Observed: 08/23/2024 5:11 PM Status: COMPLETED Source: [facility] Airway Date/Time: 08/23/2024 5:01 PM Reason: elective General Information and Staff Patient location during procedure: OR Anesthesiologist: Kathya Ernst MD Resident/BRIDGE EXPERT/CAA: NABILA Sarabia Performed: resident/BRIDGE EXPERT/NABILA Patient Condition Indications for airway management: anesthesia [...] 1 Number of other approaches attempted: 0 ANES Observed: 08/23/2024 4:42 PM Status: COMPLETED Source: [facility] Patient: Kraig Cotto Procedure Information Date/Time: 08/23/24 1530 Scheduled providers: Gilberto Ramirez MD; Kathya Dumont MD Procedure: ENDOSCOPIC RETROGRADE CHOLANGIOPANCREATOGRAPHY Location: [facility] Main Operating Room Relevant Problems GI (+) [...] patient who. Plan discussed with attending and BRIDGE EXPERT. Additional Equipment Requests PROGRESS Observed: 08/23/2024 3:50 PM Status: COMPLETED Source: [facility] - [facility] exhibi ting choledocholithiasis with significant CBD dilatation and cholelithiasis without significant pericholecystic inflammation - trend LFTs they are unremarkable - patient is afebrile and without white count or significant abdominal pain - GI consulted, planning for ERCP likely today PROGRESS Observed: 08/23/2024 3:50 PM Status: COMPLETED Source: [facility] - Resume home methimazole PROGRESS Observed: 08/23/2024 3:50 PM Status: COMPLETED Source: [facility] - [facility] exhibi ting choledocholithiasis with significant CBD dilatation and cholelithiasis without significant pericholecystic inflammation - trend LFTs they are unremarkable - patient is afebrile and without white count or significant abdominal pain - GI consulted, planning for ERCP likely today PROGRESS Observed: 08/23/2024 10:09 AM Status: COMPLETED Source: [facility] Case was discussed with the Medical Student on 08/23/2024. I examined the patient with the student. I agree with the history, physical, assessment, and plan of care. I discussed the findings and therapeutic plan. I agree with the documentation, except for any updates below. Jamey Cueva MD Hospital Medicine Daily Progress Note - 08/23/2024 10:10 AM; Room: 4183/4183-01 Admission: 08/22/2024 5:29 PM; Length of stay: 1 days THE HOSPITALIST TEAM PREFERS TO USE [employer] CHAT FOR NON-URGENT COMMUNICATION 7AM-7PM. IF I DO NOT RESPOND WITHIN 20 MINUTES OR URGENT MATTERS, PLEASE CALL THROUGH THE INTERN BRAND. FROM 7PM-7AM, PLEASE PAGE [phone](COVR). Code Status: Full Code Barriers to Discharge: Awaiting ERCP procedure Expected Discharge Date: 08/24/2024 Discharge Destination: home Overview Patient is seen for evaluation and management of choledocholithiases. Subjective Kraig Cotto is an 64 y.o. female who came [...] abdomen and she had it done at [facility] on Friday. She was called later and was informed that she has stones in her bile duct and she needs to go come to [facility] for ERCP. Patient waited until tonight because [...] Vitals BP 109/71 Pulse 62 Temp 36.7 ???C (98.1 ???F) Resp 16 Intake/Output Summary (Last 24 hours) [...] normal. Estimated body mass index is 22.6 kg/m??? as calculated from the following: Height as [...] , FREET4 , CORTISOL , FEV1 , WOD6TTH , DLCO , RVSP , HDL , LDL No results found for: [id number] , IRON , TIBC , C3 , [...] Discharge Disposition: Home or Self-care Signed Cee Velez [address] Medicine 08/23/2024 10:10 AM CONSULT Observed: 08/23/2024 8:54 AM Status: COMPLETED Source: [facility] Attestation signed by Kathya Dumont MD at 08/23/2024 4:45 PM The patient was seen and examined. Agree with the assessment and plan. Biliary colic secondary to choledocholithiasis. CT abdomen pelvis/ultrasound abdomen outside hospital revealed choledocholithiasis. Plan: ERCP for biliary stone removal today. [facility] Teaching GI Service Initial Gastroenterology/Hepatology Consultation Note IDENTIFYING DATA PATIENT: Kraig Cotto ADMIT DATE: 08/22/2024 TIME OF EVALUATION: 08/23/2024 8:54 AM Reason for Consult: CBD stone Choledocholithiasis, known patient HISTORY OF PRESENT ILLNESS Kraig Cotto is a 64 y.o. female with PMHx significant for Graves' disease, nicotine dependence who presented to the ED after being referred by her PCP due to concern for choledocholithiasis. GI team was consulted for possibility of ERCP. Patient reported she has been having intermittent abdominal bloating and pain in upper quadrant for the past few months. Underwent CT abdomen pelvis by the PCP at the [facility] on Friday and there was a concern [...] Do not crush or chew. Historical Provider, HORTENSIA Serra, (HORTENSIA Hooker,) 0.5 % drops Administer 1 [...] Vitals: BP 109/71 Pulse 62 Temp 36.7 ???C (98.1 ???F) Resp 16 Ht 1.676 m (5' 6 ) Wt 63.5 kg (140 lb) SpO2 94% BMI 22.60 kg/m??? GEN: alert and oriented x3, NAD HEENT: [...] found for: CSTOOL IMAGING: ASSESSMENT AND PLAN Kraig Cotto is a 64 y.o. female with PMHx [...] will be discussed with attending physician Dr. Dumont. If you have any questions please feel free to contact the GI Service. Thank you for allowing us to participate in the care of Kraig Cotto. [facility] GI Service Extension: [phone] 6 am to 4 pm weekdays in house 5 pm to 6 am or weekends please contact the gang ripsaw operator to page the fellow midwife practitioner [1] Past Medical History: Diagnosis Date Graves disease [2] Past Surgical History: Procedure Laterality Date EYE SURGERY [3] No family history on file. [4] Social History Tobacco Use Smoking status: Every Day Current packs/day: 0.50 Types: Cigarettes Smokeless tobacco: Never Substance Use Topics Alcohol use: Never Drug use: Never [5] Allergies Allergen Reactions Cefuroxime Unknown PROTIME-INR Collected: 08/23/2024 5:15 AM Status: UN K Source: [facility] TYPE CODE TESTS RESULT OUT OF RANGE REFERENCE UNITS LAB [id number] PROTHROMBIN TIME (PT) IN PPP BY COAGULATION ASSAY 14.4 12.3-14.8 Seconds LAB [id number] INR IN PPP BY COAGULATION ASSAY 1.12 High 0.90-1.10 NA Result Comment: [facility] RECOMM ENDED INR FOR WARFARIN THERAPY CONDITION INR PROPHYLAXIS OF VENOUS THROMBOSIS 2-3 (HIGH-RISK SURGERY) TREATMENT OF VENOUS THROMBOSIS 2-3 TREATMENT OF PULMONARY EMBOLISM 2-3 PREVENTION OF SYSTEMIC EMBOLISM: 2-3 ACUTE MYOCARDIAL INFARCTION TISSUE HEART VALVES VALVULAR HEART DISEASE ATRIAL FIBRILLATION RECURRENT SYSTEMIC EMBOLISM MECHANICAL HEART VALVE 2.5-3.5 FROM: ORAL ANTICOAGULANTS. MECHANISM OF ACTION, CLINICAL EFFECTIVENESS, AND OPTIMAL THERAPEUTIC RANGE. CHEST 1995;108:231S-246S. Performed By: #### [id number] ## ## [facility] ([facility]) [address] [place] [address] COMPREHENSIVE METABOLIC PANEL Collected: 08/23/2024 5 :15 AM Status: UNK Source: [facility] TYPE CODE TESTS RESULT OUT OF RANGE REFERENCE UNITS LAB [id number] SODIUM (MMOL/L) IN SER/PLAS 139 136-145 mmol/L LAB [id number] POTASSIUM (MMOL/ L) IN SER/PLAS 3.5 3.5-5.1 mmol/L LAB 7441598 CHLORIDE (MMOL/L ) IN SER/PLAS 108 High 98-107 mmol/L LAB 4693275 CARBON DIOXIDE, TOTAL (MMOL/L) IN SER/PLAS 26 21-31 mmol/L LAB [id number] ANION GAP IN SER/PLAS 9 7-20 mmol/L LAB 6825412 UREA NITROGEN (MG/DL) IN SER/PLAS 8 7-25 mg/dL LAB 1891808 CREATININE (MG/D L) IN SER/PLAS 0.63 0.60-1.20 mg/dL LAB 1745487 UREA NITROGEN/CREATININ E (MASS RATIO) IN SER/PLAS 12.7 NA LAB [id number] GLUCOSE (MG/DL) IN SER/PLAS 89 70-100 mg/dL LAB [id number] CALCIUM (MG/DL) IN SER/PLAS 8.7 8.6-10.3 mg/dL LAB [id number] ASPARTATE AMINOTRANSFERASE (SGOT) (U/L) IN SER/PLAS 13 13-39 U/L LAB [id number] ALANINE AMINOTRANSFERASE (SGPT) (U/L) IN SER/PLAS 5 Low 7-52 U/L LAB [id number] ALKALINE PHOSPHATASE (U/L) IN SER/PLAS 60 34-104 U/L LAB 2474840 PROTEIN (G/DL) I N SER/PLAS 6.0 6.0-8.3 g/dL LAB [id number] ALBUMIN (G/DL) I N SER/PLAS 3.7 3.5-5.7 g/dL LAB 4183200 BILIRUBIN TOTAL (MG/DL) IN SER/PLAS 0.5 0.3-1.0 mg/dL LAB [id number] GLOMERULAR FILTRATION RATE ML/MIN/1.73 SQ M.PREDICTED 97.8 >60.0 mL/min /1.73m *2 Result Comment: The [facility]???s estimated glomerular filtration rate (eGFR) will no longer include consideration of race in its calculation. The National Kidney Foundation???s eGFR Task Force developed new recommendations for [...] disproportionately affect any one group of individuals. Performed By: #### [id number] ### # [facility] ([facility]) [address] [place] [address] MAGNESIUM Collected: 08/23/2024 5:15 AM Status: UN K Source: [facility] TYPE CODE TESTS RESULT OUT OF RANGE REFERENCE UNITS LAB 9164871 MAGNESIUM (MG/DL) IN SER/PLAS 1.9 1.9-2.7 mg/dL Performed By: #### [id number] ## ## [facility] ([facility]) [place] [address] CBC WITH AUTO DIFFERENTIAL Collected: 08/23/2024 5:15 AM Status: UNK Source: [facility] TYPE CODE TESTS RESULT OUT OF RANGE REFERENCE UNITS LAB [id number] LEUKOCYTES(10*3/ UL) IN BLOOD BY AUTOMATED COUNT 5.11 4.00-10.60 10*3/uL LAB [id number] ERYTHROCYTES (10*6/UL) IN BLOOD BY AUTOMATED COUNT 3.79 Low 3.80-5.00 10*6/uL LAB [id number] HEMOGLOBIN (G/DL) IN BLOOD 12.2 12.0-15.0 g/dL LAB [id number] HEMATOCRIT (%) IN BLOOD BY AUTOMATED COUNT 35.1 Low 36.0-45.0 % LAB [id number] ERYTHROCYTE MEAN CORPUSCULAR VOLUME (FL) BY AUTOMATED COUNT 92.6 82.0-98.0 fL LAB [id number] ERYTHROCYTE MEAN CORPUSCULAR HEMOGLOBIN (PG) BY AUTOMATED COUNT 32.2 27.0-33.0 pg LAB 6811942 ERYTHROCYTE MEAN CORPUSCULAR HEMOGLOBIN CONCENTRATION (G/DL) BY AUTOMATED 34.8 32.0-35.0 g/dL LAB [id number] ERYTHROCYTE DISTRIBUTION WIDTH (RATIO) BY AUTOMATED COUNT 12.9 11.5-15.0 % LAB [id number] NEUTROPHILS/100 LEUKOCYTES IN BLOOD BY AUTOMATED COUNT 57.4 40.0-72.0 % LAB 7572531 LYMPHOCYTES/100 LEUKOCYTES IN BLOOD BY AUTOMATED COUNT 35.0 20.0-45.0 % LAB [id number] MONOCYTES/100 LEUKOCYTES IN BLOOD BY AUTOMATED COUNT 7.2 5.0-12.0 % LAB 7867512 EOSINOPHILS/100 LEUKOCYTES IN BLOOD BY AUTOMATED COUNT 0.2 0.0-6.0 % LAB [id number] BASOPHILS/100 LEUKOCYTES IN BLOOD BY AUTOMATED COUNT 0.0 0.0-1.0 % LAB [id number] NEUTROPHILS (10*3/UL) IN BLOOD BY AUTOMATED COUNT 2.93 1.60-7.60 10*3/uL LAB 2015877 LYMPHOCYTES (10*3/UL) IN BLOOD BY AUTOMATED COUNT 1.79 1.20-4.00 10*3/uL LAB [id number] MONOCYTES (10*3/UL) IN BLOOD BY AUTOMATED COUNT 0.37 0.10-1.00 10*3/uL LAB [id number] EOSINOPHILS (10*3/UL) IN BLOOD BY AUTOMATED COUNT 0.01 0.00-0.50 10*3/uL LAB [id number] BASOPHILS (10*3/UL) IN BLOOD BY AUTOMATED COUNT 0.00 0.00-0.20 10*3/uL LAB 8074924 PLATELETS (10*3/UL) IN BLOOD AUTOMATED COUNT 205 150-400 10*3/uL LAB 254 NRBC (PER 100 WBCS) BY AUTOMATED COUNT 0.0 0 % LAB 1767 IMMATURE GRANULOCYTES/100 LEUKOCYTES IN BLOOD BY AUTOMATED COUNT 0.2 0.0-1.0 % LAB 1768 IMMATURE GRANULOCYTES (10*3/UL) IN BLOOD BY AUTOMATED COUNT 0.01 0.00-0.20 10*3/uL Performed By: #### [id number] # ### [facility] ([facility]) [address] [place] [address] APTT Collected: 08/23/2024 5:15 AM Status: UN K Source: [facility] TYPE CODE TESTS RESULT OUT OF RANGE REFERENCE UNITS LAB [id number] ACTIVATED PARTIA L THROMBOPLASTIN TIME IN PPP BY COAGULATION ASSAY 29.9 25.0-35.0 Seconds Result Comment: Clinical sig nificance of the APTT is questionable in the presence of heparin. Performed By: #### [id number] ## ## [facility] ([facility]) [address] [place] [address] ANESTHESIA Observed: 08/23/2024 12:00 AM Status: COMPLETED Source: [facility] [id number] Kraig Cotto 05/1960 F Date Provider Department Center 08/23/2024 KATHYA LAKHANI [facility] Medical C No family history on file PROGRESS Observed: 08/22/2024 10:28 PM Status: COMPLETED Source: [facility] Gastroenterology consulted Normal saline at 50 mL/hour N.p.o. after midnight for possible procedure tomorrow by GI Pain control with morphine IV as needed HP Observed: 08/22/2024 10:21 PM Status: COMPLETED Source: [facility] Hospital Medicine History and Physical 08/22/2024 10:21 PM THE HOSPITALIST TEAM PREFERS TO USE [employer] FOR NON-URGENT COMMUNICATION 7AM-7PM. IF I DO NOT RESPOND WITHIN 20 MINUTES OR URGENT MATTERS, PLEASE CALL THROUGH THE INTERN BRAND. FROM 7PM-7AM, PLEASE PAGE [phone](COVR). Chief Complaint Chief Complaint Patient presents with Cholelithiasis History of Present Illness Kraig Cotto is an 64 y.o. female who came [...] abdomen and she had it done at [facility] on Friday. She was called later and was informed that she has stones in her bile duct and she needs to go come to [facility] for ERCP. Patient waited until tonight because she was thinking that there would not be anyone to help her over the weekend. She denies any symptoms. No nausea or vomiting. No abdominal pain. No fevers or chills. No chest pain or increased shortness of breath. She is in good health otherwise. Review of System and Physical Exam Temp: [36.8 ???C (98.3 ???F)] 36.8 ???C (98.3 ???F) Heart Rate: [75-87] 75 Resp: [10-18] 15 [...] use Plan: Patient will be admitted to [facility] telemetry bed. Protonix 40 mg IV daily [...] this hospital stay by a member of [facility] Medicine. Past Medical History Medical History[1] Past [...] Glucose, Urine Normal Bilirubin, Urine Negative Specific [place], Urine 1.004 (*) Ketones, Urine Negative Blood, [...] Procedure Abnormality Status --------- ------ CBC auto differential[[id number]] Abnormal Final result Please view results for [...] ECG No previous ECGs available Signed Kimberlyn Calderón MD [facility] Medicine 08/22/2024 10:21 PM [1] Past Medical History: Diagnosis Date Graves disease [2] Past Surgical History: Procedure Laterality Date EYE SURGERY [3] (Not in a hospital admission) URINALYSIS WITH REFLEX CULTURE Collected: 08/22/2024 7:51 PM Status: UNK Source: [facility] Order Comment: Microscopics not performed on urines with negative chemical reactions unless requested on original order. TYPE CODE TESTS RESULT OUT OF RANGE REFERENCE UNITS LAB [id number] COLOR OF URINE Light-Yellow Co lorless, Yellow, Light-Yellow LAB 0544066 CLARITY OF URINE Clear Clear LAB 0095107 PH OF URINE 6.5 5.0-8.0 pH LAB 9226666 LEUKOCYTE ESTERASE PRESENCE IN URINE BY TEST STRIP Negative Negative LAB 2944633 NITRITE PRESENCE IN URINE Negative Negative LAB 8236274 PROTEIN (MG/DL) IN URINE BY TEST STRIP Negative Negative mg/dL LAB 0229613 GLUCOSE (MG/DL) IN URINE Normal Normal mg/dL LAB 6610534 BILIRUBIN, TOTAL PRESENCE IN URINE Negative Negative LAB 9 SPECIFIC GRAVITY OF URINE 1.004 Low 1.010-1.030 NA LAB 548 KETONES (MG/DL) IN URINE Negative Negative mg/dL LAB 549 HEMOGLOBIN PRESENCE IN URINE Negative Negative LAB 6297449 UROBILINOGEN (MG/DL) IN URINE Normal Normal mg/dL Performed By: #### [id number] # ### [facility] ([facility]) [address] [place] [address] HIGH SENSITIVITY TROPONIN I Collected: 08/22/2024 7:35 PM Status: UNK Source: [facility] TYPE CODE TESTS RESULT OUT OF RANGE REFERENCE UNITS LAB 3630 HS TROPONIN I (NG/L) 3 <15 ng/L Performed By: #### [id number] # ### [facility] ([facility]) [address] [place] [address] HEPATIC FUNCTION PANEL Collected: 08/22/2024 6:26 PM Status: UNK Source: [facility] TYPE CODE TESTS RESULT OUT OF RANGE REFERENCE UNITS LAB 7601551 BILIRUBIN TOTAL (MG/DL) IN SER/PLAS 0.4 0.3-1.0 mg/dL LAB 9522666 BILIRUBIN DIRECT (MG/DL) IN SER/PLAS 0.1 0-0.2 mg/dL LAB 9527272 ALKALINE PHOSPHA TASE (U/L) IN SER/PLAS 67 34-104 U/L LAB 0739233 ASPARTATE AMINOTRANSFERASE (SGOT) (U/L) IN SER/PLAS 16 13-39 U/L LAB 9454275 ALANINE AMINOTRANSFERASE (SGPT) (U/L) IN SER/PLAS 9 7-52 U/L LAB 7237796 PROTEIN (G/DL) I N SER/PLAS 6.6 6.0-8.3 g/dL LAB 1253724 ALBUMIN (G/DL) I N SER/PLAS 4.1 3.5-5.7 g/dL Performed By: #### [id number] ### # [facility] ([facility]) [address] [place] [address] ETHANOL Collected: 08/22/2024 6:26 PM Status: UN K Source: [facility] TYPE CODE TESTS RESULT OUT OF RANGE REFERENCE UNITS LAB 1599 ETHANOL CALCULATED (%) <0.01 % LAB 2831 ETHANOL (MG/DL) IN SER/PLAS <10 <10 mg/dL Performed By: #### [id number] ### # [facility] ([facility]) [address] [place] [address] LACTIC ACID WITH 4 HOUR REFLEX Collecte d: 08/22/2024 6:26 PM Status: UNK Source: [facility] TYPE CODE TESTS RESULT OUT OF RANGE REFERENCE UNITS LAB 9032373 LACTATE (MMOL/L) IN SER/PLAS 0.9 0.5-2.2 mmol/L Performed By: #### [id number] #### [facility] ([facility]) [address] [place] [address] CBC WITH AUTO DIFFERENTIAL Collected: 08/22/2024 6:26 PM Status: UNK Source: [facility] TYPE CODE TESTS RESULT OUT OF RANGE REFERENCE UNITS LAB 1044329 LEUKOCYTES(10*3/ UL) IN BLOOD BY AUTOMATED COUNT 5.63 4.00-10.60 10*3/uL LAB 0825154 ERYTHROCYTES (10*6/UL) IN BLOOD BY AUTOMATED COUNT 4.01 3.80-5.00 10*6/uL LAB 4944978 HEMOGLOBIN (G/DL) IN BLOOD 12.8 12.0-15.0 g/dL LAB 3082457 HEMATOCRIT (%) IN BLOOD BY AUTOMATED COUNT 36.9 36.0-45.0 % LAB 9431965 ERYTHROCYTE MEAN CORPUSCULAR VOLUME (FL) BY AUTOMATED COUNT 92.0 82.0-98.0 fL LAB 7062779 ERYTHROCYTE MEAN CORPUSCULAR HEMOGLOBIN (PG) BY AUTOMATED COUNT 31.9 27.0-33.0 pg LAB 6150167 ERYTHROCYTE MEAN CORPUSCULAR HEMOGLOBIN CONCENTRATION (G/DL) BY AUTOMATED 34.7 32.0-35.0 g/dL LAB 4483235 ERYTHROCYTE DISTRIBUTION WIDTH (RATIO) BY AUTOMATED COUNT 12.6 11.5-15.0 % LAB 7668718 NEUTROPHILS/100 LEUKOCYTES IN BLOOD BY AUTOMATED COUNT 66.6 40.0-72.0 % LAB 5665658 LYMPHOCYTES/100 LEUKOCYTES IN BLOOD BY AUTOMATED COUNT 28.2 20.0-45.0 % LAB 1975778 MONOCYTES/100 LEUKOCYTES IN BLOOD BY AUTOMATED COUNT 4.8 Low 5.0-12.0 % LAB 4997351 EOSINOPHILS/100 LEUKOCYTES IN BLOOD BY AUTOMATED COUNT 0.2 0.0-6.0 % LAB 2325639 BASOPHILS/100 LEUKOCYTES IN BLOOD BY AUTOMATED COUNT 0.0 0.0-1.0 % LAB 4441675 NEUTROPHILS (10*3/UL) IN BLOOD BY AUTOMATED COUNT 3.75 1.60-7.60 10*3/uL LAB 2126547 LYMPHOCYTES (10*3/UL) IN BLOOD BY AUTOMATED COUNT 1.59 1.20-4.00 10*3/uL LAB 7034469 MONOCYTES (10*3/UL) IN BLOOD BY AUTOMATED COUNT 0.27 0.10-1.00 10*3/uL LAB 0609307 EOSINOPHILS (10*3/UL) IN BLOOD BY AUTOMATED COUNT 0.01 0.00-0.50 10*3/uL LAB 8236496 BASOPHILS (10*3/UL) IN BLOOD BY AUTOMATED COUNT 0.00 0.00-0.20 10*3/uL LAB 5468883 PLATELETS (10*3/UL) IN BLOOD AUTOMATED COUNT 213 150-400 10*3/uL LAB 254 NRBC (PER 100 WBCS) BY AUTOMATED COUNT 0.0 0 % LAB 1767 IMMATURE GRANULOCYTES/100 LEUKOCYTES IN BLOOD BY AUTOMATED COUNT 0.2 0.0-1.0 % LAB 1768 IMMATURE GRANULOCYTES (10*3/UL) IN BLOOD BY AUTOMATED COUNT 0.01 0.00-0.20 10*3/uL Performed By: #### [id number] # ### [facility] ([facility]) [address] [place] [address] HIGH SENSITIVITY TROPONIN I Collected: 08/22/2024 6:26 PM Status: UNK Source: [facility] TYPE CODE TESTS RESULT OUT OF RANGE REFERENCE UNITS LAB 3630 HS TROPONIN I (NG/L) 2 <15 ng/L Performed By: #### [id number] # ### [facility] ([facility]) [address] [place] [address] LIPASE Collected: 08/22/2024 6:26 PM Status: UN K Source: [facility] TYPE CODE TESTS RESULT OUT OF RANGE REFERENCE UNITS LAB 4115937 LIPASE (U/L) IN SER/PLAS 23 11-82 U/L Performed By: #### [id number] ### # [facility] ([facility]) [address] [place] [address] BASIC METABOLIC PANEL Collected: 2024 6:26 PM Status: UNK Source: [facility] TYPE CODE TESTS RESULT OUT OF RANGE REFERENCE UNITS LAB 9732563 SODIUM (MMOL/L) IN SER/PLAS 139 136-145 mmol/L LAB 1115880 POTASSIUM (MMOL/L) IN SER/PLAS 3.6 3.5-5.1 mmol/L LAB 6979044 CHLORIDE (MMOL/L) IN SER/PLAS 106 98-107 mmol/L LAB 8903103 CARBON DIOXIDE, TOTAL (MMOL/L) IN SER/PLAS 25 21-31 mmol/L LAB 9542182 UREA NITROGEN (MG/DL) IN SER/PLAS 8 7-25 mg/dL LAB 2878570 CREATININE (MG/DL) IN SER/PLAS 0.72 0.60-1.20 mg/dL LAB 2362856 GLUCOSE (MG/DL) IN SER/PLAS 82 70-100 mg/dL LAB 8804444 CALCIUM (MG/DL) IN SER/PLAS 9.2 8.6-10.3 mg/dL LAB [id number] ANION GAP IN SER/PLAS 12 7-20 mmol/L LAB [id number] GLOMERULAR FILTRATION RATE ML/MIN/1.73 SQ M.PREDICTED 92.2 >60.0 mL/min/ 1.73m*2 Result Comment: The [facility]???s estimated glomerular filtration rate (eGFR) will no longer include consideration of race in its calculation. The [employer]???s eGFR Task Force developed new recommendations for [...] disproportionately affect any one group of individuals. LAB [id number] UREA NITROGEN/CREA TININE (MASS RATIO) IN SER/PLAS 11.1 NA Performed By: #### [id number] ### # [facility] ([facility]) [address] [place] [address] EDPROV Observed: 08/22/2024 6:08 PM Status: COMPLETED Source: [facility] [address] [facility] [id number] EMERGENCY DEPARTMENT ENCOUNTER 08/22/2024 CHIEF COMPLAINT Chief Complaint Patient presents with Cholelithiasis HISTORY OF PRESENT ILLNESS 64-year-old female with a history of GERD presents to the emergency department at the recommendation of her publicist for choledocholithiasis. Patient reports she has been having indigestion and heartburn for several months. Patient reports she had an outpt CT scan of the abdomen completed 2 days ago and reports her publicist called her to inform her that they [...] kg (140 lb). Her temperature is 36.8 ???C (98.3 ???F). Her blood pressure is 124/88 and her [...] Department Physician in the absence of a flake cutter operator. EKG was reviewed by ED attending and financial underwriter. EKG interpretation for this visit is documented below. ECG 12 lead Performed by: Michelle Thayer PA-C Authorized by: Michelle Thayer PA-C ECG interpreted by ED Physician in the absence of a flake cutter operator: yes (EKG reviewed by ED attending (Dr Evans) at 1835) Rate: ECG rate: 73 [...] Glucose, Urine Normal Bilirubin, Urine Negative Specific [place], Urine 1.004 (*) Ketones, Urine Negative Blood, [...] Procedure Abnormality Status --------- ------ CBC auto differential[[id number]] Abnormal Final result Please view results for these tests on the individual orders. BASIC METABOLIC PANEL Sodium 139 Potassium 3.6 Chloride 106 CO2 25 BUN 8 Creatinine 0.72 Glucose 82 Calcium 9.2 Anion Gap 12 eGFR 92.2 BUN/Creatinine Ratio 11.1 ETHANOL Ethanol Calculated % <0.01 Ethanol Lvl <10 EMERGENCY DEPARMENT COURSE Vitals: Vitals: 08/22/24 1812 08/22/24 1819 08/22/24 1933 08/22/242032 BP: (!) 123/95 124/78 139/80 124/88 Pulse: 87 86 80 79 Resp: 14 15 10 18 Temp: 36.8 ???C (98.3 ???F) SpO2: 95% 96% 96% 97% Weight: 63.5 kg (140 lb) Height: 1.676 m (5' 6 ) BP: 124/88, Temp: 36.8 ???C (98.3 ???F), , Heart Rate: 79, Resp: 18 ED Course as of 08/22/242120 [place] Aug 22, 20241810 Patient does not have access to the formal CT result that she reports was completed 2d ago and result is not available in [facility] to review. Pt informed will need to repeat imaging and labs, pt agreeable [JS] 1844 Auto WBC: 5.63 [JS] 184 Neutrophils %: 66.6 [JS] 191 High Sensitivity Troponin I: 2 [JS] 1943 timber management technician reports they were able to push pts CTAP from [facility] thru to [facility] and reports the report for such is being faxed here [JS] [...] pts admitted for possible MRCP tomorrow. NPO after midnight. Hold AC [JS] 2106 hospitalist informed of [...] interpretation with external provider(s): Consultation with GI and hospitalist Risk Decision regarding hospitalization. FINAL IMPRESSION 1. [...] occasionally words are mis-transcribed.) LOC Blackmon PA-C 08/22/24 2325 EDNURS Observed: 08/22/2024 6:06 PM Status: COMPLETED Source: [facility] Mode of arrival: private aut o Chief complaint(s): gall stones Arrival Note: Pt was seen at [facility] on Friday and they obtained an CT and told pt she has a stone blocking the bile duct. Pt has no pain at this time but thought we would not have anyone here to help her until tomorrow so she waited until now to come. Pertinent PMH: Treatment(s) prior to arrival: CT ABDOMEN W/O CONTRAST Observed: 2024 10:35 AM Status: F Source: [facility] Exam Date/Time: 08/20/2024 10:44 EDT Reason for Exam: R10.13;Pain Report IMPRESSION: COMMON DUCT DILATATION AND CHOLEDOCHOLITHIASIS WITH 1.4 X 1.3 CM CALCULUS WITHIN INTRAPANCREATIC COMMON DUCT. CHOLELITHIASIS. ABOVE FINDINGS WERE DISCUSSED VIA TELEPHONE WITH DR.TALAL MCCORD, 1430 HOURS, FRIDAY, AUGUST 20, 2024. CT OF THE ABDOMEN WITHOUT INTRAVENOUS CONTRAST MEDIUM. HISTORY: PAIN, R10.13. 4 MONTH HISTORY OF INTERMITTENT ESOPHAGEAL REFLUX. TECHNICAL FACTORS: CT imaging of the abdomen were obtained and formatted as 5 mm contiguous axial images from the domes of the diaphragm to the pelvic brim. Sagittal and coronal reconstructions were also obtained. Comparison: None Findings: Lower chest: Liver: Normal in size, shape, and attenuation. Bile Ducts: Common duct measures 2.3 cm at level portal vein and right hepatic artery and remains dilated to the to level of caudal intrapancreatic portion, where 1.4 x 1.3 x 1.5 cm calculus is identified (series 2, image 30, series 3, image 33). Gallbladder: Calculus in gallbladder. Gallbladder distended. No wall thickening or pericholecystic fluid. Pancreas: Normal without masses, cysts, ductal dilatation or calcification. Spleen: Normal in size without masses or calcifications. No splenules. Kidneys: Normal in size. No hydronephrosis, masses, or stones. Exophytic 5.5 cm cortical cyst lower pole left kidney. Adrenals: Normal. Report Small bowel: Normal in caliber. Appendix: Not visualized. Colon: Normal in caliber. Peritoneum: No ascites, free air, or fluid collections. Vessels: Aorta normal in caliber. Lymph nodes: Retroperitoneal: No enlarged retroperitoneal lymph nodes. Mesenteric: No enlarged mesenteric lymph nodes. Pelvic: No enlarged pelvic lymph nodes. Ureters: Normal in course and caliber. No calcifications. Abdominal Wall: No hernia identified. No diastasis of rectus musculature. No edema or masses. Bones: No bone lesions. No degenerative changes. No post operative changes. All CT scans at this facility use dose modulation, iterative reconstruction, and/or weight based dosing when appropriate to reduce radiation dose to as low as reasonably achievable. Technical Comments: GFR (mL/min/1/73m2) na Contrast: None Rectal Contrast Given? No Oral contrast amount in ml's: 900.00 Ordering Provider: Laura Mccord FINAL REPORT Dictated: 08/20/2024 2:35 pm Roderick Garcia MD Signed (Electronic Signature): 08/20/2024 2:35 pm Signed by: Roderick Garcia MD Transcribed by: ABIDA Technologist: BABS REMINDERS Observed: 08/05/2024 1:15 PM Status: C Source: [facility] Reminders From: Alexus Hoffman To: Marisa Loja Michelle L; Sent: 08/05/2024 13:15:36 EDT Show up: 10/05/2024 13:14:00 EDT Subject: BARRETO Reminder Due Date/Time: 10/05/2024 13:14:00 EDT Reminder/Recall CALL TO SCHEDULE EGD/BARRETO WITH DR MCCORD. Attempted to contact patient regarding scheduling. LMOVM PATIENT JUST HAD HER GALLBLADDER REMOVED. WILL CALL BACK IF SHE NEEDS TO. GASTROENTEROLOGY OFFICE/CLIN IC NOTE Observed: 08/05/2024 12:08 PM Status: F Source: [facility] Gastroenterology Office/Clin ic Note Chief Complaint Eliecerr ref for GERD and epigastric pain HPI Staff New patient is a(n) 64 year old female who was referred by Tobias for epigastric pain and chronic GERD. Epigastric burning pain for several months. Feels like a torch inside of her. No dietary triggers noted. Has even happened with water. does complain of bloating. Alleviated by lying in position on her left side. No associated n/v. Regular BM's. Frequent belching with occasional feeling of needing to vomit. Current smoker but trying to decrease amount used. Does not eat late at night. No hx of abdominal surgeries. No acid or burning taste in throat. Symptoms do not disturb sleep. Previously prescribed Nexium but stopped d/t no improvement of symptoms. Currently prescribed Pantoprazole 40mg daily. Effective? has helped a little bit. Any blood thinners? no Any GLP-1 agonists? no Laboratory Results CBC CMP Basophil Absolute: 0 E9/L (09/20/23) A/G Ratio: 1.3 (09/20/23) Basophil Auto: 0.1 % (09/20/23) AGAP: 10 mEq/L (09/20/23) Eos Absolute: 0 E9/L (09/20/23) Albumin Lvl: 3.9 gm/dL (09/20/23) Eos Auto: 0.1 % (09/20/23) Alk Phos: 67 Int._Unit/L (09/20/23) Hct: 38.7 % (09/20/23) ALT: 8 Int._Unit/L (09/20/23) HGB: 13.7 gm/dL (09/20/23) AST: 16 Int._Unit/L (09/20/23) Lymph Absolute: 1.2 E9/L (09/20/23) Bili Total: 0.5 mg/dL (09/20/23) Lymph Auto: 26.4 % (09/20/23) BUN: 6 mg/dL (09/20/23) MCH: 33.5 pg (09/20/23) BUN/Creat Ratio: 9 Low (09/20/23) MCHC: 35.5 gm/dL (09/20/23) Calcium Lvl: 9.1 mg/dL (09/20/23) MCV: 94.5 fL (09/20/23) Chloride: 106 mmol/L (09/20/23) Alpine Absolute: 0.2 E9/L (09/20/23) CO2: 29 mmol/L (09/20/23) Alpine Auto: 5 % (09/20/23) Creatinine: 0.7 mg/dL (09/20/23) MPV: 7.7 fL (09/20/23) Globulin: 2.9 gm/dL (09/20/23) Neutro Absolute: 3 E9/L (09/20/23) Glucose Lvl: 92 mg/dL (09/20/23) Neutro Auto: 68.4 % (09/20/23) Potassium Lvl: 4.4 mmol/L (09/20/23) Platelet: 232 E9/L (09/20/23) Sodium Lvl: 141 mmol/L (09/20/23) RBC: 4.1 E12/L Low (09/20/23) Total Protein: 6.8 gm/dL (09/20/23) RDW: 13 % (09/20/23) WBC: 4.4 E9/L (09/20/23) Hepatitis C Quantitation 09/20/23: not detected History of Present Illness Reviewed HPI collected by staff Review of Systems PHQ Score Initial Depression Screen Score: 0 SCORE All systems reviewed, negative; Except for above Physical Exam Vitals & Measurements HR: 87(Peripheral) RR: 14 BP: 126/78 HT: 167 cm HT: 66 in WT: 143.3 lb WT: 65 kg BMI: 23.31 No acute distress Procedure Colonoscopy 11/05/19 w/Dr. Cornell: Impression: Small nonbleeding internal hemorrhoids, otherwise normal colonoscopy. Recommendations: Repeat colonoscopy:: In 10 years. EGD 05/24/20 w/Dr. Cornell: Impression and Plan 1. Irregular Z-line, multiple biopsies obtained 2. 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 HYPERPLASTIC ANTRAL MUCOSA WITH MILD CHRONIC INFLAMMATION IN LAMINA PROPRIA. ??? NO INTESTINAL METAPLASIA IDENTIFIED. ??? NO H. PYLORI MICROORGANISMS IDENTIFIED IMMUNOSTAIN. B: GASTRIC BODY, BIOPSY: ??? GASTRIC BODY MUCOSA WITHMILD CHRONIC GASTRITIS AND FOVEOLAR HYPERPLASIA. ??? NO INTESTINAL METAPLASIA IDENTIFIED. C: IRREGULAR Z LINE, BIOPSY: ??? SQUAMOUS COLUMNAR CELL MUCOSAL JUNCTION WITH MODERATE INFLAMMATION AND REGENERATIVE HYPERPLASTIC CHANGES. ??? NO DEFINITIVE INTESTINAL METAPLASIA IDENTIFIED. Note: Esophageal squamous mucosa contains rare intraepithelial eosinophils. No fungal microorganisms are identified with GMS stain. Alcian blue stain reviewed, consistent with rendered diagnosis. Assessment/Plan 1. Epigastric pain (R10.13: Epigastric pain) Epigastric burning pain for several months. Feels like a torch inside of her. No dietary triggers noted. Has even happened with water. does complain of bloating. Alleviated by lying in position on her left side. Lasts 5-30 minutes Takes Tums and pantoprazole for relief EGD 05/2020: Multiple gastric erosions with speckles of old blood. Bx negative for IM and H Pylori - Switch pantoprazole to omeprazole, take twice daily - Add Gaviscon prn - Continue Tums prn - Bentyl and FDGard prescribed - Schedule EGD with Barreto to evaluate. Discussed risks such as bleeding, injury and perforation as well as benefits. Patient agreeable. Off Omeprazole for 1 week. - Schedule CT abdomen/pelvis to evaluate - Consider Amitriptyline if no improvement - Consider esophageal manometry if no improvement 2. Gastroesophageal reflux disease (K21.9: Gastro-esophageal reflux disease without esophagitis) I, Kristen Marks, personally scribed for Laura Mccord on 08/05/2024 13:02:34. . Follow-up No qualifying data available Problem List/Past Medical History Ongoing Body mass index 20-24 - normal Cigarette smoker Epigastric pain Gastroesophageal reflux disease History of gastritis Thyrotoxicosis Historical No qualifying data Procedure/Surgical History EGD (esophagogastroduodenoscopy) gastric outlet reduction (05/24/2020), Colonoscopy (11/05/2019). Medications Bentyl 10 mg Cap, 10 mg= 1 cap(s), Oral, QID, PRN, 3 refills Ivizia ophthalmic solution, 1 drop(s), Eye-Both, QID metoprolol 25 mg ER Tab, Oral, Daily Multivitamin, Therapeutic w/ Minerals, 1 tab(s), Oral, Daily omeprazole 40 mg Cap-DR, 40 mg= 1 cap(s), Oral, BIDAC, 3 refills Pantoprazole [address] Tab Tapazole 5 mg Tab, Oral, q8hr Allergies cefuroxime (Hives) Social History Alcohol Never., 07/16/2024 Substance Abuse Never., 07/16/2024 Tobacco 5-9 cigarettes (between 1/4 to 1/2 pack)/day in last 30 days Tobacco Use:., 08/05/2024 5-9 cigarettes (between 1/4 to 1/2 pack)/day in last 30 days Tobacco Use:., 07/16/2024 Family History Heart disease: Mother. Result Comment: Electronical ly Signed By: Kristen Marks MA\.br\Date and Time Signed: 08/05/24 13:08 EDT\.br\Electronically Co-Signed By: Laura Mccord MD\.br\Date and Time Co-Signed: 08/05/24 17:11 EDT AMBULATORY VISIT SUMMARY Observed: 08/05 12:08 PM Status: F Source: [facility] Ambulatory Visit Summary KRAIG COTTO :1960 Visit Date:08/05/2024 Ambulatory Visit Instructions Your Diagnosis Epigastric pain Gastroesophageal reflux disease Your Care Team Attending Physician - Laura Mccord MD Primary Care Physician - Valerie MATOS CNP This Is Your Medications List dicyclomine (Bentyl 10 mg Cap) omeprazole (omeprazole 40 mg Cap-DR) Contact prescribing physician if questions or concerns methimazole (Tapazole 5 mg Tab) metoprolol (metoprolol 25 mg ER Tab) multivitamin with minerals (Multivitamin, Therapeutic w/ Minerals) ocular lubricant (Ivizia ophthalmic solution) pantoprazole (Pantoprazole [address] Tab) Procedures Performed EGD (esophagogastroduodenoscopy) gastric outlet reduction (05/24/2020), Colonoscopy (11/05/2019). Discharge Vitals Heart Rate (Peripheral) 87 Respiratory Rate 14 Blood Pressure 126/78 Height 167 cm Height 66 in Weight 65 kg Weight 143.3 lb BMI 23.31 What to do next You Need to Complete the Following CT Abdomen w/o Contrast, 08/05/24, Routine, Order for future visit, Transport Mode: Ambulatory, Reason: Pain, No, No, Epigastric pain Gastroesophageal reflux disease, pp_set_radiology_subspecialty, Not Required, Alanis - Benito Medications What How Much When Instructions New dicyclomine (Bentyl 10 mg Cap) 1 Capsules By Mouth 4 times a day as needed for pai4 Duration: 14 Days Refills: [address] [id number] New omeprazole (omeprazole 40 mg Cap-DR) 1 Capsules By Mouth Twice a day (before meals) Refills: [address] [id number] Unchanged methimazole (Tapazole 5 mg Tab) By Mouth Every 8 hours Contact prescribing physician if questions or concerns Unchanged metoprolol (metoprolol 25 mg ER Tab) By Mouth Every day Contact prescribing physician if questions or concerns Unchanged multivitamin with minerals (Multivitamin, Therapeutic w/ Minerals) 1 Tablets By Mouth Every day Contact prescribing physician if questions or concerns Unchanged ocular lubricant (Ivizia ophthalmic solution) 1 Drops Both eyes 4 times a day Contact prescribing physician if questions or concerns Unchanged pantoprazole (Pantoprazole [address] Tab) 30 EA, 0 Refill(s), TAKE 1 TABLET (40 MG) BY MOUTH IN THE MORNING. TAKE BEFORE MEALS. DO NOT CRUSH, CHEW, OR SPLIT. Contact prescribing physician if questions or concerns Pharmacy Information [facility][id number]: [address], [place] [id number] [phone] Allergies cefuroxime (Hives) Problems Ongoing - Any problem that you are currently receiving treatment for. Body mass index 20-24 - normal Cigarette smoker Epigastric pain Gastroesophageal reflux disease History of gastritis Thyrotoxicosis Patient Survey You may receive a survey via text or e-mail asking about your office visit. Please share your experience with us by completing your survey. We appreciate your feedback and thank you for choosing us for your care. Patient Portal You may access all of your results and other medical record information on our secure patient portal. If you are not signed up for this yet, please contact Yebol at [phone] to get signed up today. Language Information Language assistance services are available as needed. ALLERGIES DATE TYPE / CODE NAME / CODE REACTION SEVERITY SOURCE 08/22/2024 DRUG INGREDI/[id number] 03(SNOMED CT) CEFUROXIME Unknown [facility] /[id number](SN OMED CT) cefuroxime [id number] [facility] /[id number](SN OMED CT) No Known Allergies [facility] ENCOUNTERS ADMIT/DISCHARGE ACCOUNT NUMBER ADMITTING ENCOUNTER CLASS LOCATION SOURCE 10/25/2024/10/26/19 [id number] Ambulatory Building:[facility] 09/28/2024/09/29/19 [id number] Ambulatory GS [place]: [place] : CD:[id number] [facility] 09/27/2024/09/28/19 [id number] Ambulatory Building:[facility] 09/27/2024/09/28/19 [id number] KATHYA DUMONT Ambulatory Building:[facility] 09/15/2024/09/16/19 [id number] Segun Del Castillo Ambulatory FTMCBuildin g:ASRoom: OJ96Ttx: 01 [facility] 09/13/2024 [id number] Emergency FTMCBuildin g:EDRoom: ED-09Bed: CD:[id number] [facility] 09/13/2024/09/14/19 [id number] Emergency FTMCBuildin g:EDRoom: ED-09Bed: CD:[id number] [facility] 09/03/2024/09/04/19 [id number] Ambulatory GS [place] ding:GS [place] : CD:[id number] [facility] 08/26/2024 [id number] Ambulatory GS [place]: [place] [facility] 08/23/2024 [id number] Inpatient Encounter Building:[facility] 08/23/2024 [id number] Inpatient Encounter Building:[facility] 08/23/2024 [id number] [facility] 08/23/2024 [id number] Inpatient Encounter Buildin [id number] [facility] 08/22/2024 [id number] Emergency Buildin [id number] [facility] 08/22/2024 [id number] Emergency Building:HR T [facility] 08/22/2024/08/25/19 [id number] HERACLIO HURTADO Inpatient Encounter BuildinC DRoom: [id number]: 4183-01 [facility] 08/20/2024/08/21/19 [id number] Laura Mccord [place] Ambulatory FTMCBuildin g:FT CT [facility] 08/05/2024/08/06/19 [id number] Ambulatory Alanis-Titu s DHBuilding: Alanis-Titu s DHRoom: CD:[id number] [facility] 07/09/2024/07/10/19 [id number] Ambulatory Building:NO MS SWS [facility] 07/08/2024 [id number] Ambulatory Alanis-Titu s DHBuilding: Alanis-Titu s DH [facility] 06/29/2024/06/30/19 [id number] Ambulatory Building:NO MS SH ENDO [facility] 06/17/2024/06/18/19 25 [id number] Ambulatory Building:NO MS NE FM [facility] 12/30/2023/12/30/19 24 [id number] Ambulatory Building:NO MS SH ENDO [facility] EPIC PAYERS ENCOUNTER GUARANTOR PAYER SUBSCRIBER SOURCE 10/25/2024 KRAIG OLEARY: [id number] [place] [address]Lhv: () () Primary Insurance:MEDICA REPolicy Number: [id number] tive Date:2023-08-11 luis miguel Name:Medicare KRAIG OLEARY: [id number] [place] [address] [facility] 09/28/2024 KRAIG OLEARY: [place] [address] STTel: ~~(41 (HP) Primary Insurance:MEDICA REPolicy Number: [id number] tive Date:2024-09-13 [id number] [place] [id number]: KRAIG HYATT [facility] 09/27/2024 Primary Insurance:MEDICA REPolicy Number: [id number] tive Date:2024-08-10 luis miguel Name:Medicare KRAIG COTTODOB: [id number] [address] 09/27/2024 Primary Insurance:MEDICA REPolicy Number: [id number] tive Date:2024-08-10 luis miguel Name:Medicare KRAIG COTTODOB: [id number] [place] [address] 09/15/2024 KRAIG COTTODOB: [place] [address] STTel: ~~(41 (HP) Primary Insurance:MEDICA REPolicy Number: [id number] tive Date:2024-09-03 [id number] [place] [address] [id number]: KRAIG HYATT [facility] 09/13/2024 KRAIG COTTODOB: [place] [address] STTel: ~~(41 (HP) Primary Insurance:MEDICA REPolicy Number: [id number] tive Date:2024-09-13 [id number] [place] [address] [id number]: KRAIG HYATT [facility] 09/13/2024 KRAIG RANDHAWAOLEDOB: [address] [address] STTel: ~~(41 (HP) Primary Insurance:MEDICA REPolicy Number: [id number] tive Date:2024-09-13 [address] [address], [place] [address]YH: KRAIG HYATT [facility] 09/03/2024 KRAIG QUICKB: [place] [address] STTel: ~~(41 HP) Primary Insurance:MEDICA REPolicy Number: [id number] tive Date:2024-08-06[address] [address], [place] [address]LL: KRAIG HYATT [facility] 08/23/2024 Primary Insurance:MEDICA REPolicy Number: [id number] tive Date:2024-08-10 luis miguel Name:Medicare KRAIG COTTODOB: [id number] [place] [address] 08/23/2024 Primary Insurance:MEDICA REPolicy Number: [id number] tive Date:2024-08-10 luis miguel Name:Medicare KRAIG COTTODOB: [id number] [place] [address] 08/23/2024 Primary Insurance:MEDICA REPolicy Number: [id number] tive Date:2024-08-10 luis miguel Name:Medicare KRAIG COTTODOB: [id number] [place] [address] 08/23/2024 Primary Insurance:MEDICA REPolicy Number: [id number] tive Date:2024-08-10 luis miguel Name:Medicare KRAIG COTTODOB: [id number] [place] [address] 08/22/2024 Primary Insurance:MEDICA REPolicy Number: [id number] tive Date:2024-08-10 luis miguel Name:Medicare KRAIG NATOLEDOB: [id number] [place] [address] [facility] 08/22/2024 Primary Insurance:MEDICA REPolicy Number: [id number] tive Date:2024-08-10 luis miguel Name:Medicare KRAIG QUICKB: [id number] [place] [address] [facility] 08/22/2024 Primary Insurance:MEDICA REPolicy Number: [id number] tive Date:2024-08-10 luis miguel Name:Medicare KRAIG COTTODOB: [id number] [place] [address] [facility] 08/20/2024 [facility]IG [facility]ICKB[facility] (HP) Primary Insurance:MEDICA REPolicy Number: [id number] tive Date:2024-08-06 [id number] [place] [address] [id number]: [facility] KRAIG [facility]ODOB: [facility] ~~(41 (HP) Primary Insurance:MEDICA REPolicy Number: [id number] tive Date:2023-09-20 [id number] [place] [address] [id number]: [facility] 07/09/2024 KRAIG COTTODOB: [place] [address]Ylq: (HP) (WP) Primary Insurance:MEDICA REPolicy Number: [id number] tive Date:2023-08-11 luis miguel Name:Medicare KRAIG COTTODOB: [id number] [place] [address] [facility] 07/08/2024 KRAIG QUICKB: [facility] ([facility] Primary Insurance:MEDICA REPolicy Number: [id number] tive Date:2023-09-20 Lizbeth COLLADO [address], [place] [address]ZQ: KRAIG HYATT [facility] 06/29/2024 KRAIG COTTODOB: [place] [id number]: (HP) (WP) Primary Insurance:MEDICA REPolicy Number: [id number] tive Date:2023-08-11 luis miguel Name:Medicare KRAIG COTTODOB: [id number] [place] [id number] [facility] 06/17/2024 KRAIG COTTODOB: [address]Tel: (HP) (WP) Primary Insurance:MEDICA REPolicy Number: [id number] tive Date:2023-08-11 luis miguel Name:Medicare KRAIG COTTODOB: [id number] [place] [id number] [facility] 12/30/2023 KRAIG COTTODOB: [place] [id number]: (HP) (WP) Primary Insurance:MEDICA REPolicy Number: [id number] tive Date:2023-08-11 luis miguel Name:Medicare KRAIG COTTODOB: [id number] [place] [id number] [facility] EPIC
[2024-11-06 09:52] LABS: Alanine Aminotransferase 16 U/L (14-59); Albumin Globulin Ratio 1.0; Albumin Level 3.4 g/dL (3.4-5.0); Alkaline Phosphatase 82 U/L (46-116); Anion Gap 9.6; Aspartate Amino Transferase 12 U/L (15-37); Blood Urea Nitrogen 8.0 mg/dL (7.0-18.0); Calcium 8.5 mg/dL (8.5-10.1); Carbon Dioxide 28.4 mmol/L (21.0-32.0); Chloride 106 mmol/L (98-107); Cholesterol 210 mg/dL (<=200); Estimated GFR (African America >60 (>=60 mL/min/1.73m^2); Estimated GFR (Non-African Ame >60 (>=60 mL/min/1.73m^2); Globulin 3.5 g/dL; Glucose 97 mg/dL (74-106); HDL Cholesterol 63 mg/dL (40-60); Potassium 4.0 mmol/L (3.5-5.1); Sodium 140 mmol/L (136-145); Total Protein 6.9 g/dL (6.4-8.2); Triglycerides 87 mg/dL (<=150); VLDL CHOLESTEROL 17.4 mg/dL
== END 2024-11-06 09:08 | disposition home or self-care (01) ==
PROVIDERS: PCP Nurse Practitioner Family; Visit Provider Nurse Practitioner Family
DX: Z00.00 Encounter for general adult medical examination without abnormal findings (principal); E05.00 Thyrotoxicosis with diffuse goiter without thyrotoxic crisis or storm; R00.2 Palpitations; Z13.220 Encounter for screening for lipoid disorders; Z13.6 Encounter for screening for cardiovascular disorders
CPT/HCPCS: 36415; 80053; 80061

== ENCOUNTER 2024-12-24 07:50 | Outpatient (OUT) | payer MEDICARE, SELFPAY ==
--- OUTSIDE RECORDS SUMMARY | 2024-12-24 07:55 | XMS_ITS | Clinical Summary ---
Author Organization [facility] Address [address] [place] [id number] Care Team Providers Care City Editor Name Role Phone Unavailable Primary Care Provider Unavailabl e Social History Tobacco UseTypesPacks/DayYears UsedDateSmoking Tobacco: Never AssessedArea Deprivation IndexAnswerDate RecordedNational Score (1-100), lower number is lower tkan836608/28/2023State Score (1-10), lower number is lower hooy38108/28/2023 Data from: https://www.neighborhoodatlas.medicine.[facility].edu/. Last address used for [address] [facility]4CommentsUnknownSex and Gender InformationValueDate RecordedSex Assigned at BirthNot on fileLegal SexFemale 12/01/2015 3:25 PM EDTGender IdentityNot on fileSexual OrientationNot on file Plan of Treatment Health MaintenanceDue DateLast DoneCommentsAnxiety Wyoetxosr66/04/1977Depression Gnfouttmm10/04/1977Hepatitis C Gskfkiqaa63/04/1977Mammogram Kbmpbzlpu42/04/1999 CT Lxobpwtemcoa83/04/2004Cologuard (FIT-DNA)06/14/20033323Wotauqfnqvb14/04/2004 Colorectal Cancer Dpxvjslke57/04/2004Diabetes Hmidtfutz42/04/2004Fecal Occult Blood06/14/2003Lipid Tudcozwnt95/04/6639Uimkajugaqtqq12/04/2004Bone Density Gfqcqoyvp06/04/2024dvance Directive Rpcnxbyela99/01/2025ovid-19 Vaccine ( season)/, 08/20/2021, 11/11/2020, Additional history existsInfluenza Vaccine (#1)510/03/2020, 12/28/2019DTaP,Tdap,Td Vaccine (2 - Tdap)neumococcal Vaccine: 50+Cebonvelq28/08/2024RSV FmkkodoSyjztgbgh84/08/2024Shingrix CczdzakHrcknpwox55/15/2024, 02/07/2023 Insurance
--- OUTSIDE RECORDS SUMMARY | 2024-12-24 07:55 | XMS_ITS | Clinical Summary ---
Author Organization [facility] Address [address] [place] [address] Care Team Providers Care Staff Assistant Name Role Phone Taya Oh MD Primary Care Provider [phone] Allergies Active AllergyReactionsCriticalityNoted QyvbIpqjmvihHnbngdpvnyBgjsb87/17/2022 Medications MedicationSigDispense QuantityRefillsLast FilledStart DateEnd DateStatus Multiple Vitamin (multivitamin) tablet Take 1 tablet by mouth DailyActive methIMAzole (Tapazole) 5 MG tablet Indications:Thyrotoxicosis, unspecified without thyrotoxic crisis or stormTake 1 tablet (5 mg) by mouth Daily 90 tablet /5Active metoprolol succinate XL (Toprol-XL) 25 MG 24 hr tablet Indications:Thyrotoxicosis with diffuse goiter without thyrotoxic crisis or stormTake 1 tablet (25 mg) by mouth Daily 90 tablet 5Active omeprazole (PriLOSEC) [address] capsule Take 40 mg by mouth in the morning and 40 mg in the evening. Take before meals. Active Active Problems ProblemNoted DateDiagnosed DateThyrotoxicosis with diffuse goiter without thyrotoxic crisis or storm12/25/2023bnormal results of thyroid function studies 12/25/2023 Encounters DateTypeDepartmentCare LarsUpwkejvlldj74/11/3293Pjazed98/28/2025Results Follow-Up [facility] [address] [place] [address] Valerie Collado NP [facility] CMP (CMP) (FOR REMOTE [facility] USE), ALL LIPID PROFILE (FASTING)11/06/2024 Clinisync Result Encounter [facility] Unsolicited Valerie Collado NP 10/25/2024 11:20 AM EDTOffice Visit [facility] [address] [place] [address] Valerie Collado NP Medicare annual wellness visit, subsequent (Primary Dx); Acute non-recurrent sinusitis of other sinus; Graves disease ; Heart palpitations; Chronic GERD; Cigarette smoker; Breast cancer screening by mammogram; Encounter for lipid screening for cardiovascular disease; BMI 21.0-21.9, adult10/25/2024amboo [facility]sheet [facility] [address] [place] [address] Valerie Collado NP 10/25/20249525Vfyxdh30/12/2025Travelfrom Last 3 Months Family History RelationNameStatusCommentsBrotherAlivex5 (1 )OfktgfgkIultya9Qtpuka DeceasedMotherDeceasedSisterAlivex2 Social History Tobacco UseTypesPacks/DayYears UsedDateSmoking Tobacco: Every DayCigarettes0.5 25.9Started: 02/10/1999Smokeless Tobacco: Never Tobacco Cessation:Ready to Q uit: No; Counseling Given: Yes Alcohol UseStandard Drinks/WeekCommentsNever0 (1 standard drink = 0.6 oz pure alcohol)B1300 Health LiteracyAnswerDate RecordedHow often do you need to have someone help you when you read instructions, pamphlets, or other written material from your doctor or pharmacy?Never10/22/2024Humiliation, Afraid, Rape, and Kick questionnaireAnswerDate RecordedWithin the last year, have you been afraid of your partner or ex-partner?No10/22/2024Within the last year, have you been humiliated or emotionally abused in other ways by your partner or ex-partner?No10/22/2024Within the last year, have you been kicked, hit, slapped, or otherwise physically hurt by your partner or ex-partner?No10/22/2024Within the last year, have you been raped or forced to have any kind of sexual activity by your partner or ex-partner?No10/22/2024Social Connection and Isolation Panel AnswerDate RecordedIn a typical week, how many times do you talk on the phone with family, friends, or neighbors?Three times a week10/22/2024How often do you get together with friends or relatives?Three times a week10/22/2024How often do you attend catholic or islam services?Patient mzebcffc40/12/2025Do you belong to any clubs or organizations such as catholic groups, unions, fraSTAT-[employer] or athletic groups, or school groups?No10/22/2024ttends Club or Organization MeetingsNot on file10/22/2024re you , , , , never , or living with a partner?Gznldzv4910/22/2024UDIT-CAnswerDate RecordedQ1: How often do you have a drink containing alcohol?Never10/22/2024Q2: How many drinks containing alcohol do you have on a typical day when you are drinking?Patient does not drink10/22/2024Q3: How often do you have six or more drinks on one occasion?Never10/22/2024Overall Financial Resource Strain (CARDIA) AnswerDate RecordedHow hard is it for you to pay for the very basics like food, housing, medical care, and heating?Not hard at all10/22/2024PHQ-2AnswerDate RecordedPatient Health Questionnaire-2 Gvygw543[facility] - Occupational Stress QuestionnaireAnswerDate RecordedDo you feel stress - tense, restless, nervous, or anxious, or unable to sleep at night because yourmind is troubled all the time - these days?Not at all10/22/2024 Exercise Vital SignAnswerDate RecordedOn average, how many days per week do you engage in moderate to strenuous exercise (like a brisk walk)?7 days10/22/2024On average, how many minutes do you engage in exercise at this level?60 min 10/22/2024Hunger Vital SignAnswerDate RecordedWithin the past 12 months, you worried that your food would run out before you got the money to buymore.Never true10/22/2024Within the past 12 months, the food you bought just didn't last and you didn't have money to get more.Never true10/22/2024PRAPARE - TransportationAnswerDate RecordedIn the past 12 months, has lack of transportation kept you from medical appointments or from getting medications?No 10/22/2024In the past 12 months, has lack of transportation kept you from meetings, work, or from getting things needed for daily living?No10/22/2024 Housing Stability Vital SignAnswerDate RecordedIn the last 12 months, was there a time when you were not able to pay the mortgage or rent on time?No10/22/2024 Number of Times Moved in the Last YearNot on file10/22/2024t any time in the past 12 months, were you homeless or living in a prison (including now)?No 10/22/2024CommentsNoSex and Gender InformationValueDate RecordedSex Assigned at BirthNot on fileLegal GegVncspw20/15/2023 7:30 PM EDTGender Identity Not on fileSexual OrientationNot on file Last Filed Vital Signs Vital SignReadingTime TakenCommentsBlood Cerozgrc048/7410/25/2024 11:35 AM EDT Qsoor651110/25/2024 11:35 AM YUXJlxnyereziu32.9 ??C (98.4 ??F)10/25/2024 11:35 AM EDTRespiratory Esid328006/29/2024 11:18 AM EDTOxygen Gbwtdvrirq11%10/25/2024 11:35 AM EDTInhaled Oxygen Concentration--Fwizaj26 kg (134 lb 6.4 oz)10/25/2024 11:35 AM XCTVulimi127.6 cm (5' 6 )10/25/2024 11:35 AM EDTBody Mass Index21.69 10/25/2024 11:35 AM EDT Plan of Treatment DateTypeDepartmentCare Team (Latest Contact Info)Ofonmthzcqr68/18/2025 11:00 AM ESTOffice Visit [facility] [place] [facility] [address] [place] [phone] Arslan Childers MD [address] [place] [address] Health MaintenanceDue DateLast DoneCommentsCT Hussirdsssvh96/04/1959FIT-DNA 1958FIT1958FOBT1958 7272Twmsieihlnvov77/04/1274Qwwpqjwhy82/04/1999 COVID-19 Vaccine ( season), 06/01/2023, 08/20/2021, Additional history existsMedicare Annual Wellness (AWV)10/25/2025 10/25/2024, 7631Hwuovzivcjv63Colorectal Cancer Screening 11/04/2029Pneumococcal Vaccine: 65+ MixenQapvakfaj63/08/2024Influenza Vaccine Csisomsyv82/24/2025, 11/11/2020, 12/28/2019 Procedures Procedure NamePriorityDate/TimeAssociated DiagnosisCommentsALL LIPID PROFILE (FASTING)Fjlvsjh5211/06/2024 9:22 AM EDT [facility] CMP (CMP) (FOR REMOTE [facility] USE)Lblvmes4211/06/2024 9:22 AM EDT from Last 3 Months Results * (ABNORMAL) [facility] CMP (CMP) (FOR REMOTE C USE) (11/06/2024 9:22 AM EDT) ComponentValueRef RangeTest MethodAnalysis TimePerformed AtPathologist VjubdmodfSRODNK557909 - 145 mmol/LTBHPOTASSIUM4.03.5 - 5.1 mmol/LTBHCHLORIDE 59828 - 107 mmol/LTBHCARBON JHDOWZQ04.421.0 - 32.0 mmol/LTBHANION GAP9.6TBH FQCAQRM3034 - 106 mg/dLTBHBLOOD UREA NITROGEN8.07.0 - 18.0 mg/dLTBHCREATININE 0.770.55 - 1.02 mg/dLTBHTBH EGFR-AF AUSTRALIAN>60>=60 mL/min/1.73m 2TBHTBH EGFR- NON AF AUSTRALIAN>60>=60 mL/min/1.73m 2TBHBUN CREATININE RATIO10.5NHBXKKBNEM3.5 8.5 - 10.1 mg/dLTBHBILIRUBIN TOTAL0.40.2 - 1.0 mg/dLTBHASPARTATE AMINO OJQCEYMNBJE77(L)15 - 37 U/LTBHALANINE LCOOKTJEKKGOBYGF7113 - 59 U/LTBHALKALINE CQBWKOIXHIY5883 - 116 U/LTBHTOTAL PROTEIN6.96.4 - 8.2 g/dLTBHALBUMIN LEVEL3.4 3.4 - 5.0 g/dLTBHGLOBULIN3.5g/dLTBHALBUMIN GLOBULIN RATIO1.0TBHSpecimen (Source)Anatomical Location / LateralityCollection Method / VolumeCollection TimeReceived Time11/06/2024 9:22 AM EDT11/06/2024 9:23 AM EDT Narrative [facility] - 11/06/2024 10:00 AM EDT Authorizing ProviderResult TypeResult StatusValerie Collado NPCLINISYNC Final ResultPerforming OrganizationAddressCity/State/ZIP CodePhone Number CLINISYKS TB * (ABNORMAL) ALL LIPID PROFILE (FASTING) (11/06/2024 9:22 AM EDT)ComponentValue Ref RangeTest MethodAnalysis TimePerformed AtPathologist Signature JHLZOBLWBGQFO13<=150 mg/bFEKOZMHQQEYOKCM219(H)<=200 mg/dLTBHHDL QPWJKQPPQBB93 (H)40 - 60 mg/dLTBHComment: > or =60 mg/dl - LOW CARDIOVASCULAR RISK <40 mg/dl - HIGH CARDIOVASCULAR RISK LDL CHOLESTEROL OTNAJDIELQ612.0mg/dLTBHComment: <100 mg/dl OPTIMAL 100-129 mg/dl NEAR OR ABOVE OPTIMAL 130-159 mg/dl BORDERLINE HIGH 160-189 mg/dl HIGH >190 mg/dl VERY HIGH VLDL WCDKSZKHEJR69.4mg/dLTBHCHOL HDL RATIO3.3TBHComment: 3.3 - 4.4 ?? LOW RISK 4.4 - 7.1 ?? AVERAGE RISK 7.1 - 11.0 ??MODERATE RISK >11.0 HIGH RISK Specimen (Source)Anatomical Location / LateralityCollection Method / Volume Collection TimeReceived Time11/06/2024 9:22 AM EDT11/06/2024 9:23 AM EDT Narrative [facility] - 11/06/2024 10:00 AM EDT Authorizing ProviderResult TypeResult StatusKaleijose daniel A Donnamiller NPCLINISYNC Final ResultPerforming OrganizationAddressCity/State/ZIP CodePhone Number CLINISYNC TBH from Last 3 Months Insurance Care Teams Team MemberRelationshipSpecialtyStart DateEnd Date Taya Oh MD [address] [place] [address] PCP - GeneralFamily Medicine09/17/23
--- OUTSIDE RECORDS SUMMARY | 2024-12-24 07:55 | XMS_ITS | Clinical Summary ---
Author Organization [facility] Address [address] [place] [address] Care Team Providers Care Car Installations Supervisor Name Role Phone Mela Collado MD Primary Care Provider + Allergies Active AllergyReactionsCriticalityNoted YxtzBckvfijdYknjlcrmyuRyjkg97/13/2025 Blacked out Medications MedicationSigDispense QuantityRefillsLast FilledStart DateEnd DateStatus methIMAzole (Tapazole) 5 mg tablet Take 5 mg by mouth. DAILY 5 days per week (not given on Sundays and Tuesdays) Active metoprolol succinate XL (Toprol-XL) 25 mg 24 hr tablet Take 25 mg by mouth in the morning. Do not crush or chew.Active omeprazole (PriLOSEC) [address] capsule Take 40 mg by mouth before breakfast and before evening meal. Do not crush or chew.Active povidone, PF, (iVizia, PF,) 0.5 % drops Administer 1 drop into affected eye(s) four times daily.Active multivitamin tablet Take 1 tablet by mouth in the morning.Active Active Problems ProblemNoted DateDiagnosed KxbmLvsjqleuhfgkugtzlmm95/13/2025 Assessment & Plan (08/24/2024 2:59 PM EDT): [...] control with morphine IV as needed Cigarette hqesll9808/22/2024Epigastric pain08/22/2024 Assessment & Plan (08/23/2024 3:50 PM EDT): - outside hospital CT exhibiting choledocholithiasis with significant CBD dilatation and cholelithiasis without significant pericholecystic inflammation - trend LFTs they are unremarkable - patient is afebrile and without white count or significant abdominal pain - GI consulted, planning for ERCP likely today Gastroesophageal reflux jfxyciu9608/22/2024History of rbzxzbqmy09/13/2025Tobacco user08/22/20247986Adzexsapybvxfc82/14/2024Graves zkplvra0712/25/2023 Assessment & Plan (08/23/2024 3:50 PM EDT): - Resume home methimazole Abnormal results of thyroid function pietqgv1712/25/2023 Encounters DateTypeDepartmentCare HxtwQubjbtvbvhc91/18/2025 2:09 PM EDT - 09/27/2024 11:[address] [facility] [address] [place] [address] Common bile duct calculi Discharge Disposition: Home or Self Care ()09/27/2024 2:04 PM EDTAnesthesia Event [facility] [address] [place] [address] Harsh Clinton MD Meehl, Austin, MD 09/27/2024 11:33 AM EDT - 09/27/2024 2:08 PM EDTHospital Encounter [facility] [address] [place] [address] Kathya Khoury MD Bhatt, Shashi B., MD Kanjuparamban, Jacob, CAA Common bile duct calculi Discharge Disposition: Home or Self Care ()09/27/2024Travelfrom Last 3 Months Immunizations ImmunizationAdministration DatesNext GywASW7310/23/2020Influenza, injectable, quadrivalent, preservative free11/11/2020,12/28/2019Pneumococcal Conjugate PCV 4RSV, Adult, Kacspjsgsad51/08/2024Zoster, Myhenvseorg90/15/2024, 02/07/2023 Social History Tobacco UseTypesPacks/DayYears UsedDateSmoking Tobacco: Every DayCigarettes0.315 Smokeless Tobacco: Never Tobacco Cessation:Ready to Q uit: Not Asked; Counseling Given: Not Answered Alcohol UseStandard Drinks/WeekCommentsNever0 (1 standard drink = 0.6 oz pure alcohol)[facility] UtilitiesAnswerDate RecordedIn the past 12 months has the electric, gas, oil, or water company threatened to shut off services in your home?No 08/22/2024Humiliation, Afraid, Rape, and Kick questionnaireAnswerDate Recorded Within the last year, have you been afraid of your partner or ex-partner?No 08/22/2024Emotionally AbusedNot on file08/22/2024Physically AbusedNot on file 08/22/2024Sexually AbusedNot on file08/22/2024Overall Financial Resource Strain (CARDIA)AnswerDate RecordedHow hard is it for you to pay for the very basics like food, housing, medical care, and heating?Not hard at all08/22/2024 TransportationAnswerDate RecordedIn the past 12 months, has lack of transportation kept you from medical appointments or from getting medications?No 08/22/2024Lack of Transportation (Non-Medical)Not on file08/22/2024Housing Stability Vital SignAnswerDate RecordedUnable to Pay for Housing in the Last YearNot on file08/22/2024Number of Times Moved in the Last YearNot on file 08/22/2024t any time in the past 12 months, were you homeless or living in a mcc (including now)?No08/22/2024Hunger Vital SignAnswerDate RecordedWithin the past 12 months, you worried that your food would run out before you got the money to buymore.Never true08/22/2024Ran Out of Food in the Last YearNot on file 08/22/2024CommentsNoSex and Gender InformationValueDate RecordedSex Assigned at WivvuBozleb96/13/2025 5:58 PM EDTLegal JgsKiyupx54/13/2025 5:27 PM EDTGender JrxxenvfAtunke03/13/2025 5:58 PM EDTSexual OrientationHeterosexual or Ekiepkov70/ 5:58 PM EDT Last Filed Vital Signs Vital SignReadingTime TakenCommentsBlood Ipgeyasq263/6308 3:20 PM EDT Ndouw779009/27/2024 3:20 PM XJAMkqxeareyxb63 ??C (96.8 ??F)09/27/2024 2:50 PM EDT Respiratory Qqju094409/27/2024 3:20 PM EDTOxygen Mmleeazaeu804%09/27/2024 3:20 PM EDTInhaled Oxygen Concentration--Bcytqr49.3 kg (135 lb 2.3 oz)09/27/2024 12:57 PM QIJNrccri593.6 cm (5' 6 )09/27/2024 12:57 PM EDTBody Mass Index21.81 09/27/2024 12:57 PM EDT Plan of Treatment Health MaintenanceDue DateLast DoneCommentsCT Ajpqmcspbplq38/04/1959FIT-DNA 1958FIT1958FOBT1958Medicare Annual Wellness (AWV)1958 Nrmmssluzdsdl65/04/1959Depression Hajijourq21/04/1971Adult Kphrjia3606/13/1980 Ouvmqkpes25/04/1999COVID-19 Vaccine ( season)/, 08/20/2021, 11/11/2020, Additional history existsInfluenza Vaccine (#1) /03/2020, 12/28/2019Fall Risk Grhtjzzyz37 Tferupmbfxk00/25/Colorectal Cancer Bmnhvvsil58/25/2030Pneumococcal Vaccine: 50+ FzwcxYigiiqvga02/08/2024Zoster HdivmsooNmogqjogg66/15/2024, 02/07/2023HIB VaccinesAged OutNo longer eligible based on patient's age to complete this topicHPV VaccinesAged OutNo longer eligible based on patient's age to complete this topicIPV VaccinesAged OutNo longer eligible based on patient's age to complete this topicMeningococcal B VaccineAged OutNo longer eligible based on patient's age to complete this topicMeningococcal VaccineAged OutNo longer eligible based on patient's age to complete this topicRotavirus Vaccines Aged OutNo longer eligible based on patient's age to complete this topic Medical Devices ExplantedTypeAreaManufacturerDevice IdentifierShelf Expiration DateModel / Serial / LotStent,Biliary,Dbl,[id number] - [id number] - [id number] Implanted:Qty: 1 on 08/23/2024 by Kathya Khoury MD at [facility] Explanted:Qty: 1 [facility] 09[facility]27/[address] [facility]/A: Bile DuctGEORGIANA MEDICAL CENTERTON SCIENTIFIC/[id number] / [id number] / [id number] Procedures Procedure NamePriorityDate/TimeAssociated DiagnosisCommentsFL LESS THAN 1 HOUR HACHTPXRCMCPJKQuaijaw50/18/2025 2:52 PM EDT Common bile duct calculi ENDOSCOPIC RETROGRADE VCKOWLTAYULWQAZZMLEGPLEEPtjrltl10/18/2025 2:49 PM EDT Common bile duct calculi IN AN ELECTIVE ENDOTRACHEAL SCGKLVWzwsnxh32/18/2025 2:11 PM EDT POCT GLUCOSE METER UNSOLICITED GQENSRMHfyahtw56/18/2025 12:55 PM EDT from Last 3 Months Results * FL LESS THAN 1 HOUR INTRAOPERATIVE (09/27/2024 2:52 PM EDT)Anatomical Region LateralityModalityX-Ray AngiographySpecimen (Source)Anatomical Location / LateralityCollection Method / VolumeCollection TimeReceived Time09/27/2024 3:00 PM EDT Impressions 09/27/2024 3:01 PM EDT Intraoperative fluoroscopy provided as above. ??See operative report for additional details. Electronically signed: Dale Ruiz MD. Narrative 09/27/2024 3:01 PM EDT FL IN ENDO INDICATION: Choledocholithiasis FINDINGS: Intraoperative fluoroscopy provided. No radiologist present during the examination. Reference Air Kerma: 110.6 mGy Procedure Note Dale Ruiz MD - 09/27/2024 FL IN ENDO INDICATION: Choledocholithiasis FINDINGS: Intraoperative fluoroscopy provided. No radiologist present during the examination. Reference Air Kerma: 110.6 mGy IMPRESSION: Intraoperative fluoroscopy provided as above. See operative report for additional details. Electronically signed: Dale Ruiz MD. Authorizing ProviderResult TypeResult StatusKathya Khoury MDIMG FLUOROSCOPY PROCEDURESFinal Result * ERCP w/ Stent Removal, w/ Stent Exchange, w/ Balloon Dilation (09/27/2024 2:49 PM EDT)Anatomical RegionLateralityModalityEndoscopySpecimen (Source)Anatomical Location / LateralityCollection Method / VolumeCollection TimeReceived Time Narrative 09/27/2024 5:57 PM EDT Endoscopic Retrograde Cholangiopancreatography (ERCP) Procedure Note Procedure: ??ERCP with stone and stent removal, and balloon dilation. Indications: ??Jessica Saavedra is a 64 y.o. female who had a history of biliary colic secondary to choledocholithiasis, CT scan of abdomen revealed large common bile duct stones. ??ERCP was performed on August 23, 2024 and revealed large common bile duct stone that measured 18 to 20 mm in size with diffusely dilated common bile duct. ??Mechanical lithotripsy was performed and multiple large stones were removed from the common bile duct after biliary sphincterotomy was performed. ??A 10 Japanese by 5 cm double-pigtail plastic biliary stent was placed at that time to maintain drainage. ??The patient is presenting today to have repeat ERCP for common bile duct stent removal and for final clearance of the common bile duct. Sedation: ??General assistant professor of economics Physician: ??Kathya Khoury MD Procedure Details Informed consent was obtained for the procedure, including sedation. ?? Risks of pancreatitis, infection, perforation, hemorrhage, adverse drug reaction and aspiration were discussed. ??The patient was placed in the left lateral decubitus position. ??The patient was monitored continuously with ECG tracing, pulse oximetry, blood pressure monitoring, and direct observations. ?? The duodenoscope was inserted into the mouth and advanced to the third portion of the duodenum; findings and interventions are described below. ?? The patient tolerated the procedure well, and there were no immediate complications. She was taken to the recovery area in stable condition. Findings: The major papilla was identified and the previously placed plastic double-pigtail biliary stent was noted protruding through the papilla into the duodenal lumen. ??The stent was removed with a snare. ??The Rx-44 sphincterotome loaded with a 0.035 inch guidewire was used to cannulate the common bile duct which was successfully achieved. ??Contrast was injected. ??Diffusely dilated common bile duct was identified with small filling defect noted within the common bile duct. ??The guidewire was placed within the common bile duct and the sphincterotome was then removed over the guidewire. ??A 12 mm x 4 cm HurriCaine dilating balloon catheter was then advanced over the guidewire and positioned at the site of the major papilla. ??Balloon dilation sphincteroplasty was performed up to 10 mm. ??The dilating balloon catheter was removed over the guidewire and the 15-18 mm injecting below retrieval balloon catheter was advanced over the guidewire into the common bile duct. ??The common bile duct was swept few times. ??Few small stones fragments were removed from the common bile duct with balloon sweep. ??Final cholangiogram revealed no filling defects within the common bile duct. ??The retrieval balloon catheter was removed with the guidewire followed by removal of the scope. ??The procedure was performed under fluoroscopic guidance and I did the interpretation of the fluoroscopic images. ??The scope was then withdrawn and the patient tolerated the procedure well and was sent to the recovery in stable condition. Specimens: No specimens collected ? Complications: ??None Estimated blood loss: Minimal ? Disposition: Home ? Condition: stable Impression: ?? Successful removal of previously placed common bile duct stent. Diffusely dilated common bile duct up to 22 mm with no distal common bile duct stricture noted. ?? Successful removal of few small stone's fragments from the common bile duct with balloon sweep after balloon dilation sphincteroplasty was performed. ??Final cholangiogram revealed no filling defects within the common bile duct. Recommendations: Clear liquid diet today. ??Advance her diet tomorrow morning if the patient is asymptomatic. Will see the patient on a as needed basis. Attending Attestation: I performed the procedure. Authorizing ProviderResult TypeResult StatusMela Collado MDENDOSCOPY PROCEDURE ORDERABLESFinal Result * IN AN ELECTIVE ENDOTRACHEAL AIRWAY (09/27/2024 2:11 PM EDT) Trinity Manuel KaiNABILA - 09/27/2024 2:11 PM EDT Kai GermanmilenameenaNABILA 09/27/2024 2:26 PM Airway Date/Time: 09/27/2024 2:11 PM Reason: elective General Information and Staff Patient location during procedure: OR Anesthesiologist: Harsh Clinton MD Resident/DARIN/NABILA: NABILA Berumen Performed: resident/SIDER MECHANIC/NABILA Patient Condition Indications for airway management: anesthesia [...] 1 Number of other approaches attempted: 0 Authorizing ProviderResult TypeResult Yvonne Clinton MDANESTHESIA ORDERABLESFinal Result * POCT glucose meter (09/27/2024 12:55 PM EDT)ComponentValueRef RangeTest Method Analysis TimePerformed AtPathologist SignatureGlucose TFH7374 - 105 mg/dL 09/27/2024 1:08 PM EDTRE[facility])Comment:miwardSpecimen (Source)Anatomical Location / LateralityCollection Method / VolumeCollection TimeReceived TimeBloodCapillary blood specimen / Wzvjewm5709/27/2024 12:55 PM EDT09/27/2024 1:08 PM EDT Narrative [facility] ([facility]) - 09/27/2024 1:08 PM EDT Waived Testing in the ED is performed under the ED CLIA certificate #[id number]. Authorizing ProviderResult TypeResult Alan Khoury MDLAB BLOOD ORDERABLES Final ResultPerforming OrganizationAddressCity/State/ZIP CodePhone Number [facility] ([place]) [address] [place] [address] from Last 3 Months Insurance Advance Directives * Full Code (Latest Code Status on File) Date ActivatedDate InactivatedComments08/22/2024 10:21 PM08/24/2024 6:23 PM Care Teams Team MemberRelationshipSpecialtyStart DateEnd Date Mela Collado MD [address] [place] [address] PCP - General08/22/24
--- OUTSIDE RECORDS SUMMARY | 2024-12-24 07:55 | XMS_ITS | Encounter Summary ---
Author Organization [facility] Address [address] [facility] [place] [address] Care Team Providers Care Reserves Clerk Name Role Phone Taya Oh MD Primary Care Provider [phone] Encounter Details DateTypeDepartmentCare Team (Latest Contact Info)Lquqxdqytit75/11/2025Travel Social History Tobacco UseTypesPacks/DayYears UsedDateSmoking Tobacco: Every DayCigarettes0.5 25.9Started: 02/10/1999Smokeless Tobacco: NeverAlcohol UseStandard Drinks/Week CommentsNever0 (1 standard drink = 0.6 oz pure alcohol)B1300 Health Literacy AnswerDate RecordedHow often do you need to have someone help you when you read instructions, pamphlets, or other written material from your doctor or pharmacy? Never10/22/2024Humiliation, Afraid, Rape, and Kick questionnaireAnswerDate RecordedWithin the last year, have you been afraid of your partner or ex-partner?No10/22/2024Within the last year, have you been humiliated or emotionally abused in other ways by your partner or ex-partner?No10/22/2024 Within the last year, have you been kicked, hit, slapped, or otherwise physically hurt by your partner or ex-partner?No10/22/2024Within the last year, have you been raped or forced to have any kind of sexual activity by your part ner or ex-partner?No10/22/2024Social Connection and Isolation PanelAnswerDate RecordedIn a typical week, how many times do you talk on the phone with family, friends, or neighbors?Three times a week10/22/2024How often do you get together with friends or relatives?Three times a week10/22/2024How often do you attend latter-day or yarsanism services?Patient /12/2025Do you belong to any clubs or organizations such as latter-day groups, unions, [employer] or athletic arsenio ups, or school groups?No10/22/2024ttends Club or Organization MeetingsNot on file10/22/2024re you , , , , never , or living with a partner?Uwfayrm9010/22/2024UDIT-CAnswerDate RecordedQ1: How often do you have a drink containing alcohol?Never10/22/2024Q2: How many drinks containing alcohol do you have on a typical day when you are drinking?Patient does not drink10/22/2024Q3: How often do you have six or more drinks on one occasion?Never10/22/2024Overall Financial Resource Strain (CARDIA)AnswerDate RecordedHow hard is it for you to pay for the very basics like food, housing, medical care, and heating?Not hard at all10/22/2024PHQ-2AnswerDate Recorded Patient Health Questionnaire-2 Dcpro036[facility] [place] [facility] - Occupational Stress QuestionnaireAnswerDate RecordedDo you feel stress - tense, restless, nervous, or anxious, or unable to sleep at night because your mind is troubled all the time - these days?Not at all10/22/2024Exercise Vital SignAnswerDate RecordedOn average, how many days per week do you engage in moderate to strenuous exercise (like a brisk walk)?7 days10/22/2024On average, how many minutes do you engage in exercise at this level?60 min10/22/2024Hunger Vital SignAnswerDate RecordedWithin the past 12 months, you worried that your food would run out before you got the money to buymore.Never true10/22/2024 Within the past 12 months, the food you bought just didn't last and you didn't have money to get more.Never true10/22/2024PRAPARE - TransportationAnswerDate RecordedIn the past 12 months, has lack of transportation kept you from medical appointments or from getting medications?No10/22/2024In the past 12 months, has lack of transportation kept you from meetings, work, or from getting things needed for daily living?No10/22/2024Housing Stability Vital SignAnswerDate RecordedIn the last 12 months, was there a time when you were not able to pay the mortgage or rent on time?No10/22/2024Number of Times Moved in the Last Year Not on file10/22/2024t any time in the past 12 months, were you homeless or living in a jail (including now)?No10/22/2024CommentsNoSex and Gender InformationValueDate RecordedSex Assigned at BirthNot on fileLegal SexFemale 04/24/2022 7:30 PM EDTGender IdentityNot on fileSexual OrientationNot on file documented as of this encounter Plan of Treatment DateTypeDepartmentCare Team (Latest Contact Info)Hredrudrnwe12/18/2025 11:00 AM ESTOffice Visit [facility] [address] [place] [address] Arslan Childers MD [address] [place] [address] documented as of this encounter Visit Diagnoses Not on filedocumented in this encounter Care Teams Team MemberRelationshipSpecialtyStart DateEnd Date Taya Oh MD [address] [place] [address] PCP - GeneralFamily Medicine09/17/23documented as of this encounter
[2024-12-24 09:07] LABS: Free T3 2.08 pg/mL (2.18-3.98); Thyroid Stimulating Hormone 3.552 uIU/mL (0.358-3.740)
== END 2024-12-24 07:51 | disposition home or self-care (01) ==
LOC: LAB 07:52
PROVIDERS: PCP Nurse Practitioner Family; Visit Provider Internal Medicine
DX: E05.00 Thyrotoxicosis with diffuse goiter without thyrotoxic crisis or storm (principal)
CPT/HCPCS: 36415; 84439; 84443; 84481